=== PATIENT | female | born 1930 | race Asian ===

== ENCOUNTER 2018-03-16 08:22 | Inpatient (IN) | payer MEDICARE, BC ==
[~2018-03-16] VITALS: Ht 157.5 cm; Wt 50.5 kg
[2018-03-16] MEDS ORDERED: SOD CHLORIDE 0.9% 1,000 ML IV STA (08:38)
[2018-03-16] MEDS ORDERED: CEFEPIME 2GM/50 ML (PMX) 50 ML IVPB STA (08:56)
[2018-03-16] MEDS ORDERED: SODIUM CHLORIDE 0.9% 1L BAG IV* STA (08:56)
[2018-03-16] MEDS ORDERED: AZITHROMYCIN 500MG/NS (PMX) 250 ML IVPB ONE (09:30)
[2018-03-16] MEDS ORDERED: LOSA100T15 PO (09:32)
[2018-03-16] MEDS ORDERED: AMLO1CAP10 PO (09:32)
[2018-03-16] MEDS ORDERED: LINA1TAB PO (09:34)
[2018-03-16] MEDS ORDERED: GLIP1TAB6 PO (09:36)
[2018-03-16] MEDS ORDERED: ALEN70TA5 PO (09:37)
--- NOTE | 2018-03-16 11:24 | HP ---
Date/Time of Note Date/Time of Note DATE: 03/16/18 TIME: 11:24 Assessment/Plan VTE Prophylaxis SCD applied (from Nsg): Yes Pharmacological prophylaxis: LMWH Lines/Catheters IV Catheter Type (from Nrsg): Saline Lock Assessment/Plan Assessment/Plan 1. Altered toxic encephalopathy secondary to Pneumonia - Patient usually able to care for herself in assisted living but has been more confused and weak lately - CT scan of head negative for acute abnormalities - Continue monitoring neurological status 2. Sepsis secondary to Right perihilar and LL Pneumonia - started on IVF and broad spectrum antibiotics for treatment of CAP - will start on Nebs PRN as well - Lactic acid elevated and will continue to trend. Monitor for improvement - Tylenol PRN for fevers - calle cultures ordered 3. 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 Leukocytosis - secondary to #2 5. Diabetes Mellitus - A1c noted - will hold home PO medications - ISS and accuchecks 6. Lactic acidosis - elevated in setting of sepsis and pt on Metformin as outpatient 7. HTN - stable. will continue home medications and hold for hypotension. 8. Gait instability - will order PT/OT for evaluation 9. Diet - Carb controlled 10. DVT ppx - LMWH 11. Disposition - Admit to telemetry for acute toxic encephalopathy and treatment of community acquired pneumonia HPI/ROS Admit Date/Time Admit Date/Time 03/16/18 1400 Hx of Present Illness 87 yo F with PMH Dm and HTN presented to ED for altered mental status. Patient is Romanian speaking but not really responding. History obtained from ED physician and son. Per sone patient has been more weak lately which has been causing recurrent falls. Patient fell last night and has been more confused. She resides in an assisted living and usually able to care for herself. EMS was called secondary to patient being unable to get up from toilet due to weakness and AMS. Unable to obtain full HPI given AMS. ROS All 12 systems reviewed and pertinent positives as per HPI. All others negative. ROS limited due to AMS. Constitutional: fatigue; No nausea Eyes: No discharge ENT: No congestion Respiratory: cough, sputum; No shortness of breath, No wheezing Cardiovascular: No chest pain, No lightheadedness, No palpitations Gastrointestinal: No pain, No constipation, No diarrhea, No nausea, No vomiting Genitourinary: no complaints Musculoskeletal: no complaints Skin: No laceration, No rash Neurologic: confusion; No focal-weakness, No syncope Endocrine: no complaints Lymphatic: no complaints Psychological: nl mood/affect Immunologic: no complaints PMH/Family/Social Past Medical History Medical History: diabetes, hypertension Coded Allergies: No Known Allergy (Unverified , 03/16/18) Past Surgical History Past Surgical Hx: other (unable to obtain, left hip replacement on imaging) Family History Significant Family History: no pertinent family hx Social History Alcohol Use: none Smoking Status: Never smoker Drug Use: none Exam/Review of Systems Vital Signs Vitals Vital Signs Date Temp Pulse Resp B/P (MAP) Pulse Ox O2 O2 Flow FiO2 Time Delivery Rate 03/16/18 Nasal 2 09:31 Cannula 03/16/18 98.0 91 18 129/81 91 08:23 (97) Exam Exam General: fatigued, no acute distress. not answering questions but awake HEENT: NC/AT. PERRL. EOM intact Chest: nontender Neck: supple CVS: S1, S2 regular rate and rhythm. no murmurs Lungs: coarse breath sounds bases R>L. no wheezing appreciate. productive cough appreciated Abd: soft, nontender, nondistended, no rebound or guarding. +BS appreciated all quadrants Ext: moving all extremities. no cyanosis, clubbing or edema appreciated Skin: no rashes or lesions appreciated. Medications Medications Home medications reviewed Current Medications Losartan Potassium (Cozaar) 100 mg DAILY PO ; Start 03/17/18 at 09:00; Status UNV Amlodipine Besylate (Norvasc) 5 mg DAILY PO ; Start 03/17/18 at 09:00; Status UNV Dextrose/Sodium Chloride 1,000 ml @ 75 mls/hr [id number] IV ; Start 03/16/18 at 11:19; Status UNV IV Flush (NS 3 ml) 3 ml PER PROTOCOL IV ; Start 03/16/18 at 11:30; Status UNV Ondansetron HCl (Zofran Inj) 4 mg Q6H PRN IV NAUSEA AND/OR VOMITING; Start 03/16/18 at 11:30; Status UNV Acetaminophen (Tylenol Tab) 650 mg Q6H PRN PO PAIN LEVEL 1-3 OR FEVER; Start 03/16/18 at 11:30; Status UNV Docusate Sodium (Colace) 100 mg Q12H PRN PO CONSTIPATION; Start 03/16/18 at 11:30; Status UNV Magnesium Hydroxide (Milk Of Mag) 30 ml DAILY PRN PO CONSTIPATION; Start 03/16/18 at 11:30; Status UNV Famotidine (Pepcid Iv) 20 mg Q12 IV ; Start 03/16/18 at 21:00; Status UNV Enoxaparin Sodium (Lovenox) 30 mg DAILY SC ; Start 03/17/18 at 09:00; Status UNV Results Result Diagram: 03/16/18 0820 03/16/18 0820 Results 24 hrs Laboratory Tests Test 03/16/18 08:20 03/16/18 09:00 03/16/18 09:15 03/16/18 09:50 White Blood 25.0 H Count Red Blood Count 3.58 L Hemoglobin 11.5 L Hematocrit 33.0 L Mean Corpuscular 92.2 Volume Mean Corpuscular 32.1 Hemoglobin Mean Corpuscular 34.8 Hemoglobin Saundra nt Red Cell 12.0 Distribution Width Platelet Count 141 Mean Platelet 11.9 H Volume Immature 0.600 H Granulocytes % Neutrophils % Segmented 97 H Neutrophils % (Manual) Band Neutrophils 3 % (Manual) Lymphocytes % Monocytes % Eosinophils % Basophils % Nucleated Red 0.0 Blood Cells % Immature 0.140 H Granulocytes # Neutrophils # Neutrophils # 24.4 H (Manual) Band Neutrophils 0.7 H # Lymphocytes # Monocytes # Eosinophils # Basophils # Nucleated Red Blood Cells # Toxic 1+ Granulation Platelet NORMAL Estimate Poikilocytosis 1+ Sodium Level 134 L Potassium Level 3.5 Chloride Level 91 L Carbon Dioxide 24 Level Anion Gap 19 H Blood Urea 50 H Nitrogen Creatinine 1.61 H Est Glomerular Filtrat Rate mL/min Glucose Level 301 H Calcium Level 8.7 Total Bilirubin 1.3 Direct Bilirubin 0.70 H Indirect 0.6 Bilirubin Aspartate Amino 108 H Transf (AST/SGOT ) Alanine 59 Aminotransferase (ALT/SGPT) Alkaline 227 H Phosphatase Total Protein 7.3 Albumin 3.4 Globulin 3.90 H Albumin/Globulin 0.87 Ratio Urine Color ANICETO Urine Clarity TURBID A Urine pH 5.0 Urine Specific 1.018 [place] Urine Ketones NEGATIVE Urine Nitrite NEGATIVE Urine Bilirubin NEGATIVE Urine 2+ H Urobilinogen Urine Leukocyte NEGATIVE Esterase Urine 0 Microscopic RBC Urine 8 H Microscopic WBC Urine Squamous FEW Epithelial Cells Urine Amorphous FEW A Crystals Urine Bacteria FEW A Urine Mucus FEW A Urine Hemoglobin 3+ H Urine Glucose 1+ H Urine Total 2+ H Protein POC Venous 2.5 *H Lactate Troponin I 0.039 Test 03/16/18 11:18 POC Venous 2.4 *H Lactate Imaging PROCEDURE: CT Brain without contrast. CLINICAL INDICATION: Altered mental status TECHNIQUE: A CT of the brain was performed utilizing axial imaging from the s kull base through the vertex without IV contrast. Multiplanar reformatted images were made. Images were reviewed on a PACS workstation. CTDIvol: 39.64 mGy DLP: 634.23 mGycm DICOM images are available. One or more of the following dose reduction techniques were utilized: 1.) Automated exposure control 2.) Adjustment of the mA +/- kV according to patient's size 3.) Use of iterative reconstruction technique. COMPARISON: CT BRAIN 06/02/2013 FINDINGS: CALVARIUM: Regional bones are intact. SINUSES: Paranasal sinuses and mastoid air cells are clear. BRAIN: There is moderate cerebral volume loss and there is confluent diminished attenuation throughout the cerebral white matter consistent with advanced chronic small vessel ischemic changes. Atherosclerotic calcification of the carotid siphons. Dinero - white differentiation is maintained and there is no evidence of an acute or subacute territorial infarction. No intracranial mass or evidence of hemorrhage. Ventricular prominence is in keeping with degree of sulcal and sylvian fissure widening. IMPRESSION: 1. No acute intracranial abnormality. 2. Generalized volume loss, atherosclerosis, advanced chronic small vessel i schemic changes. RPTAT: [facility] Physician Loida Date Time Electronically viewed and signed by Physician Loida on 03/16/2018 09:20 PROCEDURE: XR Chest. CLINICAL INDICATION: Chest pain TECHNIQUE: Single frontal view of the chest was obtained COMPARISON: None FINDINGS: The heart is enlarged. The thoracic aorta is calcified. There is extensive right perihilar and right lower lobe consolidation. There is a small amount of fluid in the right major fissure. There is no pneumothorax. RPTAT: AA IMPRESSION: Extensive right perihilar and right lower lobe consolidation with a small amount of fluid in the right major fissure. Mild cardiomegaly. Calcified aorta consistent with atherosclerotic disease. .Vishun Thompson MD, MD Date Time Electronically viewed and signed by .Vishnu Thompson MD, MD on 03/16/2018 09:02 PROCEDURE: XR Pelvis 1 View. CLINICAL INDICATION: Pelvic pain and trauma. TECHNIQUE: Single AP view of the pelvis. COMPARISON: No prior studies are available for comparison. FINDINGS: Fracture: Deformities of the bilateral superior and inferior pubic rami that are likely the sequelae of old, healed trauma. Left hip fracture fixation. The underlying fracture site is not well visualized and may be healed. Destructive lesions: None. Interosseous spaces: Moderate narrowing of bilateral hip joints. Degenerative changes in the lower lumbar spine and pubic symphysis. Soft tissues: Vascular calcifications in the pelvis in both thighs. Other: Osteopenia. IMPRESSION: Deformities of the bilateral superior and inferior pubic rami that may be the sequelae of old, healed trauma. Superimposed acute trauma could be difficult to detect against a background of old, healed trauma. If there is high clinical suspicion for acute traumatic injury further characterization with CT should be considered. Left hip fracture fixation. The underlying fracture site is not well visualized and may be healed. Osteopenia. Moderate osteoarthritis of both hips. Degenerative changes in the lower lumbar spine and pubic symphysis. Vascular calcifications. If there is high clinical suspicion for acute traumatic injury, further evaluation with CT should be considered. RPTAT: AA .Maxx Farris MD, Date Time Electronically viewed and signed by .Maxx Farris MD, on 03/16/2018 09:38 LIS PIZANO MD Mar 16, 2018 11:24
[2018-03-16] MEDS ORDERED: MAGNESIUM HYDROXIDE 30ML CUP PO PRN (11:30)
[2018-03-16] MEDS ORDERED: DOCUSATE SODIUM 100 MG CAP PO PRN (11:30)
[2018-03-16] MEDS ORDERED: NACL 0.9% 3 ML SYG IV SCH (11:30)
[2018-03-16] MEDS ORDERED: ACETAMINOPHEN 325 MG TAB PO PRN ×2 (11:30)
[2018-03-16] MEDS ORDERED: ONDANSETRON 4 MG INJ IV PRN ×2 (11:30)
[2018-03-16] MEDS ORDERED: ALBUTEROL 0.083% (NEB) 2.5 MG/3 ML AMP HHN PRN (11:30)
[2018-03-16] MEDS ORDERED: AZITHROMYCIN 500MG/NS (PMX) 250 ML IVPB SCH (11:30)
--- NOTE | 2018-03-16 12:05 | ERD ---
ER Documentation Chief Complaint Chief Complaint MORE ALTERED THAN NORMAL HPI 87-year-old female brought in from her assisted living accompanied by son with chief complaint of altered mental status. Per her son, the last few days she has been more confused than usual. But she is normally able to take care of herself at her assisted living. She recently fell and today ambulance was called because she could not get off the toilet as she was generally weak. She has not been talking to her son today. As she is not answering questions, review of systems are limited. ROS Limited given altered mental status Medications Home Meds Reported Medications Alendronate Sodium* (Fosamax*) 70 Mg Tablet, 70 MG PO Q7D, #4 TAB 03/16/18 Glipizide/Metformin HCl (Glipizide-Metformin 5-500 mg) 1 Each Tablet, 1 EACH PO DAILY, TAB 03/16/18 Linagliptin-Metformin (Jentadueto) 2.5-500 Mg Tablet, 1 TAB PO DAILY, TAB 03/16/18 Losartan Potassium* (Losartan Potassium*) 100 Mg Tablet, 100 MG PO DAILY, TAB 03/16/18 Amlodipine Besylate/Benazepril (Amlodipine-Benazepril 5-20 mg) 1 Each Capsule, 1 EACH PO DAILY, CAP 03/16/18 Allergies Allergies: Coded Allergies: No Known Allergy (Unverified , 03/16/18) PMhx/Soc Hx Cardiac Disorders: Yes (HTN) Hx Miscellaneous Medical Probl: Yes (DM) Hx Alcohol Use: No Hx Substance Use: No Hx Tobacco Use: No Smoking Status: Never smoker FmHx Unable to obtain Physical Exam Vitals Vital Signs Date Temp Pulse Resp B/P (MAP) Pulse Ox O2 O2 Flow FiO2 Time Delivery Rate 03/16/18 98.0 89 20 119/62 100 Nasal 2.0 11:24 (81) Cannula 03/16/18 Nasal 2 09:31 Cannula 03/16/18 98.0 91 18 129/81 91 08:23 (97) Physical Exam INITIAL VITAL SIGNS: Reviewed by me GENERAL: Patient is lying on gurney HEAD: Normocephalic, atraumatic EYES: EOMI. PERRL. No icterus. No pallor. Lids, lashes, and conjunctiva clear. ENT: Dry membranes dry, no erythema or tonsillar exudates. Airway patent. NECK: Supple. No masses. Full range of motion. No meningismus. No lymphadenopathy RESPIRATORY: Diminished breath sounds bilaterally with poor effort on exam. No wheezing, No rales, No rhonchi. No accessory muscle use. No retractions. CV: Regular rate and rhythm. No murmurs, No rubs or gallops. ABDOMEN: Soft, non-distended, non-tender. No guarding. No rebound. No pulsatile mass. Bowel sounds normal. BACK: Non-tender. No CVA tenderness. EXTREMITIES: No edema. No clubbing or cyanosis. Pulses symmetric. No deficits or delays. Calves non-tender. No cords. Pelvis stable. Intact passive range of motion of all extremities SKIN: Warm and dry. Decreased turgor. No obvious rash, petechiae or purpura. NEUROLOGIC: Awake and alert. Moves all extremities equally. Does not follow commands. No focal deficits. Result Diagram: 03/16/18 0820 03/16/18 0820 Results 24 hrs Laboratory Tests Test 03/16/18 08:20 03/16/18 09:00 03/16/18 09:15 03/16/18 09:50 White Blood 25.0 10^3/ul Count Red Blood Count 3.58 10^6/ul Hemoglobin 11.5 g/dl Hematocrit 33.0 % Mean 92.2 fl Corpuscular Volume Mean 32.1 pg Corpuscular Hemoglobin Mean 34.8 g/dl Corpuscular Hemoglobin Conc ent Red Cell 12.0 % Distribution Width Platelet Count 141 10^3/UL Mean Platelet 11.9 fl Volume Immature 0.600 % Granulocytes % Neutrophils % % Segmented 97 % Neutrophils % (Manual) Band 3 % Neutrophils % (Manual) Lymphocytes % % Monocytes % % Eosinophils % % Basophils % % Nucleated Red 0.0 /100WBC Blood Cells % Immature 0.140 10^3/ul Granulocytes # Neutrophils # 10^3/ul Neutrophils # 24.4 10^3/ul (Manual) Band 0.7 10^3/ul Neutrophils # Lymphocytes # 10^3/ul Monocytes # 10^3/ul Eosinophils # 10^3/ul Basophils # 10^3/ul Nucleated Red 10^3/ul Blood Cells # Toxic 1+ Granulation Platelet NORMAL Estimate Poikilocytosis 1+ Sodium Level 134 mmol/L Potassium Level 3.5 mmol/L Chloride Level 91 mmol/L Carbon Dioxide 24 mmol/L Level Anion Gap 19 Blood Urea 50 mg/dl Nitrogen Creatinine 1.61 mg/dl Est Glomerular mL/min Filtrat Rate mL/min Glucose Level 301 mg/dl Hemoglobin A1c 6.9 % Calcium Level 8.7 mg/dl Total Bilirubin 1.3 mg/dl Direct 0.70 mg/dl Bilirubin Indirect 0.6 mg/dl Bilirubin Aspartate Amino 108 IU/L Transf (AST/SGO T) Alanine 59 IU/L Aminotransferas e (ALT/SGPT) Alkaline 227 IU/L Phosphatase Total Protein 7.3 g/dl Albumin 3.4 g/dl Globulin 3.90 g/dl Albumin/Globuli 0.87 n Ratio Urine Color ANICETO Urine Clarity TURBID Urine pH 5.0 Urine Specific 1.018 [place] Urine Ketones NEGATIVE mg/dL Urine Nitrite NEGATIVE mg/dL Urine Bilirubin NEGATIVE mg/dL Urine 2+ mg/dL Urobilinogen Urine Leukocyte NEGATIVE Elise/ul Esterase Urine 0 /HPF Microscopic RBC Urine 8 /HPF Microscopic WBC Urine Squamous FEW /HPF Epithelial Cell s Urine Amorphous FEW /HPF Crystals Urine Bacteria FEW /HPF Urine Mucus FEW /HPF Urine 3+ mg/dL Hemoglobin Urine Glucose 1+ mg/dL Urine Total 2+ mg/dl Protein POC Venous 2.5 mmol/L Lactate Troponin I 0.039 ng/ml Test 03/16/18 11:18 POC Venous 2.4 mmol/L Lactate Current Medications Medications Dose Sig/Jeanne Start Time Status Last (Trade) Ordered Route PRN Stop Time Admin Dose Reason Admin Sodium 1,000 ml @ Q1H STAT 03/16/18 DC 03/16/18 Chloride 1,000 mls/hr IV 08:38 08:47 03/16/18 09:37 Sodium 800 ml BOLUS OVER 2 03/16/18 DC 03/16/18 Chloride HOURS STAT 08:56 10:11 (NS) IV* 03/16/18 08:57 Cefepime HCl 50 ml @ ONCE STAT 03/16/18 DC 03/16/18 100 mls/hr IVPB 08:56 09:25 03/16/18 09:25 Azithromycin 250 ml @ ONCE ONCE 03/16/18 DC 03/16/18 250 mls/hr IVPB 09:30 10:10 03/16/18 10:29 1,000 ml @ [id number] IV 03/16/18 Dextrose/Sodi 75 mls/hr 11:19 um Chloride Procedures/MDM EMERGENT LABS AND DIAGNOSTIC STUDIES: Lab Results above were reviewed and interpreted by me. CBC: Leukocytosis, concerning for infection. Mild anemia CMP: Elevated BUN and creatinine, consistent with acute renal failure. Hyperglycemic without evidence of acidosis or alkalosis. Troponin within normal limits, not indicative of cardiac ischemia Lactate elevated, consistent with severe sepsis UA: Possible infection, urine culture pending 12-lead EKG was interpreted by Farheen Cantu MD: Normal Sinus Rhythm with ventricular rate of 86 beats per minute Normal axis Normal intervals No acute ST or T wave changes suggestive of acute ischemia or STEMI. Radiology Results as interpreted by Radiology below were reviewed by Mindi Cantu MD: Chest x-ray shows right-sided pneumonia Initial Nursing notes reviewed. Previous Medical Records requested via the Electronic Health Record. EMERGENCY DEPARTMENT COURSE / MEDICAL DECISION MAKING: Patient is presenting with altered mental status from baseline. There was initially no clear source of infection on exam. Her oxygen saturations were noted to be low. She was placed on oxygen. Workup is indicative of a right- sided community-acquired pneumonia and possible UTI. She was treated with IV fluids and broad-spectrum antibiotics. CT head did not show any evidence of acute stroke or intracranial hemorrhage. Doubt meningitis or encephalitis. Patient's infectious symptoms have not stabilized and the patient is at risk of rapid decompensation. The patient will be admitted for careful hydration, antibiotic therapy, and infectious source control. Severe Sepsis Assessment: Infectious Source: Community acquired pneumonia End organ damage indicated by: Lactate > 2.0 mmol/L Acute Resp Failure (sat < 92% w/o oxygen) Severe Sepsis Managment: Blood Cultures X 2 before broad spectrum antibiotics initiated within 3 hours of recognition. 30 ml/kg NS bolus Completed Initial Lactate: 2.5 Repeat Lactate 2.4 Critical Care: Time: 35 minutes Treatments/Evaluations: Emergent fluid management, while maintaining close respiratory support. Immediate broad spectrum antibiotic therapy. Simultaneous assessment for possible sources in order to direct therapy. Consideration for invasive and chemical support to prevent respiratory or cardiac collapse. Septic Shock Assessment (1 hour post 30 ml/kg fluid bolus): Hypotension (SBP < 90 or 40 mmHg drop, MAP < 65): No Lactic acid > 4.0 No Accepting Care Team: Current data and ongoing care discussed. Time: Time of admission Primary Provider: Dr. Mendoza Departure Diagnosis: Primary Impression: Altered mental status Altered mental status type: unspecified Qualified Codes: R41.82 - Altered mental status, unspecified Additional Impressions: Severe sepsis Community acquired pneumonia Laterality: right Lung location: unspecified part of lung Qualified Codes: J18.9 - Pneumonia, unspecified organism Acute renal failure Acute renal failure type: unspecified Qualified Codes: N17.9 - Acute kidney failure, unspecified Condition: Serious REID CANTU MD Mar 16, 2018 12:05
[2018-03-16 12:23] VITALS: PULSE 97
[2018-03-16 12:31] VITALS: BP 136/64; PULSE 96; RESP 16
[2018-03-16] MEDS: DEXTROSE 5%-0.45% NACL 1,000 ML IV SCH (12:51)
--- NOTE | 2018-03-16 13:00 | NUR ---
patient admitted from ER awake, not able to answer to question, called yordan Nguyen and was able to obtain information in regards to patient admission.
[2018-03-16] MEDS: CEFTRIAXONE 1 GM/50 ML (PMX) 50 ML IVPB SCH (13:31)
[2018-03-16 13:43] VITALS: Ht 157.5 cm; Wt 50.5 kg
[2018-03-16] MEDS ORDERED: DEXTROSE 50% 50 ML SYRINGE IV PRN ×2 (14:30)
[2018-03-16] MEDS ORDERED: GLUCOSE GEL 15 GRAM TUBE BUCCAL PRN (14:30)
[2018-03-16] MEDS ORDERED: GLUCAGON 1 MG INJ IM PRN (14:30)
[2018-03-16] MEDS ORDERED: GLUCOSE GEL 15 GRAM TUBE PO PRN ×2 (14:30)
[2018-03-16] MEDS: FAMOTIDINE 20 MG INJ IV SCH (14:37)
--- NOTE | 2018-03-16 15:03 | NUR ---
OT NOTE Attempted to see pt for skilled OT Eval. Pt was sleepy and unable to arouse. RN notified.
[2018-03-16 15:08] VITALS: BP 134/62; PULSE 97; RESP 16
--- NOTE | 2018-03-16 15:30 | NUR ---
PT EVALUATION Therapy day number 1 Evaluation Start Time 15:30 Evaluation End Time 16:10 Evaluation Total Time 40 min Subjective Current complaint of pain Pain Scale FLACC Pain Intensity 0 (0-10) Patient Stated Goal for Pain Relief 3 (0-10) Pain Level Comment generalized R side/flank pain Pre Treatment Vital Signs Stable Yes - resting YQ=097/62mmHg, HR=92-95bpm, SpO2=94% on 3L/min O2 Exercise Assessment Label Bilat Upper Extremity Exercise Type Active ROM Additional Exercise Comments supine AROM HEP training with pt and pt's son Exercise Assessment Label Bilat Lower Extremity Exercise Type Active Assist ROM Additional Exercise Comments supine AAROM HEP training with pt and pt's son Supine to Sit Maximum Assist Transfer Sit to Stand Ability Maximum Assist Bed Mobility Sit to Supine Moderate Assist Sitting Tolerance 10 min Additional Mobility Comments chair transfer not attempted 2' pt fatigue/refusal (2P assist advised) Assistive Devices Front Wheel Walker Additional Gait Comments unable to take steps at EOB at this time with FWW and Max A Static Sitting Balance Fair minus Dynamic Sitting Balance Poor plus Standing Static Balance Poor plus Dynamic Standing Balance Poor Safety Judgement Fair Activity Tolerance Poor Equipment Present IV pump Post Treatment Pain Intensity 3 0-10 Total Minutes 40 Total Units 3 PT Technical Record Comment PT EVALUATION: Pt is a Turkish-speaking 87yo female admitted to [facility] 03/16/18 after presenting to ER with new onset lethargy, generalized weakness, s/p fall and difficulty transferring from toilet at home night prior to admission. Pt found to have PNA and likely sepsis. Brain CT negative for acute pathology, demo'd generalized volume loss, atherosclerosis, advanced chronic small vessel ischemic changes. Chest Xray (+) for Extensive right perihilar and rightlower lobe consolidation with a small amount of fluid in the right major fissure, Mild cardiomegaly, Calcified aorta consistent with atherosclerotic disease. Pelvis Xray (+) Deformities of the bilateral superior and inferior pubic rami that are likely the sequelae of old, healed trauma, and old Left hip fracture fixation. The underlying fracture site is not well visualized and may be healed. Pt is WBAT per MD order, seen for PT eval on 5th floor telemetry. PMH: s/p old L hip Fx and surgical fixation, DM. Precautions: KLAWOCK, fall precautions. PLOF: Pt's son at bedside providing PLOF 2' pt lethargy. Pt lives alone in senior apartment with no ANTONIO. Pt previously Mod I with 4WW for household distance mobility and self-care ADLs, however is unsteady at times according to son. Pt has tub/shower combo with grab bars and also owns SPC. Pt's son visits daily to check on pt, but pt is often alone in the apartment, and son voices concern regarding safety/DC disposition to home. CLOF: Pt received lethargic but able to follow basic commands 70% of the time in Turkish (pt's son assisting due to KLAWOCK and unable to hear semiconductor wafers tester). Pt presented to PT evaluation with impaired AROM RLE, impaired sitting and standing balance, flank pain and poor activity tolerance contributing to decreased independence with functional mobility. Pt assessed to be Max A for bed mobility supine to sitting EOB, needs Min to Mod A for maintaining sitting balance. Pt is Max A for STS trial with FWW, unable to take steps at this time. Pt is Mod A for return to supine and repositioning for comfort. Pt and pt's son educated on supine ROM HEP to encourage mobility and maintain strength while admitted to hospital. Pt's son verbalized good understanding. All needs met and call light in reach post-treatment. Pt will benefit from skilled PT interventions to address aforementioned deficits contributing to decreased independence with functional mobility. PT advises DC to SNF for further rehab and decreased caregiver burden at this time. Anticipated DME: FWW and BSC.
[2018-03-16 16:16] VITALS: PULSE 98
[2018-03-16] MEDS: INSULIN ASPART [NOVOLOG] 3 ML PEN SC SCH ×2 (18:04→21:21)
--- NOTE | 2018-03-16 19:00 | NUR ---
EOSS: patient in bed responsive to name and touched, respiration even and unlabored, O2 at 2L NC and tolerated well, no significant change of condition, continue with current plan of care.
[2018-03-16 19:44] VITALS: BP 140/64; PULSE 101; RESP 18
[2018-03-16 20:00] VITALS: PULSE 97
[2018-03-16] MEDS ORDERED: VANCOMYCIN IV PER PHARMACY XX SCH (23:00)
--- NOTE | 2018-03-16 23:19 | NUR ---
Positive blood culture. Notified Dr. Harden. Order for vanco IV per pharmacy protocol. order was carried out.
[2018-03-17] VITALS (9 sets, daily range): BP systolic 136–170; BP diastolic 65–79; PULSE 76–97; RESP 15–18
[2018-03-17] MEDS: DEXTROSE 5%-0.45% NACL 1,000 ML IV SCH ×2 (00:38→06:58)
--- NOTE | 2018-03-17 00:39 | NUR ---
VANCO PER RX PROTOCOL: DAY #1 S/O: 87 YO FEMALE W/ SEVERE SEPSIS 2/2 CAP, DM, CAMPOS TEMP = 98.7 SCR/BUN = 1.161/50 WBC = 25 A/P: VANCO 1GM LD, FOLLOWED BY 750MG Q 48HR. TR LEVEL WHEN APPROPRIATE TO CHECK VANCO CLEARANCE. WILL CONTINUE TO FOLLOW.
--- NOTE | 2018-03-17 00:39 | NUR ---
Tried giving patient a sip of water and almost choke. oral care provided. tried another sip of water and still noted patient coughing after drinking a small amount of water. Dr. Harden notified and ordered to keep patient npo for now and tylenol suppository for fever or pain. will continue to monitor per protocol.
[2018-03-17] MEDS ORDERED: ACETAMINOPHEN 650 MG SUPP PR PRN (01:00)
[2018-03-17] MEDS ORDERED: VANCOMYCIN 1 GM 250 ML IVPB SCH (02:00)
--- NOTE | 2018-03-17 05:34 | NUR ---
eoss: No neuro changes patient remains lethargic, arousable. Afebrile. BP stable. No signs of respiratory distress. Tolerating nasal cannula at 2L. Limited assessment due to language barrier. Patient is pashto speaking only. no family at bedside at this time. safety measures followed. repositioned per protocol. Chart reviewed. Plan of care remains the same. will continue to monitor per protocol.
[2018-03-17] MEDS: ENOXAPARIN 30 MG/0.3 ML SYG SC SCH (08:32)
[2018-03-17] MEDS: INSULIN ASPART [NOVOLOG] 3 ML PEN SC SCH ×4 (08:32→21:00)
[2018-03-17] MEDS: LOSARTAN 50 MG TAB PO SCH (09:00)
[2018-03-17] MEDS: AMLODIPINE 5 MG TAB PO SCH (09:00)
--- NOTE | 2018-03-17 09:04 | PN ---
Date/Time of Note Date/Time of Note DATE: 03/17/18 TIME: 09:04 Assessment/Plan VTE Prophylaxis Risk score (from Nsg)>0 risk: 6 SCD applied (from Nsg): Yes Pharmacological prophylaxis: LMWH Lines/Catheters IV Catheter Type (from Nrsg): Peripheral IV Urinary Cath still in place: No Assessment/Plan Assessment/Plan 1. Bacteremia - Blood culture results noted and ID consultation placed for antibiotics recommendations - Will repeat blood cx in the am - supportive care for fevers 2. Altered toxic encephalopathy secondary to Pneumonia- improving - Patient still fatigued and will keep NPO for now until more awake and assessed by ST. [facility] for aspiration given R sided pneumonia - Patient usually able to care for herself in assisted living - CT scan of head negative for acute abnormalities 3. Sepsis secondary to Right perihilar and LL Pneumonia - continue IVF and IV antibiotics. - Tylenol PRN for fevers - seen on CXR - Nebs PRN 4. Hypokalemia - will replace and continue to monitor levels 5. CAMPOS- resolved - most likely prerenal 6. Leukocytosis- improving - secondary to #1 and 3 7. Diabetes Mellitus - A1c noted - will hold home PO medications - ISS and accuchecks 8. Lactic acidosis- resolved 9. HTN - stable. hold home medications in setting of sepsis 10. Gait instability - PT/OT 11. Disposition - Continue current treatment for sepsis secondary to pneumonia and bacteremia. Monitor for improvement Result Diagram: 03/17/1862103/17/18 0622 Results 24hrs Laboratory Tests Test 03/16/18 09:15 03/16/18 09:50 03/16/18 11:18 03/16/18 14:24 POC Venous 2.5 *H 2.4 *H Lactate Troponin I 0.039 Lactic Acid 2.0 Level Test 03/16/18 17:42 03/16/18 17:44 03/16/18 21:14 03/17/18 06:22 Bedside Glucose 351 H 314 H 272 H White Blood 13.9 #H Count Red Blood Count 2.88 L Hemoglobin 9.3 L Hematocrit 26.5 L Mean Corpuscular 92.0 Volume Mean Corpuscular 32.3 Hemoglobin Mean Corpuscular 35.1 Hemoglobin Saundra nt Red Cell 12.1 Distribution Width Platelet Count 113 L Mean Platelet 11.8 H Volume Immature 1.400 H Granulocytes % Neutrophils % Lymphocytes % Monocytes % Eosinophils % Basophils % Nucleated Red 0.0 Blood Cells % Immature 0.190 H Granulocytes # Neutrophils # Lymphocytes # Monocytes # Eosinophils # Basophils # Nucleated Red Blood Cells # Sodium Level 136 Potassium Level 2.3 *L Chloride Level 97 Carbon Dioxide 27 Level Anion Gap 12 # Blood Urea 34 #H Nitrogen Creatinine 0.81 Glucose Level 305 H Lactic Acid 1.7 Level Calcium Level 7.3 L Phosphorus Level 2.4 L Magnesium Level 1.7 Albumin 2.5 L Test 03/17/18 07:54 Bedside Glucose 326 H Subjective 24 Hr Interval Summary Free Text/Dictation Patient still lethargic but denies any new complaints. Son at bedside and plan of care discussed. All questions addressed. Exam/Review of Systems Vital Signs Vitals Vital Signs Date Temp Pulse Resp B/P (MAP) Pulse Ox O2 O2 Flow FiO2 Time Delivery Rate 03/17/18 84 08:34 03/17/18 98.2 15 146/67 92 07:11 (93) 03/16/18 Nasal 2.0 19:45 Cannula Intake and Output 03/16/18 03/16/18 03/17/18 1515:00 23:00 07:00 IntakeIntake Total 50 ml 625 ml BalanceBalance 50 ml 625 ml Exam General: fatigued, no acute distress. Chest: nontender Neck: supple CVS: S1, S2 regular rate and rhythm. no murmurs Lungs: coarse breath sounds bases R>L. no wheezing appreciate. productive cough appreciated Abd: soft, nontender, nondistended, no rebound or guarding. +BS appreciated all quadrants Ext: moving all extremities. no cyanosis, clubbing or edema appreciated Skin: no rashes or lesions appreciated. Medications Medications Current Medications Losartan Potassium (Cozaar) 100 mg DAILY PO ; Start 03/17/18 at 09:00 Amlodipine Besylate (Norvasc) 5 mg DAILY PO ; Start 03/17/18 at 09:00 Dextrose/Sodium Chloride 1,000 ml @ 75 mls/hr [id number] IV Last administered on 03/17/18at 06:58; Admin Dose 75 MLS/HR; Start 03/16/18 at 11:19 IV Flush (NS 3 ml) 3 ml PER PROTOCOL IV ; Start 03/16/18 at 11:30 Ondansetron HCl (Zofran Inj) 4 mg Q6H PRN IV NAUSEA AND/OR VOMITING; Start 03/16/18 at 11:30 Acetaminophen (Tylenol Tab) 650 mg Q6H PRN PO PAIN LEVEL 1-3 OR FEVER; Start 03/16/18 at 11:30 Docusate Sodium (Colace) 100 mg Q12H PRN PO CONSTIPATION; Start 03/16/18 at 11:30 Magnesium Hydroxide (Milk Of Mag) 30 ml DAILY PRN PO CONSTIPATION; Start 03/16/18 at 11:30 Famotidine (Pepcid Iv) 20 mg DAILY IV Last administered on 03/16/18at 14:37; Admin Dose 20 MG; Start 03/16/18 at 12:00 Enoxaparin Sodium (Lovenox) 30 mg DAILY SC Last administered on 03/17/18at 08:32; Admin Dose 30 MG; Start 03/17/18 at 09:00 Azithromycin 250 ml @ 250 mls/hr Q24H IVPB Last administered on 03/16/18at 15:40; Admin Dose 250 MLS/HR; Start 03/16/18 at 11:30 Ceftriaxone Sodium 50 ml @ 100 mls/hr Q24H IVPB Last administered on at 13:31; Admin Dose 100 MLS/HR; Start 03/16/18 at 11:30 Albuterol (Proventil 0.083% (Neb)) 2.5 mg Q2H RESP THERAPY PRN HHN SHORTNESS OF BREATH; Start 03/16/18 at 11:30 Insulin Aspart (Novolog Insulin Pen) NOVOLOG *MILD* ALGORITHM WITH MEALS BEDTIME SC Last administered on 03/17/18at 08:32; Admin Dose 5 UNIT; Start 03/16/18 at 17:55 Miscellaneous Information 1 ea NOTE XX ; Start 03/16/18 at 14:30 Glucose (Glutose) 15 gm Q15M PRN PO DECREASED GLUCOSE; Start 03/16/18 at 14:30 Glucose (Glutose) 22.5 gm Q15M PRN PO DECREASED GLUCOSE; Start 03/16/18 at 14:30 Dextrose (D50w Syringe) 25 ml Q15M PRN IV DECREASED GLUCOSE; Start 03/16/18 at 14:30 Dextrose (D50w Syringe) 50 ml Q15M PRN IV DECREASED GLUCOSE; Start 03/16/18 at 14:30 Glucagon (Glucagen) 1 mg Q15M PRN IM DECREASED GLUCOSE; Start 03/16/18 at 14:30 Glucose (Glutose) 15 gm Q15M PRN BUCCAL DECREASED GLUCOSE; Start 03/16/18 at 14:30 Vancomycin HCl (Vanco Iv Per Pharmacy) VANCOMYCIN PER PHARMACY PER PROTOCOL XX ; Start 03/16/18 at 23:00 Vancomycin HCl 750 mg/Sodium Chloride 150 ml @ 75 mls/hr Q48H IVPB ; Start at 02:00 Acetaminophen (Tylenol Supp) 650 mg Q6H PRN [place] MILD PAIN(1-3) OR TEMP>38C; Start 03/17/18 at 01:00 LIS PIZANO MD Mar 17, 2018 09:04
--- NOTE | 2018-03-17 09:41 | NUR ---
RX NOTE RE: VANCOMYCIN DAY #2 OF VANCOMYCIN PER RX BUN/SCR: 34/0.81 WBC: 13.9 TMAX: 99.4 ALLERGIES: NKDA OTHER ABX: AZITHROMYCIN, CEFTRIAXONE SCR IMPROVED. ADJUST VANCOMYCIN 500MG IV Q24HR STARTING 03/18. PHARMACY TO FOLLOW.
[2018-03-17] MEDS: FAMOTIDINE 20 MG INJ IV SCH (10:07)
[2018-03-17] MEDS: SOD CHLORIDE 0.9% 1,000 ML IV SCH ×2 (10:17→23:05)
[2018-03-17] MEDS: CEFTRIAXONE 1 GM/50 ML (PMX) 50 ML IVPB SCH (11:33)
--- NOTE | 2018-03-17 12:13 | NUR ---
RN NOTES: Received critical result K+, notified Dr. Mendoza. Orders received and carried out accordingly. Also verified if PO meds we're approved to be held d/t NPO status, pending berta Mcdaniel MD, okay to hold PO meds. Pt's VS stable at this time. Will continue to monitor.
[2018-03-17] MEDS: POTASSIUM CHLORIDE 100 ML IVPB SCH ×4 (14:10→23:05)
--- NOTE | 2018-03-17 14:27 | CONS ---
DATE OF ADMISSION: 03/16/2018 DATE OF CONSULTATION: 03/17/2018 TYPE OF CONSULTATION: Infectious disease. REASON FOR CONSULTATION: Antibiotic management. HISTORY OF PRESENT ILLNESS: Pop Dowell is an 87-year-old female who has numerous problems and is adm itted for sepsis and is being seen for antibiotic management. Her past problems include: 1. Adult-onset diabetes mellitus. 2. Hypertension. Acutely, the patient presented to the Emergency Room with altered mental status. She is French speak ing but not responding. Her son noted that she became weaker over the last few days and has been eugene ving recurrent falls. She fell the night prior to admission, became more confused. She resides in a n assisted living. EMS was called because of weakness and altered mental status. On admission, her white count was 25,000, H and H 11.5 and 33, platelet count 141,000. BUN and creatinine 50/1.61. Bl ood sugar is 301. She was found to have altered mentation secondary to toxic encephalopathy felt to be related to pneumonia. The patient is usually able to take care of herself. CT scan of the head i s negative for acute abnormalities. She has a right perihilar and left lower lobe pneumonia and is s eptic, started on IV fluids and broad spectrum antibiotics for treatment of community-acquired pneumo cate, lactic acid elevation, acute renal insufficiency most likely prerenal, leukocytosis, adult onset diabetes mellitus, lactic acidosis, hypertension, gait instability. HOSPITAL COURSE: Today's white count is 13.9, H and H 9.3/26.5, platelet count 113,000. BUN and cre atinine is 34/0.81, glucose 305, potassium 2.3. A blood culture is growing out streptococcal pneumon ia which is probably without the cause of her pneumonia. One/two urine culture is negative. T he patient is currently on vancomycin. ALLERGIES: She has no known allergies. PHYSICAL EXAMINATION: GENERAL: She is lying in bed in no acute distress. She is an elderly French female. VITAL SIGNS: Stable. She is afebrile. SKIN: Without generalized rash. HEENT: Within normal limits. NECK: Supple. LYMPH NODES: None palpable. CHEST: Decreased breath sounds at the bases. HEART: Without murmur or gallop. ABDOMEN: Soft, nontender, without organosplenomegaly or masses. EXTREMITIES: Without cyanosis, clubbing, or edema. RECTAL AND GENITAL: Deferred. NEUROLOGIC: No focal neurological abnormalities. ANCILLARY LABORATORY DATA: Her chest x-ray shows extensive right perihilar and right lower lobe cons olidation with a small amount of fluid in the right major fissure, mild cardiomegaly, calcified aorta consistent with atherosclerotic cardiovascular disease. CT scan of the brain, no acute intracranial abnormality, generalized volume loss, atherosclerosis and advanced chronic small vessel ischemic romulo nges. IMPRESSION AND PLAN: The patient comes in now with pneumococcal pneumonia. I am going to add Unasyn to her regimen. Her BUN and creatinine is 35/0.4 so that should not be a problem. Her glucose is s till out of control, so she is hyperglycemic and that has to be managed as well. Of note, she has on her pelvic examination, superimposed acute trauma. There is high clinical suspicion for acute traum a injury. Further characterization with CT scan should be considered. She has left hip fracture fix ation and the underlying fracture site is not well visualized and may be healed. So we are going to treat her with Unasyn. I may discontinue her vancomycin. She is on azithromycin and ceftriaxone. I am going to discontinue those and place her on Unasyn. [facility]. Dictated By: MARKY DIAZ MD, JD/EDMAR Conf#: [id number] DID#: [id number] CC: LIS PIZANO MD;*End*
--- NOTE | 2018-03-17 18:55 | NUR ---
EOSS: Pt laying in bed comfortably, VS stable, K+ low and was replaced via IV. Pt's blood culture (+) for strep pneumo, Dr. Mendoza aware, new orders received. Attempted swallow eval, pt tolerated well, new order for diet placed. Pt still on aspiration precautions. Kept pt clean and dry throughout the shift. All needs attended at this time. Will endorse plan of care to oncoming shift.
[2018-03-17] MEDS: AMPICILLIN/SULB 3 GM/NS (PMX) 100 ML IVPB SCH (21:19)
[2018-03-17] MEDS ORDERED: hydrALAzine 20 MG INJ IV PRN (21:30)
--- NOTE | 2018-03-17 21:42 | NUR ---
As per TOOL CHASER, BP was elevated. Called and got a prn order from Dr Harden. Noted and will carry out. When recheck BP, it's now WNL. WIll recheck it again later.
[2018-03-18] VITALS (10 sets, daily range): BP systolic 122–150; BP diastolic 60–76; PULSE 71–89; RESP 18–19
[2018-03-18] MEDS: AMPICILLIN/SULB 3 GM/NS (PMX) 100 ML IVPB SCH ×4 (01:18→18:00)
[2018-03-18] MEDS: VANCOMYCIN 500 MG (PMX) 100 ML IVPB SCH (02:25)
--- NOTE | 2018-03-18 06:29 | NUR ---
Pt asleep. Was just given Unasyn ABX and on going IVF. Bed alarm on ,call light within reach.
--- NOTE | 2018-03-18 06:54 | NUR ---
Lab called with low Potassium level. Will call
--- NOTE | 2018-03-18 06:57 | NUR ---
Just sent a message to Dr Harden.
[2018-03-18] MEDS ORDERED: MAGNESIUM SULFATE 3 GM in DEXTROSE 5% 100 ML IVPB ONE (07:30)
[2018-03-18] MEDS: POTASSIUM CHLORIDE 100 ML IVPB SCH ×2 (07:52→11:05)
[2018-03-18] MEDS: INSULIN ASPART [NOVOLOG] 3 ML PEN SC SCH ×4 (07:59→20:38)
--- NOTE | 2018-03-18 08:39 | PN ---
Date/Time of Note Date/Time of Note DATE: 03/18/18 TIME: 08:39 Assessment/Plan VTE Prophylaxis Risk score (from Ns)>0 risk: 4 SCD applied (from Ns): Yes Pharmacological prophylaxis: LMWH Lines/Catheters IV Catheter Type (from Nrs): Peripheral IV Urinary Cath still in place: No Assessment/Plan Assessment/Plan 1. Bacteremia- improving - ID on board and appreciate recommendations. Patient placed on Unasyn - Blood culture results noted and repeat drawn - WBC normalized and remains afebrile 2. Altered toxic encephalopathy secondary to Pneumonia- improving - Patient more awake this am - Patient usually able to care for herself in assisted living - CT scan of head negative for acute abnormalities 3. Dysphagia - ST on board and concern for silent aspiration. Will continue on soft diet with thicken liquids. Pills crushed in applesauce - aspiration precautions in place 4. Sepsis secondary to Right perihilar and LL Pneumonia- improving - ID on board and appreciate antibiotic recommendations - seen on CXR - Nebs PRN 4. Electrolyte derangement - K remains low and will replace Mg and Phos as well. continue monitoring and replace as needed 5. CAMPOS- resolved - most likely prerenal 6. Leukocytosis- improving - secondary to #1 and 4 7. Diabetes Mellitus - A1c noted - still with hyperglycemia and will add lantus in pm. Will d/c on PO medicatio ns when stable given A1c 6.9 - will hold home PO medications - ISS and accuchecks 8. Lactic acidosis- resolved 9. HTN - stable. hold home medications in setting of sepsis 10. Gait instability - PT/OT recommending SNF placement. Discussed with son need for SNF prior to d/c back to assisted living 11. Disposition - Awaiting results of repeat blood cultures prior to d/c - Will consult CM for SNF placement Result Diagram: 03/18/18 0549 03/18/18 0549 Results 24hrs Laboratory Tests Test 03/17/18 11:06 03/17/18 11:32 03/17/18 16:57 03/17/18 21:18 Potassium Level 2.2 *L Bedside Glucose 236 H 188 173 Test 03/18/18 05:49 03/18/18 07:50 White Blood 8.6 # Count Red Blood Count 3.24 L Hemoglobin 10.3 L Hematocrit 30.4 L Mean Corpuscular 93.8 Volume Mean Corpuscular 31.8 Hemoglobin Mean Corpuscular 33.9 Hemoglobin Saundra nt Red Cell 12.2 Distribution Width Platelet Count 121 L Mean Platelet 11.0 H Volume Immature 3.000 H Granulocytes % Neutrophils % 87.2 H Lymphocytes % 6.7 L Monocytes % 2.3 Eosinophils % 0.1 Basophils % 0.7 Nucleated Red 0.0 Blood Cells % Immature 0.260 H Granulocytes # Neutrophils # 7.5 Lymphocytes # 0.6 L Monocytes # 0.2 L Eosinophils # 0.0 Basophils # 0.1 Nucleated Red 0.0 Blood Cells # Sodium Level 137 Potassium Level 2.7 *L Chloride Level 94 L Carbon Dioxide 32 H Level Anion Gap 11 Blood Urea 23 #H Nitrogen Creatinine 0.75 Est Glomerular Filtrat Rate mL/min Glucose Level 273 H Calcium Level 7.5 L Magnesium Level 1.4 L Total Bilirubin 0.4 Direct Bilirubin 0.10 # Indirect 0.3 Bilirubin Aspartate Amino 99 H Transf (AST/SGOT ) Alanine 64 Aminotransferase (ALT/SGPT) Alkaline 216 H Phosphatase Total Protein 5.9 #L Albumin 2.8 L Globulin 3.10 Albumin/Globulin 0.90 Ratio Bedside Glucose 251 H Subjective 24 Hr Interval Summary Free Text/Dictation Patient still pleasantly confused but more alert this am. No acute overnight events. Per Nursing, patient coughing with thin liquids but tolerating soft diet. Exam/Review of Systems Vital Signs Vitals Vital Signs Date Temp Pulse Resp B/P (MAP) Pulse Ox O2 O2 Flow FiO2 Time Delivery Rate 03/18/18 80 08:00 03/18/18 98.0 18 134/62 94 Room Air 07:17 (86) 03/17/18 2.0 20:30 Intake and Output 03/17/18 03/17/18 03/18/18 1515:00 23:00 07:00 IntakeIntake Total 50 ml 375 ml 900 ml BalanceBalance 50 ml 375 ml 900 ml Exam General: no acute distress. awake. [place] [employer] [employer] [place] Chest: nontender Neck: supple CVS: S1, S2 regular rate and rhythm. no murmurs Lungs: diminished breath sounds bases. no wheezing appreciate Abd: soft, nontender, nondistended, no rebound or guarding.\ Ext: moving all extremities. no cyanosis, clubbing or edema appreciated Skin: no rashes or lesions appreciated. Medications Medications Current Medications Losartan Potassium (Cozaar) 100 mg DAILY PO ; Start 03/17/18 at 09:00 Amlodipine Besylate (Norvasc) 5 mg DAILY PO ; Start 03/17/18 at 09:00 IV Flush (NS 3 ml) 3 ml PER PROTOCOL IV ; Start 03/16/18 at 11:30 Ondansetron HCl (Zofran Inj) 4 mg Q6H PRN IV NAUSEA AND/OR VOMITING; Start 03/16/18 at 11:30 Acetaminophen (Tylenol Tab) 650 mg Q6H PRN PO PAIN LEVEL 1-3 OR FEVER; Start 03/16/18 at 11:30 Docusate Sodium (Colace) 100 mg Q12H PRN PO CONSTIPATION; Start 03/16/18 at 11:30 Magnesium Hydroxide (Milk Of Mag) 30 ml DAILY PRN PO CONSTIPATION; Start 03/16/18 at 11:30 Famotidine (Pepcid Iv) 20 mg DAILY IV Last administered on 03/17/18at 10:07; Admin Dose 20 MG; Start 03/16/18 at 12:00 Enoxaparin Sodium (Lovenox) 30 mg DAILY SC Last administered on 03/17/18at 08:32; Admin Dose 30 MG; Start 03/17/18 at 09:00 Albuterol (Proventil 0.083% (Neb)) 2.5 mg Q2H RESP THERAPY PRN HHN SHORTNESS OF BREATH; Start 03/16/18 at 11:30 Insulin Aspart (Novolog Insulin Pen) NOVOLOG *MILD* ALGORITHM WITH MEALS BEDTIME SC Last administered on 03/18/18at 07:59; Admin Dose 3 UNIT; Start 03/16/18 at 17:55 Miscellaneous Information 1 ea NOTE XX ; Start 03/16/18 at 14:30 Glucose (Glutose) 15 gm Q15M PRN PO DECREASED GLUCOSE; Start 03/16/18 at 14:30 Glucose (Glutose) 22.5 gm Q15M PRN PO DECREASED GLUCOSE; Start 03/16/18 at 14: 30 Dextrose (D50w Syringe) 25 ml Q15M PRN IV DECREASED GLUCOSE; Start 03/16/18 at 14:30 Dextrose (D50w Syringe) 50 ml Q15M PRN IV DECREASED GLUCOSE; Start 03/16/18 at 14:30 Glucagon (Glucagen) 1 mg Q15M PRN IM DECREASED GLUCOSE; Start 03/16/18 at 14:30 Glucose (Glutose) 15 gm Q15M PRN BUCCAL DECREASED GLUCOSE; Start 03/16/18 at 14:30 Vancomycin HCl (Vanco Iv Per Pharmacy) VANCOMYCIN PER PHARMACY PER PROTOCOL XX ; Start 03/16/18 at 23:00 Acetaminophen (Tylenol Supp) 650 mg Q6H PRN [place] MILD PAIN(1-3) OR TEMP>38C; Start 03/17/18 at 01:00 Sodium Chloride 1,000 ml @ 75 mls/hr [id number] IV Last administered on 03/17/18at 23:05; Admin Dose 75 MLS/HR; Start 03/17/18 at 09:30 Vancomycin HCl 100 ml @ 100 mls/hr Q24H IVPB Last administered on 03/18/18at 02:25; Admin Dose 100 MLS/HR; Start 03/18/18 at 02:00 Ampicillin Sodium/ Sulbactam Sodium 100 ml @ 100 mls/hr Q6 IVPB Last administ ered on 03/18/18at 05:11; Admin Dose 100 MLS/HR; Start 03/17/18 at 18:00 Hydralazine HCl (Apresoline) 10 mg Q4H PRN IV elevated BP; Start 03/17/18 at 21:30 Magnesium Sulfate 3 gm/Dextrose 106 ml @ 35.333 mls/ hr ONCE ONCE IVPB ; Start 03/18/18 at 07:30; Stop 03/18/18 at 10:29 Potassium Chloride 100 ml @ 50 mls/hr Q2H IVPB Last administered on 03/18/18at 07:52; Admin Dose 50 MLS/HR; Start 03/18/18 at 07:30; Stop 03/18/18 at 11:29 LIS PIZANO MD Mar 18, 2018 08:39
--- NOTE | 2018-03-18 09:10 | NUR ---
ST NOTE: Pt is a 87 year old female admitted with diagnsois of toxic encephalopathy secondary to Pneumonia.Sepsis secondary to Right perihilar and LL Pneumonia Pt resides at assisted living facility. pt also found to have CAMPOS; HTN; history of recurrent falls; PMH: Diabetes Mellitus 03/16/18: CT scan of head negative for acute abnormalities CXR: 03/16/18 FINDINGS: The heart is enlarged. The thoracic aorta is calcified. There is extensive right perihilar and right lower lobe consolidation. There is a small amount of fluid in the right major fissure. There is no pneumothorax. IMPRESSION: Extensive right perihilar and right lower lobe consolidation with a small amount of fluid in the right major fissure. Mild cardiomegaly. Calcified aorta consistent with atherosclerotic disease. ST NOTE: pt per RN was placed on diet as st not there yesterday; per RN pt originally was choking on liquids but reported that they continued to retest and then found to have no difficulty; Industry was done on 02/2418 and pt failed. order original placed due to pt coughing and choking on liquids; see nursing note: pt then rested by RN 03/17/18:Nursing NOTE (00:39) Tried giving patient a sip of water and almost choke. oral care provided. tried another sip of water and still noted patient coughing after drinking a small amount of water. Dr. Harden notified and ordered to keep patient npo for now and tylenol suppository for fever or pain. will continue to monitor per protocol. RN retested on and placed on regular/thin diet; 03/17/18: Nursing NOTE (18:55) Pt laying in bed comfortably, VS stable, K+ low and was replaced via IV. Pt's blood culture (+) for strep pneumo, Dr. Mendoza aware, new orders received. Attempted swallow eval, pt tolerated well, new order for diet placed. Pt still on aspiration precautions. Kept pt clean and dry throughout the shift. All needs attended at this time. Will endorse plan of care to oncoming shift. Pt would not have passed another agustina swallow and pt not a stroke pt; pt assessed this morning. Cognitive Status; Backup Administrative Coordinator Phone used; park interpreter#[id number]. pt said yes to all questions; not oriented except for name; asked multiple yes/no questions with such as "are you a man?" pt responded "yes". pt needed tactile and visual cues multiple to do simple whole body commands such as open your mouth; stick out your tongue; Vitals: Pt afebrile; 03/17 WBC high; today normal;carbon dioxide high; potassium low; Oxygen: on room air Oral Motor Exam: lingual weakness; some lingual tremoring upon protrusion; unable to fully lateralize right and left; no labial asymmetry noted but pt not fully following direction to smile; no droop noted; Dental Status;permanent upper and lower but missing several and upper and lower teeth; condition of dentition is poor; Oral/Pharyngeal Phase: pt with slow oral transit of soft solids and puree but more significant with soft solid; oral residue on tongue and mild residue on lips; reg solid pt did not want; suspect decreased oral control and spillage with liquids; thin via straw as pt upon arrival had this on tray and wanted it; with auscultation pt took single sip; suspect spillage and penetration and aspiration as audible liquid heard on vocal cords; pt with throat clearing only heard with cervical auscultation on first trial; second trial audible throat clear and trigger of the cough; suspect silent asp with delayed cough; same result with thin via cup; spoon not tested as pt did not want to take via spoon; pt cough weak. nectar thick tested as pt tolerated nectar via single sip cup;multiple trials given with nectar 4 ounces; nectar via straw pt throat clearing and coughed x1; ; puree; able to tolerate; good laryngeal elevation soft solid; liquid wash down needed due to oral residue but cleared nicely; no overt s/s of difficulty noted; rec. downgrade diet texture to mch soft/cut; nectar thick; NO STRAWS; pills mixed with puree; aspiration precautions; discussed at length with MANJU Alexander as suspect SILENT ASP with liquids but pt does trigger delayed cough; would not passed agustina and would not have placed pt on reg/thin diet as not appropriate; rn reported md suspects asp pna; st to follow for diet tolerance; if pt can follow for swallowing exercises; may need video as do not feel pt can advance back to thin and objective study would be beneficial when appropriate.
[2018-03-18] MEDS: AMLODIPINE 5 MG TAB PO SCH (09:16)
[2018-03-18] MEDS: LOSARTAN 50 MG TAB PO SCH (09:17)
[2018-03-18] MEDS: FAMOTIDINE 20 MG INJ IV SCH (09:17)
--- NOTE | 2018-03-18 09:30 | NUR ---
OT EVALUATION: Pt is a Faroese-speaking 87yo female admitted to [facility] 03/16/18 after presenting to ER with new onset lethargy, generalized weakness, s/p fall and difficulty transferring from toilet at home night prior to admission. Pt found to have PNA and likely sepsis. Brain CT negative for acute pathology, demo'd generalized volume loss, atherosclerosis, advanced chronic small vessel ischemic changes. Chest Xray (+) for Extensive right perihilar and rightlower lobe consolidation with a small amount of fluid in the right major fissure, Mild cardiomegaly, Calcified aorta consistent with atherosclerotic disease. Pelvis Xray (+) Deformities of the bilateral superior and inferior pubic rami that are likely the sequelae of old, healed trauma, and old Left hip fracture fixation. The underlying fracture site is not well visualized and may be healed. Pt is WBAT per MD order. PMH: s/p old L hip Fx and surgical fixation, DM. Precautions: NIKOLSKI, fall precautions. PLOF: Pt's son reported PLOF 2' pt lethargy. Pt lives alone in senior apartment with no ANTONIO. Pt previously Mod I with 4WW for household distance mobility and self-care ADLs, however is unsteady at times according to son. Pt has tub/shower combo with grab bars and also owns SPC. Pt's son visits daily to check on pt, but pt is often alone in the apartment, and son voices concern regarding safety/DC disposition to home. CLOF: RN cleared pt for skilled OT tx. Pt received supine in bed and agreeable to tx. Pt reported pain at IV site- RN notified. Vitals Stable. Pt demonstrated BUE AROM WFL and MMT of 3/5. Pt required Max A to perform supine -> sit at EOB. Seated at EOB with Min A pt performed h/g tasks with supervision. Pt sat at EOB for 15 min while holding onto bedrails requiring 50% verbal cueing to keep upbright posture as pt tends to retopulse. Pt stood at bedside with Max A x2 with FWW requiring vc for positioning. Pt tolerated 30 seconds before attempted to sit.Pt required Max A to supine in bed. Pt left supine in bed with all needs met. RN notified. Pt will benefit from skilled OT tx 1x daily for 3-5x week to incrase strength, endurance, safety awareness, balance and independence with self care. OT advises DC to SNF for further rehab and decreased caregiver burden at this time. Anticipated DME: FWW and BSC.
--- NOTE | 2018-03-18 09:40 | NUR ---
PT NOTE Therapy day number 2 Subjective Denies pain Pain Scale FACES Pain Intensity 0 (0-10) Patient Stated Goal for Pain Relief 0 (0-10) Pain Level Comment NON NOTED Transfer Training Start Time 09:40 Supine to Sit Maximum Assist Transfer Sit to Stand Ability Maximum Assist Bed Mobility Sit to Supine Maximum Assist Additional Mobility Comments 2PA FOR BED MOBILITY AND STS X 2 MAXA X 2 Transfer Training End Time 09:53 Total Transfer Training Time 13 min (8-127) Static Sitting Balance Fair minus Dynamic Sitting Balance Poor plus Standing Static Balance Poor plus Balance Training Static or Dynamic Start Time 09:53 Balance Training Static or Dynamic End Time 10:05 Total Balance Training Time 12 min (8-127) Safety Judgement Fair Activity Tolerance Fair Equipment Present A pump IV pump Post Treatment Pain Intensity 0 0-10 Variance Documentation SEE BELOW AND PT NOTE Total Treament Time 25 min (8-127) Total Minutes 25 Total Units 2 PT Technical Record Comment PT NOTE S: Pt stated, "No" when asked for pain. Pt speaks Pashto is [place]. Agreeable for PT and cleared per RN. O: Received pt in semi-fowlers, alert w/OT present in room. Pt performed log rolling w/Arya and semi-fowlers>EOB w/HOB elevated using BR w/VCs/TCs for hand placement and sequence MaxA 2PA. Pt performed EOB static/dynamic sitting balance exercises. Noted pt was able to maintain static sitting balance fair - w/BUE support only. Attempted STS to FWW x 2 MaxA 2PA. 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 On second attempt pt was unable to stand at all and was fearful, resisting, and anxious. Assisted pt BTB w/VCs/TCs for hand placement and repositioning. Pt was able to self scoot up HOB w/Arya. Left pt in comfort position, call light/phone within reach, bed alarmed, SCD's reapplied, and all needs met. RN informed of pt's status. A: Fair tolerance to tx. Pt showed no signs of SOB during or after tx. No c/o dizziness or nausea throughout tx. Pt benefits from 2PA due to noting general weakness and pt being fearful and anxious for OOB activities. P: Continue POC and progress as tolerated.
[2018-03-18] MEDS: ENOXAPARIN 30 MG/0.3 ML SYG SC SCH (10:25)
[2018-03-18] MEDS ORDERED: POTASSIUM PHOSPHATE 40 MEQ in SOD CHLORIDE 0.9% 250 ML IVPB ONE (11:00)
--- NOTE | 2018-03-18 13:10 | CONS ---
Date/Time of Note Date/Time of Note DATE: 03/18/18 TIME: 13:09 Assessment/Plan Assessment/Plan Hospital Course Patient is awake and laying comfortably in bed no fevers overnight she is in no distress, no shortness of breath WBC 8.6 H&H 10.3 and 30.4 platelets 121 neutrophils 87.2 BUN 23 creatinine 0.75 Microbiology: Blood culture on admission grew strep pneumonia, urine culture negative Antimicrobials: Vancomycin and Unasyn Physical examination: Fragile well-developed elderly woman who is awake in no distress. Head atraumatic normocephalic sclera nonicteric. Neck is supple. Chest rise symmetrical breath sounds diminished bases. Heart: S1-S2. Abdomen soft bowel sounds present extremities without cyanosis Assessment: 1. Sepsis, resolving 2. Pneumonia, likely strep 3. Strep bacteremia 4. Resolving encephalopathy 5. Diabetes Plan: The patient remains stable WBC trending down, will order repeat blood cultures and 2D echo, continue on current antibiotics Result Diagram: 03/18/18 0549 03/18/18 0549 Results 24hrs Laboratory Tests Test 03/17/18 16:57 03/17/18 21:18 03/18/18 05:49 03/18/18 07:50 Bedside Glucose 188 173 251 H White Blood 8.6 # Count Red Blood Count 3.24 L Hemoglobin 10.3 L Hematocrit 30.4 L Mean Corpuscular 93.8 Volume Mean Corpuscular 31.8 Hemoglobin Mean Corpuscular 33.9 Hemoglobin Saundra nt Red Cell 12.2 Distribution Width Platelet Count 121 L Mean Platelet 11.0 H Volume Immature 3.000 H Granulocytes % Neutrophils % 87.2 H Lymphocytes % 6.7 L Monocytes % 2.3 Eosinophils % 0.1 Basophils % 0.7 Nucleated Red 0.0 Blood Cells % Immature 0.260 H Granulocytes # Neutrophils # 7.5 Lymphocytes # 0.6 L Monocytes # 0.2 L Eosinophils # 0.0 Basophils # 0.1 Nucleated Red 0.0 Blood Cells # Sodium Level 137 Potassium Level 2.7 *L Chloride Level 94 L Carbon Dioxide 32 H Level Anion Gap 11 Blood Urea 23 #H Nitrogen Creatinine 0.75 Est Glomerular Filtrat Rate mL/min Glucose Level 273 H Calcium Level 7.5 L Phosphorus Level 1.9 L Magnesium Level 1.4 L Total Bilirubin 0.4 Direct Bilirubin 0.10 # Indirect 0.3 Bilirubin Aspartate Amino 99 H Transf (AST/SGOT ) Alanine 64 Aminotransferase (ALT/SGPT) Alkaline 216 H Phosphatase Total Protein 5.9 #L Albumin 2.8 L Globulin 3.10 Albumin/Globulin 0.90 Ratio Test 03/18/18 11:26 Bedside Glucose 336 H Consultation Date/Type/Reason Admit Date/Time Mar 16, 2018 at 11:24 Initial Consult Date Type of Consult id Exam/Review of Systems Vital Signs Vitals Vital Signs Date Temp Pulse Resp B/P (MAP) Pulse Ox O2 O2 Flow FiO2 Time Delivery Rate 03/18/18 79 12:00 03/18/18 98.4 18 131/62 94 Room Air 11:01 (85) 03/18/18 2.0 08:30 Intake and Output 03/17/18 03/17/18 03/18/18 1515:00 23:00 07:00 IntakeIntake Total 50 ml 375 ml 900 ml BalanceBalance 50 ml 375 ml 900 ml Medications Medications Current Medications Losartan Potassium (Cozaar) 100 mg DAILY PO Last administered on 03/18/18at 09:17; Admin Dose 100 MG; Start 03/17/18 at 09:00 Amlodipine Besylate (Norvasc) 5 mg DAILY PO Last administered on 03/18/18at 09:16; Admin Dose 5 MG; Start 03/17/18 at 09:00 IV Flush (NS 3 ml) 3 ml PER PROTOCOL IV ; Start 03/16/18 at 11:30 Ondansetron HCl (Zofran Inj) 4 mg Q6H PRN IV NAUSEA AND/OR VOMITING; Start 03/16/18 at 11:30 Acetaminophen (Tylenol Tab) 650 mg Q6H PRN PO PAIN LEVEL 1-3 OR FEVER; Start 03/16/18 at 11:30 Docusate Sodium (Colace) 100 mg Q12H PRN PO CONSTIPATION; Start 03/16/18 at 11:30 Magnesium Hydroxide (Milk Of Mag) 30 ml DAILY PRN PO CONSTIPATION; Start 03/16/18 at 11:30 Famotidine (Pepcid Iv) 20 mg DAILY IV Last administered on 03/18/18at 09:17; Admin Dose 20 MG; Start 03/16/18 at 12:00 Enoxaparin Sodium (Lovenox) 30 mg DAILY SC Last administered on 03/18/18at 10:2 5; Admin Dose 30 MG; Start 03/17/18 at 09:00 Albuterol (Proventil 0.083% (Neb)) 2.5 mg Q2H RESP THERAPY PRN HHN SHORTNESS OF BREATH; Start 03/16/18 at 11:30 Insulin Aspart (Novolog Insulin Pen) NOVOLOG *MILD* ALGORITHM WITH MEALS BEDTIME SC Last administered on 03/18/18at 12:10; Admin Dose 5 UNIT; Start 03/16/18 at 17:55 Miscellaneous Information 1 ea NOTE XX ; Start 03/16/18 at 14:30 Glucose (Glutose) 15 gm Q15M PRN PO DECREASED GLUCOSE; Start 03/16/18 at 14:30 Glucose (Glutose) 22.5 gm Q15M PRN PO DECREASED GLUCOSE; Start 03/16/18 at 14:30 Dextrose (D50w Syringe) 25 ml Q15M PRN IV DECREASED GLUCOSE; Start 03/16/18 at 14:30 Dextrose (D50w Syringe) 50 ml Q15M PRN IV DECREASED GLUCOSE; Start 03/16/18 at 14:30 Glucagon (Glucagen) 1 mg Q15M PRN IM DECREASED GLUCOSE; Start 03/16/18 at 14:30 Glucose (Glutose) 15 gm Q15M PRN BUCCAL DECREASED GLUCOSE; Start 03/16/18 at 14:30 Vancomycin HCl (Vanco Iv Per Pharmacy) VANCOMYCIN PER PHARMACY PER PROTOCOL XX ; Start 03/16/18 at 23:00 Acetaminophen (Tylenol Supp) 650 mg Q6H PRN [place] MILD PAIN(1-3) OR TEMP>38C; Start 03/17/18 at 01:00 Vancomycin HCl 100 ml @ 100 mls/hr Q24H IVPB Last administered on 03/18/18at 02:25; Admin Dose 100 MLS/HR; Start 03/18/18 at 02:00 Ampicillin Sodium/ Sulbactam Sodium 100 ml @ 100 mls/hr Q6 IVPB Last administered on 03/18/18at 05:11; Admin Dose 100 MLS/HR; Start 03/17/18 at 18:00 Hydralazine HCl (Apresoline) 10 mg Q4H PRN IV elevated BP; Start 03/17/18 at 21:30 Potassium Phosphate 40 meq/ Sodium Chloride 259.0909 ml @ 64.773 m... ONCE ONCE IVPB ; Start 03/18/18 at 11:00; Stop 03/18/18 at 14:59 Insulin Glargine (Lantus) 8 units DAILY@2000 SC ; Start 03/18/18 at 20:00 YULISSA SHETH NP Mar 18, 2018 13:10
--- NOTE | 2018-03-18 14:30 | NUR ---
CM NOTES: S/W PT'S SON (WARD) AT BEDSIDE AND DISCUSSED SNF OPTIONS. PT'S SON SAID [facility] IS THE CLOSEST TO WHERE THEY LIVE AND WOULD LIKE FOR PT GO THERE. REFERRAL SENT. WILL F/U ACCORDINGLY. ERICA BARRIOS, RNCM [phone]
[2018-03-18] MEDS ORDERED: GUAIFENESIN/DM 5ML CUP PO PRN (16:00)
[2018-03-18] MEDS: GUAIFENESIN/DM (SR) TAB PO SCH (17:25)
--- NOTE | 2018-03-18 18:13 | NUR ---
EOSS: Pt awake, laying in bed comfortably, ate dinner and tolerated well. VS stable. Pt was seen by physical therapy today. Pt able to eat today w/no coughing episodes. Pt however has intermittent cough when resting. Order for cough medication obtained from MD. Kept pt clean, dry, and repositioned throughout the shift. Plan for SNF placement. All needs attended at this time. Will endorse plan of care to oncoming shift.
[2018-03-18] MEDS: INSULIN GLARGINE [LANTus] (100 UNITS/ML) SYG SC SCH (20:37)
[2018-03-19] VITALS (11 sets, daily range): BP systolic 137–150; BP diastolic 65–76; PULSE 66–80; RESP 18–19
[2018-03-19] MEDS: AMPICILLIN/SULB 3 GM/NS (PMX) 100 ML IVPB SCH ×4 (00:12→18:57)
[2018-03-19] MEDS: GUAIFENESIN/DM (SR) TAB PO SCH ×3 (00:18→20:36)
[2018-03-19] MEDS ORDERED: VANCOMYCIN 750 MG in SOD CHLORIDE 0.9% 150 ML IVPB SCH (02:00)
[2018-03-19] MEDS: VANCOMYCIN 500 MG (PMX) 100 ML IVPB SCH (02:24)
--- NOTE | 2018-03-19 02:30 | NUR ---
blood sugar 345 DRHUSSAIN order 6 units novolog sc x1 dose continue to monitor patient for sign of hypoglycemia.
[2018-03-19] MEDS ORDERED: INSULIN ASPART [NOVOLOG] 3 ML PEN SC ONE ×2 (03:00→21:30)
[2018-03-19] MEDS: INSULIN ASPART [NOVOLOG] 3 ML PEN SC SCH ×4 (08:05→20:54)
[2018-03-19] MEDS: AMLODIPINE 5 MG TAB PO SCH (08:19)
[2018-03-19] MEDS: FAMOTIDINE 20 MG INJ IV SCH (08:19)
[2018-03-19] MEDS: LOSARTAN 50 MG TAB PO SCH (08:19)
[2018-03-19] MEDS: ENOXAPARIN 30 MG/0.3 ML SYG SC SCH (08:25)
[2018-03-19] MEDS ORDERED: POTASSIUM CHLORIDE 20 MEQ POWDER FOR ORAL SOLN PO ONE (09:00)
--- NOTE | 2018-03-19 09:55 | NUR ---
OT NOTE S: RN cleared pt for skilled OT tx. Pt agreeable to tx. O: Pt received supine in bed and agreeable to tx. Vitals Stable. Pt engaged in BUE AROM exercises ( 2 reps of arm raised 10x each). Pt required Max A to perform supine -> sit at EOB. Pt sat EOB with Minimal assistance from therapist while holding onto bed rail with right hand. Occasionally pt would sit without support from therapist for 30 seconds at a time. While seated at EOB pt performed oral hygiene and UB bathing with CGA. Pt required Min A to douglas and doff gown and total A to douglas socks. Pt then stood at bedside with Max A x2 with FWW requiring vc for positioning. Pt required Max A to return to bed . Pt left supine in bed with all needs met. RN notified. A: Pt requires Max A for STS and supine->sit at EOB. Pt performs h/g and UB dressing with CGA P: Cont POC.
--- NOTE | 2018-03-19 10:20 | NUR ---
PT NOTE [facility] Patient: Pop Dowell : 1930 Age/Sex: 87/F Unit#: [id number] Room/Bed: 512/A User: Mana Cintron PTA Date: 03/19/18 10:20 Type: PT Technical Record Therapy day number 3 Subjective Denies pain Pain Scale FACES Pain Intensity 0 (0-10) Patient Stated Goal for Pain Relief 0 (0-10) Pain Level Comment no c/o pain Exercise Assessment Label Bilat Upper Extremity Exercise Type Active ROM Exercise Assessment Label Bilat Lower Extremity Exercise Type Active Assist ROM Additional Exercise Comments EOB; APs, LAQ, man. semifowler; SLR Exercise Start Time 09:25 Exercise End Time 09:40 Total Exercise Time 15 min (8-127) Transfer Training Start Time 09:40 Supine to Sit Maximum Assist Transfer Sit to Stand Ability Dependent Bed Mobility Sit to Supine Maximum Assist Additional Mobility Comments STS x2 Transfer Training End Time 10:18 Total Transfer Training Time 38 min (8-127) Static Sitting Balance Fair minus Dynamic Sitting Balance Poor plus Standing Static Balance Poor Dynamic Standing Balance Poor Safety Judgement Fair Activity Tolerance Poor Equipment Present A pump IV pump Additional Equipment Present 2LO2 via NC Post Treatment Pain Intensity 0 0-10 Variance Documentation See note Total Treament Time 53 min (8-127) Total Minutes 53 Total Units 4 PT Technical Record Comment S: MANJU Hope cleared pt for PT. No c/o pain throughout tx O: Received pt sleeping in semifowler. VC/TC to rouse. MaxA/Dependent x2PA mobility and sit to stand. Performed sit to stand x2 and pt unable to stand erect despite max VC/TC from this therapist. Bilateral knees buckle. Performed AAROME EOB/semifowler. See technical record for therapeutic exercises. Performed trunk stabilization. Pt able to control trunk during weight shifting to promote pressure sore relief. OT assisted pt w/ pericare and hygiene. Poor plus dynamic sitting balance. Required Ward for balance. Returned pt back to bed. MaxA x2pA to scoot to HOB. Positioned pt to comfort in semifowler. Call light/phone within reach. Bed alarm on. Needs met. RN informed of pt status and PT activities A: Poor tolerance to tx. Pt not motivated to participate in PT activities. Required max VC/TC to perform. Lack to participation compared to previous tx. P: Continue w/ POC and progress as tolerated
[2018-03-19] MEDS ORDERED: BARIUM SULFATE 135 ML (E-Z HD) PO ONE (10:24)
[2018-03-19] MEDS: POTASSIUM CHLORIDE 100 ML IVPB SCH ×2 (11:40→16:11)
--- NOTE | 2018-03-19 12:55 | PN ---
Date/Time of Note Date/Time of Note DATE: 03/19/18 TIME: 12:55 Assessment/Plan VTE Prophylaxis Risk score (from Ns)>0 risk: 4 SCD applied (from Ns): Yes Pharmacological prophylaxis: LMWH Lines/Catheters IV Catheter Type (from Nrsg): Peripheral IV Urinary Cath still in place: No Assessment/Plan Assessment/Plan 1. Bacteremia - Repeat blood cultures negative. ID on board and will continue current antibiotics - WBC normalized and remains afebrile 2. Altered toxic encephalopathy secondary to Pneumonia- improving - CT scan of head negative for acute abnormalities 3. Dysphagia - ST on board and plans for video swallow today to assess for silent aspiration. Continue on same diet for now - aspiration precautions in place 4. Sepsis secondary to Right perihilar and LL Pneumonia- improving - ID on board and appreciate antibiotic recommendations - seen on CXR - Nebs PRN 4. Hypokalemia - K remains low and replacing 5. CAMPOS- resolved - most likely prerenal 6. Diabetes Mellitus - A1c noted - will hold home PO medications - ISS and accuchecks 7. HTN - stable - continue on losartan and start amlodipine for better control 8. Gait instability - PT/OT recommending SNF placement and son in agreement 11. Disposition - Still with low K and replacing. Overall, condition is improving - CM on board for SNF placement Result Diagram: 03/19/18 0557 03/19/18 0557 Results 24hrs Laboratory Tests Test 03/18/18 16:59 03/18/18 20:32 03/19/18 02:27 03/19/18 05:57 Bedside Glucose 289 H 308 H 345 H White Blood 6.4 # Count Red Blood Count 2.91 L Hemoglobin 9.4 L Hematocrit 27.4 L Mean Corpuscular 94.2 Volume Mean Corpuscular 32.3 Hemoglobin Mean Corpuscular 34.3 Hemoglobin Saundra nt Red Cell 12.3 Distribution Width Platelet Count 110 L Mean Platelet 11.4 H Volume Immature 5.000 H Granulocytes % Neutrophils % Segmented 78 H Neutrophils % (Manual) Band Neutrophils 6 H % (Manual) Lymphocytes % Lymphocytes % 12 L (Manual) Monocytes % Monocytes % 2 (Manual) Eosinophils % Eosinophils % 1 (Manual) Basophils % Metamyelocytes % 1 H (manual) Nucleated Red 1 H Blood Cells % Immature 0.320 H Granulocytes # Neutrophils # Neutrophils # 5.0 (Manual) Band Neutrophils 0.3 # Lymphocytes 0.7 L (Manual) Lymphocytes # Monocytes # Monocytes # 0.1 L (Manual) Eosinophils # Basophils # Metamyelocytes # 0.0 Nucleated Red Blood Cells # Platelet DECREASED Estimate Giant Platelets 2 H Hypochromasia 1+ Sodium Level 140 Potassium Level 2.7 *L Chloride Level 98 Carbon Dioxide 34 H Level Anion Gap 8 Blood Urea 22 H Nitrogen Creatinine 0.63 Glucose Level 176 Calcium Level 7.4 L Phosphorus Level 2.6 Magnesium Level 1.9 Albumin 2.4 L Test 03/19/18 07:46 03/19/18 12:19 Bedside Glucose 152 341 H Subjective 24 Hr Interval Summary Free Text/Dictation Patient more awake and alert. Denies any complaints this am and plans for video swallow today. No acute overnight events. Exam/Review of Systems Vital Signs Vitals Vital Signs Date Temp Pulse Resp B/P (MAP) Pulse Ox O2 O2 Flow FiO2 Time Delivery Rate 03/19/18 97.6 80 19 137/69 98 11:20 (91) 03/19/18 Nasal 2.0 07:20 Cannula Intake and Output 03/18/18 03/18/18 03/19/18 1515:00 23:00 07:00 IntakeIntake Total 306 ml 650 ml 600 ml BalanceBalance 306 ml 650 ml 600 ml Exam General: no acute distress. awake Neck: supple CVS: S1, S2 regular rate and rhythm. no murmurs Lungs: diminished breath sounds bases. no wheezing appreciate Abd: soft, nontender, nondistended, no rebound or guarding. Ext: moving all extremities. no cyanosis, clubbing or edema appreciated Skin: no rashes or lesions appreciated. Medications Medications Current Medications Losartan Potassium (Cozaar) 100 mg DAILY PO Last administered on 03/19/18at 08:19; Admin Dose 100 MG; Start 03/17/18 at 09:00 Amlodipine Besylate (Norvasc) 5 mg DAILY PO Last administered on 03/19/18at 08:19; Admin Dose 5 MG; Start 03/17/18 at 09:00 IV Flush (NS 3 ml) 3 ml PER PROTOCOL IV ; Start 03/16/18 at 11:30 Ondansetron HCl (Zofran Inj) 4 mg Q6H PRN IV NAUSEA AND/OR VOMITING; Start 03/16/18 at 11:30 Acetaminophen (Tylenol Tab) 650 mg Q6H PRN PO PAIN LEVEL 1-3 OR FEVER; Start 03/16/18 at 11:30 Docusate Sodium (Colace) 100 mg Q12H PRN PO CONSTIPATION; Start 03/16/18 at 11 :30 Magnesium Hydroxide (Milk Of Mag) 30 ml DAILY PRN PO CONSTIPATION; Start 03/16/18 at 11:30 Famotidine (Pepcid Iv) 20 mg DAILY IV Last administered on 03/19/18at 08:19; Admin Dose 20 MG; Start 03/16/18 at 12:00 Enoxaparin Sodium (Lovenox) 30 mg DAILY SC Last administered on 03/19/18at 08:25; Admin Dose 30 MG; Start 03/17/18 at 09:00 Albuterol (Proventil 0.083% (Neb)) 2.5 mg Q2H RESP THERAPY PRN HHN SHORTNESS OF BREATH; Start 03/16/18 at 11:30 Insulin Aspart (Novolog Insulin Pen) NOVOLOG *MILD* ALGORITHM WITH MEALS BEDTIME SC Last administered on 03/19/18at 12:26; Admin Dose 5 UNIT; Start 03/16/18 at 17:55 Miscellaneous Information 1 ea NOTE XX ; Start 03/16/18 at 14:30 Glucose (Glutose) 15 gm Q15M PRN PO DECREASED GLUCOSE; Start 03/16/18 at 14:30 Glucose (Glutose) 22.5 gm Q15M PRN PO DECREASED GLUCOSE; Start 03/16/18 at 14:30 Dextrose (D50w Syringe) 25 ml Q15M PRN IV DECREASED GLUCOSE; Start 03/16/18 at 14:30 Dextrose (D50w Syringe) 50 ml Q15M PRN IV DECREASED GLUCOSE; Start 03/16/18 at 14:30 Glucagon (Glucagen) 1 mg Q15M PRN IM DECREASED GLUCOSE; Start 03/16/18 at 14:30 Glucose (Glutose) 15 gm Q15M PRN BUCCAL DECREASED GLUCOSE; Start 03/16/18 at 14:30 Vancomycin HCl (Vanco Iv Per Pharmacy) VANCOMYCIN PER PHARMACY PER PROTOCOL XX ; Start 03/16/18 at 23:00 Acetaminophen (Tylenol Supp) 650 mg Q6H PRN [place] MILD PAIN(1-3) OR TEMP>38C; Start 03/17/18 at 01:00 Vancomycin HCl 100 ml @ 100 mls/hr Q24H IVPB Last administered on 03/19/18at 02:24; Admin Dose 100 MLS/HR; Start 03/18/18 at 02:00 Ampicillin Sodium/ Sulbactam Sodium 100 ml @ 100 mls/hr Q6 IVPB Last administered on 03/19/18at 06:12; Admin Dose 100 MLS/HR; Start 03/17/18 at 18:00 Hydralazine HCl (Apresoline) 10 mg Q4H PRN IV elevated BP; Start 03/17/18 at 21:30 Insulin Glargine (Lantus) 8 units DAILY@2000 SC Last administered on 03/18/18at 20:37; Admin Dose 8 UNITS; Start 03/18/18 at 20:00 Guaifenesin/ Dextromethorphan (Mucinex Dm) 1 tab BID PO Last administered on 03/19/18at 08:20; Admin Dose 1 TAB; Start 03/18/18 at 16:30 Guaifenesin/ Dextromethorphan (Robitussin Dm Liquid Cup) 5 ml Q4H PRN PO cough; Start 03/18/18 at 16:00 Potassium Chloride 100 ml @ 50 mls/hr Q2H IVPB Last administered on 03/19/18at 11:40; Admin Dose 50 MLS/HR; Start 03/19/18 at 10:00; Stop 03/19/18 at 17:59 LIS PIZANO MD Mar 19, 2018 12:55
--- NOTE | 2018-03-19 14:01 | NUR ---
SHAVONNE NOTES: CALLED TO [facility] TO F/U AND WAS INFORMED THAT THEY CANNOT TAKE THE PT BECAUSE THEY ARE ON BED LOCK DOWN AT THE MOMENT. WILL CALL PT'S SON ON OTHER OPTIONS. ERICA BARRIOS, MANJUCM [id number]
--- NOTE | 2018-03-19 14:21 | CONS ---
Date/Time of Note Date/Time of Note DATE: 03/19/18 TIME: 14:20 Assessment/Plan Assessment/Plan Hospital Course Patient did not pass swallow evaluation this morning status post video swallow evaluation she is awake in no distress looks comfortable WBC today 6.4 platelets 110 neutrophils 78 bands 6 BUN 22 creatinine 0.63 potassium in the morning was 2.7 Antimicrobials: Vancomycin, Unasyn Microbiology: Blood culture on admission grew strep pneumonia, urine culture negative. Repeat blood cultures negative Physical examination: Fragile well-developed elderly woman who is awake in no distress. Head atraumatic normocephalic sclera nonicteric. Neck is supple. Chest rise symmetrical breath sounds diminished bases. Heart: S1-S2. Abdomen soft bowel sounds present extremities without cyanosis Assessment: 1. Sepsis, resolving 2. Pneumonia, likely strep 3. Strep bacteremia 4. Resolving encephalopathy 5. Diabetes 6. Dysphagia with possible ongoing aspiration Plan: The patient remains stable, repeat blood cultures negative, continue on current antibiotics, aspiration precautions, follow 2D echo report Result Diagram: 03/19/18 0557 03/19/18 0557 Results 24hrs Laboratory Tests Test 03/18/18 16:59 03/18/18 20:32 03/19/18 02:27 03/19/18 05:57 Bedside Glucose 289 H 308 H 345 H White Blood 6.4 # Count Red Blood Count 2.91 L Hemoglobin 9.4 L Hematocrit 27.4 L Mean Corpuscular 94.2 Volume Mean Corpuscular 32.3 Hemoglobin Mean Corpuscular 34.3 Hemoglobin Saundra nt Red Cell 12.3 Distribution Width Platelet Count 110 L Mean Platelet 11.4 H Volume Immature 5.000 H Granulocytes % Neutrophils % Segmented 78 H Neutrophils % (Manual) Band Neutrophils 6 H % (Manual) Lymphocytes % Lymphocytes % 12 L (Manual) Monocytes % Monocytes % 2 (Manual) Eosinophils % Eosinophils % 1 (Manual) Basophils % Metamyelocytes % 1 H (manual) Nucleated Red 1 H Blood Cells % Immature 0.320 H Granulocytes # Neutrophils # Neutrophils # 5.0 (Manual) Band Neutrophils 0.3 # Lymphocytes 0.7 L (Manual) Lymphocytes # Monocytes # Monocytes # 0.1 L (Manual) Eosinophils # Basophils # Metamyelocytes # 0.0 Nucleated Red Blood Cells # Platelet DECREASED Estimate Giant Platelets 2 H Hypochromasia 1+ Sodium Level 140 Potassium Level 2.7 *L Chloride Level 98 Carbon Dioxide 34 H Level Anion Gap 8 Blood Urea 22 H Nitrogen Creatinine 0.63 Glucose Level 176 Calcium Level 7.4 L Phosphorus Level 2.6 Magnesium Level 1.9 Albumin 2.4 L Test 03/19/18 07:46 03/19/18 12:19 Bedside Glucose 152 341 H Consultation Date/Type/Reason Admit Date/Time Mar 16, 2018 at 11:24 Initial Consult Date Type of Consult id Exam/Review of Systems Vital Signs Vitals Vital Signs Date Temp Pulse Resp B/P (MAP) Pulse Ox O2 O2 Flow FiO2 Time Delivery Rate 03/19/18 79 12:00 03/19/18 97.6 19 137/69 98 11:20 (91) 03/19/18 Nasal 2.0 07:20 Cannula Intake and Output 03/18/18 03/18/18 03/19/18 1515:00 23:00 07:00 IntakeIntake Total 306 ml 650 ml 600 ml BalanceBalance 306 ml 650 ml 600 ml Medications Medications Current Medications Losartan Potassium (Cozaar) 100 mg DAILY PO Last administered on 03/19/18at 08:19; Admin Dose 100 MG; Start 03/17/18 at 09:00 Amlodipine Besylate (Norvasc) 5 mg DAILY PO Last administered on 03/19/18at 08:19; Admin Dose 5 MG; Start 03/17/18 at 09:00 IV Flush (NS 3 ml) 3 ml PER PROTOCOL IV ; Start 03/16/18 at 11:30 Ondansetron HCl (Zofran Inj) 4 mg Q6H PRN IV NAUSEA AND/OR VOMITING; Start 03/16/18 at 11:30 Acetaminophen (Tylenol Tab) 650 mg Q6H PRN PO PAIN LEVEL 1-3 OR FEVER; Start 03/16/18 at 11:30 Docusate Sodium (Colace) 100 mg Q12H PRN PO CONSTIPATION; Start 03/16/18 at 11:30 Magnesium Hydroxide (Milk Of Mag) 30 ml DAILY PRN PO CONSTIPATION; Start 03/16/18 at 11:30 Famotidine (Pepcid Iv) 20 mg DAILY IV Last administered on 03/19/18at 08:19; Admin Dose 20 MG; Start 03/16/18 at 12:00 Enoxaparin Sodium (Lovenox) 30 mg DAILY SC Last administered on 03/19/18at 08:25; Admin Dose 30 MG; Start 03/17/18 at 09:00 Albuterol (Proventil 0.083% (Neb)) 2.5 mg Q2H RESP THERAPY PRN HHN SHORTNESS OF BREATH; Start 03/16/18 at 11:30 Insulin Aspart (Novolog Insulin Pen) NOVOLOG *MILD* ALGORITHM WITH MEALS BEDTIME SC Last administered on 03/19/18at 12:26; Admin Dose 5 UNIT; Start 03/16/18 at 17:55 Miscellaneous Information 1 ea NOTE XX ; Start 03/16/18 at 14:30 Glucose (Glutose) 15 gm Q15M PRN PO DECREASED GLUCOSE; Start 03/16/18 at 14:30 Glucose (Glutose) 22.5 gm Q15M PRN PO DECREASED GLUCOSE; Start 03/16/18 at 14:30 Dextrose (D50w Syringe) 25 ml Q15M PRN IV DECREASED GLUCOSE; Start 03/16/18 at 14:30 Dextrose (D50w Syringe) 50 ml Q15M PRN IV DECREASED GLUCOSE; Start 03/16/18 at 14:30 Glucagon (Glucagen) 1 mg Q15M PRN IM DECREASED GLUCOSE; Start 03/16/18 at 14:30 Glucose (Glutose) 15 gm Q15M PRN BUCCAL DECREASED GLUCOSE; Start 03/16/18 at 14:30 Vancomycin HCl (Vanco Iv Per Pharmacy) VANCOMYCIN PER PHARMACY PER PROTOCOL XX ; Start 03/16/18 at 23:00 Acetaminophen (Tylenol Supp) 650 mg Q6H PRN OK MILD PAIN(1-3) OR TEMP>38C; Start 03/17/18 at 01:00 Vancomycin HCl 100 ml @ 100 mls/hr Q24H IVPB Last administered on 03/19/18at 02:24; Admin Dose 100 MLS/HR; Start 03/18/18 at 02:00 Ampicillin Sodium/ Sulbactam Sodium 100 ml @ 100 mls/hr Q6 IVPB Last administered on 03/19/18at 06:12; Admin Dose 100 MLS/HR; Start 03/17/18 at 18:00 Hydralazine HCl (Apresoline) 10 mg Q4H PRN IV elevated BP; Start 03/17/18 at 21:30 Insulin Glargine (Lantus) 8 units DAILY@2000 SC Last administered on 03/18/18at 20:37; Admin Dose 8 UNITS; Start 03/18/18 at 20:00 Guaifenesin/ Dextromethorphan (Mucinex Dm) 1 tab BID PO Last administered on 03/19/18at 08:20; Admin Dose 1 TAB; Start 03/18/18 at 16:30 Guaifenesin/ Dextromethorphan (Robitussin Dm Liquid Cup) 5 ml Q4H PRN PO cough; Start 03/18/18 at 16:00 Potassium Chloride 100 ml @ 50 mls/hr Q2H IVPB Last administered on 03/19/18at 11:40; Admin Dose 50 MLS/HR; Start 03/19/18 at 10:00; Stop 03/19/18 at 17:59 YULISSA SHETH NP Mar 19, 2018 14:21
--- NOTE | 2018-03-19 16:15 | NUR ---
Video Swallow Study Completed: Brief Hx: Ms. Lord is a 87 year old female admitted with diagnsois of toxic encephalopathy secondary to Pneumonia.Sepsis secondary to Right perihilar and LL Pneumonia Pt resides at assisted living facility. pt also found to have CAMPOS; HTN; history of recurrent falls; PMH: Diabetes Mellitus 03/16/18: CT scan of head negative for acute abnormalities CXR: 03/16/18 FINDINGS: The heart is enlarged. The thoracic aorta is calcified. There is extensive right perihilar and right lower lobe consolidation. There is a small amount of fluid in the right major fissure. There is no pneumothorax. IMPRESSION: Extensive right perihilar and right lower lobe consolidation with a small amount of fluid in the right major fissure. Mild cardiomegaly. Calcified aorta consistent with atherosclerotic disease. Vitals: Temp: 98.3; RR: 18-20; SPO2: 96% on 2 liters/min on NC Labs: WBC: 6.4; Hgb/Hct: 9.4L/27.4L; NA: 140; K: 2.7L; Chloride level: 94L; Co2: 32H; BUN: 23H; Cr level: 0.75 Subjective assessment of cognition specific to swallow study: Pt was oriented to self and situation but unable to answer orientation questions and inconsistently able to follow step commands. Pt is hard of hearing and Slovenian Speaking. Slovenian interpretation was utilized in the pts room to explain the swallowing procedure beforehand. PT verbalized agreement. Current diet: finely chopped mechanical soft diet and NTL by cup. family has been reportedly giving the pt straws with her NTL, despite the sign above her bed stating that she is not safe for use with straws. RN was alerted. Total Swallows: 14 Barium consistencies: thin liquid by teaspoon x1, thin liquid by cup by 2, NTL by cup x4, NTL by straw x 2, puree x1, banana x1, muffin x1, mixed fruit x1 and hard cracker x1. Hedge Trimmer view: questionable cervical osteophyte around the C6-C7 region, but did not appear to impact the flow of the bolus. Oral phase of swallow: Mildly reduced labial strength and moderately reduced lingual coordination/strength. Prolonged mastication and cohesive formation with mixed soft (fruit) and hard solids (cracker) and better with finely chopped/soft textures (banana and muffin mixed with pudding), as well as puree. Moderately decreased A-P bolus transit across all consistencies tested. No anterior oral leakage but oral stasis and residue noted on the base of tongue after the double dry swallow. Reduced oral control resulting in moderate premature loss over the BOT into the hypopharynx before initiation of the swallow. Pharyngeal phase of swallow: Delayed trigger of swallow up to approx 4 seconds with liquids and motor response triggering at the level of the lateral channels and more delayed/discoordinated with puree and solids, with the motor response triggering at the level of the valleculae. During the swallow, there is moderately reduced base of tongue retraction, pharyngeal constrictor weakness, epiglottic inversion and hyolaryngeal excursion. The airway closure is also mild-moderately reduced due to reduced coordination of breath with swallow safety. During the swallow there was moderate residue in the valleculae, and mild in the pyriform sinuses and posterior pharyngeal wall and after a double dry swallow, there was mild residue in the valleculae, and trace residue in the pyriform sinuses and posterior pharyngeal wall. Also, as the viscosity increased from nectar to puree, the residue builds up within the pharyngeal region included bilaterally in the valleculae. Multiple dry swallows and liquid wash were the compensatory strategies which were successful with clearing the reside out of the pharyngeal cavity. During the swallow, there was radiographic evidence of penetration within the laryngeal vestibule with nectar thick liquids by straw, but cleared after the swallow. There was one incidence of transient penetration with [place] thick liquids by cup due to reduced BOT retraction and hyolaryngeal excursion, aswell as reduced endurance. Radiographic evidence of silent aspiration during the swallow with thin liquids by cup below the TVF's, which resulted in a delayed and weak cough. Also, chin tuck was successful with preventing aspiration and penetration with NTL but not with thin liquids by cup, since pt was not able to consistently keep her chin in the down position during the swallow. Radiographic evidence of silent aspiration was also noted during and immediately after the swallow from the liquid on the mixed fruit consistency, which spilled over in the airway off the back wall. No radiographic evidence of aspiration or penetration with NTL by cup, thin liquid by teaspoon, puree, soft or hard solids. However, the residue from the bolus in the pharyngeal cavity after sequential bites, could eventually spill over into the airway and lead to aspiration. Cervical-esophageal region: slow motility through upper region of the esophagus. questionable esophageal stasis. unable to view cursory view to determine if bolus retrograde is occurring. Penetration-Aspiration Scale: 7-Below folds, visible tracheal residue but attempted to clear with thin liquids and mixed fruit 4- penetrates larynx above folds and visible laryngeal residue-NTL by straw 2-penetrates larynx but no visible laryngeal residue after swallow-NTL by cup, in one instance 1-no aspiration or penetration-NTL by teaspoon, Thin by teaspoon, puree/soft and hard solids Bolus residue score: 2- moderate Functional oral intake score: 5, total oral diet with multiple consistencies Impression: Pt presents with moderate oropharyngeal dysphagia associated with reduced base of tongue retraction, reduced hyolaryngeal excursion and elevation, timing and coordination, reduced epiglottic inversion and pharyngeal wall constrictor weakness. Mild-Moderate residue in the pharyngeal region during the swallow but able to successfully decreased in viscosity with use of double dry swallow and liquid wash. Pt is at high risk of silent aspiration if the restrictive diet is not followed and the swallowing maneuvers are not being met. recommendation: 1. Continue dysphagia therapy 2. Continue [place] thick liquids by cup only and finely chopped textures. no straws at this time. Encourage single sips/single bites at a time to prevent aspiration 3. Administer crushed meds with apple sauce, followed by double dry swallow and liquid wash. 4. Follow aspiration precautions (HOB upright, single bites/sips at a slow rate and remain upright for one hour after meals). 5. Consider f/u with GI regarding the esophageal stasis and reduced motility of the bolus through the upper cervical/thoracic region fo the esophagus.
--- NOTE | 2018-03-19 16:36 | RADRPT ---
Echocardiogram Report Patient Name: ORQUIDEA SALAZAR Gender: Female Date: 1930 Study Date: 18-Mar-2018 International Operations Manager: Karson [facility] Location: [address] Ref. Physician: YULISSA SHETH Quality: Adequate Procedures: Transthoracic echocardiogram with complete 2D, M-Mode, and doppler examination. Indications: R/O Vegetations. 2D/M Mode Doppler Measurement Value Normal Ranges Measurement Value Normal Ranges LVIDd 2D 3.0 3.5 - 5.6 cm AV Peak Elliott 1.6 m/sec LVIDs 2D 1.8 2.1 - 4.1 cm AV Peak PG 10.0 mmHg LVPWd 2D 1.2 0.6 - 1.1 cm LVOT Peak Elliott 1.0 m/sec IVSd 2D 1.1 0.6 - 1.1 cm LVOT Peak PG 4.0 mmHg AoR Diam 2D 3.3 2.0 - 3.7 cm MV E Peak Elliott 0.8 m/sec LA/Ao 2D 1 0 - 1 MV A Peak Elliott 1.1 m/sec LA Dimen 2D 2.3 2.3 - 4.0 cm MV E/A 0.7 MV Decel Time 190 msec Lat E` Elliott 0.1 m/sec Lateral E/E` 13.4 Med E` Elliott 0.1 m/sec MV E/A 0.7 TR Peak Elliott 3.8 m/sec TR Peak PG 59.0 mmHg RVSP 62.0 mmHg Findings Left Ventricle: Normal left ventricular systolic function. Normal left ventricular cavity size. Left ventricular wall thickness upper limits of normal. Ejection fraction is visually estimated at 60 %. Tissue Doppler/Mitral Doppler indices are consistent with impaired relaxation (Stage I diastolic dysfunction). Right Ventricle: Normal right ventricular size. Normal right ventricular systolic function. Left Atrium: The left atrium is normal in size. Right Atrium: The right atrium is normal in size. Mitral Valve: Mild mitral leaflet calcification. Mild mitral annular calcification. Trace mitral regurgitation. Aortic Valve: No significant aortic stenosis or insufficiency. Aortic cusps appear mildly calcified. Mild aortic valve regurgitation. Tricuspid Valve: Normal appearance of the tricuspid valve. Estimated peak PA systolic pressure 62 mmHg. There is moderate tricuspid regurgitation. Pericardium: Normal pericardium with no significant pericardial effusion. Aorta: Normal aortic root. IVC: Normal size and normal respiratory collapse consistent with normal right atrial pressure. Conclusions Normal left ventricular systolic function. Normal left ventricular cavity size. Left ventricular wall thickness upper limits of normal. Ejection fraction is visually estimated at 60 %. Tissue Doppler/Mitral Doppler indices are consistent with impaired relaxation (Stage I diastolic dysfunction). Mild mitral leaflet calcification. Mild mitral annular calcification. Trace mitral regurgitation. No significant aortic stenosis or insufficiency. Aortic cusps appear mildly calcified. Mild aortic valve regurgitation. Normal appearance of the tricuspid valve. Estimated peak PA systolic pressure 62 mmHg. There is moderate tricuspid regurgitation. Electronically Signed By: Randolph Valdes 19-Mar-2018 16:35:59 -0800 Patient Name: ORQUIDEA SALAZAR Study Date: 18-Mar-2018 [id number]
--- NOTE | 2018-03-19 19:00 | NUR ---
EOSS PT IS STABLE, NO S/S OF DISTRESS, NO C/O PAIN. PT HAD THE VIDEO SWALLOW DONE TODAY. POTASSIUM WAS 2.7 TODAY, WITH POTASSIUM REPLACED VIA PO POWDER AND IV. PER SON, HE WOULD LIKE PT TO GET DISCHARGED AT [facility] IN [place]. DR. PIZANO AND TEXTILE KNITTER ARE AWARE. HOURLY ROUNDING DONE, BED ALARM ON, CALL LIGHT WITHIN REACH. VS WNL.
[2018-03-19] MEDS: INSULIN GLARGINE [LANTus] (100 UNITS/ML) SYG SC SCH (20:56)
[2018-03-20] VITALS (10 sets, daily range): BP systolic 132–166; BP diastolic 61–79; PULSE 65–80; RESP 16–19
[2018-03-20] MEDS: AMPICILLIN/SULB 3 GM/NS (PMX) 100 ML IVPB SCH ×5 (00:23→23:43)
[2018-03-20] MEDS: VANCOMYCIN 500 MG (PMX) 100 ML IVPB SCH ×2 (02:13→14:09)
[2018-03-20] MEDS: POTASSIUM CHLORIDE 100 ML IVPB SCH ×4 (03:12→15:15)
--- NOTE | 2018-03-20 06:24 | NUR ---
NO SIGNIFICANT CHANGES IN CONDITION , CONTINUE ON ANTIBIOTICS AND POTASSIUM REPLACED . REPEAT LABS TODAY . DC PLAN CONTINUE CARE AND TREATMENT
[2018-03-20] MEDS ORDERED: POTASSIUM CHLORIDE 20 MEQ POWDER FOR ORAL SOLN PO ONE (08:30)
[2018-03-20] MEDS: GUAIFENESIN/DM (SR) TAB PO SCH ×2 (08:39→20:31)
[2018-03-20] MEDS: AMLODIPINE 5 MG TAB PO SCH (08:40)
[2018-03-20] MEDS: LOSARTAN 50 MG TAB PO SCH (08:40)
[2018-03-20] MEDS: FAMOTIDINE 20 MG INJ IV SCH (08:42)
[2018-03-20] MEDS: INSULIN ASPART [NOVOLOG] 3 ML PEN SC SCH ×4 (08:57→20:33)
[2018-03-20] MEDS: ENOXAPARIN 30 MG/0.3 ML SYG SC SCH (08:58)
[2018-03-20] MEDS ORDERED: AMLODIPINE 5 MG TAB PO SCH (09:00)
[2018-03-20] MEDS ORDERED: MAGNESIUM SULFATE 4 GM/100 ML 100 ML IVPB ONE (10:00)
--- NOTE | 2018-03-20 10:30 | NUR ---
RN NOTES: PT WILL BE TRANSFERRED TO [facility]. GAVE REPORT TO MANJU MCCOLLUM.
--- NOTE | 2018-03-20 10:41 | NUR ---
PT NOTE Therapy day number 4 Subjective Denies pain Pain Scale FACES Pain Intensity 0 (0-10) Patient Stated Goal for Pain Relief 0 (0-10) Pain Level Comment NON NOTED Transfer Training Start Time 10:41 Supine to Sit Maximum Assist Transfer Sit to Stand Ability Maximum Assist Bed Mobility Sit to Supine Dependent Additional Mobility Comments STS TO FWW X 1 MAXA 2PA Transfer Training End Time 10:54 Total Transfer Training Time 13 min (8-127) Static Sitting Balance Fair minus Dynamic Sitting Balance Poor plus Standing Static Balance Poor Balance Training Static or Dynamic Start Time 10:54 Balance Training Static or Dynamic End Time 11:10 Total Balance Training Time 16 min (8-127) Safety Judgement Fair Activity Tolerance Poor Equipment Present A pump IV pump Post Treatment Pain Intensity 0 0-10 Variance Documentation SEE BELOW AND PT NOTE Total Treament Time 29 min (8-127) Total Minutes 29 Total Units 2 PT Technical Record Comment PT NOTE S: Pt stated, "No" when asked for pain. Pt speaks Nepali and is [place]. Agreeable for PT and cleared per MANJU Rhoades O: Received pt in semi-fowlers, alert w/MANJU Rhoades present in room. Pt's son approached room and was able to translate throughout tx. Pt performed semi-fowlers>EOB w/HOB elevated using BR w/VCs/TCs for hand placement and sequence MaxA 2PA. Pt performed EOB static/dynamic sitting balance exercises w/BUE support. Attempted STS to FWW x 1 MaxA 2PA. Noted general weakness, (B) knee buckling, and pt unable to claims investigator full erect position despite max VCs/TCs. Noted pt was fearful and resisting to stand after first attempt and requested to be put BTB. Assisted pt BTB w/VCs/TCs for hand placement and repositioning 3PA. Left pt in comfort position, call light/phone within reach, bed alarmed, SCD's reapplied, and all needs met. MANJU Rhoades informed of pt's status. A: Poor tolerance to tx. Pt showed no signs of SOB during or after tx. No c/o dizziness or nausea throughout tx. Limited tx due to pt being anxious and resisting OOB activities. P: Continue POC and progress as tolerated.
--- NOTE | 2018-03-20 11:31 | NUR ---
RN NOTES: PT IS TRANSFERRED TO [facility]. RESPIRATIONS UNLABORED, DENIES PAIN, PT IS AOX2-3. SLICER MACHINE OPERATOR OFF.
--- NOTE | 2018-03-20 11:35 | NUR ---
Pt. arrived to unit. Awake. Unable to use translation line per Dr. Mendoza pt. is hard of hearing and confused. Maltese speaking only. No belongings except clothes and shoe- property paperwork filled out. (none on chart) No family at bedside. IV RA unable to flush and tender. IV dc. Photos of heels and sacrum done. Allevyn in place to sacrum. On air mattress with scd's on. Vitals done. Addendum: 03/24/18 at 0849 by ERICA MEDINA RN Late note: No blisters at the time of transfer (just discoloration). Second RN (guilherme Healy) observed the skin with me.
--- NOTE | 2018-03-20 12:00 | CONS ---
Date/Time of Note Date/Time of Note DATE: 03/20/18 TIME: 11:58 Assessment/Plan Assessment/Plan Hospital Course No acute events overnight patient is awake and looks comfortable, no fevers Antimicrobials: Vancomycin, Unasyn Microbiology: Blood culture on admission grew strep pneumonia, urine culture negative. Repeat blood cultures negative Physical examination: Fragile well-developed elderly woman who is awake in no distress. Head atraumatic normocephalic sclera nonicteric. Neck is supple. Chest rise symmetrical breath sounds diminished bases. Heart: S1-S2. Abdomen soft bowel sounds present extremities without cyanosis Assessment: 1. Sepsis, resolving 2. Pneumonia, likely strep 3. Strep bacteremia 4. Resolving encephalopathy 5. Diabetes 6. Dysphagia with possible ongoing aspiration Plan: The patient remains stable, repeat blood cultures negative, 2D echo negative, continue antibiotics, aspiration precautions, follow cxr. Anticipate to complete 2 weeks antibiotics Result Diagram: 03/19/18 0557 03/20/18 0541 Results 24hrs Laboratory Tests Test 03/19/18 12:19 03/19/18 17:22 03/19/18 20:34 03/20/18 01:04 Bedside Glucose 341 H 343 H 345 H Vancomycin Level < 5.0 L Trough Test 03/20/18 02:19 03/20/18 05:41 03/20/18 08:37 Bedside Glucose 148 155 Sodium Level 137 Potassium Level 3.0 L Chloride Level 99 Carbon Dioxide 34 H Level Anion Gap 4 L Blood Urea 15 Nitrogen Creatinine 0.55 Glucose Level 170 Calcium Level 7.0 L Phosphorus Level 3.2 Magnesium Level 1.3 L Albumin 2.3 L Consultation Date/Type/Reason Admit Date/Time Mar 16, 2018 at 11:24 Initial Consult Date Type of Consult id Exam/Review of Systems Vital Signs Vitals Vital Signs Date Temp Pulse Resp B/P (MAP) Pulse Ox O2 O2 Flow FiO2 Time Delivery Rate 03/20/18 97.6 76 18 141/67 95 11:23 (91) 03/20/18 Nasal 2.0 07:47 Cannula Intake and Output 03/19/18 03/19/18 03/20/18 1515:00 23:00 07:00 IntakeIntake Total 100 ml 500 ml 480 ml BalanceBalance 100 ml 500 ml 480 ml Medications Medications Current Medications Losartan Potassium (Cozaar) 100 mg DAILY PO Last administered on 03/20/18at 08:40; Admin Dose 100 MG; Start 03/17/18 at 09:00 Amlodipine Besylate (Norvasc) 5 mg DAILY PO Last administered on 03/20/18at 08:40; Admin Dose 5 MG; Start 03/17/18 at 09:00 IV Flush (NS 3 ml) 3 ml PER PROTOCOL IV ; Start 03/16/18 at 11:30 Ondansetron HCl (Zofran Inj) 4 mg Q6H PRN IV NAUSEA AND/OR VOMITING; Start 03/16/18 at 11:30 Acetaminophen (Tylenol Tab) 650 mg Q6H PRN PO PAIN LEVEL 1-3 OR FEVER; Start 03/16/18 at 11:30 Docusate Sodium (Colace) 100 mg Q12H PRN PO CONSTIPATION; Start 03/16/18 at 11:30 Magnesium Hydroxide (Milk Of Mag) 30 ml DAILY PRN PO CONSTIPATION; Start 03/16/18 at 11:30 Famotidine (Pepcid Iv) 20 mg DAILY IV Last administered on 03/20/18at 08:42; Admin Dose 20 MG; Start 03/16/18 at 12:00 Enoxaparin Sodium (Lovenox) 30 mg DAILY SC Last administered on 03/20/18at 08:58; Admin Dose 30 MG; Start 03/17/18 at 09:00 Albuterol (Proventil 0.083% (Neb)) 2.5 mg Q2H RESP THERAPY PRN HHN SHORTNESS OF BREATH; Start 03/16/18 at 11:30 Insulin Aspart (Novolog Insulin Pen) NOVOLOG *MILD* ALGORITHM WITH MEALS BEDTIME SC Last administered on 03/20/18at 08:57; Admin Dose 1 UNIT; Start 03/16/18 at 17:55 Miscellaneous Information 1 ea NOTE XX ; Start 03/16/18 at 14:30 Glucose (Glutose) 15 gm Q15M PRN PO DECREASED GLUCOSE; Start 03/16/18 at 14:30 Glucose (Glutose) 22.5 gm Q15M PRN PO DECREASED GLUCOSE; Start 03/16/18 at 14:30 Dextrose (D50w Syringe) 25 ml Q15M PRN IV DECREASED GLUCOSE; Start 03/16/18 at 14:30 Dextrose (D50w Syringe) 50 ml Q15M PRN IV DECREASED GLUCOSE; Start 03/16/18 at 14:30 Glucagon (Glucagen) 1 mg Q15M PRN IM DECREASED GLUCOSE; Start 03/16/18 at 14:30 Glucose (Glutose) 15 gm Q15M PRN BUCCAL DECREASED GLUCOSE; Start 03/16/18 at 14:30 Vancomycin HCl (Vanco Iv Per Pharmacy) VANCOMYCIN PER PHARMACY PER PROTOCOL XX ; Start 03/16/18 at 23:00 Acetaminophen (Tylenol Supp) 650 mg Q6H PRN [place] MILD PAIN(1-3) OR TEMP>38C; Start 03/17/18 at 01:00 Ampicillin Sodium/ Sulbactam Sodium 100 ml @ 100 mls/hr Q6 IVPB Last administered on 03/20/18at 07:04; Admin Dose 100 MLS/HR; Start 03/17/18 at 18:00 Hydralazine HCl (Apresoline) 10 mg Q4H PRN IV elevated BP; Start 03/17/18 at 21:30 Insulin Glargine (Lantus) 8 units DAILY@2000 SC Last administered on 03/19/18at 20:56; Admin Dose 8 UNITS; Start 03/18/18 at 20:00 Guaifenesin/ Dextromethorphan (Mucinex Dm) 1 tab BID PO Last administered on 03/20/18at 08:39; Admin Dose 1 TAB; Start 03/18/18 at 16:30 Guaifenesin/ Dextromethorphan (Robitussin Dm Liquid Cup) 5 ml Q4H PRN PO cough; Start 03/18/18 at 16:00 Vancomycin HCl 100 ml @ 100 mls/hr Q12H IVPB ; Start 03/20/18 at 14:00 Magnesium Sulfate 100 ml @ 25 mls/hr ONCE ONCE IVPB ; Start 03/20/18 at 10:00; Stop 03/20/18 at 13:59 Potassium Chloride 100 ml @ 50 mls/hr Q2H IVPB Last administered on 03/20/18at 10:46; Admin Dose 50 MLS/HR; Start 03/20/18 at 10:00; Stop 03/20/18 at 13:59 YULISSA SHETH NP Mar 20, 2018 12:00
[2018-03-20] MEDS: POLYETHYLENE GLYCOL 17 GM PACKET PO SCH (12:38)
--- NOTE | 2018-03-20 16:33 | PN ---
Date/Time of Note Date/Time of Note DATE: 03/20/18 TIME: 16:24 Assessment/Plan VTE Prophylaxis Risk score (from Ns)>0 risk: 7 SCD applied (from Ns): Yes Pharmacological prophylaxis: LMWH Lines/Catheters IV Catheter Type (from Nrsg): Peripheral IV Urinary Cath still in place: No Assessment/Plan Assessment/Plan 1. Bacteremia- improving - Repeat blood cultures negative. ID on board and will continue current antibiotics for 2 week course - WBC normalized and remains afebrile 2. Altered toxic encephalopathy secondary to Pneumonia- resolved - CT scan of head negative for acute abnormalities 3. Dysphagia - ST on board and will need to continue on soft diet with thicken liquids - aspiration precautions in place 4. Sepsis secondary to Right perihilar and LL Pneumonia- improving - ID on board and appreciate antibiotic recommendations - seen on CXR - Nebs PRN 4. Hypokalemia - K remains low and replacing 5. CAMPOS- resolved - most likely prerenal 6. Diabetes Mellitus - A1c noted - will hold home PO medications - ISS and accuchecks 7. HTN - stable - continue on losartan and increase Norvasc to 10mg for better control 8. Gait instability - PT/OT recommending SNF placement and son in agreement 11. Disposition - Cm on board for SNF placement - continue replacing K Result Diagram: 03/19/18 0557 03/20/18 0541 Results 24hrs Laboratory Tests Test 03/19/18 17:22 03/19/18 20:34 03/20/18 01:04 03/20/18 02:19 Bedside Glucose 343 H 345 H 148 Vancomycin Level < 5.0 L Trough Test 03/20/18 05:41 03/20/18 08:37 03/20/18 12:23 Sodium Level 137 Potassium Level 3.0 L Chloride Level 99 Carbon Dioxide 34 H Level Anion Gap 4 L Blood Urea 15 Nitrogen Creatinine 0.55 Glucose Level 170 Calcium Level 7.0 L Phosphorus Level 3.2 Magnesium Level 1.3 L Albumin 2.3 L Bedside Glucose 155 261 H Subjective 24 Hr Interval Summary Free Text/Dictation Patient doing well and no acute overnight events. Tolerating soft diet with no issues. Exam/Review of Systems Vital Signs Vitals Vital Signs Date Temp Pulse Resp B/P (MAP) Pulse Ox O2 O2 Flow FiO2 Time Delivery Rate 03/20/18 97.5 70 19 132/61 99 14:29 (84) 03/20/18 Nasal 2.0 07:47 Cannula Intake and Output 03/19/18 03/19/18 03/20/18 1515:00 23:00 07:00 IntakeIntake Total 100 ml 500 ml 480 ml BalanceBalance 100 ml 500 ml 480 ml Exam General: no acute distress. awake Neck: supple CVS: S1, S2 regular rate and rhythm. no murmurs Lungs: diminished breath sounds bases. no wheezing appreciate Abd: soft, nontender, nondistended, no rebound or guarding. Ext: moving all extremities. no cyanosis, clubbing or edema appreciated Skin: no rashes or lesions appreciated. Medications Medications Current Medications Losartan Potassium (Cozaar) 100 mg DAILY PO Last administered on 03/20/18at 08:40; Admin Dose 100 MG; Start 03/17/18 at 09:00 Amlodipine Besylate (Norvasc) 5 mg DAILY PO Last administered on 03/20/18at 08:40; Admin Dose 5 MG; Start 03/17/18 at 09:00 IV Flush (NS 3 ml) 3 ml PER PROTOCOL IV ; Start 03/16/18 at 11:30 Ondansetron HCl (Zofran Inj) 4 mg Q6H PRN IV NAUSEA AND/OR VOMITING; Start 03/16/18 at 11:30 Acetaminophen (Tylenol Tab) 650 mg Q6H PRN PO PAIN LEVEL 1-3 OR FEVER; Start 03/16/18 at 11:30 Docusate Sodium (Colace) 100 mg Q12H PRN PO CONSTIPATION; Start 03/16/18 at 11:30 Magnesium Hydroxide (Milk Of Mag) 30 ml DAILY PRN PO CONSTIPATION; Start 03/16/18 at 11:30 Enoxaparin Sodium (Lovenox) 30 mg DAILY SC Last administered on 03/20/18at 08:58; Admin Dose 30 MG; Start 03/17/18 at 09:00 Albuterol (Proventil 0.083% (Neb)) 2.5 mg Q2H RESP THERAPY PRN HHN SHORTNESS OF BREATH; Start 03/16/18 at 11:30 Insulin Aspart (Novolog Insulin Pen) NOVOLOG *MILD* ALGORITHM WITH MEALS BEDTIME SC Last administered on 03/20/18at 12:30; Admin Dose 4 UNIT; Start at 17:55 Miscellaneous Information 1 ea NOTE XX ; Start 03/16/18 at 14:30 Glucose (Glutose) 15 gm Q15M PRN PO DECREASED GLUCOSE; Start 03/16/18 at 14:30 Glucose (Glutose) 22.5 gm Q15M PRN PO DECREASED GLUCOSE; Start 03/16/18 at 14:30 Dextrose (D50w Syringe) 25 ml Q15M PRN IV DECREASED GLUCOSE; Start 03/16/18 at 14:30 Dextrose (D50w Syringe) 50 ml Q15M PRN IV DECREASED GLUCOSE; Start 03/16/18 at 14:30 Glucagon (Glucagen) 1 mg Q15M PRN IM DECREASED GLUCOSE; Start 03/16/18 at 14:3 0 Glucose (Glutose) 15 gm Q15M PRN BUCCAL DECREASED GLUCOSE; Start 03/16/18 at 14:30 Vancomycin HCl (Vanco Iv Per Pharmacy) VANCOMYCIN PER PHARMACY PER PROTOCOL XX ; Start 03/16/18 at 23:00 Acetaminophen (Tylenol Supp) 650 mg Q6H PRN [place] MILD PAIN(1-3) OR TEMP>38C; Start 03/17/18 at 01:00 Ampicillin Sodium/ Sulbactam Sodium 100 ml @ 100 mls/hr Q6 IVPB Last administered on 03/20/18at 12:28; Admin Dose 100 MLS/HR; Start 03/17/18 at 18:00 Hydralazine HCl (Apresoline) 10 mg Q4H PRN IV elevated BP; Start 03/17/18 at 21:30 Insulin Glargine (Lantus) 8 units DAILY@2000 SC Last administered on 03/19/18at 20:56; Admin Dose 8 UNITS; Start 03/18/18 at 20:00 Guaifenesin/ Dextromethorphan (Mucinex Dm) 1 tab BID PO Last administered on 03/20/18at 08:39; Admin Dose 1 TAB; Start 03/18/18 at 16:30 Guaifenesin/ Dextromethorphan (Robitussin Dm Liquid Cup) 5 ml Q4H PRN PO cough; Start 03/18/18 at 16:00 Vancomycin HCl 100 ml @ 100 mls/hr Q12H IVPB Last administered on 03/20/18at 14:09; Admin Dose 100 MLS/HR; Start 03/20/18 at 14:00 Polyethylene Glycol (Miralax) 17 gm DAILY PO Last administered on 03/20/18at 12:38; Admin Dose 17 GM; Start 03/20/18 at 12:30 Famotidine (Pepcid) 20 mg DAILY PO ; Start 03/21/18 at 09:00 LIS PIZANO MD Mar 20, 2018 16:33
--- NOTE | 2018-03-20 17:34 | NUR ---
End of shift- afebrile today with occasional, non-productive cough. no skin breakdown. Repositioned every 2 hours on air mattress. no pain. Maintained aspiration precautions with mechanical soft diet, nectar thick liquids.
[2018-03-20] MEDS: INSULIN GLARGINE [LANTus] (100 UNITS/ML) SYG SC SCH (20:32)
[2018-03-21] MEDS: VANCOMYCIN 500 MG (PMX) 100 ML IVPB SCH ×2 (02:09→15:43)
[2018-03-21 02:35] VITALS: BP 150/72; PULSE 65; RESP 20
[2018-03-21] MEDS: AMPICILLIN/SULB 3 GM/NS (PMX) 100 ML IVPB SCH ×4 (05:16→23:45)
--- NOTE | 2018-03-21 05:59 | NUR ---
END OF SHIFT: Patient in room asleep with no signs of distress. Patient with no pain noted via FACES pain scale. Vital signs stable with no signs of distress noted. Alert and oriented x1-2. BG 291 this shift with insulin coverage provided. Patient refused HS snack. No abdominal pain, fatigue, headache, dizziness, or distress indicating signs of hypoglycemia/hyperglycemia noted. No BM noted this shift. No skin breakdown noted upon assessment. No other changes noted. All needs met and medications administered. Patient turned every 2 hours with heels kept elevated at all times. Safety precautions and hourly rounding currently in place until change of shift.
[2018-03-21] MEDS: INSULIN ASPART [NOVOLOG] 3 ML PEN SC SCH ×4 (07:56→20:40)
[2018-03-21 08:00] VITALS: BP 166/76; PULSE 71; RESP 19
[2018-03-21] MEDS: POLYETHYLENE GLYCOL 17 GM PACKET PO SCH (08:47)
[2018-03-21] MEDS: FAMOTIDINE 20 MG TAB PO SCH (08:47)
[2018-03-21] MEDS: GUAIFENESIN/DM (SR) TAB PO SCH ×2 (08:48→20:37)
[2018-03-21] MEDS: LOSARTAN 50 MG TAB PO SCH (08:48)
[2018-03-21] MEDS: AMLODIPINE 10 MG TAB PO SCH (08:48)
[2018-03-21] MEDS: ENOXAPARIN 30 MG/0.3 ML SYG SC SCH (08:51)
--- NOTE | 2018-03-21 08:54 | PN ---
Date/Time of Note Date/Time of Note DATE: 03/21/18 TIME: 08:54 Assessment/Plan VTE Prophylaxis Risk score (from Ns)>0 risk: 9 SCD applied (from Ns): Yes Pharmacological prophylaxis: LMWH Lines/Catheters IV Catheter Type (from Nrsg): Peripheral IV Urinary Cath still in place: No Assessment/Plan Assessment/Plan 1. Bacteremia- improving - Repeat blood cultures negative. ID on board and will continue current antibiotics for 2 weeks total, 03/31 last dose - WBC normalized and remains afebrile 2. Altered toxic encephalopathy secondary to Pneumonia- resolved - CT scan of head negative for acute abnormalities 3. Dysphagia - ST on board and will need to continue on soft diet with thicken liquids - aspiration precautions in place 4. Sepsis secondary to Right perihilar and LL Pneumonia- resolving - ID on board and appreciate antibiotic recommendations. Continue until 03/31/18 - seen on CXR - Nebs PRN 5. Hypokalemia- improving - K 3.5 and will give 40meq. Continue monitoring with goal K of 4.0 6. CAMPOS- resolved - most likely prerenal 7. Diabetes Mellitus - A1c noted - will hold home PO medications - ISS and accuchecks 8. HTN - stable - norvasc and losartan on board. continue monitoring and will adjust as needed 9. Gait instability - PT/OT recommending SNF placement and son in agreement 10. Disposition - CM on board for SNF placement Result Diagram: 03/19/18 0557 03/21/18 0514 Results 24hrs Laboratory Tests Test 03/20/18 12:23 03/20/18 17:19 03/20/18 20:28 03/21/18 02:06 Bedside Glucose 261 H 284 H 291 H 171 Test 03/21/18 05:14 03/21/18 07:54 Sodium Level 138 Potassium Level 3.6 Chloride Level 97 Carbon Dioxide 36 H Level Anion Gap 5 Blood Urea 13 Nitrogen Creatinine 0.63 Glucose Level 167 Calcium Level 7.3 L Phosphorus Level 3.1 Magnesium Level 2.1 Albumin 2.5 L Bedside Glucose 137 Subjective 24 Hr Interval Summary Free Text/Dictation Patient doing well and no acute overnight events. Occasional nonproductive cough but no respiratory distress appreciated. Exam/Review of Systems Vital Signs Vitals Vital Signs Date Temp Pulse Resp B/P (MAP) Pulse Ox O2 O2 Flow FiO2 Time Delivery Rate 03/21/18 98.0 71 19 166/76 99 08:00 (106) 03/20/18 Nasal 2.0 19:00 Cannula Intake and Output 03/20/18 03/20/18 03/21/18 1515:00 23:00 07:00 IntakeIntake Total 520 ml 420 ml 400 ml BalanceBalance 520 ml 420 ml 400 ml Exam General: no acute distress. awake and answering simple questions Neck: supple CVS: S1, S2 regular rate and rhythm. no murmurs Lungs: diminished breath sounds bases. no wheezing appreciated. non labored breathing Abd: soft, nontender, nondistended, no rebound or guarding. Ext: moving all extremities. no cyanosis, clubbing or edema appreciated Skin: no rashes or lesions appreciated. Medications Medications Current Medications Losartan Potassium (Cozaar) 100 mg DAILY PO Last administered on 03/21/18at 08:48; Admin Dose 100 MG; Start 03/17/18 at 09:00 IV Flush (NS 3 ml) 3 ml PER PROTOCOL IV ; Start 03/16/18 at 11:30 Ondansetron HCl (Zofran Inj) 4 mg Q6H PRN IV NAUSEA AND/OR VOMITING; Start 1 05/17/17 at 11:30 Acetaminophen (Tylenol Tab) 650 mg Q6H PRN PO PAIN LEVEL 1-3 OR FEVER; Start 03/16/18 at 11:30 Docusate Sodium (Colace) 100 mg Q12H PRN PO CONSTIPATION; Start 03/16/18 at 11:30 Magnesium Hydroxide (Milk Of Mag) 30 ml DAILY PRN PO CONSTIPATION; Start 03/16/18 at 11:30 Enoxaparin Sodium (Lovenox) 30 mg DAILY SC Last administered on 03/21/18at 08:51; Admin Dose 30 MG; Start 03/17/18 at 09:00 Albuterol (Proventil 0.083% (Neb)) 2.5 mg Q2H RESP THERAPY PRN HHN SHORTNESS OF BREATH; Start 03/16/18 at 11:30 Insulin Aspart (Novolog Insulin Pen) NOVOLOG *MILD* ALGORITHM WITH MEALS BEDTIME SC Last administered on 03/20/18at 20:33; Admin Dose 3 UNIT; Start 03/16/18 at 17:55 Miscellaneous Information 1 ea NOTE XX ; Start 03/16/18 at 14:30 Glucose (Glutose) 15 gm Q15M PRN PO DECREASED GLUCOSE; Start 03/16/18 at 14:30 Glucose (Glutose) 22.5 gm Q15M PRN PO DECREASED GLUCOSE; Start 03/16/18 at 14:30 Dextrose (D50w Syringe) 25 ml Q15M PRN IV DECREASED GLUCOSE; Start 03/16/18 at 14:30 Dextrose (D50w Syringe) 50 ml Q15M PRN IV DECREASED GLUCOSE; Start 03/16/18 at 14:30 Glucagon (Glucagen) 1 mg Q15M PRN IM DECREASED GLUCOSE; Start 03/16/18 at 14:30 Glucose (Glutose) 15 gm Q15M PRN BUCCAL DECREASED GLUCOSE; Start 03/16/18 at 14:30 Vancomycin HCl (Vanco Iv Per Pharmacy) VANCOMYCIN PER PHARMACY PER PROTOCOL XX ; Start 03/16/18 at 23:00 Acetaminophen (Tylenol Supp) 650 mg Q6H PRN [place] MILD PAIN(1-3) OR TEMP>38C; Start 03/17/18 at 01:00 Ampicillin Sodium/ Sulbactam Sodium 100 ml @ 100 mls/hr Q6 IVPB Last administered on 03/21/18at 05:16; Admin Dose 100 MLS/HR; Start 03/17/18 at 18:00 Hydralazine HCl (Apresoline) 10 mg Q4H PRN IV elevated BP; Start 03/17/18 at 21:30 Insulin Glargine (Lantus) 8 units DAILY@2000 SC Last administered on 03/20/18at 20:32; Admin Dose 8 UNITS; Start 03/18/18 at 20:00 Guaifenesin/ Dextromethorphan (Mucinex Dm) 1 tab BID PO Last administered on 03/21/18at 08:48; Admin Dose 1 TAB; Start 03/18/18 at 16:30 Guaifenesin/ Dextromethorphan (Robitussin Dm Liquid Cup) 5 ml Q4H PRN PO cough; Start 03/18/18 at 16:00 Vancomycin HCl 100 ml @ 100 mls/hr Q12H IVPB Last administered on 03/21/18at 02:09; Admin Dose 100 MLS/HR; Start 03/20/18 at 14:00 Polyethylene Glycol (Miralax) 17 gm DAILY PO Last administered on 03/21/18 08:47; Admin Dose 17 GM; Start 03/20/18 at 12:30 Famotidine (Pepcid) 20 mg DAILY PO Last administered on 03/21/18 08:47; Admin Dose 20 MG; Start 03/21/18 at 09:00 Amlodipine Besylate (Norvasc) 10 mg DAILY PO Last administered on 03/21/18 08:48; Admin Dose 10 MG; Start 03/21/18 at 09:00 LIS PIZANO MD Mar 21, 2018 08:54
[2018-03-21] MEDS ORDERED: POTASSIUM CHLORIDE 20 MEQ POWDER FOR ORAL SOLN PO ONE (10:00)
[2018-03-21 14:42] VITALS: BP 136/70; PULSE 78; RESP 19
--- NOTE | 2018-03-21 15:57 | CONS ---
Date/Time of Note Date/Time of Note DATE: 03/21/18 TIME: 15:57 Assessment/Plan Assessment/Plan Hospital Course ID PROGRESS NOTE CURRENT ABX: DAY # 6 => Vanco IV + Unasyn 03/19/18 0557 03/21/18 0514 24H INTERVAL SUMMARY * Awake, alert, sitting up in bed taking POs with assist from daughter, no coughing noted -- she reports breathing effort improved, she is stable on room air * Microbiology: Blood culture on admission grew strep pneumonia, urine culture negative. Repeat blood cultures negative PHYSICAL EXAMINATION: GENERAL: Afebrile, VSS, HEENT: AT, NC, anicteric NECK: Supple, trach CHEST: Equal chest rise bilaterally, without dyspnea on observation HEART: Pulse RRR ABDOMEN: Soft / NT EXTREMITIES: Warm, dry SKIN: No rash, no diaphoresis ID ASSESSMENT 87 yo F admit with: 1. Sepsis, resolving 2. Pneumonia, likely strep 3. Strep bacteremia 4. Resolving encephalopathy 5. Diabetes 6. Dysphagia with possible ongoing aspiration ABX ALLERGIES: NKDA INVASIVES: PIV CURRENT ABX: DAY # 6=> Vanco IV + Unasyn s/p ID RECOMMENDATIONS/PLAN: Continue current ABX -- Ideally she should receive 14 days ABX for (+)BCx -- either change to Ceftriaxone upon DC to SNF or Felipe eval ? ASP Precautions Result Diagram: 03/19/18 0557 03/21/18 0514 Results 24hrs Laboratory Tests Test 03/20/18 17:19 03/20/18 20:28 03/21/18 02:06 03/21/18 05:14 Bedside Glucose 284 H 291 H 171 Sodium Level 138 Potassium Level 3.6 Chloride Level 97 Carbon Dioxide 36 H Level Anion Gap 5 Blood Urea 13 Nitrogen Creatinine 0.63 Glucose Level 167 Calcium Level 7.3 L Phosphorus Level 3.1 Magnesium Level 2.1 Albumin 2.5 L Test 03/21/18 07:54 03/21/18 12:07 Bedside Glucose 137 268 H Consultation Date/Type/Reason Admit Date/Time Mar 16, 2018 at 11:24 Initial Consult Date Exam/Review of Systems Vital Signs Vitals Vital Signs Date Temp Pulse Resp B/P (MAP) Pulse Ox O2 O2 Flow FiO2 Time Delivery Rate 03/21/18 98.0 78 19 136/70 99 14:42 (92) 03/21/18 Nasal 2.0 09:00 Cannula Intake and Output 03/20/18 03/20/18 03/21/18 1515:00 23:00 07:00 IntakeIntake Total 520 ml 420 ml 400 ml BalanceBalance 520 ml 420 ml 400 ml Medications Medications Current Medications Losartan Potassium (Cozaar) 100 mg DAILY PO Last administered on 03/21/18at 08:48; Admin Dose 100 MG; Start 03/17/18 at 09:00 IV Flush (NS 3 ml) 3 ml PER PROTOCOL IV ; Start 03/16/18 at 11:30 Ondansetron HCl (Zofran Inj) 4 mg Q6H PRN IV NAUSEA AND/OR VOMITING; Start 03/16/18 at 11:30 Acetaminophen (Tylenol Tab) 650 mg Q6H PRN PO PAIN LEVEL 1-3 OR FEVER; Start 03/16/18 at 11:30 Docusate Sodium (Colace) 100 mg Q12H PRN PO CONSTIPATION; Start 03/16/18 at 11:30 Magnesium Hydroxide (Milk Of Mag) 30 ml DAILY PRN PO CONSTIPATION; Start 03/16/18 at 11:30 Enoxaparin Sodium (Lovenox) 30 mg DAILY SC Last administered on 03/21/18at 08:51; Admin Dose 30 MG; Start 03/17/18 at 09:00 Albuterol (Proventil 0.083% (Neb)) 2.5 mg Q2H RESP THERAPY PRN HHN SHORTNESS OF BREATH; Start 03/16/18 at 11:30 Insulin Aspart (Novolog Insulin Pen) NOVOLOG *MILD* ALGORITHM WITH MEALS BEDTIME SC Last administered on 03/21/18at 12:34; Admin Dose 4 UNIT; Start 03/16/18 at 17:55 Miscellaneous Information 1 ea NOTE XX ; Start 03/16/18 at 14:30 Glucose (Glutose) 15 gm Q15M PRN PO DECREASED GLUCOSE; Start 03/16/18 at 14:30 Glucose (Glutose) 22.5 gm Q15M PRN PO DECREASED GLUCOSE; Start 03/16/18 at 14:30 Dextrose (D50w Syringe) 25 ml Q15M PRN IV DECREASED GLUCOSE; Start 03/16/18 at 14:30 Dextrose (D50w Syringe) 50 ml Q15M PRN IV DECREASED GLUCOSE; Start 03/16/18 at 14:30 Glucagon (Glucagen) 1 mg Q15M PRN IM DECREASED GLUCOSE; Start 03/16/18 at 14:30 Glucose (Glutose) 15 gm Q15M PRN BUCCAL DECREASED GLUCOSE; Start 03/16/18 at 14:30 Vancomycin HCl (Vanco Iv Per Pharmacy) VANCOMYCIN PER PHARMACY PER PROTOCOL XX ; Start 03/16/18 at 23:00 Acetaminophen (Tylenol Supp) 650 mg Q6H PRN [place] MILD PAIN(1-3) OR TEMP>38C; Start 03/17/18 at 01:00 Ampicillin Sodium/ Sulbactam Sodium 100 ml @ 100 mls/hr Q6 IVPB Last administered on 03/21/18at 12:39; Admin Dose 100 MLS/HR; Start 03/17/18 at 18:00 Hydralazine HCl (Apresoline) 10 mg Q4H PRN IV elevated BP; Start 03/17/18 at 21:30 Insulin Glargine (Lantus) 8 units DAILY@2000 SC Last administered on 03/20/18at 20:32; Admin Dose 8 UNITS; Start 03/18/18 at 20:00 Guaifenesin/ Dextromethorphan (Mucinex Dm) 1 tab BID PO Last administered on 03/21/18at 08:48; Admin Dose 1 TAB; Start 03/18/18 at 16:30 Guaifenesin/ Dextromethorphan (Robitussin Dm Liquid Cup) 5 ml Q4H PRN PO cough; Start 03/18/18 at 16:00 Vancomycin HCl 100 ml @ 100 mls/hr Q12H IVPB Last administered on 03/21/18at 15:43; Admin Dose 100 MLS/HR; Start 03/20/18 at 14:00 Polyethylene Glycol (Miralax) 17 gm DAILY PO Last administered on 03/21/18at 08:47; Admin Dose 17 GM; Start 03/20/18 at 12:30 Famotidine (Pepcid) 20 mg DAILY PO Last administered on 03/21/18at 08:47; Admin Dose 20 MG; Start 03/21/18 at 09:00 Amlodipine Besylate (Norvasc) 10 mg DAILY PO Last administered on 03/21/18at 08:48; Admin Dose 10 MG; Start 03/21/18 at 09:00 Metformin HCl (Glucophage) 500 mg BID WITH MEALS PO ; Start 03/21/18 at 18:05 Miscellaneous Information (*Rx Drug Level Order Reminder*) VANC TROUGH @ 0,100 ONCE ONCE XX ; Start 03/22/18 at 01:00; Stop 03/22/18 at 01:01 MARIA T MEJIA NP Mar 21, 2018 15:57
[2018-03-21] MEDS: metFORMIN 500 MG TAB PO SCH (17:21)
--- NOTE | 2018-03-21 18:38 | NUR ---
EOSS: pATIENT'S VITAL SIGNS STABLE. AFEBRILE THE WHOLE SHIFT, DENIES PAIN. NO SOB, CONGESTION OR COUGHING NOTED, DENIES CHEST PAIN. NO S/S OF HYPO/HYPERGLYCEMIA DURING THE SHIFT. TURNED AND REPOSITIONED EVERY 2 HOURS, NO SKIN ISSUES NOTED DURING THE SHIFT. NEEDS ATTENDED.
[2018-03-21 20:12] VITALS: BP 107/51; PULSE 82; RESP 18
[2018-03-21] MEDS: INSULIN GLARGINE [LANTus] (100 UNITS/ML) SYG SC SCH (20:39)
[2018-03-22 02:00] VITALS: BP 130/59; PULSE 76; RESP 18
[2018-03-22] MEDS: VANCOMYCIN 500 MG (PMX) 100 ML IVPB SCH (02:27)
[2018-03-22] MEDS: AMPICILLIN/SULB 3 GM/NS (PMX) 100 ML IVPB SCH ×3 (05:31→18:20)
--- NOTE | 2018-03-22 06:36 | NUR ---
Patient in room asleep with no signs of distress. Vital signs stable. BG 293 this shift with insulin coverage provided. Patient refused HS snack. No abdominal pain, headache, fatigue, or distress indicating signs of hypoglycemia/hyperglycemia. No other changes otherwise noted. All needs met and medications administered. Safety precautions and hourly rounding currently in place until change of shift.
[2018-03-22 07:30] VITALS: BP 149/70; PULSE 73; RESP 16
[2018-03-22] MEDS: INSULIN ASPART [NOVOLOG] 3 ML PEN SC SCH ×4 (08:00→22:01)
[2018-03-22] MEDS: GUAIFENESIN/DM (SR) TAB PO SCH ×2 (08:35→20:17)
[2018-03-22] MEDS: FAMOTIDINE 20 MG TAB PO SCH (08:35)
[2018-03-22] MEDS: POLYETHYLENE GLYCOL 17 GM PACKET PO SCH (08:35)
[2018-03-22] MEDS: AMLODIPINE 10 MG TAB PO SCH (08:35)
[2018-03-22] MEDS: LOSARTAN 50 MG TAB PO SCH (08:35)
[2018-03-22] MEDS: metFORMIN 500 MG TAB PO SCH ×2 (08:35→17:40)
[2018-03-22] MEDS: ENOXAPARIN 30 MG/0.3 ML SYG SC SCH (08:37)
--- NOTE | 2018-03-22 08:56 | PN ---
Date/Time of Note Date/Time of Note DATE: 03/22/18 TIME: 08:56 Assessment/Plan VTE Prophylaxis Risk score (from Ns)>0 risk: 9 SCD applied (from Ns): Yes Pharmacological prophylaxis: LMWH Lines/Catheters IV Catheter Type (from Nrsg): Peripheral IV Urinary Cath still in place: No Assessment/Plan Assessment/Plan 1. Bacteremia- resolving - Repeat blood cultures negative. ID on board and will continue current antibiotics for 2 weeks total, 03/31 last dose - WBC normalized and remains afebrile 2. Decreased ROM RLE - Patient has not been complaining of any pain. Son brought up concern about his mother guarding her right leg - Pelvis Xray shows old healed fractures and unable to assess for new fx - Will order CT scan RLE and pelvis to assess for any new fractures 3. Altered toxic encephalopathy secondary to Pneumonia- resolved - CT scan of head negative for acute abnormalities 4. Dysphagia - ST on board and will need to continue on soft diet with thicken liquids - aspiration precautions in place 5. Sepsis secondary to Right perihilar and LL Pneumonia- resolving - ID on board and appreciate antibiotic recommendations. Continue until 03/31/18 - seen on CXR - Nebs PRN 6. CAMPOS- resolved - most likely prerenal 7. Diabetes Mellitus - A1c noted - ISS and accuchecks 8. HTN - stable - norvasc and losartan on board 9. Gait instability - PT/OT recommending SNF placement and son in agreement 10. Disposition - CM on board for SNF placement - Awaiting CT scan of pelvis and RLE to assess right hip Result Diagram: 03/19/18 0557 03/22/18 0111 Results 24hrs Laboratory Tests Test 03/21/18 12:07 03/21/18 17:11 03/21/18 20:36 03/22/18 01:11 Bedside Glucose 268 H 198 293 H Sodium Level 138 Potassium Level 3.8 Chloride Level 100 Carbon Dioxide 32 H Level Anion Gap 6 Blood Urea 18 Nitrogen Creatinine 0.65 Glucose Level 131 Calcium Level 7.4 L Phosphorus Level 3.2 Magnesium Level 1.7 Albumin 2.4 L Vancomycin Level 11.8 Trough Test 03/22/18 02:26 03/22/18 07:54 Bedside Glucose 134 110 Subjective 24 Hr Interval Summary Free Text/Dictation Patient remains stable and denies any acute issues. Son concerned patient is guarding her right hip/leg. Discussed obtaining CT scan to determine if any new fx since unable to detect on Xray given old healing trauma appreciated. Exam/Review of Systems Vital Signs Vitals Vital Signs Date Temp Pulse Resp B/P (MAP) Pulse Ox O2 O2 Flow FiO2 Time Delivery Rate 03/22/18 2.0 07:47 03/22/18 93 Nasal 02:05 Cannula 03/22/18 97.7 76 18 130/59 02:00 (82) Intake and Output 03/21/18 03/21/18 03/22/18 1515:00 23:00 07:00 IntakeIntake Total 160 ml 600 ml 300 ml BalanceBalance 160 ml 600 ml 300 ml Exam General: no acute distress. awake and answering simple questions Neck: supple CVS: S1, S2 regular rate and rhythm. no murmurs Lungs: diminished breath sounds bases. no wheezing appreciated. non labored breathing Abd: soft, nontender, nondistended, no rebound or guarding. Ext: no cyanosis, clubbing or edema appreciated Skin: no rashes or lesions appreciated. Medications Medications Current Medications Losartan Potassium (Cozaar) 100 mg DAILY PO Last administered on 03/22/18at 08:35; Admin Dose 100 MG; Start 03/17/18 at 09:00 IV Flush (NS 3 ml) 3 ml PER PROTOCOL IV ; Start 03/16/18 at 11:30 Ondansetron HCl (Zofran Inj) 4 mg Q6H PRN IV NAUSEA AND/OR VOMITING; Start 03/16/18 at 11:30 Acetaminophen (Tylenol Tab) 650 mg Q6H PRN PO PAIN LEVEL 1-3 OR FEVER; Start 03/16/18 at 11:30 Docusate Sodium (Colace) 100 mg Q12H PRN PO CONSTIPATION; Start 03/16/18 at 11:30 Magnesium Hydroxide (Milk Of Mag) 30 ml DAILY PRN PO CONSTIPATION; Start 03/16/18 at 11:30 Enoxaparin Sodium (Lovenox) 30 mg DAILY SC Last administered on 03/22/18at 08:37; Admin Dose 30 MG; Start 03/17/18 at 09:00 Albuterol (Proventil 0.083% (Neb)) 2.5 mg Q2H RESP THERAPY PRN HHN SHORTNESS OF BREATH; Start 03/16/18 at 11:30 Insulin Aspart (Novolog Insulin Pen) NOVOLOG *MILD* ALGORITHM WITH MEALS BEDTIME SC Last administered on 03/21/18at 20:40; Admin Dose 3 UNIT; Start 03/16/18 at 17:55 Miscellaneous Information 1 ea NOTE XX ; Start 03/16/18 at 14:30 Glucose (Glutose) 15 gm Q15M PRN PO DECREASED GLUCOSE; Start 03/16/18 at 14:30 Glucose (Glutose) 22.5 gm Q15M PRN PO DECREASED GLUCOSE; Start 03/16/18 at 14:30 Dextrose (D50w Syringe) 25 ml Q15M PRN IV DECREASED GLUCOSE; Start 03/16/18 at 14:30 Dextrose (D50w Syringe) 50 ml Q15M PRN IV DECREASED GLUCOSE; Start 03/16/18 at 14:30 Glucagon (Glucagen) 1 mg Q15M PRN IM DECREASED GLUCOSE; Start 03/16/18 at 14:30 Glucose (Glutose) 15 gm Q15M PRN BUCCAL DECREASED GLUCOSE; Start 03/16/18 at 14:30 Vancomycin HCl (Vanco Iv Per Pharmacy) VANCOMYCIN PER PHARMACY PER PROTOCOL XX ; Start 03/16/18 at 23:00 Acetaminophen (Tylenol Supp) 650 mg Q6H PRN [place] MILD PAIN(1-3) OR TEMP>38C; Start 03/17/18 at 01:00 Ampicillin Sodium/ Sulbactam Sodium 100 ml @ 100 mls/hr Q6 IVPB Last administered on 03/22/18at 05:31; Admin Dose 100 MLS/HR; Start 03/17/18 at 18:00 Hydralazine HCl (Apresoline) 10 mg Q4H PRN IV elevated BP; Start 03/17/18 at 21:30 Insulin Glargine (Lantus) 8 units DAILY@2000 SC Last administered on 03/21/18at 20:39; Admin Dose 8 UNITS; Start 03/18/18 at 20:00 Guaifenesin/ Dextromethorphan (Mucinex Dm) 1 tab BID PO Last administered on 03/22/18at 08:35; Admin Dose 1 TAB; Start 03/18/18 at 16:30 Guaifenesin/ Dextromethorphan (Robitussin Dm Liquid Cup) 5 ml Q4H PRN PO cough; Start 03/18/18 at 16:00 Vancomycin HCl 100 ml @ 100 mls/hr Q12H IVPB Last administered on 03/22/18 02:27; Admin Dose 100 MLS/HR; Start 03/20/18 at 14:00 Polyethylene Glycol (Miralax) 17 gm DAILY PO Last administered on 03/22/18 08:35; Admin Dose 17 GM; Start 03/20/18 at 12:30 Famotidine (Pepcid) 20 mg DAILY PO Last administered on 03/22/18 08:35; Admin Dose 20 MG; Start 03/21/18 at 09:00 Amlodipine Besylate (Norvasc) 10 mg DAILY PO Last administered on 03/22/18 08:35; Admin Dose 10 MG; Start 03/21/18 at 09:00 Metformin HCl (Glucophage) 500 mg BID WITH MEALS PO Last administered on 03/22/18 08:35; Admin Dose 500 MG; Start 03/21/18 at 18:05 LIS PIZANO MD Mar 22, 2018 08:56
[2018-03-22 14:10] VITALS: BP 107/53; PULSE 74; RESP 16
--- NOTE | 2018-03-22 14:59 | CONS ---
Date/Time of Note Date/Time of Note DATE: 03/22/18 TIME: 14:58 Assessment/Plan Assessment/Plan Hospital Course ID PROGRESS NOTE CURRENT ABX: DAY # 7 => Vanco IV + Unasyn 03/19/18 0557 03/22/18 0111 24H INTERVAL SUMMARY * No new issues overnight -- overall improved -- Awake, alert, she is stable on room air * Microbiology: Blood culture on admission grew strep pneumonia, urine culture negative. Repeat blood cultures negative * - Awaiting CT scan of pelvis and RLE to assess right hip PHYSICAL EXAMINATION: GENERAL: Afebrile, VSS, HEENT: AT, NC, anicteric NECK: Supple, trach CHEST: Equal chest rise bilaterally, without dyspnea on observation HEART: Pulse RRR ABDOMEN: Soft / NT EXTREMITIES: Warm, dry SKIN: No rash, no diaphoresis ID ASSESSMENT 87 yo F admit with: 1. Sepsis, resolving 2. Pneumonia, likely strep 3. Strep bacteremia 4. Resolving encephalopathy 5. Diabetes 6. Dysphagia with possible ongoing aspiration ABX ALLERGIES: NKDA INVASIVES: PIV CURRENT ABX: DAY #7=> Vanco IV + Unasyn s/p ID RECOMMENDATIONS/PLAN: Continue current ABX -- Ideally she should receive 14 days ABX for (+)BCx -- either change to Ceftriaxone upon DC to SNF or [place] eval ? ASP Precautions Result Diagram: 03/19/18 0557 03/22/18 0111 Results 24hrs Laboratory Tests Test 03/21/18 17:11 03/21/18 20:36 03/22/18 01:11 03/22/18 02:26 Bedside Glucose 198 293 H 134 Sodium Level 138 Potassium Level 3.8 Chloride Level 100 Carbon Dioxide 32 H Level Anion Gap 6 Blood Urea 18 Nitrogen Creatinine 0.65 Glucose Level 131 Calcium Level 7.4 L Phosphorus Level 3.2 Magnesium Level 1.7 Albumin 2.4 L Vancomycin Level 11.8 Trough Test 03/22/18 07:54 03/22/18 11:52 Bedside Glucose 110 209 Consultation Date/Type/Reason Admit Date/Time Mar 16, 2018 at 11:24 Initial Consult Date Exam/Review of Systems Vital Signs Vitals Vital Signs Date Temp Pulse Resp B/P (MAP) Pulse Ox O2 O2 Flow FiO2 Time Delivery Rate 03/22/18 98.3 74 16 107/53 94 Room Air 14:10 (71) 03/22/18 2.0 08:10 Intake and Output 03/21/18 03/21/18 03/22/18 1515:00 23:00 07:00 IntakeIntake Total 160 ml 600 ml 300 ml BalanceBalance 160 ml 600 ml 300 ml Medications Medications Current Medications Losartan Potassium (Cozaar) 100 mg DAILY PO Last administered on 03/22/18at 08:35; Admin Dose 100 MG; Start 03/17/18 at 09:00 IV Flush (NS 3 ml) 3 ml PER PROTOCOL IV ; Start 03/16/18 at 11:30 Ondansetron HCl (Zofran Inj) 4 mg Q6H PRN IV NAUSEA AND/OR VOMITING; Start 03/16/18 at 11:30 Acetaminophen (Tylenol Tab) 650 mg Q6H PRN PO PAIN LEVEL 1-3 OR FEVER; Start 03/16/18 at 11:30 Docusate Sodium (Colace) 100 mg Q12H PRN PO CONSTIPATION; Start 03/16/18 at 11:30 Magnesium Hydroxide (Milk Of Mag) 30 ml DAILY PRN PO CONSTIPATION; Start 03/16/18 at 11:30 Enoxaparin Sodium (Lovenox) 30 mg DAILY SC Last administered on 03/22/18at 08:37; Admin Dose 30 MG; Start 03/17/18 at 09:00 Albuterol (Proventil 0.083% (Neb)) 2.5 mg Q2H RESP THERAPY PRN HHN SHORTNESS OF BREATH; Start 03/16/18 at 11:30 Insulin Aspart (Novolog Insulin Pen) NOVOLOG *MILD* ALGORITHM WITH MEALS BEDTIME SC Last administered on 03/22/18at 12:14; Admin Dose 2 UNIT; Start 03/16/18 at 17:55 Miscellaneous Information 1 ea NOTE XX ; Start 03/16/18 at 14:30 Glucose (Glutose) 15 gm Q15M PRN PO DECREASED GLUCOSE; Start 03/16/18 at 14:30 Glucose (Glutose) 22.5 gm Q15M PRN PO DECREASED GLUCOSE; Start 03/16/18 at 14:30 Dextrose (D50w Syringe) 25 ml Q15M PRN IV DECREASED GLUCOSE; Start 03/16/18 at 14:30 Dextrose (D50w Syringe) 50 ml Q15M PRN IV DECREASED GLUCOSE; Start 03/16/18 at 14:30 Glucagon (Glucagen) 1 mg Q15M PRN IM DECREASED GLUCOSE; Start 03/16/18 at 14:30 Glucose (Glutose) 15 gm Q15M PRN BUCCAL DECREASED GLUCOSE; Start 03/16/18 at 14:30 Acetaminophen (Tylenol Supp) 650 mg Q6H PRN [place] MILD PAIN(1-3) OR TEMP>38C; Start 03/17/18 at 01:00 Ampicillin Sodium/ Sulbactam Sodium 100 ml @ 100 mls/hr Q6 IVPB Last a dministered on 03/22/18at 11:48; Admin Dose 100 MLS/HR; Start 03/17/18 at 18:00 Hydralazine HCl (Apresoline) 10 mg Q4H PRN IV elevated BP; Start 03/17/18 at 21:30 Insulin Glargine (Lantus) 8 units DAILY@2000 SC Last administered on 03/21/18at 20:39; Admin Dose 8 UNITS; Start 03/18/18 at 20:00 Guaifenesin/ Dextromethorphan (Mucinex Dm) 1 tab BID PO Last administered on 03/22/18 08:35; Admin Dose 1 TAB; Start 03/18/18 at 16:30 Guaifenesin/ Dextromethorphan (Robitussin Dm Liquid Cup) 5 ml Q4H PRN PO cough; Start 03/18/18 at 16:00 Polyethylene Glycol (Miralax) 17 gm DAILY PO Last administered on 03/22/18 08:35; Admin Dose 17 GM; Start 03/20/18 at 12:30 Famotidine (Pepcid) 20 mg DAILY PO Last administered on 03/22/18at 08:35; Admin Dose 20 MG; Start 03/21/18 at 09:00 Amlodipine Besylate (Norvasc) 10 mg DAILY PO Last administered on 03/22/18 08:35; Admin Dose 10 MG; Start 03/21/18 at 09:00 Metformin HCl (Glucophage) 500 mg BID WITH MEALS PO Last administered on 03/22/18 08:35; Admin Dose 500 MG; Start 03/21/18 at 18:05 MARIA T MEJIA NP Mar 22, 2018 14:59
--- NOTE | 2018-03-22 18:38 | NUR ---
Patient alert and oriented x3. Hard of hearing and vision problem. Patient is occitan speaking only and had no problem stating her needs and understanding concept (RN is occitan speaking). Patient complains of her right leg not moving, with minimal pain. CAT scan done on this shift. Patient's blood sugar was in check and coverage was given. fall precaution in place, call light within reach. pt's daughter next to bedside. will endorse to senior salesforce developer nurse.
[2018-03-22] MEDS: INSULIN GLARGINE [LANTus] (100 UNITS/ML) SYG SC SCH (20:22)
[2018-03-22 21:02] VITALS: BP 128/61; PULSE 73; RESP 16
[2018-03-23] MEDS: AMPICILLIN/SULB 3 GM/NS (PMX) 100 ML IVPB SCH ×5 (00:37→23:47)
[2018-03-23 03:05] VITALS: BP 143/67; PULSE 70; RESP 18
--- NOTE | 2018-03-23 06:40 | NUR ---
End of shift Report: Awake on bed in comfortable position. NO sob. No resp distress. Afebrile. No s/sx pain/discomfort. No s/sx hypo/hyperglycemia. Novolog SC per sliding scale given last night. Turned and repositioned. For wound consult re sacral area intact blisters. Kept clean and dry. Kept comfortable at all times. Needs attended and anticipated. No acute events overnight. Will continue to monitor pt. Pending SNF placement. Will endorse accordingly.
[2018-03-23] MEDS: INSULIN ASPART [NOVOLOG] 3 ML PEN SC SCH ×4 (07:54→21:25)
[2018-03-23 08:01] VITALS: BP 155/70; PULSE 69; RESP 18
[2018-03-23] MEDS: POLYETHYLENE GLYCOL 17 GM PACKET PO SCH (08:45)
[2018-03-23] MEDS: LOSARTAN 50 MG TAB PO SCH (08:45)
[2018-03-23] MEDS: GUAIFENESIN/DM (SR) TAB PO SCH ×2 (08:45→21:23)
[2018-03-23] MEDS: FAMOTIDINE 20 MG TAB PO SCH (08:45)
[2018-03-23] MEDS: AMLODIPINE 10 MG TAB PO SCH (08:45)
[2018-03-23] MEDS: metFORMIN 500 MG TAB PO SCH ×2 (08:45→17:42)
[2018-03-23] MEDS: ENOXAPARIN 30 MG/0.3 ML SYG SC SCH (08:46)
--- NOTE | 2018-03-23 08:50 | NUR ---
PT Note: Attempted PT treatment, however the son was not present and there was a minor spill in the room and the RN was waiting for EVS to clean it. PT will return later as PT schedule allows.
--- NOTE | 2018-03-23 10:10 | NUR ---
WOUND CONSULT: 87 year old female admitted from assisted living with altered mental status per record. History of diabetes, hypertension, recent recurrent multiple falls per medical history. WBC 5.8. H&H 01/19. Hemoglobin A1C 6.9. Albumin 2.4. Patient awake, alert. She is able to turn with minimal assist. Incontinent. On low air loss surface. ASSESSMENT/ASSESSMENT: - Lower back to upper sacrum multiple darken discoloration area. Areas also shows in photo documentation. There are a grouping of blistering lesions to the right lower back to upper sacrum area. Unknown etiology. Suspecting herpetic lesions. Discussed with Primary RNPrincess to have primary doctor to assess lesions for further treatment. Cover blisters area with foam border dressing for protection. Change every 3 days. - Reposition every 2 hours. - Float heels off bed with pillow. - Pericare with barrier cream for each incontinent episode. Discussed assessment and plan of care with Princess NUNES. Nicolasa Soni BSN RN CWOCN
[2018-03-23] MEDS ORDERED: POTASSIUM CHLORIDE 20 MEQ POWDER FOR ORAL SOLN PO ONE (11:30)
--- NOTE | 2018-03-23 12:00 | NUR ---
PT Note Therapy day number 5 Subjective Denies pain Pain Scale FACES Pain Intensity 0 (0-10) Patient Stated Goal for Pain Relief 0 (0-10) Pain Level Comment No pain noted. Attempted to get report of pain, but pt [place] Pre Treatment Vital Signs Stable Yes Exercise Assessment Label Bilat Lower Extremity Exercise Type Active ROM Additional Exercise Comments Sitting EOB LLE LAQ, hip flexion. PROM for RLE knee ext/hip flex Exercise Start Time 12:15 Exercise End Time 12:30 Total Exercise Time 15 min (8-127) Transfer Training Start Time 12:00 Supine to Sit Moderate Assist Transfer Sit to Stand Ability Maximum Assist Bed Mobility Sit to Supine Dependent Sitting Tolerance 5 min Additional Mobility Comments rolling L and R Ward with BUE on rail, sit-stand maxA x2, not WB on RLE Transfer Training End Time 12:15 Total Transfer Training Time 15 min (8-127) Static Sitting Balance Fair minus Dynamic Sitting Balance Poor plus Standing Static Balance Poor Additional Balance Assessments Comments sitting balance fair- with UE support on bed rail Safety Judgement Fair Activity Tolerance Poor Equipment Present IV pump Post Treatment Pain Intensity 0 0-10 Total Treament Time 30 min (8-127) Total Minutes 30 Total Units 2 PT Technical Record Comment Updated precautions: Airborne. S: Pt was found supine in bed, agreeable to PT. [place]altese marine habitat resource specialist on the phone for assistance. RN cleared pt for activity. O: Pt was seen for bed mobility, transfer to EOB, therex, and attempted sit-stand. Pt can roll bilaterally with min-modA with VCs and gestures, pt uses BUE on bed rails. ModA for supine-sit, pt uses UE support to remain sitting. Pt unable to move RLE, states that "she has no strength in that leg." EOB therex as listed above. Sit-standx2 maxA with 2p assist. VCs and TCs to push down on the FWW, pt not WBing on RLE. 2p throughout treatment for physical assistance and safety. Pt returned to bed with bed alarm on, call light nearby, meal tray in front. RN was informed of pt response to activity and plan of care. A: Pt presents with weakness in her RLE that is limiting her ability to stand and ambulate with FWW. Pt uses BUE to assist with bed mobility, transfers, and sitting balance, and is anxious when sitting EOB. Pt will benefit from continued inpatient PT to strengthen BLE and increase independence with functional mobility. P: Continue POC. Continue ROM and attempting to strengthen RLE, but focus on use of LLE and BUE to assist with sit-stand.
[2018-03-23] MEDS ORDERED: MAGNESIUM SULFATE 2 GM/50 ML 50 ML IVPB ONE (12:30)
--- NOTE | 2018-03-23 12:41 | PN ---
Date/Time of Note Date/Time of Note DATE: 03/23/18 TIME: 12:40 Objective Vitals Vital Signs Date Temp Pulse Resp B/P (MAP) Pulse Ox O2 O2 Flow FiO2 Time Delivery Rate 03/23/18 Nasal 2.0 10:21 Cannula 03/23/18 97.9 69 18 155/70 97 08:01 (98) Intake and Output 03/22/18 03/22/18 03/23/18 1515:00 23:00 07:00 IntakeIntake Total 450 ml 350 ml 440 ml BalanceBalance 450 ml 350 ml 440 ml Results Result Diagram: 03/23/1844403/23/18444 Medications Medications Current Medications Losartan Potassium (Cozaar) 100 mg DAILY PO Last administered on 03/23/18at 08:45; Admin Dose 100 MG; Start 03/17/18 at 09:00 IV Flush (NS 3 ml) 3 ml PER PROTOCOL IV ; Start 03/16/18 at 11:30 Ondansetron HCl (Zofran Inj) 4 mg Q6H PRN IV NAUSEA AND/OR VOMITING; Start 03/16/18 at 11:30 Acetaminophen (Tylenol Tab) 650 mg Q6H PRN PO PAIN LEVEL 1-3 OR FEVER; Start 03/16/18 at 11:30 Docusate Sodium (Colace) 100 mg Q12H PRN PO CONSTIPATION; Start 03/16/18 at 11:30 Magnesium Hydroxide (Milk Of Mag) 30 ml DAILY PRN PO CONSTIPATION Last administered on 03/23/18at 00:41; Admin Dose 30 ML; Start 03/16/18 at 11:30 Enoxaparin Sodium (Lovenox) 30 mg DAILY SC Last administered on 03/23/18at 08:46; Admin Dose 30 MG; Start 03/17/18 at 09:00 Albuterol (Proventil 0.083% (Neb)) 2.5 mg Q2H RESP THERAPY PRN HHN SHORTNESS OF BREATH; Start 03/16/18 at 11:30 Insulin Aspart (Novolog Insulin Pen) NOVOLOG *MILD* ALGORITHM WITH MEALS BEDTIME SC Last administered on 03/22/18at 22:01; Admin Dose 2 UNIT; Start 03/16/18 at 17:55 Miscellaneous Information 1 ea NOTE XX ; Start 03/16/18 at 14:30 Glucose (Glutose) 15 gm Q15M PRN PO DECREASED GLUCOSE; Start 03/16/18 at 14:30 Glucose (Glutose) 22.5 gm Q15M PRN PO DECREASED GLUCOSE; Start 03/16/18 at 14:30 Dextrose (D50w Syringe) 25 ml Q15M PRN IV DECREASED GLUCOSE; Start 03/16/18 at 14:30 Dextrose (D50w Syringe) 50 ml Q15M PRN IV DECREASED GLUCOSE; Start 03/16/18 at 14:30 Glucagon (Glucagen) 1 mg Q15M PRN IM DECREASED GLUCOSE; Start 03/16/18 at 14 :30 Glucose (Glutose) 15 gm Q15M PRN BUCCAL DECREASED GLUCOSE; Start 03/16/18 at 14:30 Acetaminophen (Tylenol Supp) 650 mg Q6H PRN [place] MILD PAIN(1-3) OR TEMP>38C; Start 03/17/18 at 01:00 Ampicillin Sodium/ Sulbactam Sodium 100 ml @ 100 mls/hr Q6 IVPB Last administered on 03/23/18at 05:57; Admin Dose 100 MLS/HR; Start 03/17/18 at 18:00 Hydralazine HCl (Apresoline) 10 mg Q4H PRN IV elevated BP; Start 03/17/18 at 21:30 Insulin Glargine (Lantus) 8 units DAILY@2000 SC Last administered on 03/22/18at 20:22; Admin Dose 8 UNITS; Start 03/18/18 at 20:00 Guaifenesin/ Dextromethorphan (Mucinex Dm) 1 tab BID PO Last administered on 03/23/18at 08:45; Admin Dose 1 TAB; Start 03/18/18 at 16:30 Guaifenesin/ Dextromethorphan (Robitussin Dm Liquid Cup) 5 ml Q4H PRN PO cough; Start 03/18/18 at 16:00 Polyethylene Glycol (Miralax) 17 gm DAILY PO Last administered on 03/23/18at 08:45; Admin Dose 17 GM; Start 03/20/18 at 12:30 Famotidine (Pepcid) 20 mg DAILY PO Last administered on 03/23/18at 08:45; Admin Dose 20 MG; Start 03/21/18 at 09:00 Amlodipine Besylate (Norvasc) 10 mg DAILY PO Last administered on 03/23/18at 08:45; Admin Dose 10 MG; Start 03/21/18 at 09:00 Metformin HCl (Glucophage) 500 mg BID WITH MEALS PO Last administered on 03/23/18at 08:45; Admin Dose 500 MG; Start 03/21/18 at 18:05 Magnesium Sulfate 50 ml @ 25 mls/hr ONCE ONCE IVPB ; Start 03/23/18 at 12:30; Stop 03/23/18 at 14:29 Valacyclovir HCl (Valtrex) 1,000 mg BID PO ; Start 03/23/18 at 13:30 VTE Prophylaxis Risk score (from Ns)>0 risk: 6 SCD applied (from [facility]): Yes Lines/Catheters IV Catheter Type: Fuentes in Place: No Assessment/Plan Hospital Course Subjective Patient denies any complaints, no right leg pain, however states that she is tired Objective Physical exam General: Patient is laying in bed and answers questions appropriately Mentation: Patient is alert and oriented 4, Head: Normocephalic atraumatic Eyes: EOMI, pupils reactive to light Neck: Supple, nontender, midline Respiratory: Clear to auscultation bilaterally Cardiovascular: regular rate, no obvious murmurs Gastrointestinal: non-tender to palpation, bowel sounds heard. Neurological: Moves all extremities spontaneously Skin: Appears to be vesicular-like lesions on her lower back Assessment/Plan 1. Bacteremia- resolving - Repeat blood cultures negative. ID on board and will continue current antibiotics for 2 weeks total, 03/31 last dose - WBC normalized and remains afebrile 2. Decreased ROM RLE - Patient has not been complaining of any pain. Son brought up concern about his mother guarding her right leg - Pelvis Xray shows old healed fractures and unable to assess for new fx - CT showing some stranding in the gluteal area, ID recs appreciated lesions on lower back -? shingles -valacyclovir for now, ID to re-evaluate Altered toxic encephalopathy secondary to Pneumonia- resolved - CT scan of head negative for acute abnormalities Dysphagia - ST on board and will need to continue on soft diet with thicken liquids - aspiration precautions in place Sepsis secondary to Right perihilar and LL Pneumonia- resolving - ID on board and appreciate antibiotic recommendations. Continue until 03/31/18 - seen on CXR - Nebs PRN CAMPOS- resolved - most likely prerenal Diabetes Mellitus - A1c noted - ISS and accuchecks HTN - stable - norvasc and losartan on board Gait instability - PT/OT recommending SNF placement and son in agreement Disposition -ID to eval gluteal stranding and back lesions, and pending SNF placement LORRAINE GERBER Mar 23, 2018 12:41
--- NOTE | 2018-03-23 13:15 | NUR ---
OT NOTE S: RN cleared pt for skilled OT tx. Pt agreeable to tx stating 0/10 pain. O: Pt received supine in bed. Pt performed supine->sit at EOB with minimal Assist while pulling herself with the bed rail using her right hand. Pt tolerated 15 min seated at EOB with Fair sitting balance with no support. Pt occasionally retropulsed however pt caught herself and held onto the bedrails to regain her balance. Seated at EOB pt performed h/g tasks with CGA including combing her hair, washing her face and applying lotion. Pt returned to bed with Min A. Pt engaged in BUE AROM exercises (arm raises and bicep curls) while supine in bed. Pt left supine in bed with all needs met. RN notified. A: Pt demonstrates increased participation and improved sitting balance. P: Cont POC.
--- NOTE | 2018-03-23 14:21 | NUR ---
ORDER FOR SNF PLACEMENT: INSURANCE [facility], BX MCAIvonne/ROSALINA IPA/ FAXED MD ORDER AND CLINICALS TO [facility] [phone] TO [place] [employer] MACHINERY MECHANIC HELPER TO AUTHORIZE AND ARRANGED SNF PLACEMENT FOR PATIENT. Addendum: 03/23/18 at 1427 by TIMOTHY ROSEN CM Amended: Links added. Addendum: 03/23/18 at 1441 by TIMOTHY ROSEN CM REFERRED BACK TO [facility], SPOKE TO SON SAID PREFERS PATIENT TO GO TO [facility] ([place], [place]) FOR SNF PLACEMENT, ASK RE SHORT OR HALF-WAY. SON SAID SHORT TERM WHILE HE PLAN FOR THE [employer]ER CARE OF HIS MOTHER, Addendum: 03/23/18 at 1542 by TIMOTHY ROSEN CM ACCEPTED [facility] BED 2229 BED B. NOT READY FOR TODAY PER DR. GERBER. PATIENT IS ON AIRBORNE ISOLATION, FOR SHINGLES ? Addendum: 03/23/18 at 1547 by TIMOTHY ROSEN CM AIRBORNE ISOLATION ;LABORATORY CONFIRMATION FOR SHINGLES NOT IN YET. Addendum: 03/25/18 at 1520 by XIAO MEDRANO CM Isolation discontinued per ID. Called [facility] , spoke to Mary , patient accepted and going to room 119 B. Transportation arranged with [facility] trip # [id number]. ETA 5:30-6pm, Nurse aware. Xiao Curran RN/CM x [phone]
--- NOTE | 2018-03-23 14:23 | CONS ---
Date/Time of Note Date/Time of Note DATE: 03/23/18 TIME: 14:14 Assessment/Plan Assessment/Plan Hospital Course ID PROGRESS NOTE CURRENT ABX: DAY # 8 => Vanco IV + Unasyn + Acyclovir #1 24H INTERVAL SUMMARY * Yesterday was noted to have lumbar dermatome sacral/buttock blistering rash -- suspicious for H. ZOSTER despite absence of neuropathic pain * Started on Acyclovir, now on airborne precautions * Microbiology: Blood culture on admission grew strep pneumonia, urine culture negative. Repeat blood cultures negative PHYSICAL EXAMINATION: GENERAL: Afebrile, VSS, HEENT: AT, NC, anicteric NECK: Supple, trach CHEST: Equal chest rise bilaterally, without dyspnea on observation HEART: Pulse RRR ABDOMEN: Soft / NT EXTREMITIES: Warm, dry SKIN: No rash, no diaphoresis ID ASSESSMENT 87 yo F admit with: 1. Sepsis, resolving 2. Pneumonia, likely strep 3. Strep bacteremia 4. Resolving encephalopathy 5. Diabetes 6. Dysphagia with possible ongoing aspiration 7. Acute H. Zoster Lumbar dermatome w/sacral/buttock blistering lesions -- denies neuropathic pain ABX ALLERGIES: NKDA INVASIVES: PIV CURRENT ABX: DAY # 8 => Vanco IV + Unasyn + Acyclovir #1 s/p ID RECOMMENDATIONS/PLAN: Continue current ABX -- Ideally she should receive 14 days ABX for (+)BCx -- either change to Ceftriaxone upon DC to SNF or Felipe eval ? ASP Precautions Started on Acyclovir for Shingles -- reports no pain; hence no need for steroids Result Diagram: 03/23/18 0445 03/23/18 0445 Results 24hrs Laboratory Tests Test 03/22/18 17:36 03/22/18 20:15 03/22/18 21:57 03/23/18 02:11 Bedside Glucose 197 215 232 H 133 Test 03/23/18 04:45 03/23/18 07:54 03/23/18 12:38 White Blood 5.8 Count Red Blood Count 3.02 L Hemoglobin 10.0 L Hematocrit 29.0 L Mean Corpuscular 96.0 Volume Mean Corpuscular 33.1 H Hemoglobin Mean Corpuscular 34.5 Hemoglobin Saundra nt Red Cell 12.7 Distribution Width Platelet Count 169 # Mean Platelet 11.4 H Volume Immature 8.500 H Granulocytes % Neutrophils % 69.2 Segmented 78 H Neutrophils % (Manual) Band Neutrophils 5 H % (Manual) Lymphocytes % 15.4 Lymphocytes % 6 L (Manual) Monocytes % 5.2 Monocytes % 7 (Manual) Eosinophils % 0.7 Basophils % 1.0 Myelocytes % 4 H (Manual) Nucleated Red 0.0 Blood Cells % Immature 0.490 H Granulocytes # Neutrophils # 4.0 Neutrophils # 4.5 (Manual) Band Neutrophils 0.2 # Lymphocytes 0.3 L (Manual) Lymphocytes # 0.9 Monocytes # 0.3 Monocytes # 0.4 (Manual) Eosinophils # 0.0 Basophils # 0.1 Myelocytes # 0.2 H Nucleated Red 0.0 Blood Cells # Platelet NORMAL Estimate Giant Platelets 4 H Anisocytosis 1+ Macrocytosis 1+ Sodium Level 135 Potassium Level 3.3 L Chloride Level 98 Carbon Dioxide 33 H Level Anion Gap 4 L Blood Urea 15 Nitrogen Creatinine 0.66 Glucose Level 120 Calcium Level 7.5 L Phosphorus Level 3.5 Magnesium Level 1.4 L Albumin 2.4 L Bedside Glucose 117 215 Consultation Date/Type/Reason Admit Date/Time Mar 16, 2018 at 11:24 Initial Consult Date Exam/Review of Systems Vital Signs Vitals Vital Signs Date Temp Pulse Resp B/P (MAP) Pulse Ox O2 O2 Flow FiO2 Time Delivery Rate 03/23/18 Nasal 2.0 10:21 Cannula 03/23/18 97.9 69 18 155/70 97 08:01 (98) Intake and Output 03/22/18 03/22/18 03/23/18 1515:00 23:00 07:00 IntakeIntake Total 450 ml 350 ml 440 ml BalanceBalance 450 ml 350 ml 440 ml Medications Medications Current Medications Losartan Potassium (Cozaar) 100 mg DAILY PO Last administered on 03/23/18at 08:45; Admin Dose 100 MG; Start 03/17/18 at 09:00 IV Flush (NS 3 ml) 3 ml PER PROTOCOL IV ; Start 03/16/18 at 11:30 Ondansetron HCl (Zofran Inj) 4 mg Q6H PRN IV NAUSEA AND/OR VOMITING; Start 03/16/18 at 11:30 Acetaminophen (Tylenol Tab) 650 mg Q6H PRN PO PAIN LEVEL 1-3 OR FEVER; Start 03/16/18 at 11:30 Docusate Sodium (Colace) 100 mg Q12H PRN PO CONSTIPATION; Start 03/16/18 at 11:30 Magnesium Hydroxide (Milk Of Mag) 30 ml DAILY PRN PO CONSTIPATION Last administered on 03/23/18at 00:41; Admin Dose 30 ML; Start 03/16/18 at 11:30 Enoxaparin Sodium (Lovenox) 30 mg DAILY SC Last administered on 03/23/18at 08:46; Admin Dose 30 MG; Start 03/17/18 at 09:00 Albuterol (Proventil 0.083% (Neb)) 2.5 mg Q2H RESP THERAPY PRN HHN SHORTNESS OF BREATH; Start 03/16/18 at 11:30 Insulin Aspart (Novolog Insulin Pen) NOVOLOG *MILD* ALGORITHM WITH MEALS BEDTIME SC Last administered on 03/23/18at 12:43; Admin Dose 2 UNIT; Start 03/16/18 at 17:55 Miscellaneous Information 1 ea NOTE XX ; Start 03/16/18 at 14:30 Glucose (Glutose) 15 gm Q15M PRN PO DECREASED GLUCOSE; Start 03/16/18 at 14:30 Glucose (Glutose) 22.5 gm Q15M PRN PO DECREASED GLUCOSE; Start 03/16/18 at 14:30 Dextrose (D50w Syringe) 25 ml Q15M PRN IV DECREASED GLUCOSE; Start 03/16/18 at 14:30 Dextrose (D50w Syringe) 50 ml Q15M PRN IV DECREASED GLUCOSE; Start 03/16/18 at 14:30 Glucagon (Glucagen) 1 mg Q15M PRN IM DECREASED GLUCOSE; Start 03/16/18 at 14:30 Glucose (Glutose) 15 gm Q15M PRN BUCCAL DECREASED GLUCOSE; Start 03/16/18 at 14:30 Acetaminophen (Tylenol Supp) 650 mg Q6H PRN [place] MILD PAIN(1-3) OR TEMP>38C; Start 03/17/18 at 01:00 Ampicillin Sodium/ Sulbactam Sodium 100 ml @ 100 mls/hr Q6 IVPB Last administered on 03/23/18at 12:39; Admin Dose 100 MLS/HR; Start 03/17/18 at 18:00 Hydralazine HCl (Apresoline) 10 mg Q4H PRN IV elevated BP; Start 03/17/18 at 21:30 Insulin Glargine (Lantus) 8 units DAILY@2000 SC Last administered on 03/22/18at 20:22; Admin Dose 8 UNITS; Start 03/18/18 at 20:00 Guaifenesin/ Dextromethorphan (Mucinex Dm) 1 tab BID PO Last administered on 03/23/18at 08:45; Admin Dose 1 TAB; Start 03/18/18 at 16:30 Guaifenesin/ Dextromethorphan (Robitussin Dm Liquid Cup) 5 ml Q4H PRN PO cough; Start 03/18/18 at 16:00 Polyethylene Glycol (Miralax) 17 gm DAILY PO Last administered on 03/23/18at 08:45; Admin Dose 17 GM; Start 03/20/18 at 12:30 Famotidine (Pepcid) 20 mg DAILY PO Last administered on 03/23/18at 08:45; Admin Dose 20 MG; Start 03/21/18 at 09:00 Amlodipine Besylate (Norvasc) 10 mg DAILY PO Last administered on 03/23/18at 08:45; Admin Dose 10 MG; Start 03/21/18 at 09:00 Metformin HCl (Glucophage) 500 mg BID WITH MEALS PO Last administered on 03/23/18at 08:45; Admin Dose 500 MG; Start 03/21/18 at 18:05 Magnesium Sulfate 50 ml @ 25 mls/hr ONCE ONCE IVPB Last administered on 03/23/18at 12:39; Admin Dose 25 MLS/HR; Start 03/23/18 at 12:30; Stop 03/23/18 at 14:29 Valacyclovir HCl (Valtrex) 1,000 mg BID PO ; Start 03/23/18 at 13:30 MARIA T MEJIA NP Mar 23, 2018 14:23
[2018-03-23] MEDS: VALACYCLOVIR 500 MG TAB PO SCH ×2 (15:38→21:23)
[2018-03-23 16:10] VITALS: BP 118/70; PULSE 73; RESP 18
[2018-03-23 20:00] VITALS: BP 120/62; PULSE 79; RESP 18
[2018-03-23] MEDS: INSULIN GLARGINE [LANTus] (100 UNITS/ML) SYG SC SCH (20:15)
[2018-03-24 02:00] VITALS: BP 125/69; PULSE 72; RESP 18
[2018-03-24] MEDS: AMPICILLIN/SULB 3 GM/NS (PMX) 100 ML IVPB SCH ×4 (05:46→23:32)
--- NOTE | 2018-03-24 06:17 | NUR ---
End of shift Report: Sleeping in comfortable position. No sob. No resp distress. Afebrile. Airborne precaution for shingles strictly followed and observed. Turned and repositioned. Lantus given SC last night as ordered with NovoLog 1 unit SC per sliding scale. No events overnight. Pending SNF placement. Kept comfortable at all times. Will continue to monitor. For Midline insertion. no available RN to do midline insertion this shift. Will endorse accordingly.
[2018-03-24] MEDS: INSULIN ASPART [NOVOLOG] 3 ML PEN SC SCH ×4 (08:00→20:51)
[2018-03-24] MEDS: POLYETHYLENE GLYCOL 17 GM PACKET PO SCH (08:11)
[2018-03-24] MEDS: VALACYCLOVIR 500 MG TAB PO SCH ×2 (08:11→20:47)
[2018-03-24] MEDS: GUAIFENESIN/DM (SR) TAB PO SCH ×2 (08:11→20:47)
[2018-03-24] MEDS: metFORMIN 500 MG TAB PO SCH ×2 (08:12→17:27)
[2018-03-24] MEDS: FAMOTIDINE 20 MG TAB PO SCH (08:12)
[2018-03-24] MEDS: ENOXAPARIN 30 MG/0.3 ML SYG SC SCH (08:13)
[2018-03-24 08:20] VITALS: BP 145/64; PULSE 80; RESP 18
[2018-03-24] MEDS: AMLODIPINE 10 MG TAB PO SCH (08:20)
[2018-03-24] MEDS: LOSARTAN 50 MG TAB PO SCH (08:20)
[2018-03-24] MEDS ORDERED: POTASSIUM CHLORIDE 20 MEQ POWDER FOR ORAL SOLN PO ONE (09:30)
--- NOTE | 2018-03-24 11:58 | PN ---
Date/Time of Note Date/Time of Note DATE: 03/24/18 TIME: 11:56 Objective Vitals Vital Signs Date Temp Pulse Resp B/P (MAP) Pulse Ox O2 O2 Flow FiO2 Time Delivery Rate 03/24/18 Nasal 2.0 09:50 Cannula 03/24/18 98.6 80 18 145/64 96 08:20 (91) Intake and Output 03/23/18 03/23/18 03/24/18 1515:00 23:00 07:00 IntakeIntake Total 100 ml 750 ml 200 ml BalanceBalance 100 ml 750 ml 200 ml Results Result Diagram: 03/24/18 0706 03/24/18 0706 Medications Medications Current Medications Losartan Potassium (Cozaar) 100 mg DAILY PO Last administered on 03/24/18at 08:20; Admin Dose 100 MG; Start 03/17/18 at 09:00 IV Flush (NS 3 ml) 3 ml PER PROTOCOL IV ; Start 03/16/18 at 11:30 Ondansetron HCl (Zofran Inj) 4 mg Q6H PRN IV NAUSEA AND/OR VOMITING; Start 03/16/18 at 11:30 Acetaminophen (Tylenol Tab) 650 mg Q6H PRN PO PAIN LEVEL 1-3 OR FEVER; Start 03/16/18 at 11:30 Docusate Sodium (Colace) 100 mg Q12H PRN PO CONSTIPATION; Start 03/16/18 at 11:30 Magnesium Hydroxide (Milk Of Mag) 30 ml DAILY PRN PO CONSTIPATION Last administered on 03/23/18at 00:41; Admin Dose 30 ML; Start 03/16/18 at 11:30 Enoxaparin Sodium (Lovenox) 30 mg DAILY SC Last administered on 03/24/18at 08:13; Admin Dose 30 MG; Start 03/17/18 at 09:00 Albuterol (Proventil 0.083% (Neb)) 2.5 mg Q2H RESP THERAPY PRN HHN SHORTNESS OF BREATH; Start 03/16/18 at 11:30 Insulin Aspart (Novolog Insulin Pen) NOVOLOG *MILD* ALGORITHM WITH MEALS BEDTIME SC Last administered on 03/23/18at 21:25; Admin Dose 1 UNIT; Start 03/16/18 at 17:55 Miscellaneous Information 1 ea NOTE XX ; Start 03/16/18 at 14:30 Glucose (Glutose) 15 gm Q15M PRN PO DECREASED GLUCOSE; Start 03/16/18 at 14:30 Glucose (Glutose) 22.5 gm Q15M PRN PO DECREASED GLUCOSE; Start 03/16/18 at 14:30 Dextrose (D50w Syringe) 25 ml Q15M PRN IV DECREASED GLUCOSE; Start 03/16/18 at 14:30 Dextrose (D50w Syringe) 50 ml Q15M PRN IV DECREASED GLUCOSE; Start 03/16/18 at 14:30 Glucagon (Glucagen) 1 mg Q15M PRN IM DECREASED GLUCOSE; Start 03/16/18 at 14:30 Glucose (Glutose) 15 gm Q15M PRN BUCCAL DECREASED GLUCOSE; Start 03/16/18 at 14:30 Acetaminophen (Tylenol Supp) 650 mg Q6H PRN [place] MILD PAIN(1-3) OR TEMP>38C; Start 03/17/18 at 01:00 Ampicillin Sodium/ Sulbactam Sodium 100 ml @ 100 mls/hr Q6 IVPB Last administered on 03/24/18at 05:46; Admin Dose 100 MLS/HR; Start 03/17/18 at 18:00 Hydralazine HCl (Apresoline) 10 mg Q4H PRN IV elevated BP; Start 03/17/18 at 21:30 Insulin Glargine (Lantus) 8 units DAILY@2000 SC Last administered on 03/23/18at 20:15; Admin Dose 8 UNITS; Start 03/18/18 at 20:00 Guaifenesin/ Dextromethorphan (Mucinex Dm) 1 tab BID PO Last administered on 03/24/18at 08:11; Admin Dose 1 TAB; Start 03/18/18 at 16:30 Guaifenesin/ Dextromethorphan (Robitussin Dm Liquid Cup) 5 ml Q4H PRN PO cough; Start 03/18/18 at 16:00 Polyethylene Glycol (Miralax) 17 gm DAILY PO Last administered on 03/24/18 08:11; Admin Dose 17 GM; Start 03/20/18 at 12:30 Famotidine (Pepcid) 20 mg DAILY PO Last administered on 03/24/18at 08:12; Admin Dose 20 MG; Start 03/21/18 at 09:00 Amlodipine Besylate (Norvasc) 10 mg DAILY PO Last administered on 03/24/18 08:20; Admin Dose 10 MG; Start 03/21/18 at 09:00 Metformin HCl (Glucophage) 500 mg BID WITH MEALS PO Last administered on 03/24/18 08:12; Admin Dose 500 MG; Start 03/21/18 at 18:05 Valacyclovir HCl (Valtrex) 1,000 mg BID PO Last administered on 03/24/18 08:11; Admin Dose 1,000 MG; Start 03/23/18 at 13:30 VTE Prophylaxis Risk score (from [facility] [place])>0 risk: 7 SCD applied (from [facility] [place]): Yes Lines/Catheters IV Catheter Type: Fuentes in Place: No Assessment/Plan Hospital Course Subjective Patient denies any complaints, no right leg pain, but feels generally weak Objective Physical exam General: Patient is laying in bed and answers questions appropriately Mentation: Patient is alert and oriented 4, Head: Normocephalic atraumatic Eyes: EOMI, pupils reactive to light Neck: Supple, nontender, midline Respiratory: Clear to auscultation bilaterally Cardiovascular: regular rate, no obvious murmurs Gastrointestinal: non-tender to palpation, bowel sounds heard. Neurological: Moves all extremities spontaneously Skin: Appears to be vesicular-like lesions on her lower back Assessment/Plan 1. Bacteremia- resolving - Repeat blood cultures negative. ID on board and will continue current antibiotics for 2 weeks total, 03/31 last dose - WBC normalized and remains afebrile 2. Decreased ROM RLE - Patient has not been complaining of any pain. Son brought up concern about his mother guarding her right leg, but patient doesn't complain of issues - Pelvis Xray shows old healed fractures and unable to assess for new fx - CT showing some stranding in the gluteal area, ID ordered CRP and ESR, both elevated, pending recs lesions on lower back -pending shingles testing -valacyclovir for now, ID to eval Altered toxic encephalopathy secondary to Pneumonia- resolved - CT scan of head negative for acute abnormalities Dysphagia - ST on board - aspiration precautions in place Sepsis secondary to Right perihilar and LL Pneumonia- resolving - ID on board and appreciate antibiotic recommendations. Continue until 03/31/18 - seen on CXR - Nebs PRN CAMPOS- resolved - most likely prerenal Diabetes Mellitus - A1c noted - ISS and accuchecks HTN - stable - norvasc and losartan on board Gait instability - PT/OT recommending SNF placement and son in agreement Disposition -ID to eval gluteal stranding and back lesions, and pending SNF placement (issue due to airborne precautions with new shingles) LORRAINE GERBER Mar 24, 2018 11:58
[2018-03-24 14:00] VITALS: BP 139/72; PULSE 84; RESP 20
--- NOTE | 2018-03-24 17:59 | NUR ---
NURSE NOTE: NO ACUTE CHANGES. PT IS AXOX3 ACCORDING TO FAMILY MEMBER. 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 FAMILY WAS MEMBER WAS IN THE HOSPITAL. FAMILY WANTS TO GET PATIENT UP ON THE CHAIR- PT TOLERATED TRANSFER FROM BED TO CHAIR, HOWEVER, NOTICEABLE PT IS VERY WEAK AND UNABLE TO STANDUP STRAIGHT FOR A LONG TIME. PT IS IN ROOM AIR AT THIS TIME PER PT SON REQUEST- CURRENT O2 SATS IN ROOM AIR IS STABLE BETWEEN 95%-97%. NO SIGNS OF DISTRESS NOTED. BED ALARM ON. CALL LIGHT WITHIN REACH.
--- NOTE | 2018-03-24 19:19 | CONS ---
Date/Time of Note Date/Time of Note DATE: 03/24/18 TIME: 18:42 Assessment/Plan Assessment/Plan Hospital Course ID PROGRESS NOTE CURRENT ABX: DAY # 9=> Unasyn +Valtrex #2 s/p Vanco IV 24H INTERVAL SUMMARY * A/A/responsive, follow commands, taking POs, no fevers, VSS * Started on Acyclovir, lumbar dermatome sacral/buttock blistering rash -- suspicious for H. ZOSTER despite absence of neuropathic pain * ESR 102 w/ CRP 1.3 == CT ABD pelvis with inflammation/edema bilateral gluteal muscles * Microbiology: Blood culture on admission grew strep pneumonia, urine culture negative. Repeat blood cultures negative * 03/16/18 BCx: Organism 1 STREPTOCOCCUS PNEUMONIAE S.PNEUMO M.I.C. RX --------- --- CEFOTAXIME 0.023 S PENICILLIN 0.016 S VANCOMYCIN <=0.5 S S.PNEUMO Zone Size RX --------- --- * CLINDAMYCIN S RADIOLOGY IMAGING * 03/22/18 CT LOWER EXT IMPRESSION: * 1. No acute fracture or dislocation. * 2. Mild to moderate narrowing of the posterior superior right hip joint. * 3. Subcutaneous stranding lateral to the right tensor fascia izzy and lateral gluteal muscles. * 03/22/18 CT PELVIS IMPRESSION: * 1. No acute fracture. * 2. Healed fractures of the bilateral superior and inferior pubic rami. * 3. Healed fractures of the anterior S3 - S5 vertebral bodies. * 4. ORIF changes of the left femur with intramedullary heather and fixation screw transfixing a healed fracture of the proximal left femur * 5. Small amount of free pelvic fluid. * 6. Subcutaneous stranding overlying the bilateral lateral gluteal muscles. PHYSICAL EXAMINATION: GENERAL: Afebrile, VSS, HEENT: AT, NC, anicteric, EOMsI, missing teeth, no lymphadenopathy NECK: Supple, trach CHEST: Equal chest rise bilaterally, without dyspnea on observation HEART: Pulse RRR ABDOMEN: Soft / NT EXTREMITIES: Warm, dry, SKIN: No rash, no diaphoresis ID ASSESSMENT 87 yo F admit with: 1. Sepsis, resolving * SIRS w/ ESR 102 w/ CRP 1.3 == CT ABD pelvis with inflammation/edema bilateral gluteal muscles 2. Pneumonia, likely strep 3. Strep bacteremia * 03/16/18 BCx: Organism 1 STREPTOCOCCUS PNEUMONIAE 4. Resolving encephalopathy 5. Diabetes 6. Dysphagia with possible ongoing aspiration 7. Acute H. Zoster Lumbar dermatome w/sacral/buttock blistering lesions -- denies neuropathic pain ABX ALLERGIES: NKDA INVASIVES: PIV CURRENT ABX: DAY # 9=> Unasyn +Valtrex #2 s/p Vanco IV ID RECOMMENDATIONS/PLAN: 1. I discussed the Case with Dr. Matamoros -- unclear why ESR is so high -- there is clearly inflammation ongoing with resolving PNA, new onset H. Zoster, however no fevers, no leukocytosis. * CT shows bilateral buttock edema, fluid stranding -- no fluid collections, no abscess -- likely related to local inflammation -- due to Zoster + dependent fluid + DJD hips * There are no reported Headaches, visual changes, nor mouth, jaw pain to suggest Temporal Arteritis vs GCA * I did find one study in the medical literature ( [facility] COPIED BELOW) related to HIGH ESR post H. Zoster correlated with Post Herpetic Neuralgia -- currently she does not appear to be complaining of pain at the Lumbar/buttock dermatome site -- Son told me yesterday she had no pain in that area. If so, would recommend H. Zoster PO steroids. IN the absence of pain, not clear she will benefit from steroids. 2. FINAL ID RECOMMENDATIONS * Patient is feeling better, she is stable, no fevers, taking POs and in good spirits today during visit without family members present. * MAY DC TO SNF ON CEFTRIAXONE 1GM IV TO COMPLETE 14 DAYS ABX FOR STREP PNA/BACTEREMIA = last day 03/29/17 * Added Doxycycline 100mg PO BID to cover concern of superimposed cellulitis on H. Zoster lesions = last day 03/29/17 * Continue VALTREX for H. Zoster LITERATURE REVIEW https://www.ncbi.nlm.nih.gov/pubmed/60572716 [facility]. 2018 Jun;30(2):158-163. doi: 10.5021/ad.[email or web address]. Epub 2017May 14. Usefulness of Inflammatory Markers for the Prediction of Postherpetic Neuralgia in Patients with Acute Herpes Zoster. Kala JY1, Esperanza GH2, Kala MJ1, Horace HB1, Gamaliel WJ1, Gamaliel SJ1, Kala SW3, Dania McgeeH4, Keenan EverardoH1, Kala DW1. Abstract Background: Increasing evidence suggests a pivotal role for neuronal inflammation in res ponse to replicating varicella zoster virus in the development of postherpetic neuralgia (PHN). Objective: In this study, we investigated the value of serum levels of various inflammatory markers in acute herpes zoster (HZ) as predictors for the development of PHN. Methods: A total of 116 patients with acute HZ were enrolled in this study. We measured scores on the pain visual analogue scale (VAS) at baseline and at 1, 3, and 6 months after diagnosis of HZ. We defined PHN as pain greater than 1 on the VAS lasting for more than 6 months. Serum samples for laboratory assay, including complete blood count were obtained at the initial visit. Correlations between the levels of each inflammatory marker and the development of PHN were evaluated. Results: Levels of erythrocyte sedimentation rate (ESR), C-reactive protein (CRP), lymphocyte count, and albumin showed significant correlations with development of PHN in univariate analysis. Levels of ESR, CRP, and lymphocyte count also showed significant correlations in multivariate analysis. ESR level showed stronger correlations with development of PHN than levels of CRP and lymphocyte count. Conclusion: In this study, we confirmed that elevated ESR was an independent and significant predictor of PHN in patients with acute HZ. To validate these results, further well-designed, randomized clinical trials are needed. KEYWORDS: Herpes zoster; Inflammation; Postherpetic neuralgia PMID: [id number] PMCID: [id number] DOI: 10.5021/ad.[id number] Result Diagram: 03/24/18 0706 03/24/18 0706 Results 24hrs Laboratory Tests Test 03/23/18 20:05 03/23/18 21:22 03/24/18 02:23 03/24/18 07:06 Bedside Glucose 168 184 130 White Blood Count 7.1 # Red Blood Count 3.04 L Hemoglobin 9.8 L Hematocrit 29.0 L Mean Corpuscular 95.4 Volume Mean Corpuscular 32.2 Hemoglobin Mean Corpuscular 33.8 Hemoglobin Concent Red Cell 12.8 Distribution Width Platelet Count 173 Mean Platelet Volume 10.8 H Immature 4.800 H Granulocytes % Neutrophils % 77.5 H Lymphocytes % 12.7 L Monocytes % 4.4 Eosinophils % 0.3 Basophils % 0.3 Nucleated Red Blood 0.0 Cells % Immature 0.340 H Granulocytes # Neutrophils # 5.5 Lymphocytes # 0.9 Monocytes # 0.3 Eosinophils # 0.0 Basophils # 0.0 Nucleated Red Blood 0.0 Cells # Erythrocyte 102 H Sedimentation Rate Sodium Level 134 L Potassium Level 3.3 L Chloride Level 98 Carbon Dioxide Level 33 H Anion Gap 3 L Blood Urea Nitrogen 15 Creatinine 0.69 Est Glomerular Filtrat Rate mL/min Glucose Level 114 Calcium Level 7.7 L Phosphorus Level 3.6 Magnesium Level 1.9 C-Reactive Protein 1.3 H Test 03/24/18 08:10 03/24/18 11:59 03/24/18 17:23 Bedside Glucose 106 174 206 Consultation Date/Type/Reason Admit Date/Time Mar 16, 2018 at 11:24 Initial Consult Date Exam/Review of Systems Vital Signs Vitals Vital Signs Date Temp Pulse Resp B/P (MAP) Pulse Ox O2 O2 Flow FiO2 Time Delivery Rate 03/24/18 98.6 84 20 139/72 96 14:00 (94) 03/24/18 Nasal 2.0 09:50 Cannula Intake and Output 03/23/18 03/23/18 03/24/18 1515:00 23:00 07:00 IntakeIntake Total 100 ml 750 ml 200 ml BalanceBalance 100 ml 750 ml 200 ml Medications Medications Current Medications Losartan Potassium (Cozaar) 100 mg DAILY PO Last administered on 03/24/18at 08:20; Admin Dose 100 MG; Start 03/17/18 at 09:00 IV Flush (NS 3 ml) 3 ml PER PROTOCOL IV ; Start 03/16/18 at 11:30 Ondansetron HCl (Zofran Inj) 4 mg Q6H PRN IV NAUSEA AND/OR VOMITING; Start 03/16/18 at 11:30 Acetaminophen (Tylenol Tab) 650 mg Q6H PRN PO PAIN LEVEL 1-3 OR FEVER; Start 03/16/18 at 11:30 Docusate Sodium (Colace) 100 mg Q12H PRN PO CONSTIPATION; Start 03/16/18 at 11:30 Magnesium Hydroxide (Milk Of Mag) 30 ml DAILY PRN PO CONSTIPATION Last administered on 03/23/18at 00:41; Admin Dose 30 ML; Start 03/16/18 at 11:30 Enoxaparin Sodium (Lovenox) 30 mg DAILY SC Last administered on 03/24/18at 08:13; Admin Dose 30 MG; Start 03/17/18 at 09:00 Albuterol (Proventil 0.083% (Neb)) 2.5 mg Q2H RESP THERAPY PRN HHN SHORTNESS OF BREATH; Start 03/16/18 at 11:30 Insulin Aspart (Novolog Insulin Pen) NOVOLOG *MILD* ALGORITHM WITH MEALS BEDTIME SC Last administered on 03/24/18 17:27; Admin Dose 2 UNIT; Start 03/16/18 at 17:55 Miscellaneous Information 1 ea NOTE XX ; Start 03/16/18 at 14:30 Glucose (Glutose) 15 gm Q15M PRN PO DECREASED GLUCOSE; Start 03/16/18 at 14:30 Glucose (Glutose) 22.5 gm Q15M PRN PO DECREASED GLUCOSE; Start 03/16/18 at 14:30 Dextrose (D50w Syringe) 25 ml Q15M PRN IV DECREASED GLUCOSE; Start 03/16/18 at 14:30 Dextrose (D50w Syringe) 50 ml Q15M PRN IV DECREASED GLUCOSE; Start 03/16/18 at 14:30 Glucagon (Glucagen) 1 mg Q15M PRN IM DECREASED GLUCOSE; Start 03/16/18 at 14:30 Glucose (Glutose) 15 gm Q15M PRN BUCCAL DECREASED GLUCOSE; Start 03/16/18 at 14:30 Acetaminophen (Tylenol Supp) 650 mg Q6H PRN [place] MILD PAIN(1-3) OR TEMP>38C; Sta rt 03/17/18 at 01:00 Ampicillin Sodium/ Sulbactam Sodium 100 ml @ 100 mls/hr Q6 IVPB Last administ ered on 03/24/18 17:24; Admin Dose 100 MLS/HR; Start 03/17/18 at 18:00 Hydralazine HCl (Apresoline) 10 mg Q4H PRN IV elevated BP; Start 03/17/18 at 21:30 Insulin Glargine (Lantus) 8 units DAILY@2000 SC Last administered on 03/23/18at 20:15; Admin Dose 8 UNITS; Start 03/18/18 at 20:00 Guaifenesin/ Dextromethorphan (Mucinex Dm) 1 tab BID PO Last administered on 03/24/18 08:11; Admin Dose 1 TAB; Start 03/18/18 at 16:30 Guaifenesin/ Dextromethorphan (Robitussin Dm Liquid Cup) 5 ml Q4H PRN PO cough; Start 03/18/18 at 16:00 Polyethylene Glycol (Miralax) 17 gm DAILY PO Last administered on 03/24/18 08:11; Admin Dose 17 GM; Start 03/20/18 at 12:30 Famotidine (Pepcid) 20 mg DAILY PO Last administered on 03/24/18 08:12; Admin Dose 20 MG; Start 03/21/18 at 09:00 Amlodipine Besylate (Norvasc) 10 mg DAILY PO Last administered on 03/24/18 08:20; Admin Dose 10 MG; Start 03/21/18 at 09:00 Metformin HCl (Glucophage) 500 mg BID WITH MEALS PO Last administered on 03/24/18 17:27; Admin Dose 500 MG; Start 03/21/18 at 18:05 Valacyclovir HCl (Valtrex) 1,000 mg BID PO Last administered on 03/24/18 08:11; Admin Dose 1,000 MG; Start 03/23/18 at 13:30 MARIA T MEJIA NP Mar 24, 2018 18:55
--- NOTE | 2018-03-24 19:30 | NUR ---
NURSE NOTE: Report given to MANJU Silva. Endorsed to follow-up to MD if patient can have physical therapy.
[2018-03-24 20:00] VITALS: BP 130/62; PULSE 75; RESP 18
[2018-03-24] MEDS: DOXYCYCLINE 100 MG TAB PO SCH (20:47)
[2018-03-24] MEDS: CEFTRIAXONE 1 GM/50 ML (PMX) 50 ML IVPB SCH (20:48)
[2018-03-24] MEDS: INSULIN GLARGINE [LANTus] (100 UNITS/ML) SYG SC SCH (20:50)
--- NOTE | 2018-03-25 00:54 | NUR ---
Per report pt's son wants physical therapy to work with pt. Patient is working with physical therapy and last documented treatment note was on 03/23/2018; Will endorse to morning nurse to follow up with physical therapy for 03/25/2017.
[2018-03-25 02:00] VITALS: BP 129/65; PULSE 71; RESP 18
[2018-03-25] MEDS: AMPICILLIN/SULB 3 GM/NS (PMX) 100 ML IVPB SCH ×2 (05:18→12:14)
--- NOTE | 2018-03-25 05:32 | NUR ---
VS stable and pt is afebrile. No acute changes or s/s of respiratory distress during shift. Pt denied having pain. BG checked ACHS and pt refused HS snack with insulin coverage. Midline patent and intact . Repositioned pt q2h and heels floated. Fall precautions observed with call light within reach. Pt's son wants pt to work with physical therapy; Will endorse continuity of care to oncoming nurse. Addendum: 03/25/18 at 0539 by MEREDITH PENNINGTON RN Airborne isolation in place and observed
[2018-03-25] MEDS: INSULIN ASPART [NOVOLOG] 3 ML PEN SC SCH ×4 (08:00→20:45)
[2018-03-25 08:06] VITALS: BP 142/65; PULSE 83; RESP 18
[2018-03-25] MEDS: GUAIFENESIN/DM (SR) TAB PO SCH ×2 (08:28→20:43)
[2018-03-25] MEDS: DOXYCYCLINE 100 MG TAB PO SCH ×2 (08:29→20:43)
[2018-03-25] MEDS: POLYETHYLENE GLYCOL 17 GM PACKET PO SCH (08:29)
[2018-03-25] MEDS: metFORMIN 500 MG TAB PO SCH ×2 (08:29→17:21)
[2018-03-25] MEDS: LOSARTAN 50 MG TAB PO SCH (08:30)
[2018-03-25] MEDS: AMLODIPINE 10 MG TAB PO SCH (08:30)
[2018-03-25] MEDS: ENOXAPARIN 30 MG/0.3 ML SYG SC SCH (08:30)
[2018-03-25] MEDS: FAMOTIDINE 20 MG TAB PO SCH (08:31)
[2018-03-25] MEDS: VALACYCLOVIR 500 MG TAB PO SCH ×2 (08:31→20:43)
--- NOTE | 2018-03-25 11:15 | NUR ---
OT NOTE S: RN cleared pt for skilled OT tx. Pt agreeable to tx stating 0/10 pain. O: Pt received supine in bed. Pt performed supine->sit at EOB with Min A- pt pulled herself up using the bed rail. Pt sat at EOB with F/F+ sitting balance. Pt occasionally placed one hand on bedrail to stabilize herself when losing balance. Pt engaged in h/g with CGA including UB bathing, combing hair and applying lotion. Pt required Min A to lay back in bed. Pt assisted in scooting herself up in bed by holding onto dante side rails. Pt left supine in bed with all needs met. RN notified A: Pt tolerated tx well demonstrating increased sitting balance. P: Cont POC Progress Note: Pt has progressed in her bed mob, sitting/standing balance. Pt demonstrates increased participation in tx and performs h/g, UB dressing and UB bathing with CGA/SBA. Pt will benefit from continued OT Tx.
--- NOTE | 2018-03-25 11:37 | NUR ---
10:000 AM CALLED ONE[facility] [phone] . STILL NO ISOLATION BED AVAILABLE
--- NOTE | 2018-03-25 12:00 | NUR ---
RN NOTES Patient was seen and checked by Infectious disease LEAD APPLICATIONS DEVELOPER Nera, as per LEAD APPLICATIONS DEVELOPER Nera, wound on patient's sacrococcyx area which is drying up already is not Shingles but ordered to continue with current medication for prophylaxis. LEAD APPLICATIONS DEVELOPER Nera also ordered to DC Isolation. Will continue to monitor.
[2018-03-25] MEDS ORDERED: METF-849 PO (12:29)
[2018-03-25] MEDS ORDERED: AMLO-147 PO (12:29)
[2018-03-25] MEDS ORDERED: NOVO3I SC (12:29)
[2018-03-25] MEDS ORDERED: Insulin Glargine SC (12:29)
--- NOTE | 2018-03-25 12:34 | DS ---
Date/Time of Note Date/Time of Note DATE: 03/25/18 TIME: 12:34 Discharge Summary Admission/Discharge Info Admit Date/Time Mar 16, 2018 at 11:24 Discharge Date/Time Patient Condition: Stable Hospital Course Patient is a [place] female with past medical history significant for diabetes, hypertension who originally presented to [facility] for altered mental status. Patient was diagnosed with pneumonia and subsequent bacteremia. Patient was seen by infectious disease and put on appropriate antibiotics and will continue ceftriaxone until March 29 2018, patient also subsequently had some hip discomfort and a CT of the pelvis and hip was done which found some fluid stranding that was nonspecific. Infectious disease consider this possible sequelae to patient's new onset shingles versus other cellulitis and stated that she will be put on doxycycline as well to finish until March 29, 2018. Patient has no symptoms whatsoever at this time and feels well with just generally weak. Patient was diagnosed with shingles by infectious disease while in-house and started on valacyclovir. Patient was deemed not infectious and airborne precautions were taken off on March 25, 2018 by infectious disease. Patient has a living son and states that she will likely need a short stay at a detention facility until he has time to determine what her long-term placement is sues will be. Patient is stable and ready for transfer to detention facility. Discharge diagnosis Bacteremia, resolving Generalized weakness, resolving Stranding seen on CT of the buttock area, stable Shingles, on valacyclovir Acute toxic encephalopathy, resolved Dysphasia, monitor Multilobular pneumonia, resolving Acute kidney injury Diabetes mellitus Hypertension Gait instability Home Meds Active Scripts Metformin* (Glucophage*) 500 Mg Tab, 500 MG PO BID WITH MEALS for 30 Days, TAB Prov:LORRAINE GERBER 03/25/18 [Insulin Glargine] 100 UNITS/ML SOLN No Conflict Check, 8 UNITS SC DAILY@1999 for 30 Days Prov:LORRAINE GERBER 03/25/18 Insulin Aspart* (Novolog Insulin Pen*) 100 Unit/Ml Soln, 0 UNIT SC WITH MEALS BEDTIME for 30 Days Prov:LORRAINE GERBER 03/25/18 Amlodipine Besylate* (Amlodipine Besylate*) 10 Mg Tablet, 10 MG PO DAILY for 30 Days, TAB Prov:LORRAINE GERBER 03/25/18 Reported Medications Alendronate Sodium* (Fosamax*) 70 Mg Tablet, 70 MG PO Q7D, #4 TAB 12/24/18 Losartan Potassium* (Losartan Potassium*) 100 Mg Tablet, 100 MG PO DAILY, TAB 03/16/18 Discontinued Reported Medications Glipizide/Metformin HCl (Glipizide-Metformin 5-500 mg) 1 Each Tablet, 1 EACH PO DAILY, TAB 03/16/18 Linagliptin-Metformin (Jentadueto) 2.5-500 Mg Tablet, 1 TAB PO DAILY, TAB 03/16/18 Amlodipine Besylate/Benazepril (Amlodipine-Benazepril 5-20 mg) 1 Each Capsule, 1 EACH PO DAILY, CAP 03/16/18 Primary Care Provider Not On Staff Doctor Time spent on discharge: > 30 minutes Pending Labs Laboratory Tests Test 03/24/18 17:23 03/24/18 20:46 03/25/18 01:46 03/25/18 08:24 Bedside 206 182 88 103 Glucose mg/dL (70-220) mg/dL (70-220) mg/dL (70-220) mg/dL (70-220) Test 03/25/18 08:55 03/25/18 12:11 Sodium Level 137 mmol/L (135-144 ) Potassium 4.3 Level mmol/L (3.5-5.1 ) Chloride Level 100 mmol/L (97-110) Carbon Dioxide 32 Level mmol/L (21-31) Anion Gap 5 (5-13) Blood Urea 19 mg/dl (7-20) Nitrogen Creatinine 0.62 mg/dl (0.44-1.0 0) Est Glomerular mL/min (>60) Filtrat Rate mL/min Glucose Level 135 mg/dl (70-220) Calcium Level 7.9 mg/dl (8.4-10.2 ) Magnesium 1.6 Level mg/dl (1.7-2.5) Total 0.2 Bilirubin mg/dl (0.2-1.3) Direct 0.00 Bilirubin mg/dl (0.00-0.2 0) Indirect 0.2 Bilirubin mg/dl (0-1.1) Aspartate Amino 84 IU/L (15-46) Transf (AST/SGO T) Alanine 61 IU/L (13-69) Aminotransferas e (ALT/SGPT) Alkaline 514 Phosphatase IU/L (42-121) Total Protein 6.5 g/dl (6.1-8.1) Albumin 2.7 g/dl (3.3-4.9) Globulin 3.80 g/dl (1.3-3.2) Albumin/Globuli 0.71 n Ratio Bedside 153 Glucose mg/dL (70-220) LORRAINE GERBER Mar 25, 2018 12:34
[2018-03-25] MEDS ORDERED: MAGNESIUM SULFATE 2 GM/50 ML 50 ML IVPB ONE (14:00)
[2018-03-25 14:38] VITALS: BP 136/66; PULSE 80; RESP 18
--- NOTE | 2018-03-25 15:00 | NUR ---
PT EVAL Therapy day number 6 Subjective Denies pain Pain Scale FACES Pain Intensity 0 (0-10) Patient Stated Goal for Pain Relief 0 (0-10) Pain Level Comment Denied pain Pre Treatment Vital Signs Stable Yes Exercise Assessment Label Bilat Lower Extremity Exercise Type Active ROM Additional Exercise Comments L LE APs, heel slides, SLR; R LE PROM noted inability to perform any AROM Exercise Start Time 15:25 Exercise End Time 15:40 Total Exercise Time 15 min (8-127) Transfer Training Start Time 15:00 Supine to Sit Moderate Assist Transfer Sit to Stand Ability Maximum Assist Bed Mobility Sit to Supine Moderate Assist Sitting Tolerance 15 min Additional Mobility Comments STS x 5 with maxA x 2 person assist, mod-maxA to maintain static standing Transfer Training End Time 15:25 Total Transfer Training Time 25 min (8-127) Additional Gait Comments attempted pre-gait i.e. weight shifting, marching, pt unable Static Sitting Balance Fair plus Dynamic Sitting Balance Fair Standing Static Balance Poor Additional Balance Assessments Comments improved sitting balance from previous sessions Safety Judgement Fair Activity Tolerance Poor Equipment Present A pump IV pump Post Treatment Pain Intensity 0 0-10 Variance Documentation SEE PT NOTE Total Treament Time 40 min (8-127) Total Minutes 40 Total Units 3 PT Technical Record Comment PT NOTE S: Pt received in bed, initially refused evaluation. Agreeable with son present in room encouragement and translating. Pt denied pain throughout session. O: RN GALILEA cleared pt for PT session. Pt received in bed, son assisting with translation ([id number]) as pt is [facility] and has not had success using phone medical cash poster. Pt participated in interventions above. Sit to stand x 5 with 2PA, pt unable to maintain static standing without mod-maxA. Upon performing bed-level exercise, noted pt unable to move R LE at hip, knee, ankle or toes. Pt L LE able to perform supine therex, but R LE appears flaccid/weak. RN notified. Dr Alston notified. Pt returned to bed, all needs in reach, bed alarm activated, son at bedside. A: Pt continues to require 2 person assist for sit to stand task and continues to present with overall weakness. Noted significant R LE weakness this date, apparently new onset, and notified Dr. Alston. Imaging pending per EMR. P: Continue c PT POC
--- NOTE | 2018-03-25 15:12 | CONS ---
Date/Time of Note Date/Time of Note DATE: 03/25/18 TIME: 15:09 Assessment/Plan Assessment/Plan Hospital Course No acute changes, awake, looks comfortable, no fevers Antimicrobials: Valtrex, Rocephin Doxycycline Microbiology: Blood culture on admission grew strep pneumonia, urine culture negative. Repeat blood cultures negative Physical examination: Fragile well-developed elderly woman who is awake in no distress. Head atraumatic normocephalic sclera nonicteric. Neck is supple. Chest rise symmetrical breath sounds diminished bases. Heart: S1-S2. Abdomen soft bowel sounds present extremities without cyanosis Assessment: 1. S/p sepsis 2. Resolving pneumonia, likely strep 3. S/p strep bacteremia 4. Resolving encephalopathy 5. Diabetes 6. Dysphagia with possible ongoing aspiration 7. Sacral lesion, doubt HSV Plan: The patient remains stable, repeat blood cultures negative, continue on current antibiotics==> last dose Mar 29, dc isolation Result Diagram: 03/25/18 1331 03/25/18 0855 Results 24hrs Laboratory Tests Test 03/24/18 17:23 03/24/18 20:46 03/25/18 01:46 03/25/18 08:24 Bedside Glucose 206 182 88 103 Test 03/25/18 08:55 03/25/18 12:11 03/25/18 13:31 Sodium Level 137 Potassium Level 4.3 Chloride Level 100 Carbon Dioxide Level 32 H Anion Gap 5 Blood Urea Nitrogen 19 Creatinine 0.62 Est Glomerular Filtrat Rate mL/min Glucose Level 135 Calcium Level 7.9 L Magnesium Level 1.6 L Total Bilirubin 0.2 Direct Bilirubin 0.00 Indirect Bilirubin 0.2 Aspartate Amino 84 H Transf (AST/SGOT) Alanine 61 Aminotransferase (ALT/SG PT) Alkaline Phosphatase 514 H Total Protein 6.5 Albumin 2.7 L Globulin 3.80 H Albumin/Globulin Ratio 0.71 Bedside Glucose 153 White Blood Count 4.9 # Red Blood Count 2.90 L Hemoglobin 9.5 L Hematocrit 28.3 L Mean Corpuscular Volume 97.6 Mean Corpuscular 32.8 Hemoglobin Mean Corpuscular 33.6 Hemoglobin Concent Red Cell Distribution 13.1 Width Platelet Count 184 Mean Platelet Volume 11.5 H Immature Granulocytes % 2.200 H Neutrophils % 72.0 Lymphocytes % 18.3 Monocytes % 6.5 Eosinophils % 0.4 Basophils % 0.6 Nucleated Red Blood 0.0 Cells % Immature Granulocytes # 0.110 H Neutrophils # 3.6 Lymphocytes # 0.9 Monocytes # 0.3 Eosinophils # 0.0 Basophils # 0.0 Nucleated Red Blood 0.0 Cells # Consultation Date/Type/Reason Admit Date/Time Mar 16, 2018 at 11:24 Initial Consult Date Type of Consult id Exam/Review of Systems Vital Signs Vitals Vital Signs Date Temp Pulse Resp B/P (MAP) Pulse Ox O2 O2 Flow FiO2 Time Delivery Rate 03/25/18 97.8 80 18 136/66 94 Room Air 14:38 (89) 03/24/18 2.0 23:00 Intake and Output 03/24/18 03/24/18 03/25/18 1515:00 23:00 07:00 IntakeIntake Total 480 ml 220 ml 200 ml BalanceBalance 480 ml 220 ml 200 ml Medications Medications Current Medications Losartan Potassium (Cozaar) 100 mg DAILY PO Last administered on 03/25/18 08:30; Admin Dose 100 MG; Start 03/17/18 at 09:00 IV Flush (NS 3 ml) 3 ml PER PROTOCOL IV ; Start 03/16/18 at 11:30 Ondansetron HCl (Zofran Inj) 4 mg Q6H PRN IV NAUSEA AND/OR VOMITING; Start 05/17/17 at 11:30 Acetaminophen (Tylenol Tab) 650 mg Q6H PRN PO PAIN LEVEL 1-3 OR FEVER; Start 03/16/18 at 11:30 Docusate Sodium (Colace) 100 mg Q12H PRN PO CONSTIPATION; Start 03/16/18 at 11:30 Magnesium Hydroxide (Milk Of Mag) 30 ml DAILY PRN PO CONSTIPATION Last administered on 03/23/18at 00:41; Admin Dose 30 ML; Start 03/16/18 at 11:30 Enoxaparin Sodium (Lovenox) 30 mg DAILY SC Last administered on 03/25/18 08:30; Admin Dose 30 MG; Start 03/17/18 at 09:00 Albuterol (Proventil 0.083% (Neb)) 2.5 mg Q2H RESP THERAPY PRN HHN SHORTNESS OF BREATH; Start 03/16/18 at 11:30 Insulin Aspart (Novolog Insulin Pen) NOVOLOG *MILD* ALGORITHM WITH MEALS BEDTIME SC Last administered on 03/25/18 12:14; Admin Dose 1 UNIT; Start 03/16/18 at 17:55 Miscellaneous Information 1 ea NOTE XX ; Start 03/16/18 at 14:30 Glucose (Glutose) 15 gm Q15M PRN PO DECREASED GLUCOSE; Start 03/16/18 at 14:30 Glucose (Glutose) 22.5 gm Q15M PRN PO DECREASED GLUCOSE; Start 03/16/18 at 14:30 Dextrose (D50w Syringe) 25 ml Q15M PRN IV DECREASED GLUCOSE; Start 03/16/18 at 14:30 Dextrose (D50w Syringe) 50 ml Q15M PRN IV DECREASED GLUCOSE; Start 03/16/18 at 14:30 Glucagon (Glucagen) 1 mg Q15M PRN IM DECREASED GLUCOSE; Start 03/16/18 at 14:30 Glucose (Glutose) 15 gm Q15M PRN BUCCAL DECREASED GLUCOSE; Start 03/16/18 at 14:30 Acetaminophen (Tylenol Supp) 650 mg Q6H PRN [place] MILD PAIN(1-3) OR TEMP>38C; Start 03/17/18 at 01:00 Hydralazine HCl (Apresoline) 10 mg Q4H PRN IV elevated BP; Start 03/17/18 at 21:30 Insulin Glargine (Lantus) 8 units DAILY@2000 SC Last administered on 03/24/18 20:50; Admin Dose 8 UNITS; Start 03/18/18 at 20:00 Guaifenesin/ Dextromethorphan (Mucinex Dm) 1 tab BID PO Last administered on 03/25/18 08:28; Admin Dose 1 TAB; Start 03/18/18 at 16:30 Guaifenesin/ Dextromethorphan (Robitussin Dm Liquid Cup) 5 ml Q4H PRN PO cough; Start 03/18/18 at 16:00 Polyethylene Glycol (Miralax) 17 gm DAILY PO Last administered on 03/25/18 08:29; Admin Dose 17 GM; Start 03/20/18 at 12:30 Famotidine (Pepcid) 20 mg DAILY PO Last administered on 03/25/18 08:31; Admin Dose 20 MG; Start 03/21/18 at 09:00 Amlodipine Besylate (Norvasc) 10 mg DAILY PO Last administered on 1/2/19at 08:30; Admin Dose 10 MG; Start 03/21/18 at 09:00 Metformin HCl (Glucophage) 500 mg BID WITH MEALS PO Last administered on 03/25/18 08:29; Admin Dose 500 MG; Start 03/21/18 at 18:05 Valacyclovir HCl (Valtrex) 1,000 mg BID PO Last administered on 03/25/18 08:31; Admin Dose 1,000 MG; Start 03/23/18 at 13:30 Ceftriaxone Sodium 50 ml @ 100 mls/hr Q24H IVPB Last administered on 03/24/18at 20:48; Admin Dose 100 MLS/HR; Start 03/24/18 at 19:30; Stop 03/29/18 at 23:00 Doxycycline Hyclate (Vibramycin) 100 mg BID PO Last administered on 03/25/18 08:29; Admin Dose 100 MG; Start 03/24/18 at 21:00; Stop 03/29/18 at 23:00 Magnesium Sulfate 50 ml @ 25 mls/hr ONCE ONCE IVPB Last administered on 03/25/18at 14:39; Admin Dose 25 MLS/HR; Start 03/25/18 at 14:00; Stop 03/25/18 at 15:59 YULISSA SHETH NP Mar 25, 2018 15:12
--- NOTE | 2018-03-25 16:28 | PN ---
Date/Time of Note Date/Time of Note DATE: 03/25/18 TIME: 16:28 Objective Vitals Vital Signs Date Temp Pulse Resp B/P (MAP) Pulse Ox O2 O2 Flow FiO2 Time Delivery Rate 03/25/18 97.8 80 18 136/66 94 Room Air 14:38 (89) 03/25/18 2.0 08:00 Intake and Output 03/24/18 03/24/18 03/25/18 1515:00 23:00 07:00 IntakeIntake Total 480 ml 220 ml 200 ml BalanceBalance 480 ml 220 ml 200 ml Results Result Diagram: 03/25/18 1331 03/25/18 0855 Medications Medications Current Medications Losartan Potassium (Cozaar) 100 mg DAILY PO Last administered on 03/25/18 08:30; Admin Dose 100 MG; Start 03/17/18 at 09:00 IV Flush (NS 3 ml) 3 ml PER PROTOCOL IV ; Start 03/16/18 at 11:30 Ondansetron HCl (Zofran Inj) 4 mg Q6H PRN IV NAUSEA AND/OR VOMITING; Start 03/16/18 at 11:30 Acetaminophen (Tylenol Tab) 650 mg Q6H PRN PO PAIN LEVEL 1-3 OR FEVER; Start 03/16/18 at 11:30 Docusate Sodium (Colace) 100 mg Q12H PRN PO CONSTIPATION; Start 03/16/18 at 11:30 Magnesium Hydroxide (Milk Of Mag) 30 ml DAILY PRN PO CONSTIPATION Last administered on 03/23/18at 00:41; Admin Dose 30 ML; Start 03/16/18 at 11:30 Enoxaparin Sodium (Lovenox) 30 mg DAILY SC Last administered on 03/25/18at 08:30; Admin Dose 30 MG; Start 03/17/18 at 09:00 Albuterol (Proventil 0.083% (Neb)) 2.5 mg Q2H RESP THERAPY PRN HHN SHORTNESS OF BREATH; Start 03/16/18 at 11:30 Insulin Aspart (Novolog Insulin Pen) NOVOLOG *MILD* ALGORITHM WITH MEALS BE DTIME SC Last administered on 03/25/18 12:14; Admin Dose 1 UNIT; Start 03/16/18 at 17:55 Miscellaneous Information 1 ea NOTE XX ; Start 03/16/18 at 14:30 Glucose (Glutose) 15 gm Q15M PRN PO DECREASED GLUCOSE; Start 03/16/18 at 14:30 Glucose (Glutose) 22.5 gm Q15M PRN PO DECREASED GLUCOSE; Start 03/16/18 at 14:30 Dextrose (D50w Syringe) 25 ml Q15M PRN IV DECREASED GLUCOSE; Start 03/16/18 at 14:30 Dextrose (D50w Syringe) 50 ml Q15M PRN IV DECREASED GLUCOSE; Start 03/16/18 at 14:30 Glucagon (Glucagen) 1 mg Q15M PRN IM DECREASED GLUCOSE; Start 03/16/18 at 14:30 Glucose (Glutose) 15 gm Q15M PRN BUCCAL DECREASED GLUCOSE; Start 03/16/18 at 14:30 Acetaminophen (Tylenol Supp) 650 mg Q6H PRN [place] MILD PAIN(1-3) OR TEMP>38C; Start 03/17/18 at 01:00 Hydralazine HCl (Apresoline) 10 mg Q4H PRN IV elevated BP; Start 03/17/18 at 21:30 Insulin Glargine (Lantus) 8 units DAILY@2000 SC Last administered on 03/24/18 20:50; Admin Dose 8 UNITS; Start 03/18/18 at 20:00 Guaifenesin/ Dextromethorphan (Mucinex Dm) 1 tab BID PO Last administered on 03/25/18 08:28; Admin Dose 1 TAB; Start 03/18/18 at 16:30 Guaifenesin/ Dextromethorphan (Robitussin Dm Liquid Cup) 5 ml Q4H PRN PO cough; Start 03/18/18 at 16:00 Polyethylene Glycol (Miralax) 17 gm DAILY PO Last administered on 03/25/18 08 :29; Admin Dose 17 GM; Start 03/20/18 at 12:30 Famotidine (Pepcid) 20 mg DAILY PO Last administered on 03/25/18 08:31; Admin Dose 20 MG; Start 03/21/18 at 09:00 Amlodipine Besylate (Norvasc) 10 mg DAILY PO Last administered on 03/25/18 08:30; Admin Dose 10 MG; Start 03/21/18 at 09:00 Metformin HCl (Glucophage) 500 mg BID WITH MEALS PO Last administered on 1/2/19at 08:29; Admin Dose 500 MG; Start 03/21/18 at 18:05 Valacyclovir HCl (Valtrex) 1,000 mg BID PO Last administered on 03/25/18at 08:31; Admin Dose 1,000 MG; Start 03/23/18 at 13:30 Ceftriaxone Sodium 50 ml @ 100 mls/hr Q24H IVPB Last administered on 03/24/18at 20:48; Admin Dose 100 MLS/HR; Start 03/24/18 at 19:30; Stop 03/29/18 at 23:00 Doxycycline Hyclate (Vibramycin) 100 mg BID PO Last administered on 03/25/18at 08:29; Admin Dose 100 MG; Start 03/24/18 at 21:00; Stop 03/29/18 at 23:00 Sodium Chloride 1,000 ml @ 30 mls/hr Q24H IV ; Start 03/25/18 at 16:30; Stop 03/27/18 at 01:49 VTE Prophylaxis Risk score (from Ns)>0 risk: 7 [place] [facility] [place] Lines/Catheters IV Catheter Type: Fuentes in Place: No Assessment/Plan Hospital Course Discharge held Notified from physical therapy and son the patient's right leg does not appear to move. Examined patient, right lower extremity has full sensation as when compared to the left as well as full pulses and no signs of decreased blood flow however when asking the patient to move her right leg forward even to wiggle her toes, patient states that she could not do it. Patient was asked if this was due to pain she said no, she also stated that it was not because of weakness she just could not move. Patient was able to freely move her left lower extremity with no issue. Patient has no loss of bowel or bladder control, no additional pain, and just complains of a generalized weakness. Neurology was consulted, CT of the hip, lumbar and thoracic vertebrae were ordered with and without contrast in order to rule out abscess as patient recently had bacteremia. MRI cannot be done due to hardware of left hip replacement done in [facility] approximately 15 years ago. The weakness was present prior to today and attributed to the stranding and inflammation seen on CT that was addressed by ID offered the right buttock area. However the inability to move or wiggle the toes is new finding, will have to monitor very closely and await neurology consultation. Patient however does not exhibit any symptoms of abscess including fever or white count. Due to patient's elderly age, will hydrate prior to CT with contrast in order to help preserve kidneys if possible. LORRAINE GERBER Mar 25, 2018 16:28
[2018-03-25] MEDS: SOD CHLORIDE 0.9% 1,000 ML IV SCH (16:32)
--- NOTE | 2018-03-25 17:26 | NUR ---
RN NOTES Patient just left to CT scan with transporter in stable condition.
[2018-03-25] MEDS ORDERED: SOD CHLORIDE 0.9% 100 ML ONE (17:55)
[2018-03-25] MEDS ORDERED: IOHEXOL 300MG/ML 150 ML BTL ONE (17:55)
[2018-03-25] MEDS ORDERED: IOHEXOL 14.3 MG(I)/ML (ADULT) BTL PO ONE (18:00)
--- NOTE | 2018-03-25 18:08 | NUR ---
RN NOTES Patient remained stable all throughout the shift. Vital signs stable, no episode of hypo/hyperglycemia noted. Patient was sen by Dr Alston with order for discharge to longterm facility. Md spoke with son at bedside, son express concern that patient has been having having weakness on the right leg and cannot manage to wiggle the toes. Discharge was canceled by Dr Alston and gave an order to do CT scan of the chest , abdomen and pelvis with and without contrast to rule out epidural abscess. Md also ordered NS to run at 30 ml/hr. Magnesium sulfate 2 gm IV was also ordered to replace magnesium level of 1.6. Needs attended. Kept safe and comfortable. Will endorse to gas maker for continuity of care.
[2018-03-25] MEDS: CEFTRIAXONE 1 GM/50 ML (PMX) 50 ML IVPB SCH (19:24)
[2018-03-25 20:00] VITALS: BP 121/57; PULSE 80; RESP 18
[2018-03-25] MEDS: INSULIN GLARGINE [LANTus] (100 UNITS/ML) SYG SC SCH (20:45)
--- NOTE | 2018-03-25 21:56 | NUR ---
Procedure Ordered:CAP W/ Reason for Exam Today: POSS EPIDURAL ABSCESS Previous Exams: Allergies:NKA Current Medications Taken: Glucophage ( ) Metformin ( ) Previous reaction to contrast media: Yes ( ) No ( ) : Yes ( ) No (X ) Asthma: Yes ( ) No (X ) Diabetes: Yes (X ) No ( ) Myeloma: Yes ( ) No (X ) Heart Disease: Yes (X ) No ( ) Cardiac Disease: Yes (X ) No ( ) Kidney Disease: Yes ( ) No (X ) Vascular Disease: Yes ( ) No (X ) Patient Teaching done: Yes (X ) No ( ) Home Mortgage Disclosure Act Specialist Used: Yes ( ) No ( ) Name of Home Mortgage Disclosure Act Specialist: Language Used: As part of the test requested by your doctor, contrast media may be injected into your vein while the x-rays are being taken. Occasionally, reactions from IV contrast may occur. The physician and staff of this hospital are trained to treat these reactions. Select the type of Contrast that will be given to patient: Isovue 300 ( ) Isovue 370 ( ) Visipaque ( ) Cystografin ( ) Gastrographin ( ) Redi-cat ( ) Volumen ( ) OMNIPAQUE 300 (X) Amount of contrast to be given: 100ML IV (X ) PO ( ) Date given:03/25/18 Lab Values: BUN: 19 Creatinine: 0.62 Reason why contrast cannot be given: Location of patient pre-procedure: 2240A Location of patient post procedure: 2240A
[2018-03-26 02:00] VITALS: BP 132/63; PULSE 64; RESP 18
--- NOTE | 2018-03-26 06:06 | NUR ---
Patient in room asleep with no signs of distress. Patient nonverbal and [place]; however able to follow simple commands. Patient with no pain noted via FACES pain scale. BG 197 this shift with insulin coverage provided. Patient provided with HS snack. No abdominal pain, fatigue, headache, or distress indicating signs of hypoglycemia/hyperglycemia noted. No other changes otherwise noted. All needs met and medications administered per MD order. Patient turned every 2 hours with heels kept elevated. Safety precautions and hourly rounding currently in place until change of shift.
[2018-03-26] MEDS: INSULIN ASPART [NOVOLOG] 3 ML PEN SC SCH ×4 (08:00→20:34)
[2018-03-26 08:11] VITALS: BP 142/66; PULSE 71; RESP 18
[2018-03-26] MEDS: metFORMIN 500 MG TAB PO SCH ×2 (09:51→17:32)
[2018-03-26] MEDS: LOSARTAN 50 MG TAB PO SCH (09:51)
[2018-03-26] MEDS: POLYETHYLENE GLYCOL 17 GM PACKET PO SCH (09:52)
[2018-03-26] MEDS: GUAIFENESIN/DM (SR) TAB PO SCH ×2 (09:52→20:35)
[2018-03-26] MEDS: FAMOTIDINE 20 MG TAB PO SCH (09:53)
[2018-03-26] MEDS: AMLODIPINE 10 MG TAB PO SCH (09:53)
[2018-03-26] MEDS: VALACYCLOVIR 500 MG TAB PO SCH ×2 (09:53→20:35)
[2018-03-26] MEDS: DOXYCYCLINE 100 MG TAB PO SCH ×2 (09:53→20:35)
[2018-03-26] MEDS: ENOXAPARIN 30 MG/0.3 ML SYG SC SCH (09:56)
--- NOTE | 2018-03-26 11:55 | NUR ---
PT NOTE Therapy day number 7 Subjective Denies pain Pain Scale FACES Pain Intensity 0 (0-10) Patient Stated Goal for Pain Relief 0 (0-10) Pain Level Comment no pain indicated Pre Treatment Vital Signs Stable Yes Exercise Assessment Label Bilat Lower Extremity Exercise Type Active ROM Additional Exercise Comments L APs, heel slides, SLR, LAQ; R LE PROM, still unable to perform AROM Exercise Start Time 11:28 Exercise End Time 11:45 Total Exercise Time 17 min (8-127) Transfer Training Start Time 11:45 Supine to Sit Minimum Assist Transfer Sit to Stand Ability Maximum Assist Bed Mobility Sit to Supine Moderate Assist Sitting Tolerance 10 min Additional Mobility Comments STS x 5 with 2PA and FWW; noted pt bearing weight only on L LE Transfer Training End Time 11:55 Total Transfer Training Time 10 min (8-127) Additional Gait Comments unable to bear weight in R LE Static Sitting Balance Fair plus Dynamic Sitting Balance Fair Standing Static Balance Poor Safety Judgement Fair Activity Tolerance Poor Equipment Present A pump Post Treatment Pain Intensity 0 0-10 Variance Documentation SEE PT NOTE Total Treament Time 27 min (8-127) Total Minutes 27 Total Units 2 PT Technical Record Comment PT NOTE S: Pt did not show signs of pain, agreeable to session O: RN cleared pt for PT session. Pt received in bed. Pt participated in interventions above. Continue to note pt unable to move R LE at hip, knee or ankle, also unable to hold R hip in place with knee flexed, R LE falling outward. L LE AROM WNL, able to perform L LE LAQs against gravity. Noted with sit to stand, pt bearing weight entirely in L LE. Pt cued to bear weight to R LE but apparently unable. Pt returned to bed, alarm activated ,all needs in reach. RN notified of pt's status. A: Pt continues to demonstrate significant R LE weakness, with no AROM in hip, knee, ankle, or toes. Noted in standing, pt bears weight entirely on L LE, unable to cue pt to attempt bearing weight through R LE for assessment. No CT evidence of a spinal abscess following imaging., P: Continue c PT POC
[2018-03-26 14:42] VITALS: BP 134/62; PULSE 74; RESP 18
--- NOTE | 2018-03-26 14:47 | CONS ---
Assessment/Plan Assessment/Plan Hospital Course 87 yo F with hx of multiple comorbidities who initially p/w PNA and other sx. She was noted to have R lower limb weakness, for which neurology is consulted. The clinical picture raises concern for stroke vs. acute low spine pathology. CT T and L spine w/ contrast (reported as CT chest) are without obvious perispinal abscess or other acute neurologic issue. MRI is presently contraindicated. P: Will reexamine when patient is more amenable Repeat Head CT to evaluate for new hypodensities.. Asa/statin daily for now PT/OT as necessary Other medical management and supportive care per primary Will follow clinically Result Diagram: 03/25/18 1331 03/25/18 0855 Results 24hrs Laboratory Tests Test 03/25/18 17:19 03/25/18 20:41 03/26/18 02:15 03/26/18 08:21 Bedside Glucose 101 197 113 84 Test 03/26/18 12:36 Bedside Glucose 158 Consultation Date/Type/Reason Admit Date/Time Mar 16, 2018 at 11:24 Type of Consult Neurology Reason for Consultation R lower limb weakness Requesting Provider: LORRAINE GERBER Date/Time of Note DATE: 03/26/18 TIME: 14:47 Hx of Present Illness Hx of Present Illness 87 yo F with PMH Dm and HTN presented to ED for altered mental status. Patient is Tajik speaking but not really responding. History obtained from ED physician and son. Per sone patient has been more weak lately which has been causing recurrent falls. Patient fell last night and has been more confused. She resides in an assisted living and usually able to care for herself. EMS was called secondary to patient being unable to get up from toilet due to weakness and AMS. Unable to obtain full HPI given AMS. unable to obtain d/t pt cooperation Exam/Review of Systems Vital Signs Vitals Vital Signs Date Temp Pulse Resp B/P (MAP) Pulse Ox O2 O2 Flow FiO2 Time Delivery Rate 03/26/18 98.1 74 18 134/62 94 14:42 (86) 03/26/18 Room Air 02:00 03/25/18 2.0 20:00 Intake and Output 03/25/18 03/25/18 03/26/18 1515:00 23:00 07:00 IntakeIntake Total 340 ml 340 ml 270 ml BalanceBalance 340 ml 340 ml 270 ml Exam PE: Gen Appearance: No Apparent Distress HEENT: Normocephalic Cardiovascular: Regular rate Abdomen: Soft Extremities: Dry NE: The patient was awake and alert, sparsely verbal, though uncooperative with exam at this time. Will reexamine when able. Medications Medications Current Medications Losartan Potassium (Cozaar) 100 mg DAILY PO Last administered on 03/26/18 09:51; Admin Dose 100 MG; Start 03/17/18 at 09:00 IV Flush (NS 3 ml) 3 ml PER PROTOCOL IV ; Start 03/16/18 at 11:30 Ondansetron HCl (Zofran Inj) 4 mg Q6H PRN IV NAUSEA AND/OR VOMITING; Start 03/16/18 at 11:30 Acetaminophen (Tylenol Tab) 650 mg Q6H PRN PO PAIN LEVEL 1-3 OR FEVER; Start 03/16/18 at 11:30 Docusate Sodium (Colace) 100 mg Q12H PRN PO CONSTIPATION; Start 03/16/18 at 11:30 Magnesium Hydroxide (Milk Of Mag) 30 ml DAILY PRN PO CONSTIPATION Last administered on 03/23/18at 00:41; Admin Dose 30 ML; Start 03/16/18 at 11:30 Enoxaparin Sodium (Lovenox) 30 mg DAILY SC Last administered on 03/26/18 09:56; Admin Dose 30 MG; Start 03/17/18 at 09:00 Albuterol (Proventil 0.083% (Neb)) 2.5 mg Q2H RESP THERAPY PRN HHN SHORTNESS OF BREATH; Start 03/16/18 at 11:30 Insulin Aspart (Novolog Insulin Pen) NOVOLOG *MILD* ALGORITHM WITH MEALS BEDTIME SC Last administered on 03/26/18 12:40; Admin Dose 1 UNIT; Start 03/16/18 at 17:55 Miscellaneous Information 1 ea NOTE XX ; Start 03/16/18 at 14:30 Glucose (Glutose) 15 gm Q15M PRN PO DECREASED GLUCOSE; Start 03/16/18 at 14:30 Glucose (Glutose) 22.5 gm Q15M PRN PO DECREASED GLUCOSE; Start 03/16/18 at 14:30 Dextrose (D50w Syringe) 25 ml Q15M PRN IV DECREASED GLUCOSE; Start 03/16/18 at 14:30 Dextrose (D50w Syringe) 50 ml Q15M PRN IV DECREASED GLUCOSE; Start 03/16/18 at 14:30 Glucagon (Glucagen) 1 mg Q15M PRN IM DECREASED GLUCOSE; Start 03/16/18 at 14:30 Glucose (Glutose) 15 gm Q15M PRN BUCCAL DECREASED GLUCOSE; Start 03/16/18 at 14:30 Acetaminophen (Tylenol Supp) 650 mg Q6H PRN [place] MILD PAIN(1-3) OR TEMP>38C; Start 03/17/18 at 01:00 Hydralazine HCl (Apresoline) 10 mg Q4H PRN IV elevated BP; Start 03/17/18 at 21:30 Insulin Glargine (Lantus) 8 units DAILY@2000 SC Last administered on 03/25/18 20:45; Admin Dose 8 UNITS; Start 03/18/18 at 20:00 Guaifenesin/ Dextromethorphan (Mucinex Dm) 1 tab BID PO Last administered on 03/26/18 09:52; Admin Dose 1 TAB; Start 03/18/18 at 16:30 Guaifenesin/ Dextromethorphan (Robitussin Dm Liquid Cup) 5 ml Q4H PRN PO cough; Start 03/18/18 at 16:00 Polyethylene Glycol (Miralax) 17 gm DAILY PO Last administered on 03/26/18 09:52; Admin Dose 17 GM; Start 03/20/18 at 12:30 Famotidine (Pepcid) 20 mg DAILY PO Last administered on 03/26/18 09:53; Admin Dose 20 MG; Start 03/21/18 at 09:00 Amlodipine Besylate (Norvasc) 10 mg DAILY PO Last administered on 03/26/18 09:53; Admin Dose 10 MG; Start 03/21/18 at 09:00 Metformin HCl (Glucophage) 500 mg BID WITH MEALS PO Last administered on 03/26/18 09:51; Admin Dose 500 MG; Start 03/21/18 at 18:05 Valacyclovir HCl (Valtrex) 1,000 mg BID PO Last administered on 03/26/18 09:53; Admin Dose 1,000 MG; Start 03/23/18 at 13:30 Ceftriaxone Sodium 50 ml @ 100 mls/hr Q24H IVPB Last administered on 03/25/18 19:24; Admin Dose 100 MLS/HR; Start 03/24/18 at 19:30; Stop 03/29/18 at 23:00 Doxycycline Hyclate (Vibramycin) 100 mg BID PO Last administered on 03/26/18at 09:53; Admin Dose 100 MG; Start 03/24/18 at 21:00; Stop 03/29/18 at 23:00 Sodium Chloride 1,000 ml @ 30 mls/hr Q24H IV Last administered on 03/25/18at 16:32; Admin Dose 30 MLS/HR; Start 03/25/18 at 16:30; Stop 03/27/18 at 01:[address] pelvis: IMPRESSION: 1. No acute fracture. 2. Healed fractures of the bilateral superior and inferior pubic rami. 3. Healed fractures of the anterior S3 - S5 vertebral bodies. 4. ORIF changes of the left femur with intramedullary heather and fixation screw transfixing a healed fracture of the proximal left femur. 5. Small amount of free pelvic fluid. 6. Subcutaneous stranding overlying the bilateral lateral gluteal muscles. CT C/A/P: IMPRESSION: No CT evidence of a spinal abscess. If there is concern for a subtle epidural collection, further evaluation with contrast enhanced MRI may be useful. Small to moderate right and small left pleural effusions. Patchy ground-glass opacities in the posterior upper and lower lobes, possibly representing atelectasis and/or pneumonia. Complete right middle lobe atelectasis. Cirrhosis. Nonspecific 8 mm low-attenuation lesion in the left hepatic lobe, possibly a cyst or hemangioma. This could be further evaluated with ultrasound if clinically warranted. Moderate to severe atherosclerotic arterial calcifications. Healed bilateral pubic fractures and internal fixation of the left hip. CTH reviewed: IMPRESSION: 1. No acute intracranial abnormality. 2. Generalized volume loss, atherosclerosis, advanced chronic small vessel ischemic changes. CT Lower extremity: IMPRESSION: 1. No acute intracranial abnormality. 2. Generalized volume loss, atherosclerosis, advanced chronic small vessel ischemic changes. Past Medical History reviewed Medical History: diabetes, hypertension Medications Current Medications Losartan Potassium (Cozaar) 100 mg DAILY PO Last administered on 03/26/18at 09:51; Admin Dose 100 MG; Start 03/17/18 at 09:00 IV Flush (NS 3 ml) 3 ml PER PROTOCOL IV ; Start 03/16/18 at 11:30 Ondansetron HCl (Zofran Inj) 4 mg Q6H PRN IV NAUSEA AND/OR VOMITING; Start 03/16/18 at 11:30 Acetaminophen (Tylenol Tab) 650 mg Q6H PRN PO PAIN LEVEL 1-3 OR FEVER; Start 03/16/18 at 11:30 Docusate Sodium (Colace) 100 mg Q12H PRN PO CONSTIPATION; Start 03/16/18 at 11:30 Magnesium Hydroxide (Milk Of Mag) 30 ml DAILY PRN PO CONSTIPATION Last administered on 03/23/18at 00:41; Admin Dose 30 ML; Start 03/16/18 at 11:30 Enoxaparin Sodium (Lovenox) 30 mg DAILY SC Last administered on 03/26/18 09:56; Admin Dose 30 MG; Start 03/17/18 at 09:00 Albuterol (Proventil 0.083% (Neb)) 2.5 mg Q2H RESP THERAPY PRN HHN SHORTNESS OF BREATH; Start 03/16/18 at 11:30 Insulin Aspart (Novolog Insulin Pen) NOVOLOG *MILD* ALGORITHM WITH MEALS BEDTIM E SC Last administered on 03/26/18 12:40; Admin Dose 1 UNIT; Start 03/16/18 at 17:55 Miscellaneous Information 1 ea NOTE XX ; Start 03/16/18 at 14:30 Glucose (Glutose) 15 gm Q15M PRN PO DECREASED GLUCOSE; Start 03/16/18 at 14:30 Glucose (Glutose) 22.5 gm Q15M PRN PO DECREASED GLUCOSE; Start 03/16/18 at 14:30 Dextrose (D50w Syringe) 25 ml Q15M PRN IV DECREASED GLUCOSE; Start 03/16/18 at 14:30 Dextrose (D50w Syringe) 50 ml Q15M PRN IV DECREASED GLUCOSE; Start 03/16/18 at 14:30 Glucagon (Glucagen) 1 mg Q15M PRN IM DECREASED GLUCOSE; Start 03/16/18 at 14:30 Glucose (Glutose) 15 gm Q15M PRN BUCCAL DECREASED GLUCOSE; Start 03/16/18 at 14:30 Acetaminophen (Tylenol Supp) 650 mg Q6H PRN [place] MILD PAIN(1-3) OR TEMP>38C; Start 03/17/18 at 01:00 Hydralazine HCl (Apresoline) 10 mg Q4H PRN IV elevated BP; Start 03/17/18 at 21:30 Insulin Glargine (Lantus) 8 units DAILY@2000 SC Last administered on 03/25/18 20:45; Admin Dose 8 UNITS; Start 03/18/18 at 20:00 Guaifenesin/ Dextromethorphan (Mucinex Dm) 1 tab BID PO Last administered on 03/26/18 09:52; Admin Dose 1 TAB; Start 03/18/18 at 16:30 Guaifenesin/ Dextromethorphan (Robitussin Dm Liquid Cup) 5 ml Q4H PRN PO cough; Start 03/18/18 at 16:00 Polyethylene Glycol (Miralax) 17 gm DAILY PO Last administered on 03/26/18 09:52; Admin Dose 17 GM; Start 03/20/18 at 12:30 Famotidine (Pepcid) 20 mg DAILY PO Last administered on 03/26/18 09:53; Admin Dose 20 MG; Start 03/21/18 at 09:00 Amlodipine Besylate (Norvasc) 10 mg DAILY PO Last administered on 03/26/18 09:53; Admin Dose 10 MG; Start 03/21/18 at 09:00 Metformin HCl (Glucophage) 500 mg BID WITH MEALS PO Last administered on 03/26/18 09:51; Admin Dose 500 MG; Start 03/21/18 at 18:05 Valacyclovir HCl (Valtrex) 1,000 mg BID PO Last administered on 03/26/18 09:53; Admin Dose 1,000 MG; Start 03/23/18 at 13:30 Ceftriaxone Sodium 50 ml @ 100 mls/hr Q24H IVPB Last administered on 03/25/18 19:24; Admin Dose 100 MLS/HR; Start 03/24/18 at 19:30; Stop 03/29/18 at 23:00 Doxycycline Hyclate (Vibramycin) 100 mg BID PO Last administered on 03/26/18 09:53; Admin Dose 100 MG; Start 03/24/18 at 21:00; Stop 03/29/18 at 23:00 Sodium Chloride 1,000 ml @ 30 mls/hr Q24H IV Last administered on 03/25/18 16:32; Admin Dose 30 MLS/HR; Start 03/25/18 at 16:30; Stop 03/27/18 at 01:49 Allergies: Coded Allergies: No Known Allergy (Unverified , 03/16/18) Past Surgical History reviewed Past Surgical Hx: other (unable to obtain, left hip replacement on imaging) Social History reviewed Alcohol Use: none Smoking Status: Never smoker Drug Use: none SHANAE JOHNSON NP Mar 26, 2018 14:47 MARVA CHRISTIANSON Mar 26, 2018 19:29
--- NOTE | 2018-03-26 15:08 | CONS ---
Date/Time of Note Date/Time of Note DATE: 03/26/18 TIME: 15:07 Assessment/Plan Assessment/Plan Hospital Course No acute changes, awake, looks comfortable, no fevers Antimicrobials: Valtrex, Rocephin Doxycycline Microbiology: Blood culture on admission grew strep pneumonia, urine culture negative. Repeat blood cultures negative Physical examination: Fragile well-developed elderly woman who is awake in no distress. Head atraumatic normocephalic sclera nonicteric. Neck is supple. Chest rise symmetrical breath sounds diminished bases. Heart: S1-S2. Abdomen soft bowel sounds present extremities without cyanosis Assessment: 1. S/p sepsis 2. Resolving pneumonia, likely strep 3. S/p strep bacteremia 4. Resolving encephalopathy 5. Diabetes 6. Dysphagia with possible ongoing aspiration 7. Sacral lesion, doubt HSV Plan: The patient remains stable, repeat blood cultures negative, continue on current antibiotics==> last dose Mar 29, dc isolation Result Diagram: 03/25/18 1331 03/25/18 0855 Results 24hrs Laboratory Tests Test 03/25/18 17:19 03/25/18 20:41 03/26/18 02:15 03/26/18 08:21 Bedside Glucose 101 197 113 84 Test 03/26/18 12:36 Bedside Glucose 158 Consultation Date/Type/Reason Admit Date/Time Mar 16, 2018 at 11:24 Initial Consult Date Type of Consult id Exam/Review of Systems Vital Signs Vitals Vital Signs Date Temp Pulse Resp B/P (MAP) Pulse Ox O2 O2 Flow FiO2 Time Delivery Rate 03/26/18 98.1 74 18 134/62 94 14:42 (86) 03/26/18 Room Air 02:00 03/25/18 2.0 20:00 Intake and Output 03/25/18 03/25/18 03/26/18 1515:00 23:00 07:00 IntakeIntake Total 340 ml 340 ml 270 ml BalanceBalance 340 ml 340 ml 270 ml Medications Medications Current Medications Losartan Potassium (Cozaar) 100 mg DAILY PO Last administered on 03/26/18at 09:51; Admin Dose 100 MG; Start 03/17/18 at 09:00 IV Flush (NS 3 ml) 3 ml PER PROTOCOL IV ; Start 03/16/18 at 11:30 Ondansetron HCl (Zofran Inj) 4 mg Q6H PRN IV NAUSEA AND/OR VOMITING; Start 03/16/18 at 11:30 Acetaminophen (Tylenol Tab) 650 mg Q6H PRN PO PAIN LEVEL 1-3 OR FEVER; Start 03/16/18 at 11:30 Docusate Sodium (Colace) 100 mg Q12H PRN PO CONSTIPATION; Start 03/16/18 at 11:30 Magnesium Hydroxide (Milk Of Mag) 30 ml DAILY PRN PO CONSTIPATION Last administered on 03/23/18at 00:41; Admin Dose 30 ML; Start 03/16/18 at 11:30 Enoxaparin Sodium (Lovenox) 30 mg DAILY SC Last administered on 03/26/18 09:56; Admin Dose 30 MG; Start 03/17/18 at 09:00 Albuterol (Proventil 0.083% (Neb)) 2.5 mg Q2H RESP THERAPY PRN HHN SHORTNESS OF BREATH; Start 03/16/18 at 11:30 Insulin Aspart (Novolog Insulin Pen) NOVOLOG *MILD* ALGORITHM WITH MEALS BEDTIME SC Last administered on 03/26/18 12:40; Admin Dose 1 UNIT; Start 03/16/18 at 17:55 Miscellaneous Information 1 ea NOTE XX ; Start 03/16/18 at 14:30 Glucose (Glutose) 15 gm Q15M PRN PO DECREASED GLUCOSE; Start 03/16/18 at 14:30 Glucose (Glutose) 22.5 gm Q15M PRN PO DECREASED GLUCOSE; Start 03/16/18 at 14:30 Dextrose (D50w Syringe) 25 ml Q15M PRN IV DECREASED GLUCOSE; Start 03/16/18 at 14:30 Dextrose (D50w Syringe) 50 ml Q15M PRN IV DECREASED GLUCOSE; Start 03/16/18 at 14:30 Glucagon (Glucagen) 1 mg Q15M PRN IM DECREASED GLUCOSE; Start 03/16/18 at 14:30 Glucose (Glutose) 15 gm Q15M PRN BUCCAL DECREASED GLUCOSE; Start 03/16/18 at 14:30 Acetaminophen (Tylenol Supp) 650 mg Q6H PRN [place] MILD PAIN(1-3) OR TEMP>38C; Start 03/17/18 at 01:00 Hydralazine HCl (Apresoline) 10 mg Q4H PRN IV elevated BP; Start 03/17/18 at 21:30 Insulin Glargine (Lantus) 8 units DAILY@2000 SC Last administered on 03/25/18 20:45; Admin Dose 8 UNITS; Start 03/18/18 at 20:00 Guaifenesin/ Dextromethorphan (Mucinex Dm) 1 tab BID PO Last administered on 03/26/18 09:52; Admin Dose 1 TAB; Start 03/18/18 at 16:30 Guaifenesin/ Dextromethorphan (Robitussin Dm Liquid Cup) 5 ml Q4H PRN PO cough; Start 03/18/18 at 16:00 Polyethylene Glycol (Miralax) 17 gm DAILY PO Last administered on 03/26/18 09:52; Admin Dose 17 GM; Start 03/20/18 at 12:30 Famotidine (Pepcid) 20 mg DAILY PO Last administered on 03/26/18 09:53; Admin Dose 20 MG; Start 03/21/18 at 09:00 Amlodipine Besylate (Norvasc) 10 mg DAILY PO Last administered on 03/26/18 09:53; Admin Dose 10 MG; Start 03/21/18 at 09:00 Metformin HCl (Glucophage) 500 mg BID WITH MEALS PO Last administered on 03/26/18 09:51; Admin Dose 500 MG; Start 03/21/18 at 18:05 Valacyclovir HCl (Valtrex) 1,000 mg BID PO Last administered on 03/26/18 09:53; Admin Dose 1,000 MG; Start 03/23/18 at 13:30 Ceftriaxone Sodium 50 ml @ 100 mls/hr Q24H IVPB Last administered on 03/25/18 19:24; Admin Dose 100 MLS/HR; Start 03/24/18 at 19:30; Stop 03/29/18 at 23:00 Doxycycline Hyclate (Vibramycin) 100 mg BID PO Last administered on 03/26/18 09:53; Admin Dose 100 MG; Start 03/24/18 at 21:00; Stop 03/29/18 at 23:00 Sodium Chloride 1,000 ml @ 30 mls/hr Q24H IV Last administered on 03/25/18 16:32; Admin Dose 30 MLS/HR; Start 03/25/18 at 16:30; Stop 03/27/18 at 01:49 YULISSA SHETH NP Mar 26, 2018 15:08
--- NOTE | 2018-03-26 15:17 | PN ---
Date/Time of Note Date/Time of Note DATE: 03/26/18 TIME: 15:14 Objective Vitals Vital Signs Date Temp Pulse Resp B/P (MAP) Pulse Ox O2 O2 Flow FiO2 Time Delivery Rate 03/26/18 98.1 74 18 134/62 94 14:42 (86) 03/26/18 Room Air 02:00 03/25/18 2.0 20:00 Intake and Output 03/25/18 03/25/18 03/26/18 1515:00 23:00 07:00 IntakeIntake Total 340 ml 340 ml 270 ml BalanceBalance 340 ml 340 ml 270 ml Results Result Diagram: 03/25/18 1331 03/25/18 0855 Medications Medications Current Medications Losartan Potassium (Cozaar) 100 mg DAILY PO Last administered on 03/26/18 09:51; Admin Dose 100 MG; Start 03/17/18 at 09:00 IV Flush (NS 3 ml) 3 ml PER PROTOCOL IV ; Start 03/16/18 at 11:30 Ondansetron HCl (Zofran Inj) 4 mg Q6H PRN IV NAUSEA AND/OR VOMITING; Start 03/16/18 at 11:30 Acetaminophen (Tylenol Tab) 650 mg Q6H PRN PO PAIN LEVEL 1-3 OR FEVER; Start 03/16/18 at 11:30 Docusate Sodium (Colace) 100 mg Q12H PRN PO CONSTIPATION; Start 03/16/18 at 11:30 Magnesium Hydroxide (Milk Of Mag) 30 ml DAILY PRN PO CONSTIPATION Last administered on 03/23/18at 00:41; Admin Dose 30 ML; Start 03/16/18 at 11:30 Enoxaparin Sodium (Lovenox) 30 mg DAILY SC Last administered on 03/26/18 09:56; Admin Dose 30 MG; Start 03/17/18 at 09:00 Albuterol (Proventil 0.083% (Neb)) 2.5 mg Q2H RESP THERAPY PRN HHN SHORTNESS OF BREATH; Start 03/16/18 at 11:30 Insulin Aspart (Novolog Insulin Pen) NOVOLOG *MILD* ALGORITHM WITH MEALS BEDTIME SC Last administered on 03/26/18 12:40; Admin Dose 1 UNIT; Start 02/22 07/09 at 17:55 Miscellaneous Information 1 ea NOTE XX ; Start 03/16/18 at 14:30 Glucose (Glutose) 15 gm Q15M PRN PO DECREASED GLUCOSE; Start 03/16/18 at 14:30 Glucose (Glutose) 22.5 gm Q15M PRN PO DECREASED GLUCOSE; Start 03/16/18 at 14:30 Dextrose (D50w Syringe) 25 ml Q15M PRN IV DECREASED GLUCOSE; Start 03/16/18 at 14:30 Dextrose (D50w Syringe) 50 ml Q15M PRN IV DECREASED GLUCOSE; Start 03/16/18 at 14:30 Glucagon (Glucagen) 1 mg Q15M PRN IM DECREASED GLUCOSE; Start 03/16/18 at 14:30 Glucose (Glutose) 15 gm Q15M PRN BUCCAL DECREASED GLUCOSE; Start 03/16/18 at 14:30 Acetaminophen (Tylenol Supp) 650 mg Q6H PRN [place] MILD PAIN(1-3) OR TEMP>38C; Start 03/17/18 at 01:00 Hydralazine HCl (Apresoline) 10 mg Q4H PRN IV elevated BP; Start 03/17/18 at 21:30 Insulin Glargine (Lantus) 8 units DAILY@2000 SC Last administered on 03/25/18 20:45; Admin Dose 8 UNITS; Start 03/18/18 at 20:00 Guaifenesin/ Dextromethorphan (Mucinex Dm) 1 tab BID PO Last administered on 03/26/18 09:52; Admin Dose 1 TAB; Start 03/18/18 at 16:30 Guaifenesin/ Dextromethorphan (Robitussin Dm Liquid Cup) 5 ml Q4H PRN PO cough; Start 03/18/18 at 16:00 Polyethylene Glycol (Miralax) 17 gm DAILY PO Last administered on 03/26/18 09:52; Admin Dose 17 GM; Start 03/20/18 at 12:30 Famotidine (Pepcid) 20 mg DAILY PO Last administered on 03/26/18 09:53; Admin Dose 20 MG; Start 03/21/18 at 09:00 Amlodipine Besylate (Norvasc) 10 mg DAILY PO Last administered on 03/26/18 09:53; Admin Dose 10 MG; Start 03/21/18 at 09:00 Metformin HCl (Glucophage) 500 mg BID WITH MEALS PO Last administered on 03/26/18 09:51; Admin Dose 500 MG; Start 03/21/18 at 18:05 Valacyclovir HCl (Valtrex) 1,000 mg BID PO Last administered on 03/26/18 09:53; Admin Dose 1,000 MG; Start 03/23/18 at 13:30 Ceftriaxone Sodium 50 ml @ 100 mls/hr Q24H IVPB Last administered on 03/25/18 19:24; Admin Dose 100 MLS/HR; Start 03/24/18 at 19:30; Stop 03/29/18 at 23:00 Doxycycline Hyclate (Vibramycin) 100 mg BID PO Last administered on 03/26/18 09:53; Admin Dose 100 MG; Start 03/24/18 at 21:00; Stop 03/29/18 at 23:00 Sodium Chloride 1,000 ml @ 30 mls/hr Q24H IV Last administered on 03/25/18 16:32; Admin Dose 30 MLS/HR; Start 03/25/18 at 16:30; Stop 03/27/18 at 01:49 VTE Prophylaxis Risk score (from [facility] [place] [facility])>0 risk: 7 SCD applied (from [facility] [place] [facility]): Yes Lines/Catheters IV Catheter Type: Fuentes in Place: No Assessment/Plan Hospital Course Subjective Patient still can't wiggle her toes or move her R LE Objective Physical exam General: Patient is laying in bed and answers questions appropriately Mentation: Patient is alert and oriented 4, Head: Normocephalic atraumatic Eyes: EOMI, pupils reactive to light Neck: Supple, nontender, midline Respiratory: Clear to auscultation bilaterally Cardiovascular: regular rate, no obvious murmurs Gastrointestinal: non-tender to palpation, bowel sounds heard. Neurological: unable to move R LE or wiggle R toes, but full sensation Skin: Appears to be vesicular-like lesions on her lower back Assessment/Plan Bacteremia- resolving - Repeat blood cultures negative. ID on board and will continue current antibiotics for 2 weeks total, 03/30 last dose - WBC normalized and remains afebrile Decreased ROM RLE, now ? flaccid vs effort? - Patient has not been complaining of any pain. Son brought up concern about his mother guarding her right leg, but patient doesn't complain of issues except for inability to move the leg. - Pelvis Xray shows old healed fractures and unable to assess for new fx - CT showing some stranding in the gluteal area, ID added doxy for possible flakita lulitis - CT with contrast of spine does not show abscess, unable to do MRI due to hip replacement done in [place] (unknown MRI sensitivity) lesions on lower back -?shingles -valacyclovir for now, ID to eval Altered toxic encephalopathy secondary to Pneumonia- resolved - CT scan of head negative for acute abnormalities Dysphagia - ST on board - aspiration precautions in place Sepsis secondary to Right perihilar and LL Pneumonia- resolving - ID on board and appreciate antibiotic recommendations. Continue until 03/31/18 - seen on CXR - Nebs PRN CAMPOS- resolved - most likely prerenal Diabetes Mellitus - A1c noted - ISS and accuchecks HTN - stable - norvasc and losartan on board Gait instability - PT/OT recommending SNF placement and son in agreement Disposition -neuro consulted, recs pending for R LE movement issues LORRAINE GERBER Mar 26, 2018 15:17
--- NOTE | 2018-03-26 15:50 | NUR ---
SS Note:LOS/Initial Visit The patient is a 87-year-old female with medical hx of DM and HTN admitted on 03/16/18 due to altered mental status and pneumonia. MALIHA spoke with pt's son/Patrick BURT . Pt's son reported good understanding of pt's current condition and plan for SNF placement for rehabilitation. Son reported pt is single and has total of 3 adult children. Son indicated he is pt's surrogate decision maker/spokesperson by family consensus. No AHCD in place. Pt's son reported pt lives in a prison apartment Address: [address] [place] [id number], [facility] [id number]. Per son, pt requires minimal assistance with ADL's and he is her IHSS provider (109 hours/month) and primary mode of transportation to her appointments. Pt ambulates with a FWW and cane and DME is at home. Pt has Medicare Part B and [facility] [employer] [employer] insurance and has a PCP. SW introduced self and the role of the social welfare administrator. SW provided support and reassurance. Tentative d/c plan is [facility] where pt was accepted pending medical clearance. SW encouraged son to verbalize any needs, concerns, or questions, which were denied at this time. MALIHA remains available for f/u as needed. Addendum: 03/26/18 at 1602 by GRACIA LAU Amended: Links added.
[2018-03-26] MEDS: SOD CHLORIDE 0.9% 1,000 ML IV SCH (16:30)
[2018-03-26] MEDS ORDERED: LORAZEPAM 0.5 MG TAB PO PRN (16:30)
[2018-03-26] MEDS ORDERED: ASPIRIN 325 MG TAB PO ONE (16:30)
--- NOTE | 2018-03-26 19:00 | NUR ---
Patient on bed rest, alert but confused. Vital signs stable. Denies pain. Turned every 2 hours. Patient had physical therapy today. With pending to do CT scan of the brain to r/o CVA, patient has a right leg weakness.
[2018-03-26] MEDS: CEFTRIAXONE 1 GM/50 ML (PMX) 50 ML IVPB SCH (19:35)
[2018-03-26 20:04] VITALS: BP 124/58; PULSE 74; RESP 18
[2018-03-26] MEDS: INSULIN GLARGINE [LANTus] (100 UNITS/ML) SYG SC SCH (20:37)
[2018-03-26] MEDS ORDERED: ATORVASTATIN 80 MG TAB PO SCH (21:00)
--- NOTE | 2018-03-26 22:44 | NUR ---
Patient leaving unit for CT scan at this time. Vital signs stable with no signs of distress noted. Will reassess upon patient's return.
--- NOTE | 2018-03-26 23:27 | NUR ---
Patient returned from CT scan at this time. Patient with no signs of distress. Safety precautions and hourly rounding currently in place.
[2018-03-27 01:58] VITALS: BP 118/58; PULSE 71; RESP 20
--- NOTE | 2018-03-27 06:16 | NUR ---
Patient in room asleep with no signs of distress noted. Vital signs stable. Patient with no pain noted via FACES pain scale. BG 147 this shift with no insulin coverage needed. Patient provided with HS snack. No abdominal pain, fatigue, headache, and distress indicating signs of hypoglycemia/hyperglycemia noted. No skin breakdown noted upon assessment. All needs met and medications administered. Patient turned every 2 hours with heels elevated. Safety precautions and hourly rounding currently in place until change of shift.
--- NOTE | 2018-03-27 06:38 | NUR ---
Received Magnesium level of 1.6 and Potassium level of 3.4. Dr. Marcano made aware; awaiting further orders at this time.
[2018-03-27] MEDS ORDERED: MAGNESIUM SULFATE 2 GM/50 ML 50 ML IVPB ONE ×2 (07:00→11:00)
[2018-03-27 07:50] VITALS: BP 127/61; PULSE 73; RESP 16
[2018-03-27] MEDS: INSULIN ASPART [NOVOLOG] 3 ML PEN SC SCH ×4 (08:00→21:00)
[2018-03-27] MEDS: DOXYCYCLINE 100 MG TAB PO SCH (08:32)
[2018-03-27] MEDS: LOSARTAN 50 MG TAB PO SCH (08:32)
[2018-03-27] MEDS: VALACYCLOVIR 500 MG TAB PO SCH (08:33)
[2018-03-27] MEDS: FAMOTIDINE 20 MG TAB PO SCH (08:33)
[2018-03-27] MEDS: POLYETHYLENE GLYCOL 17 GM PACKET PO SCH (08:33)
[2018-03-27] MEDS: ASPIRIN 81 MG TAB PO SCH (08:33)
[2018-03-27] MEDS: metFORMIN 500 MG TAB PO SCH ×2 (08:33→17:25)
[2018-03-27] MEDS: GUAIFENESIN/DM (SR) TAB PO SCH ×2 (08:33→21:57)
[2018-03-27] MEDS: AMLODIPINE 10 MG TAB PO SCH (08:33)
[2018-03-27] MEDS: ENOXAPARIN 30 MG/0.3 ML SYG SC SCH (08:41)
--- NOTE | 2018-03-27 09:04 | NUR ---
patient is hypoglycemic blood glucose reading 63. hypoglycemic intervention initiated and got 2x reading above 80 after given apple juice and breakfast. patient's BS read 101 and 114. patient is safe in bed and fall precaution in place. will reassess
[2018-03-27] MEDS ORDERED: POTASSIUM CHLORIDE 20 MEQ POWDER FOR ORAL SOLN PO ONE (10:00)
--- NOTE | 2018-03-27 10:25 | NUR ---
OT NOTE S: RN cleared pt for skilled OT tx. Pt presented with 0/10 pain. O: Pt received supine in bed and agreeable to tx. Pt performed supine->sit at EOB with Min A with vc for proper hand placement. Pt demonstrated F+ sitting balance at EOB. Pt engaged in BUE AROM exercises including arm raises 2x 10 reps (with rest break in between reps) and biceps curls 2x 10 reps (with rest break in between reps). Pt performed oral hygiene,UB bathing and dressing seated at EOB with SBA demonstrating proper sequencing of tasks. Pt engaged in STS x3 with Min A using FWW and vc for proper hand/foot positioning. Pt returned to bed with Min A and assisted in scooting herself to HOB. Pt left supine in bed with all needs met. RN notified. A: Pt demonstrates increased sitting balance, and independence with ADL's. P: Cont OT POC.
--- NOTE | 2018-03-27 10:25 | NUR ---
PT NOTE Therapy day number 8 Subjective Denies pain Pain Scale FACES Pain Intensity 0 (0-10) Patient Stated Goal for Pain Relief 0 (0-10) Pain Level Comment no indication of pain Pre Treatment Vital Signs Stable Yes Exercise Assessment Label Bilat Lower Extremity Exercise Type Active ROM Additional Exercise Comments L APs, heel slides, SLR, seated LAQs; R PROM, unable to perform R AROM Exercise Start Time 09:55 Exercise End Time 10:05 Total Exercise Time 10 min (8-127) Transfer Training Start Time 10:05 Supine to Sit Minimum Assist Transfer Sit to Stand Ability Moderate Assist Bed Mobility Sit to Supine Moderate Assist Sitting Tolerance 18 min Additional Mobility Comments STS x 3 with 1 person modA; sit>supine c 2 person modA; see PT note for det Transfer Training End Time 10:25 Total Transfer Training Time 20 min (8-127) Additional Gait Comments unable to initiate due to R LE weakness Static Sitting Balance Fair plus Dynamic Sitting Balance Fair plus Standing Static Balance Fair minus Additional Balance Assessments Comments improved dynamic sitting balance, improved standing balance Safety Judgement Fair Activity Tolerance Fair Equipment Present A pump IV pump Post Treatment Pain Intensity 0 0-10 Variance Documentation SEE PT NOTE Total Treament Time 30 min (8-127) Total Minutes 30 Total Units 2 PT Technical Record Comment PT NOTE S: Pt denied pain, agreeable to PT session O: MANJU Bynum cleared pt for PT session. Pt received in bed. Noted in EMR with Brain CT on 03/26/18 - subacute lateral L thalamic lacunar infract and chronic B basal ganglia infarcts. Reassessed B UE/LE strength/ROM as described below. Pt participated in interventions above including STS x 3, noted in standing pt still unwilling/unable to bear weight through R LE, using only L LE for movement. Pt returned to bed, all needs in reach, no signs of distress, OT and NEUROSURGICAL NURSE PRACTITIONER attending to pt at end of session. Reassessment of B UE/LE strength and ROM: B UE WFL; L LE WFL (3+/5 grossly); R ankle and knee (0/5); R hip flexion 1/5. Sensation intact. A: Gross strength and ROM assessment noted pt continues to present with 0/5 R LE strength in knee and ankle, 1/5 in R hip. Pt with improving static and dynamic sitting balance as well as improved sit to stand ability. Static standing tolerance improved requiring Ward this date. P: Continue c PT POC; recommend knee immobilizer to stabilize R LE with pre-gait training
--- NOTE | 2018-03-27 12:11 | CONS ---
Assessment/Plan Assessment/Plan Hospital Course 87 yo F with hx of multiple comorbidities who initially p/w PNA and other sx. It was noted that she had recent R lower limb weakness, for which neurology is consulted. 03/26/17: Repeat CTH is notable for a recent L thalamic infarct. Previous CT studies are without acute pathology. MRI is presently contraindicated. P: CTA H/N for further characterization Cont ASA/Lipitor as scheduled. Cont medical management per primary PT/OT as tolerated. Will follow clinically Result Diagram: 03/27/18 0538 03/27/18 0538 Results 24hrs Laboratory Tests Test 03/26/18 12:36 03/26/18 17:03 03/26/18 17:31 03/26/18 20:33 Bedside Glucose 158 132 147 Triglycerides Level 103 Cholesterol Level 174 LDL Cholesterol, 121 Calculated HDL Cholesterol 32 L Cholesterol/HDL Ratio 5.4 Test 03/27/18 05:38 03/27/18 07:48 03/27/18 08:13 03/27/18 08:38 White Blood Count 6.3 # Red Blood Count 2.68 L Hemoglobin 9.2 L Hematocrit 25.8 L Mean Corpuscular Volume 96.3 Mean Corpuscular 34.3 H Hemoglobin Mean Corpuscular 35.7 Hemoglobin Concent Red Cell Distribution 13.0 Width Platelet Count 188 Mean Platelet Volume 11.1 H Immature Granulocytes % 0.600 H Neutrophils % 73.9 Lymphocytes % 18.1 Monocytes % 6.4 Eosinophils % 0.5 Basophils % 0.5 Nucleated Red Blood 0.0 Cells % Immature Granulocytes # 0.040 H Neutrophils # 4.6 Lymphocytes # 1.1 Monocytes # 0.4 Eosinophils # 0.0 Basophils # 0.0 Nucleated Red Blood 0.0 Cells # Sodium Level 135 Potassium Level 3.4 L Chloride Level 99 Carbon Dioxide Level 30 Anion Gap 6 Blood Urea Nitrogen 15 Creatinine 0.62 Est Glomerular Filtrat Rate mL/min Glucose Level 78 # Calcium Level 7.7 L Phosphorus Level 3.4 Magnesium Level 1.6 L Bedside Glucose 63 L 101 114 Test 03/27/18 11:54 Bedside Glucose 114 Consultation Date/Type/Reason Admit Date/Time Mar 16, 2018 at 11:24 Type of Consult Neurology Reason for Consultation R lower limb weakness Requesting Provider: LORRAINE GERBER Date/Time of Note DATE: 03/27/18 TIME: 12:11 24 HR Interval Summary Free Text/Dictation Continues medsurg monitoring. S/p CTH yesterday. Pt states that she is unable to move her R leg Exam Vital Signs Vitals Vital Signs Date Temp Pulse Resp B/P (MAP) Pulse Ox O2 O2 Flow FiO2 Time Delivery Rate 03/27/18 98.0 73 16 127/61 94 Room Air 07:50 (83) 03/27/18 21 03:31 03/25/18 2.0 20:00 Intake and Output 03/26/18 03/26/18 03/27/18 1515:00 23:00 07:00 IntakeIntake Total 480 ml 510 ml 370 ml BalanceBalance 480 ml 510 ml 370 ml Exam PE: Gen Appearance: No Apparent Distress HEENT: Normocephalic Cardiovascular: Regular rate Abdomen: Soft Extremities: Dry NE: The patient was alert and fully oriented. Language was normal. Fund of knowledge was adequate. Pupils were equal and reactive to light. There was no afferent pupillary defect. Visual flores were normal. Funduscopic examination showed sharp disc margins and spontaneous venous pulsations. Extra-ocular movements were full. Ptosis was absent. There was no nystagmus. Facial sensation was normal. Face was symmetric with normal strength. Hearing was intact. Palate movements were normal. Neck strength was normal. There was normal tongue bulk and speed of movement. Tone was normal. Muscle bulk was diminished. I did not see fasciculations. Arms were mildly weak and symmetric; L leg was mildly weak. R leg was plegic. Vibration sensation was normal. Temperature and pinprick sensation was normal. Rapid alternating movements were normal. There was no dysmetria. There was no intention tremor. Gait was deferred due to bedrest. Arm and leg reflexes were symmetric. García's sign was absent. Plantar responses were flexor. SHANAE JOHNSON NP Mar 27, 2018 12:11
--- NOTE | 2018-03-27 12:43 | NUR ---
SHAVONNE NOTES 10:45 AM KARYNA MARVIN FROM [facility] CALLED REGARDING ARU REFERRAL . PER KARYNA PATIENT DOES NOT MEET ARU CRITERIA.AND WILL INFORM ARU. DR GEREBR NOTIFIED , HE SAID TO KEEP PATIENT FOR FURTHER NEURO WORK-UP. 11:30 AM CIARA MARVIN FROM [facility] , INFORMED OF PATIENT STATUS AND PLAN OF CARE. CM TO F/U. XIAO X [id number]
[2018-03-27 14:49] VITALS: BP 124/61; PULSE 71; RESP 19
--- NOTE | 2018-03-27 15:38 | PN ---
Date/Time of Note Date/Time of Note DATE: 03/27/18 TIME: 15:36 Objective Vitals Vital Signs Date Temp Pulse Resp B/P (MAP) Pulse Ox O2 O2 Flow FiO2 Time Delivery Rate 03/27/18 97.6 71 19 124/61 94 14:49 (82) 03/27/18 Room Air 07:50 03/27/18 21 03:31 03/25/18 2.0 20:00 Intake and Output 03/26/18 03/26/18 03/27/18 1515:00 23:00 07:00 IntakeIntake Total 480 ml 510 ml 370 ml BalanceBalance 480 ml 510 ml 370 ml Results Result Diagram: 03/27/18 0538 03/27/1838 Medications Medications Current Medications Losartan Potassium (Cozaar) 100 mg DAILY PO Last administered on 03/27/18 08:32; Admin Dose 100 MG; Start 03/17/18 at 09:00 IV Flush (NS 3 ml) 3 ml PER PROTOCOL IV ; Start 03/16/18 at 11:30 Ondansetron HCl (Zofran Inj) 4 mg Q6H PRN IV NAUSEA AND/OR VOMITING; Start 03/16/18 at 11:30 Acetaminophen (Tylenol Tab) 650 mg Q6H PRN PO PAIN LEVEL 1-3 OR FEVER; Start 03/16/18 at 11:30 Docusate Sodium (Colace) 100 mg Q12H PRN PO CONSTIPATION; Start 03/16/18 at 11:30 Magnesium Hydroxide (Milk Of Mag) 30 ml DAILY PRN PO CONSTIPATION Last administered on 03/23/18at 00:41; Admin Dose 30 ML; Start 03/16/18 at 11:30 Enoxaparin Sodium (Lovenox) 30 mg DAILY SC Last administered on 03/27/18 08:41; Admin Dose 30 MG; Start 03/17/18 at 09:00 Albuterol (Proventil 0.083% (Neb)) 2.5 mg Q2H RESP THERAPY PRN HHN SHORTNESS OF BREATH; Start 03/16/18 at 11:30 Insulin Aspart (Novolog Insulin Pen) NOVOLOG *MILD* ALGORITHM WITH MEALS BEDTIME SC Last administered on 03/26/18 12:40; Admin Dose 1 UNIT; Start 03/16/18 at 17:55 Miscellaneous Information 1 ea NOTE XX ; Start 03/16/18 at 14:30 Glucose (Glutose) 15 gm Q15M PRN PO DECREASED GLUCOSE; Start 03/16/18 at 14:30 Glucose (Glutose) 22.5 gm Q15M PRN PO DECREASED GLUCOSE; Start 03/16/18 at 14:30 Dextrose (D50w Syringe) 25 ml Q15M PRN IV DECREASED GLUCOSE; Start 03/16/18 at 14:30 Dextrose (D50w Syringe) 50 ml Q15M PRN IV DECREASED GLUCOSE; Start 03/16/18 at 14:30 Glucagon (Glucagen) 1 mg Q15M PRN IM DECREASED GLUCOSE; Start 03/16/18 at 14:30 Glucose (Glutose) 15 gm Q15M PRN BUCCAL DECREASED GLUCOSE; Start 03/16/18 at 14:30 Acetaminophen (Tylenol Supp) 650 mg Q6H PRN [place] MILD PAIN(1-3) OR TEMP>38C; Start 03/17/18 at 01:00 Hydralazine HCl (Apresoline) 10 mg Q4H PRN IV elevated BP; Start 03/17/18 at 21:30 Insulin Glargine (Lantus) 8 units DAILY@2000 SC Last administered on 03/26/18 20:37; Admin Dose 8 UNITS; Start 03/18/18 at 20:00 Guaifenesin/ Dextromethorphan (Mucinex Dm) 1 tab BID PO Last administered on 03/27/18 08:33; Admin Dose 1 TAB; Start 03/18/18 at 16:30 Guaifenesin/ Dextromethorphan (Robitussin Dm Liquid Cup) 5 ml Q4H PRN PO cough; Start 03/18/18 at 16:00 Polyethylene Glycol (Miralax) 17 gm DAILY PO Last administered on 03/27/18 08:33; Admin Dose 17 GM; Start 03/20/18 at 12:30 Famotidine (Pepcid) 20 mg DAILY PO Last administered on 03/27/18 08:33; Admin Dose 20 MG; Start 03/21/18 at 09:00 Amlodipine Besylate (Norvasc) 10 mg DAILY PO Last administered on 03/27/18 08:33; Admin Dose 10 MG; Start 03/21/18 at 09:00 Metformin HCl (Glucophage) 500 mg BID WITH MEALS PO Last administered on 03/27/18 08:33; Admin Dose 500 MG; Start 03/21/18 at 18:05 Valacyclovir HCl (Valtrex) 1,000 mg BID PO Last administered on 03/27/18 08:33; Admin Dose 1,000 MG; Start 03/23/18 at 13:30 Ceftriaxone Sodium 50 ml @ 100 mls/hr Q24H IVPB Last administered on 03/26/18 19:35; Admin Dose 100 MLS/HR; Start 03/24/18 at 19:30; Stop 03/29/18 at 23:00 Doxycycline Hyclate (Vibramycin) 100 mg BID PO Last administered on 03/27/18 08:32; Admin Dose 100 MG; Start 03/24/18 at 21:00; Stop 03/29/18 at 23:00 Aspirin (Aspirin) 81 mg DAILY PO Last administered on 03/27/18 08:33; Admin Dose 81 MG; Start 03/27/18 at 09:00 Atorvastatin Calcium (Lipitor) 80 mg HS PO Last administered on 03/26/18 20:36; Admin Dose 80 MG; Start 03/26/18 at 21:00 Lorazepam (Ativan) 0.5 mg TID PRN PO ANXIETY; Start 03/26/18 at 16:30 VTE Prophylaxis Risk score (from Ns)>0 risk: 9 SCD applied (from Ns): Yes Lines/Catheters IV Catheter Type: Fuentes in Place: No Assessment/Plan Hospital Course Subjective Patient still can't wiggle her toes or move her R LE Objective Physical exam General: Patient is laying in bed and answers questions appropriately Mentation: Patient is alert and oriented 4, Head: Normocephalic atraumatic Eyes: EOMI, pupils reactive to light Neck: Supple, nontender, midline Respiratory: Clear to auscultation bilaterally Cardiovascular: regular rate, no obvious murmurs Gastrointestinal: non-tender to palpation, bowel sounds heard. Neurological: unable to move R LE or wiggle R toes, but full sensation Skin: Appears to be vesicular-like lesions on her lower back Assessment/Plan Bacteremia- resolving - Repeat blood cultures negative. ID on board and will continue current antibiotics for 2 weeks total, 03/30 last dose - WBC normalized and remains afebrile Subacute lateral left thalamic lacunar infarct, chronic bilateral basal ganglier lacunar infarcts -After speaking with son, given subacute status, patient likely had infarct prior to admission, last known well time her son was 2 days prior to admission, due to infarcts showing ups very slowly on CT scans, this infarct was not apparent on the first CT and MRI could not be done on patient as due to hardware. -Aspirin, statin -CT angios pending per neurology recommendations lesions on lower back -?shingles -valacyclovir for now, ID to eval Altered toxic encephalopathy secondary to Pneumonia- resolved - CT scan of head negative for acute abnormalities Dysphagia - ST on board - aspiration precautions in place Sepsis secondary to Right perihilar and LL Pneumonia- resolving - ID on board and appreciate antibiotic recommendations. Continue until 03/31/18 - seen on CXR - Nebs PRN CAMPOS- resolved - most likely prerenal Diabetes Mellitus - A1c noted - ISS and accuchecks HTN - stable - norvasc and losartan on board Gait instability - PT/OT recommending SNF placement and son in agreement Disposition -Pending neuro workup for CVA, patient denied for acute rehab, will likely go to snf afterwards. LORRAINE GERBER Mar 27, 2018 15:38
--- NOTE | 2018-03-27 15:39 | CONS ---
Date/Time of Note Date/Time of Note DATE: 03/27/18 TIME: 15:38 Assessment/Plan Assessment/Plan Hospital Course Patient is in no distress looks comfortable no fevers overnight WBC 6.3 neutrophils 73.9 BUN 15 creatinine 0.62 Antimicrobials: Valtrex, Rocephin Doxycycline Microbiology: Blood culture on admission grew strep pneumonia, urine culture negative. Repeat blood cultures negative Physical examination: Fragile well-developed elderly woman who is awake in no distress. Head atraumatic normocephalic sclera nonicteric. Neck is supple. Chest rise symmetrical breath sounds diminished bases. Heart: S1-S2. Abdomen soft bowel sounds present extremities without cyanosis Assessment: 1. S/p sepsis 2. Resolving pneumonia, likely strep 3. S/p strep bacteremia 4. Resolving encephalopathy 5. Diabetes 6. Dysphagia with possible ongoing aspiration 7. Sacral lesion, doubt HSV Plan: The patient remains stable, repeat blood cultures negative, continue on current antibiotics==> last dose Mar 29, dc Valtrex and Doxycycline Result Diagram: 03/27/18 0538 03/27/18 0538 Results 24hrs Laboratory Tests Test 03/26/18 17:03 03/26/18 17:31 03/26/18 20:33 03/27/18 05:38 Triglycerides Level 103 Cholesterol Level 174 LDL Cholesterol, 121 Calculated HDL Cholesterol 32 L Cholesterol/HDL Ratio 5.4 Bedside Glucose 132 147 White Blood Count 6.3 # Red Blood Count 2.68 L Hemoglobin 9.2 L Hematocrit 25.8 L Mean Corpuscular Volume 96.3 Mean Corpuscular 34.3 H Hemoglobin Mean Corpuscular 35.7 Hemoglobin Concent Red Cell Distribution 13.0 Width Platelet Count 188 Mean Platelet Volume 11.1 H Immature Granulocytes % 0.600 H Neutrophils % 73.9 Lymphocytes % 18.1 Monocytes % 6.4 Eosinophils % 0.5 Basophils % 0.5 Nucleated Red Blood 0.0 Cells % Immature Granulocytes # 0.040 H Neutrophils # 4.6 Lymphocytes # 1.1 Monocytes # 0.4 Eosinophils # 0.0 Basophils # 0.0 Nucleated Red Blood 0.0 Cells # Sodium Level 135 Potassium Level 3.4 L Chloride Level 99 Carbon Dioxide Level 30 Anion Gap 6 Blood Urea Nitrogen 15 Creatinine 0.62 Est Glomerular Filtrat Rate mL/min Glucose Level 78 # Calcium Level 7.7 L Phosphorus Level 3.4 Magnesium Level 1.6 L Test 03/27/18 07:48 03/27/18 08:13 03/27/18 08:38 03/27/18 11:54 Bedside Glucose 63 L 101 114 114 Consultation Date/Type/Reason Admit Date/Time Mar 16, 2018 at 11:24 Initial Consult Date Type of Consult id Requesting Provider: LORRAINE GERBER Exam/Review of Systems Vital Signs Vitals Vital Signs Date Temp Pulse Resp B/P (MAP) Pulse Ox O2 O2 Flow FiO2 Time Delivery Rate 03/27/18 97.6 71 19 124/61 94 14:49 (82) 03/27/18 Room Air 07:50 03/27/18 21 03:31 03/25/18 2.0 20:00 Intake and Output 03/26/18 03/26/18 03/27/18 1515:00 23:00 07:00 IntakeIntake Total 480 ml 510 ml 370 ml BalanceBalance 480 ml 510 ml 370 ml Medications Medications Current Medications Losartan Potassium (Cozaar) 100 mg DAILY PO Last administered on 03/27/18at 08:32; Admin Dose 100 MG; Start 03/17/18 at 09:00 IV Flush (NS 3 ml) 3 ml PER PROTOCOL IV ; Start 03/16/18 at 11:30 Ondansetron HCl (Zofran Inj) 4 mg Q6H PRN IV NAUSEA AND/OR VOMITING; Start 03/16/18 at 11:30 Acetaminophen (Tylenol Tab) 650 mg Q6H PRN PO PAIN LEVEL 1-3 OR FEVER; Start 03/16/18 at 11:30 Docusate Sodium (Colace) 100 mg Q12H PRN PO CONSTIPATION; Start 03/16/18 at 11:30 Magnesium Hydroxide (Milk Of Mag) 30 ml DAILY PRN PO CONSTIPATION Last administered on 03/23/18at 00:41; Admin Dose 30 ML; Start 03/16/18 at 11:30 Enoxaparin Sodium (Lovenox) 30 mg DAILY SC Last administered on 03/27/18at 08:41; Admin Dose 30 MG; Start 03/17/18 at 09:00 Albuterol (Proventil 0.083% (Neb)) 2.5 mg Q2H RESP THERAPY PRN HHN SHORTNESS OF BREATH; Start 03/16/18 at 11:30 Insulin Aspart (Novolog Insulin Pen) NOVOLOG *MILD* ALGORITHM WITH MEALS BEDTIME SC Last administered on 03/26/18 12:40; Admin Dose 1 UNIT; Start 03/16/18 at 17:55 Miscellaneous Information 1 ea NOTE XX ; Start 03/16/18 at 14:30 Glucose (Glutose) 15 gm Q15M PRN PO DECREASED GLUCOSE; Start 03/16/18 at 14:30 Glucose (Glutose) 22.5 gm Q15M PRN PO DECREASED GLUCOSE; Start 03/16/18 at 14:30 Dextrose (D50w Syringe) 25 ml Q15M PRN IV DECREASED GLUCOSE; Start 03/16/18 at 14:30 Dextrose (D50w Syringe) 50 ml Q15M PRN IV DECREASED GLUCOSE; Start 03/16/18 at 14:30 Glucagon (Glucagen) 1 mg Q15M PRN IM DECREASED GLUCOSE; Start 03/16/18 at 14:30 Glucose (Glutose) 15 gm Q15M PRN BUCCAL DECREASED GLUCOSE; Start 03/16/18 at 14:30 Acetaminophen (Tylenol Supp) 650 mg Q6H PRN [place] MILD PAIN(1-3) OR TEMP>38C; Start 03/17/18 at 01:00 Hydralazine HCl (Apresoline) 10 mg Q4H PRN IV elevated BP; Start 03/17/18 at 21:30 Insulin Glargine (Lantus) 8 units DAILY@2000 SC Last administered on 03/26/18 20:37; Admin Dose 8 UNITS; Start 03/18/18 at 20:00 Guaifenesin/ Dextromethorphan (Mucinex Dm) 1 tab BID PO Last administered on 03/27/18 08:33; Admin Dose 1 TAB; Start 03/18/18 at 16:30 Guaifenesin/ Dextromethorphan (Robitussin Dm Liquid Cup) 5 ml Q4H PRN PO cough; Start 03/18/18 at 16:00 Polyethylene Glycol (Miralax) 17 gm DAILY PO Last administered on 03/27/18 08:33; Admin Dose 17 GM; Start 03/20/18 at 12:30 Famotidine (Pepcid) 20 mg DAILY PO Last administered on 03/27/18 08:33; Admin Dose 20 MG; Start 03/21/18 at 09:00 Amlodipine Besylate (Norvasc) 10 mg DAILY PO Last administered on 03/27/18 08:33; Admin Dose 10 MG; Start 03/21/18 at 09:00 Metformin HCl (Glucophage) 500 mg BID WITH MEALS PO Last administered on 03/27/18 08:33; Admin Dose 500 MG; Start 03/21/18 at 18:05 Valacyclovir HCl (Valtrex) 1,000 mg BID PO Last administered on 03/27/18 08:33; Admin Dose 1,000 MG; Start 03/23/18 at 13:30 Ceftriaxone Sodium 50 ml @ 100 mls/hr Q24H IVPB Last administered on 03/26/18 19:35; Admin Dose 100 MLS/HR; Start 03/24/18 at 19:30; Stop 03/29/18 at 23:00 Doxycycline Hyclate (Vibramycin) 100 mg BID PO Last administered on 03/27/18 08:32; Admin Dose 100 MG; Start 03/24/18 at 21:00; Stop 03/29/18 at 23:00 Aspirin (Aspirin) 81 mg DAILY PO Last administered on 03/27/18 08:33; Admin Dose 81 MG; Start 03/27/18 at 09:00 Atorvastatin Calcium (Lipitor) 80 mg HS PO Last administered on 03/26/18at 20:36; Admin Dose 80 MG; Start 03/26/18 at 21:00 Lorazepam (Ativan) 0.5 mg TID PRN PO ANXIETY; Start 03/26/18 at 16:30 Sodium Chloride 1,000 ml @ 30 mls/hr Q24H IV ; Start 03/27/18 at 16:00; Stop 03/29/18 at 01:19; Status YULISSA LANDRY NP Mar 27, 2018 15:39
[2018-03-27] MEDS: SOD CHLORIDE 0.9% 1,000 ML IV SCH (15:54)
--- NOTE | 2018-03-27 18:40 | NUR ---
patient is alert and oriented x3. patient denies pain or distress. only complaint patient has is that she cannot move her leg and she want to hurry up and go home. patient's son at bedside. He voiced his frustrations on how he cannot send his mother to rehab. given information of insurance phone number and asked to come back to talk to case management. fall precaution in place, call medication given on time. glucose checked and no coverage given on this shift. will endorse to slot shift supervisor nurse.
[2018-03-27 20:00] VITALS: BP 124/58; PULSE 66; RESP 18
[2018-03-27] MEDS: CEFTRIAXONE 1 GM/50 ML (PMX) 50 ML IVPB SCH (21:57)
[2018-03-27] MEDS: ATORVASTATIN 40 MG TAB PO SCH (21:57)
[2018-03-27] MEDS: INSULIN GLARGINE [LANTus] (100 UNITS/ML) SYG SC SCH (21:58)
[2018-03-27] MEDS ORDERED: IODIXANOL LOCM 100 ML BTL ONE (22:19)
[2018-03-27] MEDS ORDERED: SOD CHLORIDE 0.9% 100 ML ONE (22:19)
[2018-03-28 01:31] VITALS: BP 113/56; PULSE 67; RESP 16
[2018-03-28] MEDS: INSULIN ASPART [NOVOLOG] 3 ML PEN SC SCH ×4 (08:00→21:00)
[2018-03-28] MEDS: metFORMIN 500 MG TAB PO SCH ×2 (08:00→17:59)
[2018-03-28 08:01] VITALS: BP 124/60; PULSE 68; RESP 17
[2018-03-28] MEDS: POLYETHYLENE GLYCOL 17 GM PACKET PO SCH (09:00)
--- NOTE | 2018-03-28 09:09 | CONS ---
Assessment/Plan Assessment/Plan Hospital Course 87 yo F with hx of multiple comorbidities who initially p/w PNA and other sx. It was noted that she had recent R lower limb weakness, for which neurology is consulted. Repeat CTH is notable for a recent L thalamic infarct. 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 P: OK to defer additional neuroimaging for now Cont ASA/Lipitor as scheduled; Add Plavix for 3 months, w/ transition to plavix/lipitor daily thereafter.. Cont medical management per primary PT/OT as tolerated. Will follow clinically Result Diagram: 03/28/18 0535 03/28/1835 Results 24hrs Laboratory Tests Test 03/27/18 11:54 03/27/18 17:23 03/27/18 21:55 03/28/18 05:35 Bedside Glucose 114 81 104 White Blood Count 5.7 Red Blood Count 2.86 L Hemoglobin 9.6 L Hematocrit 27.9 L Mean Corpuscular Volume 97.6 Mean Corpuscular 33.6 H Hemoglobin Mean Corpuscular 34.4 Hemoglobin Concent Red Cell Distribution 13.0 Width Platelet Count 203 Mean Platelet Volume 11.1 H Immature Granulocytes % 0.700 H Neutrophils % 78.7 H Lymphocytes % 13.5 L Monocytes % 6.4 Eosinophils % 0.2 Basophils % 0.5 Nucleated Red Blood 0.0 Cells % Immature Granulocytes # 0.040 H Neutrophils # 4.5 Lymphocytes # 0.8 Monocytes # 0.4 Eosinophils # 0.0 Basophils # 0.0 Nucleated Red Blood 0.0 Cells # Sodium Level 137 Potassium Level 4.1 Chloride Level 101 Carbon Dioxide Level 29 Anion Gap 7 Blood Urea Nitrogen 14 Creatinine 0.62 Est Glomerular Filtrat Rate mL/min Glucose Level 70 Calcium Level 7.6 L Phosphorus Level 3.5 Magnesium Level 2.1 Test 03/28/18 08:09 Bedside Glucose 72 Consultation Date/Type/Reason Admit Date/Time Mar 16, 2018 at 11:24 Type of Consult Neurology Reason for Consultation R lower limb weakness Requesting Provider: LORRAINE GERBER Date/Time of Note DATE: 03/28/18 TIME: 09:07 24 HR Interval Summary Free Text/Dictation Continues medsurg monitoring. No acute events or changes in pt condition reported. Exam Vital Signs Vitals Vital Signs Date Temp Pulse Resp B/P (MAP) Pulse Ox O2 O2 Flow FiO2 Time Delivery Rate 03/28/18 97.8 68 17 124/60 92 Room Air 08:01 (81) 03/27/18 21 03:31 03/25/18 2.0 20:00 Intake and Output 03/27/18 03/27/18 03/28/18 1515:00 23:00 07:00 IntakeIntake Total 440 ml 370 ml BalanceBalance 440 ml 370 ml Exam PE: Gen Appearance: No Apparent Distress HEENT: Normocephalic Cardiovascular: Regular rate Abdomen: Soft Extremities: Dry NE: The patient was alert and fully oriented. Language was normal. Fund of knowledge was adequate. Pupils were equal and reactive to light. There was no afferent pupillary defect. Visual flores were normal. Funduscopic examination showed sharp disc margins and spontaneous venous pulsations. Extra-ocular movements were full. Ptosis was absent. There was no nystagmus. Facial sensation was normal. Face was symmetric with normal strength. Hearing was intact. Palate movements were normal. Neck strength was normal. There was normal tongue bulk and speed of movement. Tone was normal. Muscle bulk was diminished. I did not see fasciculations. Arms were mildly weak and symmetric; L leg was mildly weak. R leg was plegic. Vibration sensation was normal. Temperature and pinprick sensation was normal. Rapid alternating movements were normal. There was no dysmetria. There was no intention tremor. Gait was deferred due to bedrest. Arm and leg reflexes were symmetric. García's sign was absent. Plantar responses were flexor. SHANAE JOHNSON NP Mar 28, 2018 09:09 MARVA CHRISTIANSON Mar 29, 2018 05:41
[2018-03-28] MEDS: ASPIRIN 81 MG TAB PO SCH (09:52)
[2018-03-28] MEDS: GUAIFENESIN/DM (SR) TAB PO SCH ×2 (09:52→22:00)
[2018-03-28] MEDS: LOSARTAN 50 MG TAB PO SCH (09:52)
[2018-03-28] MEDS: FAMOTIDINE 20 MG TAB PO SCH (09:53)
[2018-03-28] MEDS: AMLODIPINE 10 MG TAB PO SCH (09:53)
[2018-03-28] MEDS: ENOXAPARIN 30 MG/0.3 ML SYG SC SCH (09:58)
--- NOTE | 2018-03-28 11:44 | NUR ---
Dysphagia f/u. Son at bedside. Patient agreeable to participation at start of session, but then accepted only a few trials. Provided verbal education to son regarding purpose of modified diet, s/s aspiration, silent aspiration, MBS results. Question full extent of comprehension as he kept insisting "she eats fine" despite repetition of information regarding silent asp. Participated in trials of NTL and thin liquids by cup. Declined solids. Prolonged bolus hold prior to initiation of a/p transit. No anterior labial spillage or oral residue. Initiation of pharyngeal swallow appeared timely with small sips ntl and thins. No overt s/s aspiration and vocal quality remained dry. Pt does have hx silent aspiration and cannot r/o. However, again, patient only accepted few PO trials during session and would benefit from more thorough reassessment during a meal or when more willing to participate. Patient still remains aspiration risk. Recommendations: Cont soft/ ntl ST to f/u Maintain asp. precautions and oral care guidelines
--- NOTE | 2018-03-28 12:27 | NUR ---
PT NOTE [facility] Patient: Pop Dowell : 1930 Age/Sex: 87/F Unit#: [id number] Room/Bed: 2264/A User: Rosalie Hill PTA Date: 03/28/18 12:00 Type: PT Technical Record Therapy day number 9 Subjective Denies pain Pain Scale NUMERIC Pain Intensity 0 (0-10) Patient Stated Goal for Pain Relief 0 (0-10) Pain Level Comment denied pain Exercise Assessment Label Bilat Lower Extremity Exercise Type Active Assist ROM Additional Exercise Comments seated R HRs, SAQs, marching Exercise Start Time 12:19 Exercise End Time 12:27 Total Exercise Time 8 min (8-127) Transfer Training Start Time 12:00 Supine to Sit Minimum Assist Transfer Sit to Stand Ability Moderate Assist Bed Mobility Sit to Supine Moderate Assist Additional Mobility Comments bed mobility, STS with FWW x5 (min-max A varied); son assisted with 2P Transfer Training End Time 12:18 Total Transfer Training Time 18 min (8-127) Static Sitting Balance Fair plus Dynamic Sitting Balance Fair plus Standing Static Balance Fair minus Safety Judgement Fair Activity Tolerance Fair Equipment Present A pump IV pump Additional Equipment Present diaper Post Treatment Pain Intensity 0 0-10 Variance Documentation see PT note Total Treament Time 26 min (8-127) Total Minutes 26 Total Units 2 PT Technical Record Comment PT NOTE S: Pt denied any pain. Agreed to skilled PT. Son at bedside to assist with translation. Cleared by MANJU Kiser. O: Received asleep in supine with son at bedside; easily awakened with VCs. Performed supervised L and R log rolling to douglas diaper. See tech record for remaining assist levels. Transfered to EOB with HOB elevated and use of BR. EOB sitting. STS x5 with FWW, VC/TCs on hand placement and sequencing, R knee block d/t buckling; VCs on max B UE assist to attempt lateral sway; pt unable to d/t R LE weakness and fatigue. Performed seated R AAROM therex. Returned back to supine. VCs on hand/foot placement to reposition to HOB, pt demo'd good understanding/return. Positioned in semi-giang, SCDs on, call light and all necessities within reach. Informed RN. A: Pt pearl tx fairly. Transfer assist levels slowly progressing. Increased STS transfers today with mod encouragement. Unable to performe pre-gait d/t R LE weakness and pt hesitation. Son verbalized eagerness for pt to transfer to chair and ambulate a few feet in order to be accepted to ARU. Ensured son pt is progressing but is still limited by R LE weakness. 2PA for safety and mobility continues. 2PA for STS ranged from min A to max A. P: Continue with POC.
--- NOTE | 2018-03-28 12:30 | PN ---
Date/Time of Note Date/Time of Note DATE: 03/28/18 TIME: 12:29 Objective Vitals Vital Signs Date Temp Pulse Resp B/P (MAP) Pulse Ox O2 O2 Flow FiO2 Time Delivery Rate 03/28/18 97.8 68 17 124/60 92 Room Air 08:01 (81) 03/27/18 21 03:31 03/25/18 2.0 20:00 Intake and Output 03/27/18 03/27/18 03/28/18 1414:59 22:59 06:59 IntakeIntake Total 440 ml 370 ml BalanceBalance 440 ml 370 ml Results Result Diagram: 03/28/18 0535 03/28/18 0535 Medications Medications Current Medications Losartan Potassium (Cozaar) 100 mg DAILY PO Last administered on 03/28/18 09:52; Admin Dose 100 MG; Start 03/17/18 at 09:00 IV Flush (NS 3 ml) 3 ml PER PROTOCOL IV ; Start 03/16/18 at 11:30 Ondansetron HCl (Zofran Inj) 4 mg Q6H PRN IV NAUSEA AND/OR VOMITING; Start 03/16/18 at 11:30 Acetaminophen (Tylenol Tab) 650 mg Q6H PRN PO PAIN LEVEL 1-3 OR FEVER; Start 03/16/18 at 11:30 Docusate Sodium (Colace) 100 mg Q12H PRN PO CONSTIPATION; Start 03/16/18 at 11:30 Magnesium Hydroxide (Milk Of Mag) 30 ml DAILY PRN PO CONSTIPATION Last administered on 03/23/18at 00:41; Admin Dose 30 ML; Start 03/16/18 at 11:30 Enoxaparin Sodium (Lovenox) 30 mg DAILY SC Last administered on 03/28/18at 09:58; Admin Dose 30 MG; Start 03/17/18 at 09:00 Albuterol (Proventil 0.083% (Neb)) 2.5 mg Q2H RESP THERAPY PRN HHN SHORTNESS OF BREATH; Start 03/16/18 at 11:30 Insulin Aspart (Novolog Insulin Pen) NOVOLOG *MILD* ALGORITHM WITH MEALS BEDTIME SC Last administered on 03/26/18 12:40; Admin Dose 1 UNIT; Start 03/16/18 at 17:55 Miscellaneous Information 1 ea NOTE XX ; Start 03/16/18 at 14:30 Glucose (Glutose) 15 gm Q15M PRN PO DECREASED GLUCOSE; Start 03/16/18 at 14:30 Glucose (Glutose) 22.5 gm Q15M PRN PO DECREASED GLUCOSE; Start 03/16/18 at 14:30 Dextrose (D50w Syringe) 25 ml Q15M PRN IV DECREASED GLUCOSE; Start 03/16/18 at 14:30 Dextrose (D50w Syringe) 50 ml Q15M PRN IV DECREASED GLUCOSE; Start 03/16/18 at 14:30 Glucagon (Glucagen) 1 mg Q15M PRN IM DECREASED GLUCOSE; Start 03/16/18 at 14:30 Glucose (Glutose) 15 gm Q15M PRN BUCCAL DECREASED GLUCOSE; Start 03/16/18 at 14:30 Acetaminophen (Tylenol Supp) 650 mg Q6H PRN [place] MILD PAIN(1-3) OR TEMP>38C; Start 03/17/18 at 01:00 Hydralazine HCl (Apresoline) 10 mg Q4H PRN IV elevated BP; Start 03/17/18 at 21:30 Insulin Glargine (Lantus) 8 units DAILY@2000 SC Last administered on 03/27/18 21:58; Admin Dose 8 UNITS; Start 03/18/18 at 20:00 Guaifenesin/ Dextromethorphan (Mucinex Dm) 1 tab BID PO Last administered on 03/28/18 09:52; Admin Dose 1 TAB; Start 03/18/18 at 16:30 Guaifenesin/ Dextromethorphan (Robitussin Dm Liquid Cup) 5 ml Q4H PRN PO cough; Start 03/18/18 at 16:00 Polyethylene Glycol (Miralax) 17 gm DAILY PO Last administered on 03/27/18 08:33; Admin Dose 17 GM; Start 03/20/18 at 12:30 Famotidine (Pepcid) 20 mg DAILY PO Last administered on 03/28/18 09:53; Admin Dose 20 MG; Start 03/21/18 at 09:00 Amlodipine Besylate (Norvasc) 10 mg DAILY PO Last administered on 03/28/18 09:53; Admin Dose 10 MG; Start 03/21/18 at 09:00 Metformin HCl (Glucophage) 500 mg BID WITH MEALS PO Last administered on 1/5/19at 08:00; Admin Dose 500 MG; Start 03/21/18 at 18:05 Ceftriaxone Sodium 50 ml @ 100 mls/hr Q24H IVPB Last administered on 03/27/18at 21:57; Admin Dose 100 MLS/HR; Start 03/24/18 at 19:30; Stop 03/29/18 at 23:00 Aspirin (Aspirin) 81 mg DAILY PO Last administered on 03/28/18at 09:52; Admin Dose 81 MG; Start 03/27/18 at 09:00 Lorazepam (Ativan) 0.5 mg TID PRN PO ANXIETY; Start 03/26/18 at 16:30 Sodium Chloride 1,000 ml @ 30 mls/hr Q24H IV Last administered on 03/27/18at 15:54; Admin Dose 30 MLS/HR; Start 03/27/18 at 16:00; Stop 03/29/18 at 01:19 Atorvastatin Calcium (Lipitor) 40 mg HS PO Last administered on 03/27/18at 21:57; Admin Dose 40 MG; Start 03/27/18 at 21:00 VTE Prophylaxis Risk score (from Ns)>0 risk: 3 SCD applied (from [facility] [place]): Yes Lines/Catheters IV Catheter Type: Fuentes in Place: No Assessment/Plan Hospital Course Subjective Patient still can't wiggle her toes or move her R LE Objective Physical exam General: Patient is laying in bed and answers questions appropriately Mentation: Patient is alert and oriented 4, Head: Normocephalic atraumatic Eyes: EOMI, pupils reactive to light Neck: Supple, nontender, midline Respiratory: Clear to auscultation bilaterally Cardiovascular: regular rate, no obvious murmurs Gastrointestinal: non-tender to palpation, bowel sounds heard. Neurological: unable to move R LE or wiggle R toes, but full sensation Skin: Appears to be vesicular-like lesions on her lower back Assessment/Plan Bacteremia- resolving - Repeat blood cultures negative. ID on board and will continue current antibiotics for 2 weeks total, 03/30 last dose - WBC normalized and remains afebrile Subacute lateral left thalamic lacunar infarct, chronic bilateral basal ganglier lacunar infarcts -After speaking with son, given subacute status, patient likely had infarct prior to admission, last known well time her son was 2 days prior to admission, due to infarcts showing ups very slowly on CT scans, this infarct was not apparent on the first CT and MRI could not be done on patient as due to hardware. -Aspirin, statin -CT angio of the H/N noted, atherosclerotic disease, per neuro, no further workup, cont statin lesions on lower back -?shingles -valacyclovir stopped per ID Altered toxic encephalopathy secondary to Pneumonia- resolved - CT scan of head negative for acute abnormalities Dysphagia - ST on board - aspiration precautions in place Sepsis secondary to Right perihilar and LL Pneumonia- resolving - ID on board and appreciate antibiotic recommendations. 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
[2018-03-28 14:05] VITALS: BP 125/65; PULSE 79; RESP 17
[2018-03-28] MEDS: SOD CHLORIDE 0.9% 1,000 ML IV SCH (16:00)
--- NOTE | 2018-03-28 18:35 | NUR ---
SHIFT SUMMARY REPORT NO ACUTE CHANGES IN PATIENT'S CONDITION DURING SHIFT. ROUTINE MEDICATION GIVEN SCHEDULED. NO COMPLAINTS OF PAIN. PATIENT WORKED WITH PHYSICAL THERAPY TODAY AND DID WELL. HOURLY ROUNDING DONE. BED LEFT IN LOWEST POSITION AND CALL LIGHT WITHIN REACH.
--- NOTE | 2018-03-28 19:21 | CONS ---
Date/Time of Note Date/Time of Note DATE: 03/28/18 TIME: 19:20 Assessment/Plan Assessment/Plan Hospital Course 1355 Patient is awake, in no distress looks comfortable no fevers overnight Antimicrobials: Rocephin Microbiology: Blood culture on admission grew strep pneumonia, urine culture negative. Repeat blood cultures negative Physical examination: Fragile well-developed elderly woman who is awake in no distress. Head atraumatic normocephalic sclera nonicteric. Neck is supple. Chest rise symmetrical breath sounds diminished bases. Heart: S1-S2. Abdomen soft bowel sounds present extremities without cyanosis Assessment: 1. S/p sepsis 2. Resolving pneumonia, likely strep 3. S/p strep bacteremia 4. Resolving encephalopathy 5. Diabetes 6. Dysphagia with possible ongoing aspiration 7. Sacral lesion, doubt HSV Plan: The patient remains stable, completing abx antibiotics==> last dose Mar 29 Result Diagram: 03/28/18 0535 03/28/18 0535 Results 24hrs Laboratory Tests Test 03/27/18 21:55 03/28/18 05:35 03/28/18 08:09 03/28/18 12:43 Bedside Glucose 104 72 134 White Blood Count 5.7 Red Blood Count 2.86 L Hemoglobin 9.6 L Hematocrit 27.9 L Mean Corpuscular Volume 97.6 Mean Corpuscular 33.6 H Hemoglobin Mean Corpuscular 34.4 Hemoglobin Concent Red Cell Distribution 13.0 Width Platelet Count 203 Mean Platelet Volume 11.1 H Immature Granulocytes % 0.700 H Neutrophils % 78.7 H Lymphocytes % 13.5 L Monocytes % 6.4 Eosinophils % 0.2 Basophils % 0.5 Nucleated Red Blood 0.0 Cells % Immature Granulocytes # 0.040 H Neutrophils # 4.5 Lymphocytes # 0.8 Monocytes # 0.4 Eosinophils # 0.0 Basophils # 0.0 Nucleated Red Blood 0.0 Cells # Sodium Level 137 Potassium Level 4.1 Chloride Level 101 Carbon Dioxide Level 29 Anion Gap 7 Blood Urea Nitrogen 14 Creatinine 0.62 Est Glomerular Filtrat Rate mL/min Glucose Level 70 Calcium Level 7.6 L Phosphorus Level 3.5 Magnesium Level 2.1 Test 03/28/18 17:27 Bedside Glucose 119 Consultation Date/Type/Reason Admit Date/Time Mar 16, 2018 at 11:24 Initial Consult Date Type of Consult id Requesting Provider: LORRAINE GERBER Exam/Review of Systems Vital Signs Vitals Vital Signs Date Temp Pulse Resp B/P (MAP) Pulse Ox O2 O2 Flow FiO2 Time Delivery Rate 03/28/18 97.9 79 17 125/65 93 Room Air 14:05 (85) 03/27/18 21 03:31 03/25/18 2.0 20:00 Intake and Output 03/27/18 03/27/18 03/28/18 1515:00 23:00 07:00 IntakeIntake Total 440 ml 370 ml BalanceBalance 440 ml 370 ml Medications Medications Current Medications Losartan Potassium (Cozaar) 100 mg DAILY PO Last administered on 03/28/18 09:52; Admin Dose 100 MG; Start 03/17/18 at 09:00 IV Flush (NS 3 ml) 3 ml PER PROTOCOL IV ; Start 03/16/18 at 11:30 Ondansetron HCl (Zofran Inj) 4 mg Q6H PRN IV NAUSEA AND/OR VOMITING; Start 1 05/17/17 at 11:30 Acetaminophen (Tylenol Tab) 650 mg Q6H PRN PO PAIN LEVEL 1-3 OR FEVER; Start 03/16/18 at 11:30 Docusate Sodium (Colace) 100 mg Q12H PRN PO CONSTIPATION; Start 03/16/18 at 11:30 Magnesium Hydroxide (Milk Of Mag) 30 ml DAILY PRN PO CONSTIPATION Last administered on 03/23/18at 00:41; Admin Dose 30 ML; Start 03/16/18 at 11:30 Enoxaparin Sodium (Lovenox) 30 mg DAILY SC Last administered on 03/28/18 09:58; Admin Dose 30 MG; Start 03/17/18 at 09:00 Albuterol (Proventil 0.083% (Neb)) 2.5 mg Q2H RESP THERAPY PRN HHN SHORTNESS OF BREATH; Start 03/16/18 at 11:30 Insulin Aspart (Novolog Insulin Pen) NOVOLOG *MILD* ALGORITHM WITH MEALS BEDTIME SC Last administered on 03/26/18 12:40; Admin Dose 1 UNIT; Start 03/16/18 at 17:55 Miscellaneous Information 1 ea NOTE XX ; Start 03/16/18 at 14:30 Glucose (Glutose) 15 gm Q15M PRN PO DECREASED GLUCOSE; Start 03/16/18 at 14:30 Glucose (Glutose) 22.5 gm Q15M PRN PO DECREASED GLUCOSE; Start 03/16/18 at 14:30 Dextrose (D50w Syringe) 25 ml Q15M PRN IV DECREASED GLUCOSE; Start 03/16/18 at 14:30 Dextrose (D50w Syringe) 50 ml Q15M PRN IV DECREASED GLUCOSE; Start 03/16/18 at 14:30 Glucagon (Glucagen) 1 mg Q15M PRN IM DECREASED GLUCOSE; Start 03/16/18 at 14:30 Glucose (Glutose) 15 gm Q15M PRN BUCCAL DECREASED GLUCOSE; Start 03/16/18 at 14:30 Acetaminophen (Tylenol Supp) 650 mg Q6H PRN [place] MILD PAIN(1-3) OR TEMP>38C; Start 03/17/18 at 01:00 Hydralazine HCl (Apresoline) 10 mg Q4H PRN IV elevated BP; Start 03/17/18 at 21:30 Insulin Glargine (Lantus) 8 units DAILY@2000 SC Last administered on 03/27/18 21:58; Admin Dose 8 UNITS; Start 03/18/18 at 20:00 Guaifenesin/ Dextromethorphan (Mucinex Dm) 1 tab BID PO Last administered on 03/28/18 09:52; Admin Dose 1 TAB; Start 03/18/18 at 16:30 Guaifenesin/ Dextromethorphan (Robitussin Dm Liquid Cup) 5 ml Q4H PRN PO cough; Start 03/18/18 at 16:00 Polyethylene Glycol (Miralax) 17 gm DAILY PO Last administered on 03/27/18 08:33; Admin Dose 17 GM; Start 03/20/18 at 12:30 Famotidine (Pepcid) 20 mg DAILY PO Last administered on 03/28/18 09:53; Admin Dose 20 MG; Start 03/21/18 at 09:00 Amlodipine Besylate (Norvasc) 10 mg DAILY PO Last administered on 03/28/18 09:53; Admin Dose 10 MG; Start 03/21/18 at 09:00 Metformin HCl (Glucophage) 500 mg BID WITH MEALS PO Last administered on 03/28/18 17:59; Admin Dose 500 MG; Start 03/21/18 at 18:05 Ceftriaxone Sodium 50 ml @ 100 mls/hr Q24H IVPB Last administered on 03/27/18at 21:57; Admin Dose 100 MLS/HR; Start 03/24/18 at 19:30; Stop 03/29/18 at 23:00 Aspirin (Aspirin) 81 mg DAILY PO Last administered on 03/28/18at 09:52; Admin Dose 81 MG; Start 03/27/18 at 09:00 Lorazepam (Ativan) 0.5 mg TID PRN PO ANXIETY; Start 03/26/18 at 16:30 Sodium Chloride 1,000 ml @ 30 mls/hr Q24H IV Last administered on 03/27/18at 15:54; Admin Dose 30 MLS/HR; Start 03/27/18 at 16:00; Stop 03/29/18 at 01:19 Atorvastatin Calcium (Lipitor) 40 mg HS PO Last administered on 03/27/18at 21:57; Admin Dose 40 MG; Start 03/27/18 at 21:00 YULISSA SHETH NP Mar 28, 2018 19:21
[2018-03-28 20:00] VITALS: BP 119/57; PULSE 70; RESP 18
[2018-03-28] MEDS: ATORVASTATIN 40 MG TAB PO SCH (22:00)
[2018-03-28] MEDS: CEFTRIAXONE 1 GM/50 ML (PMX) 50 ML IVPB SCH (22:02)
[2018-03-28] MEDS: INSULIN GLARGINE [LANTus] (100 UNITS/ML) SYG SC SCH (22:06)
[2018-03-29 02:00] VITALS: BP 121/57; PULSE 66; RESP 18
[2018-03-29] MEDS ORDERED: CLOPIDOGREL 75 MG TAB PO ONE (06:00)
--- NOTE | 2018-03-29 06:43 | NUR ---
No acute changes noted. Fall precautions observed and maintained. Bed alarm on, call light within reach
[2018-03-29] MEDS: INSULIN ASPART [NOVOLOG] 3 ML PEN SC SCH ×4 (07:45→21:00)
[2018-03-29 08:50] VITALS: BP 137/62; PULSE 69; RESP 17
[2018-03-29] MEDS: metFORMIN 500 MG TAB PO SCH ×2 (08:58→17:25)
[2018-03-29] MEDS: FAMOTIDINE 20 MG TAB PO SCH (08:58)
[2018-03-29] MEDS: GUAIFENESIN/DM (SR) TAB PO SCH ×2 (08:58→21:21)
[2018-03-29] MEDS: ASPIRIN 81 MG TAB PO SCH (08:59)
[2018-03-29] MEDS: LOSARTAN 50 MG TAB PO SCH (08:59)
[2018-03-29] MEDS: AMLODIPINE 10 MG TAB PO SCH (08:59)
[2018-03-29] MEDS: POLYETHYLENE GLYCOL 17 GM PACKET PO SCH (09:00)
[2018-03-29] MEDS: ENOXAPARIN 30 MG/0.3 ML SYG SC SCH (09:04)
--- NOTE | 2018-03-29 12:18 | CONS ---
Date/Time of Note Date/Time of Note DATE: 03/29/18 TIME: 12:12 Assessment/Plan Assessment/Plan Result Diagram: 03/29/18 0507 03/29/18 0507 Results 24hrs Laboratory Tests Test 03/28/18 12:43 03/28/18 17:27 03/28/18 22:00 03/29/18 05:07 Bedside Glucose 134 119 98 White Blood Count 5.7 Red Blood Count 2.89 L Hemoglobin 9.6 L Hematocrit 28.0 L Mean Corpuscular Volume 96.9 Mean Corpuscular 33.2 H Hemoglobin Mean Corpuscular 34.3 Hemoglobin Concent Red Cell Distribution 13.2 Width Platelet Count 202 Mean Platelet Volume 11.1 H Immature Granulocytes % 0.500 H Neutrophils % 66.0 Lymphocytes % 25.4 Monocytes % 7.1 Eosinophils % 0.5 Basophils % 0.5 Nucleated Red Blood 0.0 Cells % Immature Granulocytes # 0.030 Neutrophils # 3.8 Lymphocytes # 1.5 Monocytes # 0.4 Eosinophils # 0.0 Basophils # 0.0 Nucleated Red Blood 0.0 Cells # Sodium Level 136 Potassium Level 3.6 Chloride Level 101 Carbon Dioxide Level 27 Anion Gap 8 Blood Urea Nitrogen 12 Creatinine 0.58 Est Glomerular Filtrat Rate mL/min Glucose Level 72 Calcium Level 7.5 L Phosphorus Level 2.5 Magnesium Level 1.8 Test 03/29/18 07:44 03/29/18 11:50 Bedside Glucose 73 104 Consultation Date/Type/Reason Admit Date/Time Mar 16, 2018 at 11:24 Initial Consult Date SUBJECTIVE: Pt is awake, alert, afebrile. No acute events over night VS: stable T: 98.1 LABS: Reviewed. WBC-5.7 MICROBIOLOGY: UA culture-negative. Repeat Blood cultures are negative. Physical exam General: Patient is laying in bed, no acute distress. Mentation: Patient is alert and oriented 4, Head: Normocephalic atraumatic Pulm: bilaterally CTA, no wheezing Cardiovascular: RRR, no obvious murmurs GI: non-tender to palpation, bowel sounds heard. Neurological: unable to move R LE or wiggle R toes, but full sensation EXTREM: no cyanosis Assessment: 1. S/p sepsis 2. Resolving pneumonia, likely strep 3. S/p strep bacteremia 4. Resolving encephalopathy 5. Diabetes 6. Dysphagia with possible ongoing aspiration 7. Sacral lesion, doubt HSV Plan: The patient remains stable. Completing abx antibiotics. Will D/c antbx today and monitor off of antbx. Requesting Provider: LORRAINE GERBER Exam/Review of Systems Vital Signs Vitals Vital Signs Date Temp Pulse Resp B/P (MAP) Pulse Ox O2 O2 Flow FiO2 Time Delivery Rate 03/29/18 98.1 69 17 137/62 94 Room Air 08:50 (87) 03/27/18 21 03:31 03/25/18 2.0 20:00 Intake and Output 03/28/18 03/28/18 03/29/18 1515:00 23:00 07:00 IntakeIntake Total 700 ml BalanceBalance 700 ml Medications Medications Current Medications Losartan Potassium (Cozaar) 100 mg DAILY PO Last administered on 03/29/18 08:59; Admin Dose 100 MG; Start 03/17/18 at 09:00 IV Flush (NS 3 ml) 3 ml PER PROTOCOL IV ; Start 03/16/18 at 11:30 Ondansetron HCl (Zofran Inj) 4 mg Q6H PRN IV NAUSEA AND/OR VOMITING; Start 03/16/18 at 11:30 Acetaminophen (Tylenol Tab) 650 mg Q6H PRN PO PAIN LEVEL 1-3 OR FEVER; Start 03/16/18 at 11:30 Docusate Sodium (Colace) 100 mg Q12H PRN PO CONSTIPATION; Start 03/16/18 at 11:30 Magnesium Hydroxide (Milk Of Mag) 30 ml DAILY PRN PO CONSTIPATION Last administered on 03/23/18at 00:41; Admin Dose 30 ML; Start 03/16/18 at 11:30 Enoxaparin Sodium (Lovenox) 30 mg DAILY SC Last administered on 03/29/18 09:04; Admin Dose 30 MG; Start 03/17/18 at 09:00 Albuterol (Proventil 0.083% (Neb)) 2.5 mg Q2H RESP THERAPY PRN HHN SHORTNESS OF BREATH; Start 03/16/18 at 11:30 Insulin Aspart (Novolog Insulin Pen) NOVOLOG *MILD* ALGORITHM WITH MEALS BEDTIME SC Last administered on 03/26/18 12:40; Admin Dose 1 UNIT; Start 03/16/18 at 17:55 Miscellaneous Information 1 ea NOTE XX ; Start 03/16/18 at 14:30 Glucose (Glutose) 15 gm Q15M PRN PO DECREASED GLUCOSE; Start 03/16/18 at 14:30 Glucose (Glutose) 22.5 gm Q15M PRN PO DECREASED GLUCOSE; Start 03/16/18 at 14:30 Dextrose (D50w Syringe) 25 ml Q15M PRN IV DECREASED GLUCOSE; Start 03/16/18 at 14:30 Dextrose (D50w Syringe) 50 ml Q15M PRN IV DECREASED GLUCOSE; Start 03/16/18 at 14:30 Glucagon (Glucagen) 1 mg Q15M PRN IM DECREASED GLUCOSE; Start 03/16/18 at 14:30 Glucose (Glutose) 15 gm Q15M PRN BUCCAL DECREASED GLUCOSE; Start 03/16/18 at 14:30 Acetaminophen (Tylenol Supp) 650 mg Q6H PRN IN MILD PAIN(1-3) OR TEMP>38C; Start 03/17/18 at 01:00 Hydralazine HCl (Apresoline) 10 mg Q4H PRN IV elevated BP; Start 03/17/18 at 21:30 Insulin Glargine (Lantus) 8 units DAILY@2000 SC Last administered on 03/28/18 22:06; Admin Dose 8 UNITS; Start 03/18/18 at 20:00 Guaifenesin/ Dextromethorphan (Mucinex Dm) 1 tab BID PO Last administered on 03/29/18 08:58; Admin Dose 1 TAB; Start 03/18/18 at 16:30 Guaifenesin/ Dextromethorphan (Robitussin Dm Liquid Cup) 5 ml Q4H PRN PO cough; Start 03/18/18 at 16:00 Polyethylene Glycol (Miralax) 17 gm DAILY PO Last administered on 03/29/18 09:00; Admin Dose 17 GM; Start 03/20/18 at 12:30 Famotidine (Pepcid) 20 mg DAILY PO Last administered on 03/29/18 08:58; Admin Dose 20 MG; Start 03/21/18 at 09:00 Amlodipine Besylate (Norvasc) 10 mg DAILY PO Last administered on 03/29/18 08:59; Admin Dose 10 MG; Start 03/21/18 at 09:00 Metformin HCl (Glucophage) 500 mg BID WITH MEALS PO Last administered on 03/29/18 08:58; Admin Dose 500 MG; Start 03/21/18 at 18:05 Ceftriaxone Sodium 50 ml @ 100 mls/hr Q24H IVPB Last administered on 03/28/18at 22:02; Admin Dose 100 MLS/HR; Start 03/24/18 at 19:30; Stop 03/29/18 at 23:00 Aspirin (Aspirin) 81 mg DAILY PO Last administered on 03/29/18at 08:59; Admin Dose 81 MG; Start 03/27/18 at 09:00 Lorazepam (Ativan) 0.5 mg TID PRN PO ANXIETY; Start 03/26/18 at 16:30 Atorvastatin Calcium (Lipitor) 40 mg HS PO Last administered on 03/28/18at 22:00; Admin Dose 40 MG; Start 03/27/18 at 21:00 Clopidogrel Bisulfate (plaVIX) 75 mg DAILY PO ; Start 03/30/18 at 09:00 JACINDA BARRIGA Mar 29, 2018 12:17
--- NOTE | 2018-03-29 12:23 | PN ---
Date/Time of Note Date/Time of Note DATE: 03/29/18 TIME: 12:22 Objective Vitals Vital Signs Date Temp Pulse Resp B/P (MAP) Pulse Ox O2 O2 Flow FiO2 Time Delivery Rate 03/29/18 98.1 69 17 137/62 94 Room Air 08:50 (87) 03/27/18 21 03:31 03/25/18 2.0 20:00 Intake and Output 03/28/18 03/28/18 03/29/18 1515:00 23:00 07:00 IntakeIntake Total 700 ml BalanceBalance 700 ml Results Result Diagram: 03/29/18 0507 03/29/18 0507 Medications Medications Current Medications Losartan Potassium (Cozaar) 100 mg DAILY PO Last administered on 03/29/18at 08:59; Admin Dose 100 MG; Start 03/17/18 at 09:00 IV Flush (NS 3 ml) 3 ml PER PROTOCOL IV ; Start 03/16/18 at 11:30 Ondansetron HCl (Zofran Inj) 4 mg Q6H PRN IV NAUSEA AND/OR VOMITING; Start 03/16/18 at 11:30 Acetaminophen (Tylenol Tab) 650 mg Q6H PRN PO PAIN LEVEL 1-3 OR FEVER; Start 03/16/18 at 11:30 Docusate Sodium (Colace) 100 mg Q12H PRN PO CONSTIPATION; Start 03/16/18 at 11:30 Magnesium Hydroxide (Milk Of Mag) 30 ml DAILY PRN PO CONSTIPATION Last administered on 03/23/18at 00:41; Admin Dose 30 ML; Start 03/16/18 at 11:30 Enoxaparin Sodium (Lovenox) 30 mg DAILY SC Last administered on 03/29/18at 09:04; Admin Dose 30 MG; Start 03/17/18 at 09:00 Albuterol (Proventil 0.083% (Neb)) 2.5 mg Q2H RESP THERAPY PRN HHN SHORTNESS OF BREATH; Start 03/16/18 at 11:30 Insulin Aspart (Novolog Insulin Pen) NOVOLOG *MILD* ALGORITHM WITH MEALS B EDTIME SC Last administered on 03/26/18at 12:40; Admin Dose 1 UNIT; Start 03/16/18 at 17:55 Miscellaneous Information 1 ea NOTE XX ; Start 03/16/18 at 14:30 Glucose (Glutose) 15 gm Q15M PRN PO DECREASED GLUCOSE; Start 03/16/18 at 14:30 Glucose (Glutose) 22.5 gm Q15M PRN PO DECREASED GLUCOSE; Start 03/16/18 at 14:30 Dextrose (D50w Syringe) 25 ml Q15M PRN IV DECREASED GLUCOSE; Start 03/16/18 at 14:30 Dextrose (D50w Syringe) 50 ml Q15M PRN IV DECREASED GLUCOSE; Start 03/16/18 at 14:30 Glucagon (Glucagen) 1 mg Q15M PRN IM DECREASED GLUCOSE; Start 03/16/18 at 14:30 Glucose (Glutose) 15 gm Q15M PRN BUCCAL DECREASED GLUCOSE; Start 03/16/18 at 14:30 Acetaminophen (Tylenol Supp) 650 mg Q6H PRN [place] MILD PAIN(1-3) OR TEMP>38C; Start 03/17/18 at 01:00 Hydralazine HCl (Apresoline) 10 mg Q4H PRN IV elevated BP; Start 03/17/18 at 21:30 Insulin Glargine (Lantus) 8 units DAILY@2000 SC Last administered on 03/28/18 22:06; Admin Dose 8 UNITS; Start 03/18/18 at 20:00 Guaifenesin/ Dextromethorphan (Mucinex Dm) 1 tab BID PO Last administered on 03/29/18 08:58; Admin Dose 1 TAB; Start 03/18/18 at 16:30 Guaifenesin/ Dextromethorphan (Robitussin Dm Liquid Cup) 5 ml Q4H PRN PO cough; Start 03/18/18 at 16:00 Polyethylene Glycol (Miralax) 17 gm DAILY PO Last administered on 03/29/18 0 9:00; Admin Dose 17 GM; Start 03/20/18 at 12:30 Famotidine (Pepcid) 20 mg DAILY PO Last administered on 03/29/18 08:58; Admin Dose 20 MG; Start 03/21/18 at 09:00 Amlodipine Besylate (Norvasc) 10 mg DAILY PO Last administered on 03/29/18 08:59; Admin Dose 10 MG; Start 03/21/18 at 09:00 Metformin HCl (Glucophage) 500 mg BID WITH MEALS PO Last administered on 1/6/19at 08:58; Admin Dose 500 MG; Start 03/21/18 at 18:05 Ceftriaxone Sodium 50 ml @ 100 mls/hr Q24H IVPB Last administered on 03/28/18at 22:02; Admin Dose 100 MLS/HR; Start 03/24/18 at 19:30; Stop 03/29/18 at 23:00 Aspirin (Aspirin) 81 mg DAILY PO Last administered on 03/29/18at 08:59; Admin Dose 81 MG; Start 03/27/18 at 09:00 Lorazepam (Ativan) 0.5 mg TID PRN PO ANXIETY; Start 03/26/18 at 16:30 Atorvastatin Calcium (Lipitor) 40 mg HS PO Last administered on 03/28/18at 22:00; Admin Dose 40 MG; Start 03/27/18 at 21:00 Clopidogrel Bisulfate (plaVIX) 75 mg DAILY PO ; Start 03/30/18 at 09:00 VTE Prophylaxis Risk [place]from [facility] [place] risk: 6 SCD applied (from [facility] [place]): Yes Lines/Catheters IV Catheter Type: Fuentes in Place: No Assessment/Plan Hospital Course Subjective Patient still can't wiggle her toes or move her R LE Objective Physical exam General: Patient is laying in bed and answers questions appropriately Mentation: Patient is alert and oriented 4, Head: Normocephalic atraumatic Eyes: EOMI, pupils reactive to light Neck: Supple, nontender, midline Respiratory: Clear to auscultation bilaterally Cardiovascular: regular rate, no obvious murmurs Gastrointestinal: non-tender to palpation, bowel sounds heard. Neurological: unable to move R LE or wiggle R toes, but full sensation Skin: Appears to be vesicular-like lesions on her lower back Assessment/Plan Bacteremia- resolving - Repeat blood cultures negative. ID on board and will continue current antibiotics for 2 weeks total, today will be last dose - WBC normalized and remains afebrile Subacute lateral left thalamic lacunar infarct, chronic bilateral basal ganglier lacunar infarcts -After speaking with son, given subacute status, patient likely had infarct prior to admission, last known well time her son was 2 days prior to admission, due to infarcts showing ups very slowly on CT scans, this infarct was not apparent on the first CT and MRI could not be done on patient as due to hardware. -Aspirin, statin -CT angio of the H/N noted, atherosclerotic disease, per neuro, no further workup, cont statin lesions on lower back -?shingles -valacyclovir stopped per ID Altered toxic encephalopathy secondary to Pneumonia- resolved - CT scan of head negative for acute abnormalities Dysphagia - ST on board - aspiration precautions in place Sepsis secondary to Right perihilar and LL Pneumonia- resolving - ID on board and appreciate antibiotic recommendations. stop today - seen on CXR - Nebs PRN CAMPOS- resolved - most likely prerenal Diabetes Mellitus - A1c noted - ISS and accuchecks HTN - stable - norvasc and losartan on board Gait instability - PT/OT recommending placement Disposition -patient to attempt to work more with PT to qualify for ARU, otherwise stable for transfer, ARU vs SNF, however son would like LORRAINE WOOD Mar 29, 2018 12:23
[2018-03-29 16:53] VITALS: BP 116/56; PULSE 70; RESP 17
[2018-03-29 20:00] VITALS: BP 149/67; PULSE 69; RESP 18
[2018-03-29] MEDS: CEFTRIAXONE 1 GM/50 ML (PMX) 50 ML IVPB SCH (21:21)
[2018-03-29] MEDS: INSULIN GLARGINE [LANTus] (100 UNITS/ML) SYG SC SCH (21:21)
[2018-03-29] MEDS: ATORVASTATIN 40 MG TAB PO SCH (21:21)
[2018-03-30 02:00] VITALS: BP 133/68; PULSE 68; RESP 18
--- NOTE | 2018-03-30 06:16 | NUR ---
No changes noted, no sign of distress. Fall precautions observed and maintained. Bed alarm on, call light within reach. Pt resting in bed
[2018-03-30] MEDS: INSULIN ASPART [NOVOLOG] 3 ML PEN SC SCH ×2 (08:00→12:00)
[2018-03-30 08:43] VITALS: BP 152/70; PULSE 61; RESP 16
[2018-03-30] MEDS: FAMOTIDINE 20 MG TAB PO SCH (08:48)
[2018-03-30] MEDS: GUAIFENESIN/DM (SR) TAB PO SCH (08:48)
[2018-03-30] MEDS: ASPIRIN 81 MG TAB PO SCH (08:49)
[2018-03-30] MEDS: LOSARTAN 50 MG TAB PO SCH (08:49)
[2018-03-30] MEDS: POLYETHYLENE GLYCOL 17 GM PACKET PO SCH (08:49)
[2018-03-30] MEDS: AMLODIPINE 10 MG TAB PO SCH (08:49)
[2018-03-30] MEDS: metFORMIN 500 MG TAB PO SCH (08:49)
[2018-03-30] MEDS: ENOXAPARIN 30 MG/0.3 ML SYG SC SCH (08:50)
--- NOTE | 2018-03-30 08:58 | NUR ---
CM Notes Referred patient to [facility]. Janett Tipton, Jerrica Torres [facility], Kellie Beltran, Chriss Ross CM x [phone]
[2018-03-30] MEDS ORDERED: CLOPIDOGREL 75 MG TAB PO SCH (09:00)
--- NOTE | 2018-03-30 09:27 | PN ---
Date/Time of Note Date/Time of Note DATE: 03/30/18 TIME: 09:27 Assessment/Plan VTE Prophylaxis Risk score (from Nsg)>0 risk: 9 SCD applied (from Ns): Yes Pharmacological prophylaxis: other Lines/Catheters IV Catheter Type (from Nrsg): Mid Line Urinary Cath still in place: No Assessment/Plan Assessment/Plan 1. Subacute lateral left thalamic lacunar infarct, chronic bilateral basal doreen glier lacunar infarcts - Patient still with right leg weakness but denies any new neurological compl aints - Accepted to SNF and discussed with son benefit of transitioning to SNF rather than continued hospital care. Patient not accepted to ARU - given subacute status, patient likely had infarct prior to admission, last known well time her son was 2 days prior to admission, due to infarcts showing ups very slowly on CT scans, this infarct was not apparent on the first CT and MRI could not be done on patient as due to hardware. - CT angio of the H/N noted, atherosclerotic disease, per neuro, no further workup, cont statin - neurology consultation appreciated 2. Bacteremia- resolved - Repeat blood cultures negative. ID on board and completed 2 week course of antibiotics - WBC normalized and remains afebrile 3. Altered toxic encephalopathy secondary to Pneumonia- resolved 4. Dysphagia - ST on board - aspiration precautions in place 5. Sepsis secondary to Right perihilar and LL Pneumonia- resolved - ID on board and appreciate recommendations. Completed course of antibiotics - seen on CXR - Nebs PRN 6. CAMPOS- resolved - most likely prerenal 7. Diabetes Mellitus - A1c noted - ISS and accuchecks 8. HTN - stable - norvasc and losartan on board 9. Gait instability - SNF 10. Disposition - After discussion with son, agreeable to SNF placement. Medically clear for discharge to SNF Result Diagram: 03/29/18 0507 03/29/18 0507 Results 24hrs Laboratory Tests Test 03/29/18 11:50 03/29/18 17:24 03/29/18 21:19 03/30/18 08:11 Bedside Glucose 104 110 149 71 Subjective 24 Hr Interval Summary Free Text/Dictation Patient still complaining of weakness in right leg but denies any other issues. No acute overnight events. Accepted to SNF and after discussion with son, agreeable to placement. Exam/Review of Systems Vital Signs Vitals Vital Signs Date Temp Pulse Resp B/P (MAP) Pulse Ox O2 O2 Flow FiO2 Time Delivery Rate 03/30/18 98.5 61 16 152/70 96 Room Air 08:43 (97) 03/27/18 21 03:31 Intake and Output 03/29/18 03/29/18 03/30/18 1515:00 23:00 07:00 IntakeIntake Total 300 ml 300 ml BalanceBalance 300 ml 300 ml Exam General: Patient is laying in bed and answers questions appropriately Mentation: Patient is alert and oriented 4, Neck: Supple Respiratory: Clear to auscultation bilaterally. no wheezing or rhonchi Cardiovascular: regular rate and rhythm, no obvious murmurs Gastrointestinal: soft, non-tender to palpation, nondistended, bowel sounds heard. Neurological: 1/5 strength RLE. Wiggles R toes, but full sensation Medications Medications Current Medications Losartan Potassium (Cozaar) 100 mg DAILY PO Last administered on 03/30/18 08:49; Admin Dose 100 MG; Start 03/17/18 at 09:00 IV Flush (NS 3 ml) 3 ml PER PROTOCOL IV ; Start 03/16/18 at 11:30 Ondansetron HCl (Zofran Inj) 4 mg Q6H PRN IV NAUSEA AND/OR VOMITING; Start 03/16/18 at 11:30 Acetaminophen (Tylenol Tab) 650 mg Q6H PRN PO PAIN LEVEL 1-3 OR FEVER; Start 03/16/18 at 11:30 Docusate Sodium (Colace) 100 mg Q12H PRN PO CONSTIPATION; Start 03/16/18 at 11:30 Magnesium Hydroxide (Milk Of Mag) 30 ml DAILY PRN PO CONSTIPATION Last administered on 03/23/18at 00:41; Admin Dose 30 ML; Start 03/16/18 at 11:30 Enoxaparin Sodium (Lovenox) 30 mg DAILY SC Last administered on 03/30/18 08:50; Admin Dose 30 MG; Start 03/17/18 at 09:00 Albuterol (Proventil 0.083% (Neb)) 2.5 mg Q2H RESP THERAPY PRN HHN SHORTNESS OF BREATH; Start 03/16/18 at 11:30 Insulin Aspart (Novolog Insulin Pen) NOVOLOG *MILD* ALGORITHM WITH MEALS BEDTIME SC Last administered on 03/26/18 12:40; Admin Dose 1 UNIT; Start 03/16/18 at 17:55 Miscellaneous Information 1 ea NOTE XX ; Start 03/16/18 at 14:30 Glucose (Glutose) 15 gm Q15M PRN PO DECREASED GLUCOSE; Start 03/16/18 at 14:30 Glucose (Glutose) 22.5 gm Q15M PRN PO DECREASED GLUCOSE; Start 03/16/18 at 14:30 Dextrose (D50w Syringe) 25 ml Q15M PRN IV DECREASED GLUCOSE; Start 03/16/18 at 14:30 Dextrose (D50w Syringe) 50 ml Q15M PRN IV DECREASED GLUCOSE; Start 03/16/18 at 14:30 Glucagon (Glucagen) 1 mg Q15M PRN IM DECREASED GLUCOSE; Start 03/16/18 at 14 :30 Glucose (Glutose) 15 gm Q15M PRN BUCCAL DECREASED GLUCOSE; Start 03/16/18 at 14:30 Acetaminophen (Tylenol Supp) 650 mg Q6H PRN [place] MILD PAIN(1-3) OR TEMP>38C; Start 03/17/18 at 01:00 Hydralazine HCl (Apresoline) 10 mg Q4H PRN IV elevated BP; Start 03/17/18 at 21:30 Insulin Glargine (Lantus) 8 units DAILY@2000 SC Last administered on 03/29/18 21:21; Admin Dose 8 UNITS; Start 03/18/18 at 20:00 Guaifenesin/ Dextromethorphan (Mucinex Dm) 1 tab BID PO Last administered on 03/30/18 08:48; Admin Dose 1 TAB; Start 03/18/18 at 16:30 Guaifenesin/ Dextromethorphan (Robitussin Dm Liquid Cup) 5 ml Q4H PRN PO cough; Start 03/18/18 at 16:00 Polyethylene Glycol (Miralax) 17 gm DAILY PO Last administered on 03/30/18 08:49; Admin Dose 17 GM; Start 03/20/18 at 12:30 Famotidine (Pepcid) 20 mg DAILY PO Last administered on 03/30/18 08:48; Admin Dose 20 MG; Start 03/21/18 at 09:00 Amlodipine Besylate (Norvasc) 10 mg DAILY PO Last administered on 03/30/18 08:49; Admin Dose 10 MG; Start 03/21/18 at 09:00 Metformin HCl (Glucophage) 500 mg BID WITH MEALS PO Last administered on 03/30/18 08:49; Admin Dose 500 MG; Start 03/21/18 at 18:05 Aspirin (Aspirin) 81 mg DAILY PO Last administered on 03/30/18 08:49; Admin Dose 81 MG; Start 03/27/18 at 09:00 Lorazepam (Ativan) 0.5 mg TID PRN PO ANXIETY; Start 03/26/18 at 16:30 Atorvastatin Calcium (Lipitor) 40 mg HS PO Last administered on 03/29/18at 21:21; Admin Dose 40 MG; Start 03/27/18 at 21:00 Clopidogrel Bisulfate (plaVIX) 75 mg DAILY PO Last administered on 03/30/18 08:48; Admin Dose 75 MG; Start 03/30/18 at 09:00 LIS PIZANO MD Mar 30, 2018 09:27
--- NOTE | 2018-03-30 11:50 | PDOCDIS ---
Discharge Instructions DIAGNOSIS Discharge Diagnosis 1. Subacute lateral left thalamic lacunar infarct, chronic bilateral basal ganglier lacunar infarcts, right leg weakness 2. Bacteremia- resolved 3. Altered toxic encephalopathy secondary to Pneumonia- resolved 4. Dysphagia 5. Sepsis secondary to Right perihilar and LL Pneumonia- resolved 6. CAMPOS- resolved 7. Diabetes Mellitus 8. HTN 9. Gait instability CONDITION [id number] Patient Condition: [id number] Stable HOME CARE INSTRUCTIONS: [id number] Special Diet: [id number] Carb Control mech soft, nectar thick liquid FOLLOW UP/APPOINTMENTS Follow-up Plan 1. Continue all medications as prescribed 2. you will need to continue working with physical therapy given your right leg weakness 3. If you experiencing any blood in stool or bleeding that will not stop, please go to your closest emergency department 4. If symptoms return or worsen, please go to your nearest emergency department LIS PIZANO MD Mar 30, 2018 11:50
--- NOTE | 2018-03-30 12:09 | NUR ---
SNF PLACEMENT [facility] WILL ACCEPT PATIENT BACK APPROVED BY CIARA HAGEN X [phone]
--- NOTE | 2018-03-30 13:04 | CONS ---
Assessment/Plan Assessment/Plan Hospital Course 87 yo F with hx of multiple comorbidities who initially p/w PNA and other sx. It was noted that she had recent R lower limb weakness, for which neurology is consulted. Repeat CTH is notable for a recent L thalamic infarct. 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 P: OK to defer additional neuroimaging for now Cont ASA/Lipitor as scheduled; Add Plavix for 3 months, w/ transition to plavix/lipitor daily thereafter.. Cont medical management per primary PT/OT as tolerated. Will follow clinically Result Diagram: 03/29/18 0507 03/29/18 0507 Results 24hrs Laboratory Tests Test 03/29/18 17:24 03/29/18 21:19 03/30/18 08:11 03/30/18 12:24 Bedside Glucose 110 149 71 94 Consultation Date/Type/Reason Admit Date/Time Mar 16, 2018 at 11:24 Type of Consult Neurology Reason for Consultation R lower limb weakness Requesting Provider: LORRAINE GERBER Date/Time of Note DATE: 03/30/18 TIME: 13:04 24 HR Interval Summary Free Text/Dictation Continues medsurg monitoring. No acute events or changes in pt condition reported. Pt is without complaints at this time. Exam Vital Signs Vitals Vital Signs Date Temp Pulse Resp B/P (MAP) Pulse Ox O2 O2 Flow FiO2 Time Delivery Rate 03/30/18 98.5 61 16 152/70 96 Room Air 08:43 (97) 03/27/18 21 03:31 Intake and Output 03/29/18 03/29/18 03/30/18 1515:00 23:00 07:00 IntakeIntake Total 300 ml 300 ml BalanceBalance 300 ml 300 ml Exam PE: Gen Appearance: No Apparent Distress HEENT: Normocephalic Cardiovascular: Regular rate Abdomen: Soft Extremities: Dry NE: The patient was alert and fully oriented. Language was normal. Fund of knowledge was adequate. Pupils were equal and reactive to light. There was no afferent pupillary defect. Visual flores were normal. Funduscopic examination showed sharp disc margins and spontaneous venous pulsations. Extra-ocular movements were full. Ptosis was absent. There was no nystagmus. Facial sensation was normal. Face was symmetric with normal strength. Hearing was intact. Palate movements were normal. Neck strength was normal. There was normal tongue bulk and speed of movement. Tone was normal. Muscle bulk was diminished. I did not see fasciculations. Arms were mildly weak and symmetric; L leg was mildly weak. R leg was plegic. Vibration sensation was normal. Temperature and pinprick sensation was normal. Rapid alternating movements were normal. There was no dysmetria. There was no intention tremor. Gait was deferred due to bedrest. Arm and leg reflexes were symmetric. García's sign was absent. Plantar responses were flexor. SHANAE JOHNSON NP Mar 30, 2018 13:04
--- NOTE | 2018-03-30 13:20 | NUR ---
OT NOTE S: RN cleared pt for skilled OT tx. Pt did not indicate any pain. O: Pt received supine in bed and agreeable to tx. Pt performed supine->sit at EOB with Minimal A. Seated at EOB pt demonstrated Fair sitting balance. Pt performed UB bathing, dressing and h/g with supervision. Pt returned to bed with Minimal A. A: PT pearl tx well. P: Cont pOC.
--- NOTE | 2018-03-30 13:39 | NUR ---
SHAVONNE NOTESSPOKE TO DR PIZANO , PATIENT STABLE FOR TRANSFER TO SNF. [facility] 3# [phone] ACCEPTED PATIENT TO ROOM 19B. CALLED [facility] TRIP# [id number] eta 2:20-2:45 PM. FERNANDA NUNES INFORMED
--- NOTE | 2018-03-30 14:07 | CONS ---
Date/Time of Note Date/Time of Note DATE: 03/30/18 TIME: 14:05 Assessment/Plan Assessment/Plan Hospital Course Patient is awake, in no distress looks comfortable no fevers overnight Microbiology: Blood culture on admission grew strep pneumonia, urine culture negative. Repeat blood cultures negative Physical examination: Fragile well-developed elderly woman who is awake in no distress. Head atraumatic normocephalic sclera nonicteric. Neck is supple. Chest rise symmetrical breath sounds diminished bases. Heart: S1-S2. Abdomen soft bowel sounds present extremities without cyanosis Assessment: 1. S/p sepsis 2. S/p pneumonia 3. S/p strep bacteremia 4. Resolving encephalopathy 5. Diabetes 6. Dysphagia with possible ongoing aspiration 7. Sacral lesion, doubt HSV Plan: The patient remains stable, completed antibiotics, will monitor Result Diagram: 03/29/18 0507 03/29/18 0507 Results 24hrs Laboratory Tests Test 03/29/18 17:24 03/29/18 21:19 03/30/18 08:11 03/30/18 12:24 Bedside Glucose 110 149 71 94 Consultation Date/Type/Reason Admit Date/Time Mar 16, 2018 at 11:24 Initial Consult Date Type of Consult id Requesting Provider: LORRAINE GERBER Exam/Review of Systems Vital Signs Vitals Vital Signs Date Temp Pulse Resp B/P (MAP) Pulse Ox O2 O2 Flow FiO2 Time Delivery Rate 03/30/18 98.5 61 16 152/70 96 Room Air 08:43 (97) 03/27/18 21 03:31 Intake and Output 03/29/18 03/29/18 03/30/18 1414:59 22:59 06:59 IntakeIntake Total 300 ml 300 ml BalanceBalance 300 ml 300 ml Medications Medications Current Medications Losartan Potassium (Cozaar) 100 mg DAILY PO Last administered on 03/30/18at 08 :49; Admin Dose 100 MG; Start 03/17/18 at 09:00 IV Flush (NS 3 ml) 3 ml PER PROTOCOL IV ; Start 03/16/18 at 11:30 Ondansetron HCl (Zofran Inj) 4 mg Q6H PRN IV NAUSEA AND/OR VOMITING; Start 03/16/18 at 11:30 Acetaminophen (Tylenol Tab) 650 mg Q6H PRN PO PAIN LEVEL 1-3 OR FEVER; Start 03/16/18 at 11:30 Docusate Sodium (Colace) 100 mg Q12H PRN PO CONSTIPATION; Start 03/16/18 at 11:30 Magnesium Hydroxide (Milk Of Mag) 30 ml DAILY PRN PO CONSTIPATION Last administered on 03/23/18at 00:41; Admin Dose 30 ML; Start 03/16/18 at 11:30 Enoxaparin Sodium (Lovenox) 30 mg DAILY SC Last administered on 03/30/18at 08:50; Admin Dose 30 MG; Start 03/17/18 at 09:00 Albuterol (Proventil 0.083% (Neb)) 2.5 mg Q2H RESP THERAPY PRN HHN SHORTNESS OF BREATH; Start 03/16/18 at 11:30 Insulin Aspart (Novolog Insulin Pen) NOVOLOG *MILD* ALGORITHM WITH MEALS BEDTIME SC Last administered on 03/26/18 12:40; Admin Dose 1 UNIT; Start 03/16/18 at 17:55 Miscellaneous Information 1 ea NOTE XX ; Start 03/16/18 at 14:30 Glucose (Glutose) 15 gm Q15M PRN PO DECREASED GLUCOSE; Start 03/16/18 at 14:30 Glucose (Glutose) 22.5 gm Q15M PRN PO DECREASED GLUCOSE; Start 03/16/18 at 14:30 Dextrose (D50w Syringe) 25 ml Q15M PRN IV DECREASED GLUCOSE; Start 03/16/18 at 14:30 Dextrose (D50w Syringe) 50 ml Q15M PRN IV DECREASED GLUCOSE; Start 03/16/18 at 14:30 Glucagon (Glucagen) 1 mg Q15M PRN IM DECREASED GLUCOSE; Start 03/16/18 at 14:30 Glucose (Glutose) 15 gm Q15M PRN BUCCAL DECREASED GLUCOSE; Start 03/16/18 at 14:30 Acetaminophen (Tylenol Supp) 650 mg Q6H PRN VT MILD PAIN(1-3) OR TEMP>38C; Start 03/17/18 at 01:00 Hydralazine HCl (Apresoline) 10 mg Q4H PRN IV elevated BP; Start 03/17/18 at 21:30 Insulin Glargine (Lantus) 8 units DAILY@2000 SC Last administered on 03/29/18 21:21; Admin Dose 8 UNITS; Start 03/18/18 at 20:00 Guaifenesin/ Dextromethorphan (Mucinex Dm) 1 tab BID PO Last administered on 03/30/18 08:48; Admin Dose 1 TAB; Start 03/18/18 at 16:30 Guaifenesin/ Dextromethorphan (Robitussin Dm Liquid Cup) 5 ml Q4H PRN PO cough; Start 03/18/18 at 16:00 Polyethylene Glycol (Miralax) 17 gm DAILY PO Last administered on 03/30/18 08:49; Admin Dose 17 GM; Start 03/20/18 at 12:30 Famotidine (Pepcid) 20 mg DAILY PO Last administered on 03/30/18 08:48; Admin Dose 20 MG; Start 03/21/18 at 09:00 Amlodipine Besylate (Norvasc) 10 mg DAILY PO Last administered on 03/30/18 08:49; Admin Dose 10 MG; Start 03/21/18 at 09:00 Metformin HCl (Glucophage) 500 mg BID WITH MEALS PO Last administered on 03/30/18 08:49; Admin Dose 500 MG; Start 03/21/18 at 18:05 Aspirin (Aspirin) 81 mg DAILY PO Last administered on 03/30/18 08:49; Admin Dose 81 MG; Start 03/27/18 at 09:00 Lorazepam (Ativan) 0.5 mg TID PRN PO ANXIETY; Start 03/26/18 at 16:30 Atorvastatin Calcium (Lipitor) 40 mg HS PO Last administered on 03/29/18 21:21; Admin Dose 40 MG; Start 03/27/18 at 21:00 Clopidogrel Bisulfate (plaVIX) 75 mg DAILY PO Last administered on 03/30/18 08:48; Admin Dose 75 MG; Start 03/30/18 at 09:00 YULISSA SHETH NP Mar 30, 2018 14:07
--- NOTE | 2018-03-30 14:30 | NUR ---
Patient with stable vitals. Called and gave report to Sania NUNES at [facility]. Son at bedside to assist with transfer. [facility] picked up and pt. Midline removed with tip intact. All belongings accounted for and returned to pt.
--- NOTE | 2018-03-30 16:08 | DS ---
Date/Time of Note Date/Time of Note DATE: 03/30/18 TIME: 16:08 Discharge Summary Admission/Discharge Info Admit Date/Time Mar 16, 2018 at 11:24 Discharge Date/Time Mar 30, 2018 at 14:30 Discharge Diagnosis 1. Subacute lateral left thalamic lacunar infarct, chronic bilateral basal ganglier lacunar infarcts, right leg weakness 2. Bacteremia- resolved 3. Altered toxic encephalopathy secondary to Pneumonia- resolved 4. Dysphagia 5. Sepsis secondary to Right perihilar and LL Pneumonia- resolved 6. CAMPOS- resolved 7. Diabetes Mellitus 8. HTN 9. Gait instability Patient Condition: Stable Consults Neurology- Dr. Quintanilla Infectious disease- Dr. Matamoros Procedures PROCEDURE: US carotid arteries. CLINICAL INDICATION: Dizziness. TECHNIQUE: Multiple sonographic images of the carotid arteries and vertebral arteries were obtained utilizing dinero scale, duplex, and color-flow imaging. The images were reviewed on a PACS workstation. COMPARISON: No prior studies are available for comparison. FINDINGS: Evaluation of the right carotid bifurcation region reveals mild atherosclerotic disease. Evaluation of the left carotid bifurcation region reveals mild atherosclerotic disease. There is antegrade flow within the vertebral arteries bilaterally. RIGHT CAROTID MEASUREMENTS: Common Carotid Artery 41 (cm/sec) Internal Carotid Artery 46 (cm/sec) External Carotid Artery 55 (cm/sec) Vertebral Artery 46 (cm/sec) Internal Carotid/Common Carotid 1.1 LEFT CAROTID MEASUREMENTS: Common Carotid Artery 48 (cm/sec) Internal Carotid Artery 71 (cm/sec) External Carotid Artery 60 (cm/sec) Vertebral Artery 35 (cm/sec) Internal Carotid/Common Carotid 1.5 Validated velocity measurements with angiographic measurements. Velocity criteria are extrapolated from diameter data as defined by the Society of R adiologists in Ultrasound Consensus Conference. Radiology 2003; 229;340-346. This study does indirectly reference the measurement of the distal ICA diameter as the denominator for stenosis measurement. IMPRESSION: 1. Less than 50% stenosis bilaterally in the internal carotid arteries. 2. Normal antegrade flow in the vertebral arteries bilaterally. RPTAT: QQ .Nazario Larry MD, Date Time Electronically viewed and signed by .Nazario Larry MD, on 03/27/2018 09:57 . PROCEDURE: CT ANGIOGRAM HEAD AND NECK CLINICAL INDICATION: 87 years of age, female. Recent stroke. Evaluate the posterior circulation. TECHNIQUE: Direct spiral 0.63 mm axial sections were obtained through the cervical and intracranial vasculature with the use of 100 mL of Visipaque 320. Coronal and sagittal reformatted images were obtained from the axial source images. Images were reviewed on a high-resolution PACS workstation. 3-D post processing was performed. Maximum intensity projection images were reconstructed on PACS. DICOM images are available. CTDIvol: 20 and 8 mGy. DLP: 309 mGy-cm. One or more of the following dose reduction techniques were used: - Automated exposure control. - Adjustment of the mA and/or kV according to patient size. - Use of iterative reconstruction technique. COMPARISON: Brain CT performed earlier on the same date. FINDINGS: CTA NECK/ EXTRACRANIAL ANGIOGRAM: Proximal great vessels: Aortic arch has been excluded from the imaging field. Great vessel origins are excluded from the imaging field. There is atherosclerosis of the great vessels. No significant stenosis or aneurysm is identified where imaged. Cervical vessels: Right carotid artery: Moderate calcified atherosclerotic plaque at the carotid bulb and in the proximal ICA. There is mild 25% stenosis of the cervical ICA where the patent lumen measures 3.5 mm. There is mild contour irregularity and ectasia of the mid cervical ICA that may be due to fibromuscular dysplasia (2/281). Negative for dissection. Left carotid artery: Calcified atherosclerotic plaque at the carotid bulb and in the proximal ICA without stenosis. No flow-limiting stenosis or dissection. No aneurysm. Right vertebral artery: Right vertebral artery is dominant. Mild vascular calcification of the V3 segment without stenosis. No flow-limiting stenosis or dissection. No aneurysm. Left vertebral artery: No flow-limiting stenosis or dissection. No aneurysm. Additional comment: None. CTA HEAD/ INTRACRANIAL ANGIOGRAM: Anterior circulation: Right: Moderate vascular calcification of the cavernous carotid artery with a pproximately 25% stenosis of the supraclinoid ICA. Contour irregularity of the M1 and distal branches of the MCA with mild in tandem stenoses likely due to intracranial atherosclerosis. There is a focal severe stenosis of a distal right MCA branch in the inferior division. No other flow-limiting stenosis is identified. No aneurysm or vascular malformation is identified. Left: Moderate vascular calcification of the cavernous carotid artery with mild less than 25% stenosis. Contour irregularity of the M1 and distal branches of the MCA with mild in tandem stenoses likely due to intracranial atherosclerosis. No flow-limiting stenosis or aneurysm is identified. No vascular malformation is identified. Posterior circulation: Contour irregularity of bilateral posterior cerebral arteries with in tandem mild and moderate stenosis is likely due to intracranial atherosclerosis. Cerebe llar arteries are patent. No flow-limiting stenosis or aneurysm is identified. No vascular malformation is identified. [place]: Anterior communicating artery is patent. Right A1 segment is hypoplastic or absent. There may be a small patent left posterior communicating artery. Right posterior communicating artery is not visualized. Dural venous sinuses: Patent. Additional comment: None. BRAIN (POST-CONTRAST): Ventricles are prominent proportionate to the sulci in keeping with moderate dif fuse cerebral tissue loss. There are nonspecific patchy low density changes in the periventricular deep white matter likely due to chronic small vessel ischemia. Focal hypodensity in the left thalamus represents an age indeterminate lacunar infarct. Negative for evidence of large territory vascular infarct. Enhancement: No abnormal intraparenchymal enhancement. SOFT TISSUE NECK: Soft tissues: 0.9 cm nodule right thyroid gland does not require further imaging in a patient of this age. Lung apices: Right greater than left pleural effusions layer dependently at bilateral lung apices. Bones: Osteopenia and mild degenerative changes in the spine. Additional comment: There are dental cavities and there is periodontal disease. IMPRESSION: 1. Focal severe stenosis of a distal branch of the right MCA in the inferior division in the sylvian fissure is likely due to intracranial atherosclerosis. No other flow-limiting stenoses or occlusions are identified in the anterior or posterior circulations. There is contour irregularity with in tandem mild and moderate stenoses of the MCA and [employer] branches likely due to atherosclerosis. 2. Focal 25% stenosis of the right cervical ICA due to atherosclerotic plaque and focal 25% stenosis of the right supraclinoid ICA due to atherosclerosis. 3. Contour irregularity of the right mid ICA with focal ectasia may be due to fibromuscular dysplasia. Negative for dissection or aneurysm. 4. Nonspecific patchy low density changes in the periventricular deep white matter likely due to chronic small vessel ischemia. Age indeterminate lacunar infarct left thalamus. Negative for CT evidence of large territory vascular infarct. If there is concern for recent ischemia, consider brain MRI for further evaluation. 5. Right greater than left bilateral pleural effusions are incompletely imaged. Measurements of cervical internal carotid artery stenosis were performed according to NASCET criteria. Direct measurements of vessel diameters was made in reference to measurements of the distal internal carotid artery diameter. RPTAT: HCTS Physician Leigh Date Time Electronically viewed and signed by Physician Leigh on 03/27/2018 23:45 PROCEDURE: CT Brain without contrast. CLINICAL INDICATION: 87-year-old female. Stroke versus TIA. TECHNIQUE: A CT of the brain was performed on a multi-slice CT scanner utilizing axial imaging from the skull base through the vertex without IV contrast. Multiplanar reformatted images were made. Images were reviewed on a PACS workstation. One or more the following dose reduction techniques were utilized: Automated exposure control, adjustment of mA/ or kV according to patient's size, or use of iterative reconstruction technique. DICOM images are available for review. The CTDIvol is 39.64 mGy and the DLP is or 634.23 mGycm. COMPARISON: CT brain 03/16/2018. FINDINGS: Cerebral and cerebellar volume loss. Stable ventricles. No acute intra-axial or extra-axial hemorrhage. No subdural collection. Confluent low attenuation changes are present throughout the white matter of the left and right cerebral hemispheres. Lacunar infarct lateral left thalamus, more apparent than on the previous exam and likely subacute. Bilateral basal ganglia lacunar infarcts. No asymmetric sulcal effacement. No hyperdense MCA or basilar artery sign. Calcified plaque left and right carotid siphons and intradural vertebral arteries. Visualized paranasal sinuses are clear. Mastoid air cells are clear. IMPRESSION: 1. Subacute lateral left thalamic lacunar infarct, more apparent than on the 03/16/2018 exam. 2. Chronic bilateral basal ganglia lacunar infarcts. 3. Chronic bilateral cerebral microvascular ischemic disease. RPTAT: HLRS Physician Laron Date Time Electronically viewed and signed by Physician Laron on 03/26/2018 23:56 PROCEDURE: CT Chest, Abdomen and Pelvis with contrast. CLINICAL INDICATION: Pain, epidural abscess. TECHNIQUE: A CT scan of the chest, abdomen and pelvis was performed with intravenous contrast. The patient was scanned following the uncomplicated intravenous administration of 100 cc of Omnipaque 300. Coronal and sagittal reformatted images were obtained from the axial source images. DICOM images are available. Images were reviewed on a high-resolution PACS workstation. CTDIvol: 6.57 mGy. DLP: 455.78 mGy-cm. One or more of the following dose reduction techniques were used: - Automated exposure control. - Adjustment of the mA and/or kV according to patient size. - Use of iterative reconstruction technique. COMPARISON: None. FINDINGS: Chest: The thoracic aorta and main pulmonary artery are normal in caliber. There are moderate aortic calcifications. No suspicious thyroid lesion is seen. There is no thoracic lymphadenopathy. The heart is normal in size. No pericardial effusion is noted. There are small to moderate right and small left pleural effusions. There is dependent atelectasis and calcified granulomas in both lower lobes. Patchy ground-glass opacities are noted in the posterior upper and lower lobes. There is complete right middle lobe atelectasis. No pneumothorax is identified. There is no suspicious osseous lesion. Intraosseous hemangiomas are identified in the T11 and T12 vertebral bodies. No spinal abscess is identified. Abdomen and pelvis: The liver contour is nodular, consistent with cirrhosis. There is a nonspecific 8 mm low-attenuation lesion in the left hepatic lobe. The gallbladder is normal in appearance. The common bile duct is not dilated. The spleen is not enlarged. No pancreatic lesion is identified and there is no pancreatic ductal dilatation. The adrenal glands are unremarkable. The kidneys are normal in size. There is no perinephric fat stranding. No hydronephrosis is seen. There is scattered bilateral renal cysts measuring up to 3 mm bilaterally. The small and large bowel are normal in caliber. There is no bowel wall thickening. There is oral contrast and stool throughout the colon. The appendix is not identified. The urinary bladder is unremarkable. The pelvic organs are within normal limits. No lymphadenopathy is identified. There is no ascites. No pneumoperitoneum is seen. There are moderate to severe arterial calcifications. Minimal subcutaneous air in the anterior right pelvic wall probably relates to a subcutaneous injection. There is no suspicious osseous lesion. There are healed bilateral pubic fractu res. A left-sided trochanteric femoral nail is partially imaged. No spinal abscess is identified. IMPRESSION: No CT evidence of a spinal abscess. If there is concern for a subtle epidural collection, further evaluation with contrast enhanced MRI may be useful. Small to moderate right and small left pleural effusions. Patchy ground-glass opacities in the posterior upper and lower lobes, possibly representing atelectasis and/or pneumonia. Complete right middle lobe atelectasis. Cirrhosis. Nonspecific 8 mm low-attenuation lesion in the left hepatic lobe, possibly a cyst or hemangioma. This could be further evaluated with ultrasound if clinically warranted. Moderate to severe atherosclerotic arterial calcifications. Healed bilateral pubic fractures and internal fixation of the left hip. RPTAT: HTAR .Zelalem Lewis MD, Date Time Electronically viewed and signed by .Zelalem Lewis MD, on 03/25/2018 19:20 PROCEDURE: US Lower extremity venous. CLINICAL INDICATION: Bilateral lower extremity pain TECHNIQUE: Multiple sonographic images of the bilateral lower extremity deep venous systems obtained utilizing grayscale, color-flow, compressive sonography and doppler imaging with augmentation. The images were reviewed on a PACS workstation. COMPARISON: None. FINDINGS: There is normal compressibility and flow within the bilateral common femoral, superficial femoral, posterior tibial, peroneal and popliteal veins. IMPRESSION: No sonographic evidence for deep venous thrombosis. RPTAT: HJBB Physician Loida Date Time Electronically viewed and signed by Physician Loida on 03/26/2018 02:17 PROCEDURE: CT without contrast CLINICAL INDICATION: Decreased range of motion of the right lower extremity. TECHNIQUE: Spiral CT images through the 18.31 without the use of contrast. Multiplanar reconstructions. The total exam CTDI equals 623.87 mGy and the total exam DLP equals 18.31 mGy-cm. 623.87. One or more of the following dose reduction techniques were used: automated exposure control, adjustment of the mA and/or kV according to patient size, or use of iterative reconstruction technique. DICOM images are available. COMPARISON: Correlated with CT pelvis of 03/22/2018. FINDINGS: BONES: Healed fractures of the right superior and inferior pubic rami. No acute fracture or dislocation. JOINTS: Mild to moderate narrowing of the posterior superior right hip joint. SOFT TISSUES: Subcutaneous stranding lateral to the right tensor fascia izzy and lateral gluteal muscles. IMPRESSION: 1. No acute fracture or dislocation. 2. Mild to moderate narrowing of the posterior superior right hip joint. 3. Subcutaneous stranding lateral to the right tensor fascia izzy and lateral gluteal muscles. RPTAT: HRSR Physician Trisha Date Time Electronically viewed and signed by Physician Trisha on 03/23/2018 02:56 PROCEDURE: CT pelvis without intravenous contrast CLINICAL INDICATION: Decreased range of motion right lower extremity. COMPARISON: X-ray pelvis 03/16/2018. TECHNIQUE: Axial images of the pelvis with sagittal and coronal reconstructions. DICOM images are available. DOSE ESTIMATE: CTDI vol = 5.9 mGy. DLP = 174.92 mGy-cm. One or more of the following dose reduction techniques were used: automated exposure control, adjustment of the mA and/or kV according to patient size, or use of iterative reconstruction. FINDINGS: Limitations: The absence of intravenous contrast limits evaluation of solid organ parenchyma. Urinary tract: No suspicious kidney lesion. No nephrolithiasis or hydronephrosis. The bladder is decompressed. Pelvic organs: Unremarkable. Bowel: Oral contrast present in the ascending colon through rectum. No bowel obstruction. The appendix is not seen.. Peritoneum: Small amount of free intrapelvic fluid. Vessels: Atherosclerotic calcifications. Bones: Healed fractures of the bilateral superior and inferior pubic rami. Healed fracture of the anterior S3, S4, and S5 vertebral bodies. No acute fracture . ORIF changes of the left hip with intramedullary heather and fixation screw transfixing a healed fracture of the proximal left femur. Soft tissues: Stranding of the subcutaneous fat overlying the bilateral lateral gluteal muscles. Additional comment: None. IMPRESSION: 1. No acute fracture. 2. Healed fractures of the bilateral superior and inferior pubic rami. 3. Healed fractures of the anterior S3 - S5 vertebral bodies. 4. ORIF changes of the left femur with intramedullary heather and fixation screw transfixing a healed fracture of the proximal left femur. 5. Small amount of free pelvic fluid. 6. Subcutaneous stranding overlying the bilateral lateral gluteal muscles. RPTAT: HRSR Physician Trisha Date Time Electronically viewed and signed by Physician Trisha on 03/23/2018 02:48 PROCEDURE: Video-fluoroscopy swallowing study. CLINICAL INDICATION: Dysphagia. TECHNIQUE: Fluoroscopic guided video swallowing study was done in conjunction with the speech therapist. The study was confined to the oral, pharyngeal, and cervical phases of the swallowing mechanism. 2.6 minutes of fluoroscopy time was used. 17 series of images were obtained. COMPARISON: No prior study is available for comparison. FINDINGS: There is penetration without aspiration during swallowing. IMPRESSION: 1. Penetration with no aspiration during swallowing. 2. Please refer to the speech therapist's recommendations for future feedings. RPTAT: QQ .Nazario Larry MD, Date Time Electronically viewed and signed by .Nazario Larry MD, on 03/19/2018 16:25 PROCEDURE: CT Brain without contrast. CLINICAL INDICATION: Altered mental status TECHNIQUE: A CT of the brain was performed utilizing axial imaging from the skull base through the vertex without IV contrast. Multiplanar reformatted images were made. Images were reviewed on a PACS workstation. CTDIvol: 39.64 mGy DLP: 634.23 mGycm DICOM images are available. One or more of the following dose reduction techniques were utilized: 1.) Automated exposure control 2.) Adjustment of the mA +/- kV according to patient's size 3.) Use of iterative reconstruction technique. COMPARISON: CT BRAIN 06/02/2013 FINDINGS: CALVARIUM: Regional bones are intact. SINUSES: Paranasal sinuses and mastoid air cells are clear. BRAIN: There is moderate cerebral volume loss and there is confluent diminished attenuation throughout the cerebral white matter consistent with advanced chronic small vessel ischemic changes. Atherosclerotic calcification of the carotid siphons. Dinero - white differentiation is maintained and there is no evidence of an acute or subacute territorial infarction. No intracranial mass or evidence of hemorrhage. Ventricular prominence is in keeping with degree of sulcal and sylvian fissure widening. IMPRESSION: 1. No acute intracranial abnormality. 2. Generalized volume loss, atherosclerosis, advanced chronic small vessel ischemic changes. RPTAT: HJBB Physician Loida Date Time Electronically viewed and signed by Physician Loida on 03/16/2018 09:20 PROCEDURE: XR Chest. CLINICAL INDICATION: Chest pain TECHNIQUE: Single frontal view of the chest was obtained COMPARISON: None FINDINGS: The heart is enlarged. The thoracic aorta is calcified. There is extensive right perihilar and right lower lobe consolidation. There is a small amount of fluid in the right major fissure. There is no pneumothorax. RPTAT: AA IMPRESSION: Extensive right perihilar and right lower lobe consolidation with a small amount of fluid in the right major fissure. Mild cardiomegaly. Calcified aorta consistent with atherosclerotic disease. .Vishnu Thompson MD, MD Date Time Electronically viewed and signed by .Vishnu Thompson MD, MD on 03/16/2018 09:02 PROCEDURE: XR Pelvis 1 View. CLINICAL INDICATION: Pelvic pain and trauma. TECHNIQUE: Single AP view of the pelvis. COMPARISON: No prior studies are available for comparison. FINDINGS: Fracture: Deformities of the bilateral superior and inferior pubic rami that are likely the sequelae of old, healed trauma. Left hip fracture fixation. The underlying fracture site is not well visualized and may be healed. Destructive lesions: None. Interosseous spaces: Moderate narrowing of bilateral hip joints. Degenerative changes in the lower lumbar spine and pubic symphysis. Soft tissues: Vascular calcifications in the pelvis in both thighs. Other: Osteopenia. IMPRESSION: Deformities of the bilateral superior and inferior pubic rami that may be the sequelae of old, healed trauma. Superimposed acute trauma could be difficult to detect against a background of old, healed trauma. If there is high clinical suspicion for acute traumatic injury further characterization with CT should be considered. Left hip fracture fixation. The underlying fracture site is not well visualized and may be healed. Osteopenia. Moderate osteoarthritis of both hips. Degenerative changes in the lower lumbar spine and pubic symphysis. Vascular calcifications. If there is high clinical suspicion for acute traumatic injury, further sidney luation with CT should be considered. RPTAT: AA .Maxx Farris MD, MD Date Time Electronically viewed and signed by .Maxx Farris MD, MD on 03/16/2018 09:38 Hx of Present Illness 87 yo F with PMH Dm and HTN presented to ED for altered mental status. Patient is Indonesian speaking but not really responding. History obtained from ED physician and son. Per sone patient has been more weak lately which has been causing recurrent falls. Patient fell last night and has been more confused. She resides in an assisted living and usually able to care for herself. EMS was called secondary to patient being unable to get up from toilet due to weakness and AMS. Unable to obtain full HPI given AMS. Hospital Course Patient is a Indonesian female with past medical history significant for diabetes, hypertension who originally presented to [facility] for altered mental status. Patient was diagnosed with pneumonia and subsequent bacteremia. Patient was seen by infectious disease and put on appropriate antibiotics and will continue ceftriaxone until March 29 2018, patient also subsequently had some hip discomfort and a CT of the pelvis and hip was done which found some fluid stranding that was nonspecific. Infectious disease consider this possible sequelae to patient's new onset shingles versus other cellulitis and stated that she will be put on doxycycline as well to finish until March 29, 2018. Patient has no symptoms whatsoever at this time and feels well with just generally weak. Patient was diagnosed with shingles by infectious disease while in-house and started on valacyclovir. Patient was deemed not infectious and airborne precautions were taken off on March 25, 2018 by infectious disease. Patient started to complain of right lower extremity weakness and CT head was performed which showed subacute infarct. Neurology was consulted and patient was started on aspirin and Plavix. MRI was unable to be performed given patient has metal hip replacement. Son requested ARU evaluation but patient did not qualify. She was accepted to SNF and discussion was held with son about importance of transitioning her out of acute hospital setting to SNF where she will able to undergo more therapy. On day of discharge, patients vitals were stable and physical exam unremarkable besides weakness of RLE. Patient was discharged to shelter facility in stable condition. Home Meds Active Scripts Metformin* (Glucophage*) 500 Mg Tab, 500 MG PO BID WITH MEALS for 30 Days, TAB Prov:LORRAINE GERBER 03/25/18 Insulin Aspart* (Novolog Insulin Pen*) 100 Unit/Ml Soln, 0 UNIT SC WITH MEALS BEDTIME for 30 Days Prov:LORRAINE GERBER 03/25/18 Amlodipine Besylate* (Amlodipine Besylate*) 10 Mg Tablet, 10 MG PO DAILY for 30 Days, TAB Prov:LORRAINE GERBER 03/25/18 Reported Medications Alendronate Sodium* (Fosamax*) 70 Mg Tablet, 70 MG PO Q7D, #4 TAB 03/16/18 Losartan Potassium* (Losartan Potassium*) 100 Mg Tablet, 100 MG PO DAILY, TAB 03/16/18 Discontinued Reported Medications Glipizide/Metformin HCl (Glipizide-Metformin 5-500 mg) 1 Each Tablet, 1 EACH PO DAILY, TAB 03/16/18 Linagliptin-Metformin (Jentadueto) 2.5-500 Mg Tablet, 1 TAB PO DAILY, TAB 03/16/18 Amlodipine Besylate/Benazepril (Amlodipine-Benazepril 5-20 mg) 1 Each Capsule, 1 EACH PO DAILY, CAP 03/16/18 Follow-up Plan 1. Continue all medications as prescribed 2. you will need to continue working with physical therapy given your right leg weakness 3. If you experiencing any blood in stool or bleeding that will not stop, please go to your closest emergency department 4. If symptoms return or worsen, please go to your nearest emergency department Primary Care Provider Not On Staff Doctor Time spent on discharge: > 30 minutes Pending Labs Laboratory Tests Test 03/29/18 17:24 03/29/18 21:19 03/30/18 08:11 03/30/18 12:24 Bedside 110 149 71 94 Glucose mg/dL (70-220) mg/dL (70-220) mg/dL (70-220) mg/dL (70-220) LIS PIZANO MD Mar 30, 2018 16:08
== END 2018-03-30 14:30 | DRG 871 ==
LOC: E/R 08:22 → TEL 11:24 → PP2 03-20 11:39
PROVIDERS: ADMIT Internal Medicine; ATTEND Internal Medicine
DX: A41.9 Sepsis, unspecified organism (principal); J18.9 Pneumonia, unspecified organism; G92 Toxic encephalopathy; I63.9 Cerebral infarction, unspecified; E87.2 Acidosis; N17.9 Acute kidney failure, unspecified; R65.20 Severe sepsis without septic shock; E11.9 Type 2 diabetes mellitus without complications; I10 Essential (primary) hypertension; R26.9 Unspecified abnormalities of gait and mobility; E87.6 Hypokalemia; B02.9 Zoster without complications; R13.10 Dysphagia, unspecified; R53.1 Weakness
CPT/HCPCS: 36415; 70450; 70496; 70498; 71045; 71260; 72170; 72192; 73700; 74177; 74230; 80048; 80053; 80061; 80069; 80202; 81001; 82962; 83036; 83605; 83735; 84100; 84132; 84484; 85025; 85651; 86140; 87040; 87086; 92526; 92610; 92611; 93005; 93306; 93880; 93970; 96374; 96375; 97110; 97162; 97167; 97530; 97535; J0295; J0456; J0692; J0696; J1650; J1815; J3370; J3475; J3480; J7030; J7042; J7050; Q9967

== ENCOUNTER 2018-05-21 21:43 | Inpatient (IN) | payer MEDICARE, BC ==
[~2018-05-21] VITALS: Ht 165.1 cm; Wt 57.6 kg
[~2018-05-21 21:43] MED LIST: ALEN70TA5 PO; AMLO-147 PO; LOSA100T15 PO; METF-849 PO; NOVO3I SC
[2018-05-21 22:29] VITALS: PULSE 93
[2018-05-21 22:30] VITALS: Ht 165.1 cm; Wt 57.6 kg
[2018-05-21 22:45] VITALS: BP 140/71; RESP 16
[2018-05-21] MEDS ORDERED: CLOP75TA27 PO (23:24)
[2018-05-21] MEDS ORDERED: DOCU-159 PO (23:26)
[2018-05-21] MEDS ORDERED: MEMA21CA PO (23:29)
[2018-05-21] MEDS ORDERED: VALS160T27 PO (23:29)
[2018-05-21] MEDS ORDERED: SIN50200 PO (23:29)
[2018-05-21] MEDS ORDERED: BENA20TA4 PO (23:38)
[2018-05-21] MEDS ORDERED: AMLO2.5T78 PO (23:38)
[2018-05-21] MEDS: DEXTROSE 5%-0.45% NACL 1,000 ML IV SCH (23:50)
--- NOTE | 2018-05-21 23:55 | HP ---
Date/Time of Note Date/Time of Note DATE: 05/21/18 TIME: 23:55 Assessment/Plan VTE Prophylaxis Pharmacological prophylaxis: heparin Assessment/Plan Assessment/Plan 1. Cholelithiasis with possible cholecystitis and choledocholithiasis -Keep n.p.o. with IV fluid -MRCP -GI and surgical consult 2. Parkinson's disease: Continue home med 3. Hypertension: BP was in acceptable range. Continue home med 4. Type 2 diabetes: Insulin while in-house 5. History of CVA: Continue antiplatelet and statin 6. Normocytic anemia: Likely of chronic disease. Monitor closely HPI/ROS Admit Date/Time Admit Date/Time May 21, 2018 at 22:16 Hx of Present Illness This is an 88-year-old Faroese speaking female with a history of hypertension, type 2 diabetes, GERD, Parkinson's disease who initially presented to an outside hospital for abdominal pain a few days ago. At that time she was found to have abnormal LFTs with ultrasound showing cholelithiasis. Today, LFTs slightly worsened. On palpation of her abdomen, no grimaces noted. She was diagnosed with cholelithiasis with possible choledocholithiasis. She was also hypokalemic at the outside hospital. She was transferred to [facility] for insurance reasons. PMH/Family/Social Past Medical History Past Surgical History Past Surgical Hx: other (see hpi) Family History Significant Family History: no pertinent family hx Social History Alcohol Use: other Smoking Status: Unknown if ever smoked Drug Use: other Coded Allergies: No Known Allergy (Unverified , 03/16/18) Past Surgical History Past Surgical Hx: other Family History Significant Family History: no pertinent family hx Exam/Review of Systems Vital Signs Vitals Vital Signs Date Temp Pulse Resp B/P (MAP) Pulse Ox O2 O2 Flow FiO2 Time Delivery Rate 05/21/18 98.1 16 140/71 99 Room Air 22:45 (94) 05/21/18 93 22:29 Exam Constitutional: other (No acute distress noted. Flat affect) Head: normocephalic, atraumatic Eyes: EOMI, PERRL Respiratory: clear to auscultation, normal air movement Cardiovascular: regular rate and rhythm Gastrointestinal: soft, non-tender Extremities: normal pulses TAWANNA MONTERO MD May 21, 2018 23:55
[2018-05-22] VITALS (10 sets, daily range): BP systolic 117–131; BP diastolic 62–65; PULSE 65–86; RESP 16–20
[2018-05-22] MEDS ORDERED: NACL 0.9% 3 ML SYG IV SCH
[2018-05-22] MEDS ORDERED: ALBUTEROL/IPRATROPIUM (NEB) 3 ML AMP HHN PRN
[2018-05-22] MEDS ORDERED: ONDANSETRON 4 MG INJ IV PRN
[2018-05-22] MEDS ORDERED: HYDROCODONE/APAP (5/325) TAB PO PRN
[2018-05-22] MEDS ORDERED: ACETAMINOPHEN 325 MG TAB PO PRN
[2018-05-22] MEDS ORDERED: DEXTROSE 50% 50 ML SYRINGE IV PRN ×2 (01:00)
[2018-05-22] MEDS ORDERED: GLUCAGON 1 MG INJ IM PRN (01:00)
[2018-05-22] MEDS ORDERED: GLUCOSE GEL 15 GRAM TUBE PO PRN ×2 (01:00)
[2018-05-22] MEDS: INSULIN ASPART [NOVOLOG] 3 ML PEN SC SCH ×6 (01:00→21:05)
[2018-05-22] MEDS ORDERED: GLUCOSE GEL 15 GRAM TUBE BUCCAL PRN (01:00)
[2018-05-22] MEDS ORDERED: POTASSIUM CHLORIDE 100 ML IVPB ONE (03:30)
[2018-05-22] MEDS ORDERED: POTASSIUM CHLORIDE (SR) 20 MEQ TAB PO ONE (05:21)
[2018-05-22] MEDS ORDERED: CARBIDOPA/LEVODOPA 50-200 (CR) TAB PO SCH (09:00)
[2018-05-22] MEDS: AMLODIPINE 10 MG TAB PO SCH (09:58)
[2018-05-22] MEDS: CARBIDOPA/LEVODOPA 25-100 (CR) TAB PO SCH ×3 (09:59→21:03)
[2018-05-22] MEDS: HEPARIN 5,000 UNIT/1 ML VIAL SC SCH ×2 (10:19→21:06)
[2018-05-22] MEDS: DEXTROSE 5%-0.45% NACL 1,000 ML IV SCH (14:08)
--- NOTE | 2018-05-22 15:24 | PN ---
Date/Time of Note Date/Time of Note DATE: 05/22/18 TIME: 15:23 Assessment/Plan VTE [place]axis [place] [facility]: 8 [place] applied [place] [facility] Yes Pharmacological prophylaxis: NA/contraindicated Pharm contraindication: surgical contra Lines/Catheters IV [facility] Type (from [facility]): Peripheral IV Urinary Cath still in place: No Assessment/Plan Hospital Course 1. Cholelithiasis with possible cholecystitis and choledocholithiasis -Keep n.p.o. with IV fluid -MRCP -GI consultation obtained, surgery consultation as needed 2. Parkinson's disease with dementia: Continue home med 3. Hypertension: BP was in acceptable range. Continue home med 4. Type 2 diabetes: Insulin while in-house 5. History of CVA: Continue antiplatelet and statin 6. Normocytic anemia: Likely of chronic disease. Monitor closely Prophylaxis: SCDs Result Diagram: 05/22/18 0049 05/22/18 0049 Results 24hrs Laboratory Tests Test 05/22/18 00:49 05/22/18 02:11 05/22/18 05:29 05/22/18 09:51 White Blood Count 5.9 Red Blood Count 3.15 L Hemoglobin 10.2 L Hematocrit 28.9 L Mean Corpuscular Volume 91.7 Mean Corpuscular 32.4 Hemoglobin Mean Corpuscular 35.3 Hemoglobin Concent Red Cell Distribution 15.9 #H Width Platelet Count 145 # Mean Platelet Volume 11.5 H Immature Granulocytes % 0.500 H Neutrophils % 68.0 Lymphocytes % 21.2 Monocytes % 8.2 Eosinophils % 1.4 Basophils % 0.7 Nucleated Red Blood 0.0 Cells % Immature Granulocytes # 0.030 Neutrophils # 4.0 Lymphocytes # 1.2 Monocytes # 0.5 Eosinophils # 0.1 Basophils # 0.0 Nucleated Red Blood 0.0 Cells # Sodium Level 137 Potassium Level 3.2 L Chloride Level 103 Carbon Dioxide Level 25 Anion Gap 9 Blood Urea Nitrogen 14 Creatinine 0.53 Est Glomerular Filtrat Rate mL/min Glucose Level 129 Calcium Level 8.0 L Total Bilirubin 4.5 H Direct Bilirubin 3.60 H Indirect Bilirubin 0.9 Aspartate Amino 332 H Transf (AST/SGOT) Alanine 212 H Aminotransferase (ALT/SG PT) Alkaline Phosphatase 1059 H Total Protein 6.9 Albumin 2.9 L Globulin 4.00 H Albumin/Globulin Ratio 0.72 Bedside Glucose 131 147 145 Test 05/22/18 12:21 Bedside Glucose 151 Subjective 24 Hr Interval Summary Subjective hx not possible: pt non-verbal Exam/Review of Systems Exam Vitals Vital Signs Date Temp Pulse Resp B/P (MAP) Pulse Ox O2 O2 Flow FiO2 Time Delivery Rate 05/22/18 83 12:00 05/22/18 97.5 20 117/65 97 Nasal 11:24 (82) Cannula Constitutional: non-verbal Respiratory: clear to auscultation Cardiovascular: regular rate and rhythm Gastrointestinal: soft; No distended Musculoskeletal: nl extremities to inspection Results Results 24hrs Laboratory Tests Test 05/22/18 00:49 05/22/18 02:11 05/22/18 05:29 05/22/18 09:51 White Blood Count 5.9 Red Blood Count 3.15 L Hemoglobin 10.2 L Hematocrit 28.9 L Mean Corpuscular Volume 91.7 Mean Corpuscular 32.4 Hemoglobin Mean Corpuscular 35.3 Hemoglobin Concent Red Cell Distribution 15.9 #H Width Platelet Count 145 # Mean Platelet Volume 11.5 H Immature Granulocytes % 0.500 H Neutrophils % 68.0 Lymphocytes % 21.2 Monocytes % 8.2 Eosinophils % 1.4 Basophils % 0.7 Nucleated Red Blood 0.0 Cells % Immature Granulocytes # 0.030 Neutrophils # 4.0 Lymphocytes # 1.2 Monocytes # 0.5 Eosinophils # 0.1 Basophils # 0.0 Nucleated Red Blood 0.0 Cells # Sodium Level 137 Potassium Level 3.2 L Chloride Level 103 Carbon Dioxide Level 25 Anion Gap 9 Blood Urea Nitrogen 14 Creatinine 0.53 Est Glomerular Filtrat Rate mL/min Glucose Level 129 Calcium Level 8.0 L Total Bilirubin 4.5 H Direct Bilirubin 3.60 H Indirect Bilirubin 0.9 Aspartate Amino 332 H Transf (AST/SGOT) Alanine 212 H Aminotransferase (ALT/SG PT) Alkaline Phosphatase 1059 H Total Protein 6.9 Albumin 2.9 L Globulin 4.00 H Albumin/Globulin Ratio 0.72 Bedside Glucose 131 147 145 Test 05/22/18 12:21 Bedside Glucose 151 Medications Medication Current Medications Dextrose/Sodium Chloride 1,000 ml @ 70 mls/hr [id number] IV Last administered on 05/21/18at 23:50; Admin Dose 70 MLS/HR; Start 05/21/18 at 23:50 IV Flush (NS 3 ml) 3 ml PER PROTOCOL IV ; Start 05/22/18 at 00:00 Ondansetron HCl (Zofran Inj) 4 mg Q6H PRN IV NAUSEA/VOMITING; Start 05/22/18 at 00:00 Acetaminophen (Tylenol Tab) 650 mg Q6H PRN PO .PAIN 1-3 OR TEMP Last administered on 05/22/18at 05:37; Admin Dose 650 MG; Start 05/22/18 at 00:00 Acetaminophen/ Hydrocodone Bitart ([place] (5/325)) 1 tab Q6H PRN PO .PAIN 4-6; Start 05/22/18 at 00:00 Heparin Sodium (Porcine) (Heparin (5000 Units/1ml)) 5,000 unit Q12 SC Last administered on 05/22/18at 10:19; Admin Dose 5,000 UNIT; Start 05/22/18 at 09:00 Albuterol/ Ipratropium (Duoneb) 3 ml Q2H RESP THERAPY PRN HHN SHORTNESS OF BREATH; Start 05/22/18 at 00:00 Amlodipine Besylate (Norvasc) 10 mg DAILY PO Last administered on 05/22/18at 09:58; Admin Dose 10 MG; Start 05/22/18 at 09:00 Miscellaneous Information 21 mg DAILY PO ; Start 05/22/18 at 09:00; Status UNV Insulin Aspart (Novolog Insulin Pen) NOVOLOG *MILD* ALGORI... Q4 SC Last administered on 05/22/18at 13:52; Admin Dose 1 UNIT; Start 05/22/18 at 01:00 Carbidopa/Levodopa (Sinemet Cr (25/ 100)) 2 tab TID PO Last administered on 05/22/18at 12:33; Admin Dose 2 TAB; Start 05/22/18 at 09:00 Miscellaneous Information 1 ea NOTE XX ; Start 05/22/18 at 01:00 Glucose (Glutose) 15 gm Q15M PRN PO DECREASED GLUCOSE; Start 05/22/18 at 01:00 Glucose (Glutose) 22.5 gm Q15M PRN PO DECREASED GLUCOSE; Start 05/22/18 at 01:00 Dextrose (D50w Syringe) 25 ml Q15M PRN IV DECREASED GLUCOSE; Start 05/22/18 at 01:00 Dextrose (D50w Syringe) 50 ml Q15M PRN IV DECREASED GLUCOSE; Start 05/22/18 at 01:00 Glucagon (Glucagen) 1 mg Q15M PRN IM DECREASED GLUCOSE; Start 05/22/18 at 01:00 Glucose (Glutose) 15 gm Q15M PRN BUCCAL DECREASED GLUCOSE; Start 05/22/18 at 01:00 HERNÁN DIANE May 22, 2018 15:24
--- NOTE | 2018-05-22 17:16 | CONS ---
Assessment/Plan Assessment/Plan Assessment/Plan (Daily) Assessment: Hyperbilirubinemia Transaminitis Elevated Alk Phos GB wall thickening r/o cholecystitis R/o Choledocholithiasis Parkinson's disease Hypertension DM type 2 Plan: CT of the abd with PO and IV contrast Patient has hardware MRI was cancelled Fractionated Alk Phos Direct Bili Hepatitis serology [employer] LFT's Further recommendations will depend on results of CT scan Patient seen in collaboration with Dr. Ramirez Consultation Date/Type/Reason Admit Date/Time May 21, 2018 at 22:16 Date of Consultation: May 22, 2018 Type of Consult GI Reason for Consultation Elevated Bilirubin Date/Time of Note DATE: 05/22/18 TIME: 16:55 Hx of Present Illness This is an 88-year-old Czech speaking female with a history of hypertension, DM type 2, GERD, Parkinson's disease who initially was transferred to [facility] from rehab for jaundice. At that time she was found to have abnormal LFTs with ultrasound showing GB wall thickening and adenomyomatosis, no gallstones or biliary duct dilatation . CBD 5mm. Left hepatic cyst noted. Alk Phos was 934, ALT 214, AST 331 and Bili 7.4. She denies abdominal pain, nausea, vomiting, diarrhea, constipation, hematemesis or fever. Patient has a hardware in the leg therefore MRI was cancelled. Will order CT of the abdomen, fractionated Alk phos and direct Bili, Continue monitoring LFT's. Gastrointestinal: no complaints (See HPI) Past Medical History Home Meds Active Scripts Metformin* (Glucophage*) 500 Mg Tab, 500 MG PO BID WITH MEALS for 30 Days, TAB Prov:LORRAINE GERBER 03/25/18 Insulin Aspart* (Novolog Insulin Pen*) 100 Unit/Ml Soln, 0 UNIT SC WITH MEALS BEDTIME for 30 Days Prov:LORRAINE GERBER 03/25/18 Amlodipine Besylate* (Amlodipine Besylate*) 10 Mg Tablet, 10 MG PO DAILY for 30 Days, TAB Prov:LORRAINE GERBER 03/25/18 Reported Medications Amlodipine Besylate* (Amlodipine Besylate*) 2.5 Mg Tablet, 5 MG PO DAILY, #30 TAB 05/21/18 Benazepril Hcl* (Benazepril Hcl*) 20 Mg Tablet, 20 MG PO DAILY, #30 TAB 05/21/18 Memantine* (Namenda* XR) 21 Mg Cap.spr.24, 21 MG PO DAILY, #30 TAB 05/21/18 Valsartan (Valsartan) 160 Mg Tablet, 160 MG PO DAILY, #30 TAB 05/21/18 Carbidopa-Levodopa* (Sinemet CR*) 50-200 Mg Tabsr, 1 TAB PO TID, TAB 05/21/18 Docusate Sodium* (Docusate Sodium*) 100 Mg Capsule, 100 MG PO TID for Constipation, #30 CAP 05/21/18 Clopidogrel Bisulfate (Clopidogrel) 75 Mg Tablet, 75 MG PO DAILY, #30 TAB 05/21/18 Alendronate Sodium* (Fosamax*) 70 Mg Tablet, 70 MG PO Q7D, #4 TAB 03/16/18 Losartan Potassium* (Losartan Potassium*) 100 Mg Tablet, 100 MG PO DAILY, TAB 03/16/18 Medications Current Medications Dextrose/Sodium Chloride 1,000 ml @ 70 mls/hr [id number] IV Last administered on 05/21/18at 23:50; Admin Dose 70 MLS/HR; Start 05/21/18 at 23:50 IV Flush (NS 3 ml) 3 ml PER PROTOCOL IV ; Start 05/22/18 at 00:00 Ondansetron HCl (Zofran Inj) 4 mg Q6H PRN IV NAUSEA/VOMITING; Start 05/22/18 at 00:00 Acetaminophen (Tylenol Tab) 650 mg Q6H PRN PO .PAIN 1-3 OR TEMP Last administered on 05/22/18at 05:37; Admin Dose 650 MG; Start 05/22/18 at 00:00 Acetaminophen/ Hydrocodone Bitart ([place] (5/325)) 1 tab Q6H PRN PO .PAIN 4-6; Start 05/22/18 at 00:00 Heparin Sodium (Porcine) (Heparin (5000 Units/1ml)) 5,000 unit Q12 SC Last administered on 05/22/18at 10:19; Admin Dose 5,000 UNIT; Start 05/22/18 at 09:00 Albuterol/ Ipratropium (Duoneb) 3 ml Q2H RESP THERAPY PRN HHN SHORTNESS OF BREATH; Start 05/22/18 at 00:00 Amlodipine Besylate (Norvasc) 10 mg DAILY PO Last administered on 05/22/18at 09:58; Admin Dose 10 MG; Start 05/22/18 at 09:00 Miscellaneous Information 21 mg DAILY PO ; Start 05/22/18 at 09:00; Status UNV Insulin Aspart (Novolog Insulin Pen) NOVOLOG *MILD* ALGORI... Q4 SC Last administered on 05/22/18at 13:52; Admin Dose 1 UNIT; Start 05/22/18 at 01:00 Carbidopa/Levodopa (Sinemet Cr (25/ 100)) 2 tab TID PO Last administered on 05/22/18at 12:33; Admin Dose 2 TAB; Start 05/22/18 at 09:00 Miscellaneous Information 1 ea NOTE XX ; Start 05/22/18 at 01:00 Glucose (Glutose) 15 gm Q15M PRN PO DECREASED GLUCOSE; Start 05/22/18 at 01:00 Glucose (Glutose) 22.5 gm Q15M PRN PO DECREASED GLUCOSE; Start 05/22/18 at 01:00 Dextrose (D50w Syringe) 25 ml Q15M PRN IV DECREASED GLUCOSE; Start 05/22/18 at 01:00 Dextrose (D50w Syringe) 50 ml Q15M PRN IV DECREASED GLUCOSE; Start 05/22/18 at 01:00 Glucagon (Glucagen) 1 mg Q15M PRN IM DECREASED GLUCOSE; Start 05/22/18 at 01:00 Glucose (Glutose) 15 gm Q15M PRN BUCCAL DECREASED GLUCOSE; Start 05/22/18 at 01:00 Allergies: Coded Allergies: No Known Allergy (Unverified , 03/16/18) Past Surgical History Past Surgical Hx: other Social History Alcohol Use: none Smoking Status: Never smoker Drug Use: none Exam/Review of Systems Exam Vitals Vital Signs Date Temp Pulse Resp B/P (MAP) Pulse Ox O2 O2 Flow FiO2 Time Delivery Rate 05/22/18 73 16:00 05/22/18 98.0 16 131/65 97 15:36 (87) 05/22/18 Nasal 11:24 Cannula Exam PHYSICAL EXAMINATION: GENERAL: Well developed, well nourished, alert & oriented x 3, in no acute distress SKIN: No lesions,Jaundice, no evidence of bleeding diathesis LYMPHATIC: No palpable lymphadenopathy. HEAD: Normocephalic, atraumatic, no tenderness. EYES: Pupils equal reactive to light and accommodation, full extraocular movements, sclera -icteric, no discharge. EARS/NOSE AND THROAT: Ears normal, nose normal, oropharynx normal, oral membran es well hydrated without lesions. NECK: Supple, no masses, thyroid normal, JVP within normal limits, carotids normal without bruits. CHEST: Inspection within normal limits. CARDIOVASCULAR: Heart: Regular rate and rhythm, no murmurs, gallops or rubs. Peripheral pulses present within normal limits, no cyanosis, clubbing or edemas. No pulsatile abdominal mass RESPIRATORY: Lungs clear to auscultation and percussion, no wheezing, no rubs GASTROINTESTINAL AND LIVER: Abdomen: Soft, non tenderness, non-distended, no hernias, no masses, no organomegaly, no ascites, no guarding, no rebound tenderness, normoactive bowel sounds. Rectal: Deferred. GENITOURINARY: Female genitalia within normal limits. EXTREMITIES: No cyanosis, clubbing or edema. Results Result Diagram: 05/22/18 0049 05/22/18 0049 Results 24hrs Laboratory Tests Test 05/22/18 00:49 05/22/18 02:11 05/22/18 05:29 05/22/18 09:51 White Blood Count 5.9 Red Blood Count 3.15 L Hemoglobin 10.2 L Hematocrit 28.9 L Mean Corpuscular Volume 91.7 Mean Corpuscular 32.4 Hemoglobin Mean Corpuscular 35.3 Hemoglobin Concent Red Cell Distribution 15.9 #H Width Platelet Count 145 # Mean Platelet Volume 11.5 H Immature Granulocytes % 0.500 H Neutrophils % 68.0 Lymphocytes % 21.2 Monocytes % 8.2 Eosinophils % 1.4 Basophils % 0.7 Nucleated Red Blood 0.0 Cells % Immature Granulocytes # 0.030 Neutrophils # 4.0 Lymphocytes # 1.2 Monocytes # 0.5 Eosinophils # 0.1 Basophils # 0.0 Nucleated Red Blood 0.0 Cells # Sodium Level 137 Potassium Level 3.2 L Chloride Level 103 Carbon Dioxide Level 25 Anion Gap 9 Blood Urea Nitrogen 14 Creatinine 0.53 Est Glomerular Filtrat Rate mL/min Glucose Level 129 Calcium Level 8.0 L Total Bilirubin 4.5 H Direct Bilirubin 3.60 H Indirect Bilirubin 0.9 Aspartate Amino 332 H Transf (AST/SGOT) Alanine 212 H Aminotransferase (ALT/SG PT) Alkaline Phosphatase 1059 H Total Protein 6.9 Albumin 2.9 L Globulin 4.00 H Albumin/Globulin Ratio 0.72 Bedside Glucose 131 147 145 Test 05/22/18 12:21 Bedside Glucose 151 Medications Medication Current Medications Dextrose/Sodium Chloride 1,000 ml @ 70 mls/hr [id number] IV Last administered on 05/21/18at 23:50; Admin Dose 70 MLS/HR; Start 05/21/18 at 23:50 IV Flush (NS 3 ml) 3 ml PER PROTOCOL IV ; Start 05/22/18 at 00:00 Ondansetron HCl (Zofran Inj) 4 mg Q6H PRN IV NAUSEA/VOMITING; Start 05/22/18 at 00:00 Acetaminophen (Tylenol Tab) 650 mg Q6H PRN PO .PAIN 1-3 OR TEMP Last administered on 05/22/18at 05:37; Admin Dose 650 MG; Start 05/22/18 at 00:00 Acetaminophen/ Hydrocodone Bitart ([place] (5/325)) 1 tab Q6H PRN PO .PAIN 4-6; Start 05/22/18 at 00:00 Heparin Sodium (Porcine) (Heparin (5000 Units/1ml)) 5,000 unit Q12 SC Last administered on 05/22/18at 10:19; Admin Dose 5,000 UNIT; Start 05/22/18 at 09:00 Albuterol/ Ipratropium (Duoneb) 3 ml Q2H RESP THERAPY PRN HHN SHORTNESS OF BREATH; Start 05/22/18 at 00:00 Amlodipine Besylate (Norvasc) 10 mg DAILY PO Last administered on 05/22/18at 09:58; Admin Dose 10 MG; Start 05/22/18 at 09:00 Miscellaneous Information 21 mg DAILY PO ; Start 05/22/18 at 09:00; Status UNV Insulin Aspart (Novolog Insulin Pen) NOVOLOG *MILD* ALGORI... Q4 SC Last administered on 05/22/18at 13:52; Admin Dose 1 UNIT; Start 05/22/18 at 01:00 Carbidopa/Levodopa (Sinemet Cr (25/ 100)) 2 tab TID PO Last administered on 05/22/18at 12:33; Admin Dose 2 TAB; Start 05/22/18 at 09:00 Miscellaneous Information 1 ea NOTE XX ; Start 05/22/18 at 01:00 Glucose (Glutose) 15 gm Q15M PRN PO DECREASED GLUCOSE; Start 05/22/18 at 01:00 Glucose (Glutose) 22.5 gm Q15M PRN PO DECREASED GLUCOSE; Start 05/22/18 at 01:00 Dextrose (D50w Syringe) 25 ml Q15M PRN IV DECREASED GLUCOSE; Start 05/22/18 at 01:00 Dextrose (D50w Syringe) 50 ml Q15M PRN IV DECREASED GLUCOSE; Start 05/22/18 at 01:00 Glucagon (Glucagen) 1 mg Q15M PRN IM DECREASED GLUCOSE; Start 05/22/18 at 01:00 Glucose (Glutose) 15 gm Q15M PRN BUCCAL DECREASED GLUCOSE; Start 05/22/18 at 01:00 JOSE MYLES NP May 22, 2018 17:10
[2018-05-22] MEDS ORDERED: IOHEXOL 14.3 MG(I)/ML (ADULT) BTL PO ONE (18:00)
[2018-05-22] MEDS ORDERED: SOD CHLORIDE 0.9% 100 ML ONE (18:21)
[2018-05-22] MEDS ORDERED: IODIXANOL LOCM 100 ML BTL ONE (18:21)
[2018-05-23] VITALS (12 sets, daily range): BP systolic 101–143; BP diastolic 54–66; PULSE 62–84; RESP 16–20
[2018-05-23] MEDS: INSULIN ASPART [NOVOLOG] 3 ML PEN SC SCH ×5 (01:00→17:27)
[2018-05-23] MEDS: CARBIDOPA/LEVODOPA 25-100 (CR) TAB PO SCH ×3 (08:16→21:28)
[2018-05-23] MEDS: AMLODIPINE 10 MG TAB PO SCH (08:17)
[2018-05-23] MEDS: HEPARIN 5,000 UNIT/1 ML VIAL SC SCH ×2 (08:54→21:29)
[2018-05-23] MEDS ORDERED: POTASSIUM CHLORIDE (SR) 20 MEQ TAB PO STA (08:58)
[2018-05-23] MEDS: POTASSIUM CHLORIDE 100 ML IVPB SCH ×2 (10:51→15:43)
--- NOTE | 2018-05-23 12:19 | PN ---
Date/Time of Note Date/Time of Note DATE: 05/23/18 TIME: 12:16 Assessment/Plan VTE Prophylaxis Risk score (from Ns)>0 risk: 6 SCD applied (from Ns): Yes Pharmacological prophylaxis: NA/contraindicated Pharm contraindication: surgical contra Lines/Catheters [facility] Peripheral IV Urinary Cath still in place: No Assessment/Plan Hospital Course 1. Cholelithiasis with questionable cholecystitis and choledocholithiasis -CT abdomen shows no evidence of cholecystitis or choledocholithiasis -GI consultation appreciated, surgery consultation obtained 2. Parkinson's disease with dementia: Continue home med 3. Hypertension: BP was in acceptable range. Continue home med 4. Type 2 diabetes: Insulin while in-house 5. History of CVA: Continue antiplatelet and statin 6. Normocytic anemia: Likely of chronic disease. Monitor closely Prophylaxis: SCDs DC planning: Patient has no clear evidence of choledocholithiasis or cholecystitis and is a high surgical risk due to comorbidities hence do not anticipate need for ERCP or cholecystectomy, will follow-up on official recommendations by GI and surgery, if no interventions indicated then anticipate DC home tomorrow Result Diagram: 05/22/18 0049 05/23/18 0548 Results 24hrs Laboratory Tests Test 05/22/18 12:21 05/22/18 17:46 05/22/18 21:00 05/23/18 01:42 Bedside Glucose 151 345 H 315 H 159 Test 05/23/18 05:37 05/23/18 05:48 05/23/18 08:19 05/23/18 12:07 Bedside Glucose 124 125 265 H Sodium Level 137 Potassium Level 2.9 *L Chloride Level 102 Carbon Dioxide Level 25 Anion Gap 10 Blood Urea Nitrogen 10 Creatinine 0.55 Est Glomerular Filtrat Rate mL/min Glucose Level 116 Calcium Level 8.3 L Total Bilirubin 4.1 H Direct Bilirubin 3.10 H Indirect Bilirubin 1.0 Aspartate Amino 254 H Transf (AST/SGOT) Alanine 26 Aminotransferase (ALT/SG PT) Alkaline Phosphatase 1043 H Total Protein 7.4 Albumin 3.2 L Globulin 4.20 H Albumin/Globulin Ratio 0.76 Hepatitis B Surface NEGATIVE Antigen Hepatitis C Antibody NEGATIVE Subjective 24 Hr Interval Summary Subjective hx not possible: pt non-verbal Exam/Review of Systems Exam Vitals Vital Signs Date Temp Pulse Resp B/P (MAP) Pulse Ox O2 O2 Flow FiO2 Time Delivery Rate 05/23/18 98.0 84 16 108/61 100 Room Air 11:17 (77) Intake and Output 05/22/18 05/22/18 05/23/18 1515:00 23:00 07:00 IntakeIntake Total 390 ml 375 ml 150 ml BalanceBalance 390 ml 375 ml 150 ml Constitutional: alert Respiratory: clear to auscultation Cardiovascular: regular rate and rhythm Gastrointestinal: soft; No distended Musculoskeletal: nl extremities to inspection Results Results 24hrs Laboratory Tests Test 05/22/18 12:21 05/22/18 17:46 05/22/18 21:00 05/23/18 01:42 Bedside Glucose 151 345 H 315 H 159 Test 05/23/18 05:37 05/23/18 05:48 05/23/18 08:19 05/23/18 12:07 Bedside Glucose 124 125 265 H Sodium Level 137 Potassium Level 2.9 *L Chloride Level 102 Carbon Dioxide Level 25 Anion Gap 10 Blood Urea Nitrogen 10 Creatinine 0.55 Est Glomerular Filtrat Rate mL/min Glucose Level 116 Calcium Level 8.3 L Total Bilirubin 4.1 H Direct Bilirubin 3.10 H Indirect Bilirubin 1.0 Aspartate Amino 254 H Transf (AST/SGOT) Alanine 26 Aminotransferase (ALT/SG PT) Alkaline Phosphatase 1043 H Total Protein 7.4 Albumin 3.2 L Globulin 4.20 H Albumin/Globulin Ratio 0.76 Hepatitis B Surface NEGATIVE Antigen Hepatitis C Antibody NEGATIVE Medications Medication Current Medications IV Flush (NS 3 ml) 3 ml PER PROTOCOL IV ; Start 05/22/18 at 00:00 Ondansetron HCl (Zofran Inj) 4 mg Q6H PRN IV NAUSEA/VOMITING; Start 05/22/18 at 00:00 Acetaminophen (Tylenol Tab) 650 mg Q6H PRN PO .PAIN 1-3 OR TEMP Last administered on 05/22/18at 05:37; Admin Dose 650 MG; Start 05/22/18 at 00:00 Acetaminophen/ Hydrocodone Bitart ([place] (5/325)) 1 tab Q6H PRN PO .PAIN 4-6; Start 05/22/18 at 00:00 Heparin Sodium (Porcine) (Heparin (5000 Units/1ml)) 5,000 unit Q12 SC Last administered on 05/23/18at 08:54; Admin Dose 5,000 UNIT; Start 05/22/18 at 09:00 Albuterol/ Ipratropium (Duoneb) 3 ml Q2H RESP THERAPY PRN HHN SHORTNESS OF BREATH; Start 05/22/18 at 00:00 Amlodipine Besylate (Norvasc) 10 mg DAILY PO Last administered on 05/23/18at 08:17; Admin Dose 10 MG; Start 05/22/18 at 09:00 Miscellaneous Information 21 mg DAILY PO ; Start 05/22/18 at 09:00; Status UNV Insulin Aspart (Novolog Insulin Pen) NOVOLOG *MILD* ALGORI... Q4 SC Last administered on 05/22/18at 21:05; Admin Dose 5 UNIT; Start 05/22/18 at 01:00 Carbidopa/Levodopa (Sinemet Cr (25/ 100)) 2 tab TID PO Last administered on 05/23/18at 08:16; Admin Dose 2 TAB; Start 05/22/18 at 09:00 Miscellaneous Information 1 ea NOTE XX ; Start 05/22/18 at 01:00 Glucose (Glutose) 15 gm Q15M PRN PO DECREASED GLUCOSE; Start 05/22/18 at 01:00 Glucose (Glutose) 22.5 gm Q15M PRN PO DECREASED GLUCOSE; Start 05/22/18 at 01:00 Dextrose (D50w Syringe) 25 ml Q15M PRN IV DECREASED GLUCOSE; Start 05/22/18 at 01:00 Dextrose (D50w Syringe) 50 ml Q15M PRN IV DECREASED GLUCOSE; Start 05/22/18 at 01:00 Glucagon (Glucagen) 1 mg Q15M PRN IM DECREASED GLUCOSE; Start 05/22/18 at 01:00 Glucose (Glutose) 15 gm Q15M PRN BUCCAL DECREASED GLUCOSE; Start 05/22/18 at 01:00 Potassium Chloride 100 ml @ 50 mls/hr Q2H IVPB Last administered on 05/23/18at 10:51; Admin Dose 50 MLS/HR; Start 05/23/18 at 09:00; Stop 05/23/18 at 12:59 HERNÁN DIANE May 23, 2018 12:18
--- NOTE | 2018-05-23 13:04 | PN ---
Date/Time of Note Date/Time of Note DATE: 05/23/18 TIME: 12:48 Assessment/Plan VTE Prophylaxis Risk score (from Ns)>0 risk: 6 SCD applied (from Ns): Yes Pharmacological prophylaxis: other (scds) Lines/Catheters IV Catheter Type (from [facility]): Peripheral IV Urinary Cath still in place: No Assessment/Plan Hospital Course Assessment: Imaging suggestive of cirrhosis 5 mm ill-defined indeterminate hypodense of the left lobe Transaminitis with Direct hyperbilirubinemia- trending down Elevated Alk Phos GB wall thickening r/o cholecystitis R/o Choledocholithiasis- neg on ct scan Parkinson's disease Hypertension DM type 2 Partial right middle lobe collapse Plan: Will order AFP Fractionated Alk Phos- pending Hep Bs/Hep C- neg A/i Panel- pending Monitor LFT's Further recommendations based on clinical course Patient seen in collaboration with Dr. Ramirez Subjective: Course reviewed with nursing staff Patient interviewed and examined All labs, imaging and other results reviewed The patient resting in bed, no acute distress I discussed lab results with family, LFTS slowly improving Imaging suggestive of cirrhosis, no CBD obstruction PHYSICAL EXAMINATION: GENERAL: Well developed, well nourished, alert & oriented x 3, in no acute distress SKIN: No lesions EYES: Pupils equal reactive to light, no discharge. EARS/NOSE AND THROAT: Ears normal, nose normal NECK: Supple, no masses CHEST: Inspection within normal limits. CARDIOVASCULAR: Heart: Regular rate and rhythm RESPIRATORY: Lungs clear to auscultation GASTROINTESTINAL AND LIVER: Abdomen: Soft, non tenderness, non-distended, no hernias, no masses, no organomegaly, no ascites, no guarding, no rebound tenderness, normoactive bowel sounds. Rectal: Deferred. Result Diagram: 05/22/18 0049 05/23/18 0548 Results 24hrs Laboratory Tests Test 05/22/18 17:46 05/22/18 21:00 05/23/18 01:42 05/23/18 05:37 Bedside Glucose 345 H 315 H 159 124 Test 05/23/18 05:48 05/23/18 08:19 05/23/18 12:07 Sodium Level 137 Potassium Level 2.9 *L Chloride Level 102 Carbon Dioxide Level 25 Anion Gap 10 Blood Urea Nitrogen 10 Creatinine 0.55 Est Glomerular Filtrat Rate mL/min Glucose Level 116 Calcium Level 8.3 L Total Bilirubin 4.1 H Direct Bilirubin 3.10 H Indirect Bilirubin 1.0 Aspartate Amino 254 H Transf (AST/SGOT) Alanine 26 Aminotransferase (ALT/SG PT) Alkaline Phosphatase 1043 H Total Protein 7.4 Albumin 3.2 L Globulin 4.20 H Albumin/Globulin Ratio 0.76 Hepatitis B Surface NEGATIVE Antigen Hepatitis C Antibody NEGATIVE Bedside Glucose 125 265 H Exam/Review of Systems Exam Vitals Vital Signs Date Temp Pulse Resp B/P (MAP) Pulse Ox O2 O2 Flow FiO2 Time Delivery Rate 05/23/18 76 12:00 05/23/18 98.0 16 108/61 100 Room Air 11:17 (77) Intake and Output 05/22/18 05/22/18 05/23/18 1515:00 23:00 07:00 IntakeIntake Total 390 ml 375 ml 150 ml BalanceBalance 390 ml 375 ml 150 ml Results Results 24hrs Laboratory Tests Test 05/22/18 17:46 05/22/18 21:00 05/23/18 01:42 05/23/18 05:37 Bedside Glucose 345 H 315 H 159 124 Test 05/23/18 05:48 05/23/18 08:19 05/23/18 12:07 Sodium Level 137 Potassium Level 2.9 *L Chloride Level 102 Carbon Dioxide Level 25 Anion Gap 10 Blood Urea Nitrogen 10 Creatinine 0.55 Est Glomerular Filtrat Rate mL/min Glucose Level 116 Calcium Level 8.3 L Total Bilirubin 4.1 H Direct Bilirubin 3.10 H Indirect Bilirubin 1.0 Aspartate Amino 254 H Transf (AST/SGOT) Alanine 26 Aminotransferase (ALT/SG PT) Alkaline Phosphatase 1043 H Total Protein 7.4 Albumin 3.2 L Globulin 4.20 H Albumin/Globulin Ratio 0.76 Hepatitis B Surface NEGATIVE Antigen Hepatitis C Antibody NEGATIVE Bedside Glucose 125 265 H Medications Medication Current Medications IV Flush (NS 3 ml) 3 ml PER PROTOCOL IV ; Start 05/22/18 at 00:00 Ondansetron HCl (Zofran Inj) 4 mg Q6H PRN IV NAUSEA/VOMITING; Start 05/22/18 at 00:00 Acetaminophen (Tylenol Tab) 650 mg Q6H PRN PO .PAIN 1-3 OR TEMP Last administered on 05/22/18at 05:37; Admin Dose 650 MG; Start 05/22/18 at 00:00 Acetaminophen/ Hydrocodone Bitart ([place] (5/325)) 1 tab Q6H PRN PO .PAIN 4-6; Start 05/22/18 at 00:00 Heparin Sodium (Porcine) (Heparin (5000 Units/1ml)) 5,000 unit Q12 SC Last administered on 05/23/18at 08:54; Admin Dose 5,000 UNIT; Start 05/22/18 at 09:00 Albuterol/ Ipratropium (Duoneb) 3 ml Q2H RESP THERAPY PRN HHN SHORTNESS OF BREATH; Start 05/22/18 at 00:00 Amlodipine Besylate (Norvasc) 10 mg DAILY PO Last administered on 05/23/18at 08:17; Admin Dose 10 MG; Start 05/22/18 at 09:00 Miscellaneous Information 21 mg DAILY PO ; Start 05/22/18 at 09:00; Status UNV Insulin Aspart (Novolog Insulin Pen) NOVOLOG *MILD* ALGORI... Q4 SC Last administered on 05/23/18at 12:11; Admin Dose 4 UNIT; Start 05/22/18 at 01:00 Carbidopa/Levodopa (Sinemet Cr (25/ 100)) 2 tab TID PO Last administered on 05/23/18at 12:36; Admin Dose 2 TAB; Start 05/22/18 at 09:00 Miscellaneous Information 1 ea NOTE XX ; Start 05/22/18 at 01:00 Glucose (Glutose) 15 gm Q15M PRN PO DECREASED GLUCOSE; Start 05/22/18 at 01:00 Glucose (Glutose) 22.5 gm Q15M PRN PO DECREASED GLUCOSE; Start 05/22/18 at 01:00 Dextrose (D50w Syringe) 25 ml Q15M PRN IV DECREASED GLUCOSE; Start 05/22/18 at 01:00 Dextrose (D50w Syringe) 50 ml Q15M PRN IV DECREASED GLUCOSE; Start 05/22/18 at 01:00 Glucagon (Glucagen) 1 mg Q15M PRN IM DECREASED GLUCOSE; Start 05/22/18 at 01:00 Glucose (Glutose) 15 gm Q15M PRN BUCCAL DECREASED GLUCOSE; Start 05/22/18 at 01:00 Potassium Chloride 100 ml @ 50 mls/hr Q2H IVPB Last administered on 05/23/18at 10:51; Admin Dose 50 MLS/HR; Start 05/23/18 at 09:00; Stop 05/23/18 at 12:59 SUNSHINE CRAMER May 23, 2018 12:59
--- NOTE | 2018-05-23 14:07 | CONS ---
Assessment/Plan Assessment/Plan Assessment/Plan (Daily) Painless jaundice without ductal dilatation. Solitary gallstone in a background of cirrhosis. Doubt cholecystitis or cholelithiasis Plan: Awaiting titers and bilirubin fractionation. Further recommendations will be forthcoming based on the patient's further workup and clinical course. I will follow with you. Consultation Date/Type/Reason Admit Date/Time May 21, 2018 at 22:16 Date of Consultation: May 23, 2018 Type of Consult General surgery Reason for Consultation Painless jaundice and a finding of gallstone Date/Time of Note DATE: 05/23/18 TIME: 14:00 Hx of Present Illness The patient is an 88-year-old female who was transferred here from [facility] for new finding of jaundice. This was not associated with abdominal pain, fevers or chills. MRCP could not be done reportedly because of hip hardware. A CT scan was performed and showed a solitary gallstone but also showed findings of cirrhosis. The patient remains afebrile and is tolerating a diet with no abdominal pain. She has been seen in GI consultation, and hepatitis titers and fractionated bilirubin have been ordered Constitutional: no complaints Eyes: other (Jaundice) ENT: no complaints Respiratory: no complaints Cardiovascular: no complaints Gastrointestinal: no complaints Genitourinary: no complaints Musculoskeletal: no complaints Skin: other (Jaundice) Neurologic: no complaints Endocrine: no complaints Past Medical History Medical History: no pertinent history Home Meds Active Scripts Metformin* (Glucophage*) 500 Mg Tab, 500 MG PO BID WITH MEALS for 30 Days, TAB Prov:LORRAINE GERBER 03/25/18 Insulin Aspart* (Novolog Insulin Pen*) 100 Unit/Ml Soln, 0 UNIT SC WITH MEALS BEDTIME for 30 Days Prov:LORRAINE GERBER 03/25/18 Amlodipine Besylate* (Amlodipine Besylate*) 10 Mg Tablet, 10 MG PO DAILY for 30 Days, TAB Prov:LORRAINE GERBER 03/25/18 Reported Medications Amlodipine Besylate* (Amlodipine Besylate*) 2.5 Mg Tablet, 5 MG PO DAILY, #30 TAB 05/21/18 Benazepril Hcl* (Benazepril Hcl*) 20 Mg Tablet, 20 MG PO DAILY, #30 TAB 05/21/18 Memantine* (Namenda* XR) 21 Mg Cap.spr.24, 21 MG PO DAILY, #30 TAB 05/21/18 Valsartan (Valsartan) 160 Mg Tablet, 160 MG PO DAILY, #30 TAB 05/21/18 Carbidopa-Levodopa* (Sinemet CR*) 50-200 Mg Tabsr, 1 TAB PO TID, TAB 05/21/18 Docusate Sodium* (Docusate Sodium*) 100 Mg Capsule, 100 MG PO TID for Constipation, #30 CAP 05/21/18 Clopidogrel Bisulfate (Clopidogrel) 75 Mg Tablet, 75 MG PO DAILY, #30 TAB 05/21/18 Alendronate Sodium* (Fosamax*) 70 Mg Tablet, 70 MG PO Q7D, #4 TAB 03/16/18 Losartan Potassium* (Losartan Potassium*) 100 Mg Tablet, 100 MG PO DAILY, TAB 03/16/18 Medications Current Medications IV Flush (NS 3 ml) 3 ml PER PROTOCOL IV ; Start 05/22/18 at 00:00 Ondansetron HCl (Zofran Inj) 4 mg Q6H PRN IV NAUSEA/VOMITING; Start 05/22/18 at 00:00 Acetaminophen (Tylenol Tab) 650 mg Q6H PRN PO .PAIN 1-3 OR TEMP Last administered on 05/22/18at 05:37; Admin Dose 650 MG; Start 05/22/18 at 00:00 Acetaminophen/ Hydrocodone Bitart ([place] (5/325)) 1 tab Q6H PRN PO .PAIN 4-6; Start 05/22/18 at 00:00 Heparin Sodium (Porcine) (Heparin (5000 Units/1ml)) 5,000 unit Q12 SC Last administered on 05/23/18at 08:54; Admin Dose 5,000 UNIT; Start 05/22/18 at 09:00 Albuterol/ Ipratropium (Duoneb) 3 ml Q2H RESP THERAPY PRN HHN SHORTNESS OF BREATH; Start 05/22/18 at 00:00 Amlodipine Besylate (Norvasc) 10 mg DAILY PO Last administered on 05/23/18at 08:17; Admin Dose 10 MG; Start 05/22/18 at 09:00 Miscellaneous Information 21 mg DAILY PO ; Start 05/22/18 at 09:00; Status UNV Insulin Aspart (Novolog Insulin Pen) NOVOLOG *MILD* ALGORI... Q4 SC Last administered on 05/23/18at 12:11; Admin Dose 4 UNIT; Start 05/22/18 at 01:00 Carbidopa/Levodopa (Sinemet Cr (25/ 100)) 2 tab TID PO Last administered on 05/23/18at 12:36; Admin Dose 2 TAB; Start 05/22/18 at 09:00 Miscellaneous Information 1 ea NOTE XX ; Start 05/22/18 at 01:00 Glucose (Glutose) 15 gm Q15M PRN PO DECREASED GLUCOSE; Start 05/22/18 at 01:00 Glucose (Glutose) 22.5 gm Q15M PRN PO DECREASED GLUCOSE; Start 05/22/18 at 01:00 Dextrose (D50w Syringe) 25 ml Q15M PRN IV DECREASED GLUCOSE; Start 05/22/18 at 01:00 Dextrose (D50w Syringe) 50 ml Q15M PRN IV DECREASED GLUCOSE; Start 05/22/18 at 01:00 Glucagon (Glucagen) 1 mg Q15M PRN IM DECREASED GLUCOSE; Start 05/22/18 at 01:00 Glucose (Glutose) 15 gm Q15M PRN BUCCAL DECREASED GLUCOSE; Start 05/22/18 at 01:00 Allergies: Coded Allergies: No Known Allergy (Unverified , 03/16/18) Past Surgical History Past Surgical Hx: other Family History Significant Family History: no pertinent family hx Social History Alcohol Use: none Smoking Status: Never smoker Drug Use: none Exam/Review of Systems Exam Vitals Vital Signs Date Temp Pulse Resp B/P (MAP) Pulse Ox O2 O2 Flow FiO2 Time Delivery Rate 05/23/18 76 12:00 05/23/18 98.0 16 108/61 100 Room Air 11:17 (77) Intake and Output 05/22/18 05/22/18 05/23/18 1515:00 23:00 07:00 IntakeIntake Total 390 ml 375 ml 150 ml BalanceBalance 390 ml 375 ml 150 ml Constitutional: alert, oriented Psych: no complaints Head: normocephalic Eyes: other (Scleral icterus) ENMT: nl external ears & nose Neck: supple Respiratory: clear to auscultation Cardiovascular: regular rate and rhythm Gastrointestinal: soft, non-tender Musculoskeletal: nl extremities to inspection Neurological: other (Speaks only Latvian) Skin: nl turgor, other (Icteric) Results Result Diagram: 05/22/18 0049 05/23/18 0548 Results 24hrs Laboratory Tests Test 05/22/18 17:46 05/22/18 21:00 05/23/18 01:42 05/23/18 05:37 Bedside Glucose 345 H 315 H 159 124 Test 05/23/18 05:48 05/23/18 08:19 05/23/18 12:07 Sodium Level 137 Potassium Level 2.9 *L Chloride Level 102 Carbon Dioxide Level 25 Anion Gap 10 Blood Urea Nitrogen 10 Creatinine 0.55 Est Glomerular Filtrat Rate mL/min Glucose Level 116 Calcium Level 8.3 L Total Bilirubin 4.1 H Direct Bilirubin 3.10 H Indirect Bilirubin 1.0 Aspartate Amino 254 H Transf (AST/SGOT) Alanine 26 Aminotransferase (ALT/SG PT) Alkaline Phosphatase 1043 H Total Protein 7.4 Albumin 3.2 L Globulin 4.20 H Albumin/Globulin Ratio 0.76 Hepatitis B Surface NEGATIVE Antigen Hepatitis C Antibody NEGATIVE Bedside Glucose 125 265 H Medications Medication Current Medications IV Flush (NS 3 ml) 3 ml PER PROTOCOL IV ; Start 05/22/18 at 00:00 Ondansetron HCl (Zofran Inj) 4 mg Q6H PRN IV NAUSEA/VOMITING; Start 05/22/18 at 00:00 Acetaminophen (Tylenol Tab) 650 mg Q6H PRN PO .PAIN 1-3 OR TEMP Last administered on 05/22/18at 05:37; Admin Dose 650 MG; Start 05/22/18 at 00:00 Acetaminophen/ Hydrocodone Bitart ([place] (5/325)) 1 tab Q6H PRN PO .PAIN 4-6; Start 05/22/18 at 00:00 Heparin Sodium (Porcine) (Heparin (5000 Units/1ml)) 5,000 unit Q12 SC Last administered on 05/23/18at 08:54; Admin Dose 5,000 UNIT; Start 05/22/18 at 09:00 Albuterol/ Ipratropium (Duoneb) 3 ml Q2H RESP THERAPY PRN HHN SHORTNESS OF BREATH; Start 05/22/18 at 00:00 Amlodipine Besylate (Norvasc) 10 mg DAILY PO Last administered on 05/23/18at 08:17; Admin Dose 10 MG; Start 05/22/18 at 09:00 Miscellaneous Information 21 mg DAILY PO ; Start 05/22/18 at 09:00; Status UNV Insulin Aspart (Novolog Insulin Pen) NOVOLOG *MILD* ALGORI... Q4 SC Last admin istered on 05/23/18at 12:11; Admin Dose 4 UNIT; Start 05/22/18 at 01:00 Carbidopa/Levodopa (Sinemet Cr (25/ 100)) 2 tab TID PO Last administered on 05/23/18at 12:36; Admin Dose 2 TAB; Start 05/22/18 at 09:00 Miscellaneous Information 1 ea NOTE XX ; Start 05/22/18 at 01:00 Glucose (Glutose) 15 gm Q15M PRN PO DECREASED GLUCOSE; Start 05/22/18 at 01:00 Glucose (Glutose) 22.5 gm Q15M PRN PO DECREASED GLUCOSE; Start 05/22/18 at 01:00 Dextrose (D50w Syringe) 25 ml Q15M PRN IV DECREASED GLUCOSE; Start 05/22/18 at 01:00 Dextrose (D50w Syringe) 50 ml Q15M PRN IV DECREASED GLUCOSE; Start 05/22/18 at 01:00 Glucagon (Glucagen) 1 mg Q15M PRN IM DECREASED GLUCOSE; Start 05/22/18 at 01:00 Glucose (Glutose) 15 gm Q15M PRN BUCCAL DECREASED GLUCOSE; Start 05/22/18 at 01:00 SHAMEKA SAUNDERS MD May 23, 2018 14:07
[2018-05-23] MEDS: MEMANTINE 10 MG TAB PO SCH (15:43)
[2018-05-23] MEDS ORDERED: INSULIN ASPART [NOVOLOG] 3 ML PEN SC SCH (20:00)
[2018-05-23] MEDS ORDERED: INSULIN GLARGINE [LANTus] (100 UNITS/ML) SYG SC SCH (20:00)
[2018-05-23] MEDS: Insulin NOVOLOG SS MILD Algorithm (SS with meals and bedtime) SC SCH (21:52)
[2018-05-23] MEDS ORDERED: INSULIN ASPART [NOVOLOG] 3 ML PEN SC ONE (22:00)
[2018-05-24] VITALS (9 sets, daily range): BP systolic 111–115; BP diastolic 56–58; PULSE 66–77; RESP 17–19
[2018-05-24] MEDS ORDERED: ACCU-CHEK XX SCH (02:00)
[2018-05-24] MEDS: Insulin NOVOLOG SS MILD Algorithm (SS with meals and bedtime) SC SCH ×3 (07:25→16:42)
[2018-05-24] MEDS: CARBIDOPA/LEVODOPA 25-100 (CR) TAB PO SCH ×2 (08:39→12:14)
[2018-05-24] MEDS: AMLODIPINE 10 MG TAB PO SCH (08:40)
[2018-05-24] MEDS: HEPARIN 5,000 UNIT/1 ML VIAL SC SCH (08:58)
--- NOTE | 2018-05-24 10:23 | QN ---
Documentation Comment Patient is clinically stable. Appears less icteric Full p.o. tolerance. Abdominal examination is benign Awaiting GI follow-up evaluation SHAMEKA SAUNDERS MD May 24, 2018 10:23
[2018-05-24] MEDS: MEMANTINE 10 MG TAB PO SCH (12:10)
[2018-05-24] MEDS ORDERED: MUPI1OIN5 NASAL (14:34)
--- NOTE | 2018-05-24 18:32 | DS ---
Date/Time of Note Date/Time of Note DATE: 05/24/18 TIME: 18:29 Discharge Summary Admission/Discharge Info Admit Date/Time May 21, 2018 at 22:16 Discharge Date/Time May 24, 2018 at 17:32 Discharge Diagnosis 1. Cholelithiasis with questionable cholecystitis and choledocholithiasis -Patient with no clinical evidence of pain or discomfort -CT abdomen shows no evidence of cholecystitis or choledocholithiasis -GI and surgery consultations appreciated, no indication for procedures or surgery 2. Parkinson's disease with dementia: Continue home med -DC back to halfway 3. Hypertension: BP was in acceptable range. Continue home regimen 4. Type 2 diabetes: Continue home regimen 5. History of CVA: Continue antiplatelet and statin 6. 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 Patient was seen by GI and surgery, CT abdomen showed no evidence of cholecystitis or choledocholithiasis patient had no evidence of discomfort or pain. Patient did not require any interventions per GI or surgery and patient was stable for DC back to halfway. On day of discharge patient's vitals, labs and physical exam are stable. Home Meds Active Scripts Mupirocin Calcium* (Bactroban* Nasal) 2% -1 Gram Oint...g., 1 APPLIC NASAL BID for 10 Days, TUB Prov:HERNÁN DIANE 05/24/18 Metformin* (Glucophage*) 500 Mg Tab, 500 MG PO BID WITH MEALS for 30 Days, TAB Prov:LORRAINE GERBER 03/25/18 Insulin Aspart* (Novolog Insulin Pen*) 100 Unit/Ml Soln, 0 UNIT SC WITH MEALS BEDTIME for 30 Days Prov:LORRAINE GERBER 03/25/18 Amlodipine Besylate* (Amlodipine Besylate*) 10 Mg Tablet, 10 MG PO DAILY for 30 Days, TAB Prov:LORRAINE GERBER 03/25/18 Reported Medications Amlodipine Besylate* (Amlodipine Besylate*) 2.5 Mg Tablet, 5 MG PO DAILY, #30 TAB 05/21/18 Benazepril Hcl* (Benazepril Hcl*) 20 Mg Tablet, 20 MG PO DAILY, #30 TAB 05/21/18 Memantine* (Namenda* XR) 21 Mg Cap.spr.24, 21 MG PO DAILY, #30 TAB 05/21/18 Valsartan (Valsartan) 160 Mg Tablet, 160 MG PO DAILY, #30 TAB 05/21/18 Carbidopa-Levodopa* (Sinemet CR*) 50-200 Mg Tabsr, 1 TAB PO TID, TAB 05/21/18 Docusate Sodium* (Docusate Sodium*) 100 Mg Capsule, 100 MG PO TID for Constipation, #30 CAP 05/21/18 Clopidogrel Bisulfate (Clopidogrel) 75 Mg Tablet, 75 MG PO DAILY, #30 TAB 05/21/18 Alendronate Sodium* (Fosamax*) 70 Mg Tablet, 70 MG PO Q7D, #4 TAB 03/16/18 Losartan Potassium* (Losartan Potassium*) 100 Mg Tablet, 100 MG PO DAILY, TAB 03/16/18 Follow-up Plan Follow-up with physicians at the half-way facility Primary Care Provider Not On Staff Doctor Time spent on discharge: > 30 minutes HERNÁN DIANE May 24, 2018 18:32
== END 2018-05-24 17:32 | DRG 445 ==
LOC: TEL 22:16
PROVIDERS: ADMIT Internal Medicine; ATTEND Internal Medicine
DX: K80.60 Calculus of gallbladder and bile duct with cholecystitis, unspecified, without obstruction (principal); J98.19 Other pulmonary collapse; R17 Unspecified jaundice; D63.8 Anemia in other chronic diseases classified elsewhere; E11.9 Type 2 diabetes mellitus without complications; E87.6 Hypokalemia; G20 Parkinson's disease; F02.80 Dementia in other diseases classified elsewhere, unspecified severity, without behavioral disturbance, psychotic disturbance, mood disturbance, and anxiety; I10 Essential (primary) hypertension; K21.9 Gastro-esophageal reflux disease without esophagitis; K74.60 Unspecified cirrhosis of liver; R74.0 Nonspecific elevation of levels of transaminase and lactic acid dehydrogenase [LDH]; E80.6 Other disorders of bilirubin metabolism; Z22.322 Carrier or suspected carrier of Methicillin resistant Staphylococcus aureus; Z86.73 Personal history of transient ischemic attack (TIA), and cerebral infarction without residual deficits; Z79.02 Long term (current) use of antithrombotics/antiplatelets; Z79.4 Long term (current) use of insulin; Z79.83 Long term (current) use of bisphosphonates
CPT/HCPCS: 74177; 80053; 82105; 82247; 82248; 82947; 82962; 83789; 85025; 85610; 86038; 86255; 86709; 86803; 87081; 87340; 97161; J1644; J1815; J3480; J7042; Q9967

== ENCOUNTER 2018-07-04 11:07 | Emergency (ER) | payer MEDICARE, BC ==
[~2018-07-04] VITALS: Ht 160 cm; Wt 56.8 kg
[~2018-07-04 11:07] MED LIST changes: +AMLO2.5T78 PO; +BENA20TA4 PO; +CLOP75TA27 PO; +DOCU-159 PO; +MEMA21CA PO; +MUPI1OIN5 NASAL; +SIN50200 PO; +VALS160T27 PO
[2018-07-04 11:19] VITALS: Ht 160 cm; Wt 56.8 kg
--- NOTE | 2018-07-04 11:46 | ERD ---
ER Documentation Chief Complaint Chief Complaint bilat dvt lower extremities HPI 88-year-old female referred to the emergency department from her care facility for evaluation of DVTs. Patient had an outpatient ultrasound performed 2 days ago demonstrating bilateral lower extremity DVTs. Patient is bedbound and nonambulatory. With this, she has had no obvious chest pain, shortness of breath or hemodynamic changes. The primary care doctor apparently spoke with the family and recommended evaluation in the emergency department. Upon further conversation with the family, patient is comfort care measures only and the family is comfortable doing outpatient therapy for her DVTs. The patient is nonverbal and provides no history. She appears in no distress. ROS All systems reviewed and are negative except as per history of present illness. Medications Home Meds Active Scripts Mupirocin Calcium* (Bactroban* Nasal) 2% -1 Gram Oint...g., 1 APPLIC NASAL BID for 10 Days, TUB Prov:HERNÁN DIANE 05/24/18 Metformin* (Glucophage*) 500 Mg Tab, 500 MG PO BID WITH MEALS for 30 Days, TAB Prov:LORRAINE GERBER 03/25/18 Insulin Aspart* (Novolog Insulin Pen*) 100 Unit/Ml Soln, 0 UNIT SC WITH MEALS BEDTIME for 30 Days Prov:LORRAINE GERBER 03/25/18 Amlodipine Besylate* (Amlodipine Besylate*) 10 Mg Tablet, 10 MG PO DAILY for 30 Days, TAB Prov:LORRAINE GERBER 03/25/18 Reported Medications Amlodipine Besylate* (Amlodipine Besylate*) 2.5 Mg Tablet, 5 MG PO DAILY, #30 TA B 05/21/18 Benazepril Hcl* (Benazepril Hcl*) 20 Mg Tablet, 20 MG PO DAILY, #30 TAB 05/21/18 Memantine* (Namenda* XR) 21 Mg Cap.spr.24, 21 MG PO DAILY, #30 TAB 05/21/18 Valsartan (Valsartan) 160 Mg Tablet, 160 MG PO DAILY, #30 TAB 05/21/18 Carbidopa-Levodopa* (Sinemet CR*) 50-200 Mg Tabsr, 1 TAB PO TID, TAB 05/21/18 Docusate Sodium* (Docusate Sodium*) 100 Mg Capsule, 100 MG PO TID for Constipation, #30 CAP 05/21/18 Clopidogrel Bisulfate (Clopidogrel) 75 Mg Tablet, 75 MG PO DAILY, #30 TAB 05/21/18 Alendronate Sodium* (Fosamax*) 70 Mg Tablet, 70 MG PO Q7D, #4 TAB 03/16/18 Losartan Potassium* (Losartan Potassium*) 100 Mg Tablet, 100 MG PO DAILY, TAB 03/16/18 Allergies Allergies: Coded Allergies: No Known Allergy (Unverified , 03/16/18) PMhx/Soc Medical and Surgical Hx: pt denies Surgical Hx History of Surgery: No Anesthesia Reaction: No Hx Neurological Disorder: Yes (Parkinson's) Hx Respiratory Disorders: Yes (PNA) Hx Cardiac Disorders: Yes (HTN, anemia) Hx Psychiatric Problems: No Hx Miscellaneous Medical Probl: Yes (Parkinson's disease,HTN,DMII,CVA,hip surgery) Hx Alcohol Use: No Hx Substance Use: No Hx Tobacco Use: No Smoking Status: Never smoker Physical Exam Vitals Vital Signs Date Temp Pulse Resp B/P (MAP) Pulse Ox O2 O2 Flow FiO2 Time Delivery Rate 07/04/18 98.0 66 22 158/74 98 11:19 (102) 07/04/18 97.7 67 18 180/78 98 11:10 (112) Physical Exam General: Frail, bed bound, ill appearing HEENT: Mucous membranes dry, sclera nonicteric Neck: No inflammatory changes. No JVD Cardiovascular: Regular rate and rhythm, no murmurs rubs or gallops. Lungs: Transmission of upper airway sounds. Abdomen: Soft, nontender to palpation : Diaper in place and incontinent. Extremities: No significant edema cyanosis or clubbing Neurologic: Baseline organic brain syndrome noted. Gag reflex week. Motor strength diminished in all 4 extremities but otherwise nonfocal. Skin: Skin breakdown noted per nursing note. Procedures/MDM Patient was taken to a room, seen and examined Medical decision makin-year-old bedbound female presents the emergency department with DVTs found on ultrasound. She is hemodynamically stable with a normal pulse ox and no clinical evidence of clinically remarkable pulmonary embolism. As per review of records and as per my conversations with her family, patient is comfort care measures only. Patient will be provided with Lovenox injection but otherwise appears to be stable for ongoing comfort measures with her primary care doctor in the care facility. Departure Diagnosis: Primary Impression: DVT (deep venous thrombosis) Condition: EBONY Terrazas Jul 04, 2018 11:46
[2018-07-04] MEDS ORDERED: ENOX60DI13 SC (11:47)
[2018-07-04] MEDS ORDERED: ENOXAPARIN 100 MG/ML SYG SC SCH (12:00)
[2018-07-04 12:39] VITALS: BP 150/75; PULSE 68; RESP 20
== END 2018-07-04 12:44 | disposition home or self-care (01) ==
LOC: E/R 11:07
DX: I82.403 Acute embolism and thrombosis of unspecified deep veins of lower extremity, bilateral (principal); G20 Parkinson's disease; I10 Essential (primary) hypertension; E11.9 Type 2 diabetes mellitus without complications; Z79.01 Long term (current) use of anticoagulants; Z79.4 Long term (current) use of insulin; Z86.73 Personal history of transient ischemic attack (TIA), and cerebral infarction without residual deficits
CPT/HCPCS: 96372; J1650